=== PATIENT | male | born 1965 | race Caucasian/White ===

== ENCOUNTER 2017-10-07 21:36 | Emergency (ER) | payer MEDICAID, SELFPAY ==
--- NOTE | 2017-10-07 21:36 | DT_ITS ---
This patient was seen during an EMR downtime September 30, 2017 - October 07, 2017. This patient may have a combination of paper and electronic documentation or all paper documentation. All documentation is viewable within the e-chart portion of [employer] for each patient visit.
[2017-10-07 21:38] VITALS: BP 139/72; PULSE 118; RESP 34; TEMP 36; O2SAT 100; BMI 38.8
[2017-10-07 21:43] VITALS: O2SAT 100
--- NOTE | 2017-10-07 21:48 | EKG12_ITS ---
Test Reason : SEPSIS Blood Pressure : / mmHG Vent. Rate : 107 BPM Atrial Rate : 107 BPM P-R Int : 126 ms QRS Dur : 082 ms QT Int : 320 ms P-R-T Axes : 043 046 052 degrees QTc Int : 427 ms Sinus tachycardia Otherwise normal ECG Confirmed by MULUGETA PEDRO, ZURDO ([id number]), photograph editor PATRICIO CARRIZALES ([id number]) on 10/09/2017 5:16:41 PM Referred By: DR CONTRERAS Confirmed By:ZURDO DALAL MD
--- NOTE | 2017-10-07 21:50 | RAD_ITS ---
STUDY: X-RAY CHEST REASON FOR EXAM: Male, 52 years old. Hypoxia TECHNIQUE: Single AP portable view of the chest. COMPARISON: None. FINDINGS: The lungs are expanded. Left lower lung opacity. There is no demonstrated pleural abnormality. Normal size heart. Normal mediastinum and nayla. Normal visualized pulmonary arteries. Normal visualized aortic arch and descending thoracic aorta. Normal visualized thoracic spine. Normal visualized ribs, clavicles, and shoulders. There is no demonstrated abnormality of the visualized soft tissue structures of the upper abdomen. RAD/Chest 1 View (Portable) IMPRESSION: Left lower lung infiltrate. Electronically Signed: oCn Casas DO at 22:23 EDT , Service support ,
[2017-10-07 21:51] VITALS: PULSE 115; RESP 32; O2SAT 100
--- NOTE | 2017-10-07 21:51 | ED.RN ---
NO OLD EKG'S IN MUSE
[2017-10-07] MEDS: LORazepam 2 MG/ML Syringe 1 MG IV (21:57)
[2017-10-07] MEDS: 0.9% Normal Saline 1,000 ML 150 ML IV (22:00)
[2017-10-07] MEDS: Ondansetron 4 MG/2 ML Vial IV ×2 (22:00→23:53)
[2017-10-07] MEDS: Morphine 4 MG/ML Syringe IV (22:01)
[2017-10-07 22:08] VITALS: PULSE 114; RESP 20; TEMP 36.4; O2SAT 100
[2017-10-07 22:10] LABS: Base Excess -12 mmol/L (-2 to +2); Bicarbonate 14.9 mmol/L (22-26); Blood Gas Specimen Type ART; FI02 60; IPAP 9; PO2 20 mmHG (75-100); SITE R Brachial; SO2 25 % (95-99); Total Carbon Dioxide 16 mmol/L; pCO2 33.9 mmHg (35-45); pH 7.25 (7.35-7.45)
[2017-10-07 22:18] LABS: International Normalized Ratio 1.3; Prothrombin Time (Protime)PT. 16.6 SECONDS (11.7-14.9)
[2017-10-07 22:19] LABS: Partial Thromboplast Time 30.7 Seconds (24.1-36.2)
[2017-10-07 22:22] LABS: ALB/GLOB Ratio 0.7 RATIO (0.9-2.4); AST(SGOT) 9 U/L (15-37); Alanine Aminotransfer ALT/SGPT 17 U/L (16-61); Albumin, Serum 2.7 g/dL (3.2-5.0); Alkaline Phosphatase 49 U/L (45-117); Anion Gap 16 (5-15); BUN 33 mg/dL (7-18); BUN/Creat Ratio 12.8 RATIO (10-20); Calcium,Total 7.6 mg/dL (8.5-10.1); Chloride 111 mmol/L (98-107); Creatinine, Serum 2.57 mg/dL (0.70-1.30); EST Glomerular Filtration Rate 28 mL/min (>60); Est Glom Filt Rate - Afr Amer 34 mL/min (>60); Globulin 3.8 g/dL (2.2-4.2); Glucose 203 mg/dL (74-106); Lipase 100 U/L (73-393); Potassium 4.8 mmol/L (3.5-5.1); Protein, Total 6.5 g/dL (6.4-8.2); Sodium Level 144 mmol/L (136-145)
[2017-10-07 22:27] LABS: Absolute Lymphocyte Count 1.26 X10^3/ul (0.83-4.51); Absolute Neutrophil Count 2.5 X10^3/uL (2.0-7.7); Hematocrit 15.6 % (40-54); Lymphocyte # 1.26 X10^3/ul (4.0); Lymphocyte % 30.6 % (19-41); Mean Corp Hgb Conc 32.7 g/gl (32-36); Mean Corpuscular Hgb 36.7 pg (27.0-32.0); Mean Corpuscular Volume 112.2 fL (80-94); Mean Platelet Vol. 11.4 fl (6.2-12.0); Monocyte# 0.37 X10^3/uL; Neutrophil # 2.48 X10^3/uL (2.7-7.7); Neutrophil % 60.2 % (47-70); Platelet Count 100 K/mm3 (150-450); RBC Distribution Width CV 17.9 % (11.6-14.6); RBC Distribution Width SD 71.9 fl (35.1-43.9); Red Blood Count 1.39 M/mm3 (4.6-6.2); White Blood Count 4.1 K/mm3 (4.4-11.0)
[2017-10-07 22:28] LABS: Differential Indicated SCAN CRITERIA MET; Hemoglobin 5.1 g/dl (13.0-16.5); POSITIVE COUNT YES; POSITIVE DIFFERENTIAL NO; POSITIVE MORPHOLOGY YES
[2017-10-07 22:30] VITALS: BP 105/53; PULSE 110; RESP 24; O2SAT 100
--- NOTE | 2017-10-07 22:31 | US_ITS ---
STUDY: VENOUS DOPPLER ULTRASOUND - LEFT LOWER EXTREMITY REASON FOR EXAM: Male, 52 years old. Left leg swelling. Examination was limited secondary to multiple overlying lines. TECHNIQUE: Ultrasound evaluation of the deep vein system to include chapman-scale imaging and compression was performed. Chapman-scale imaging and Doppler sonographic evaluation, including duplex spectral analysis and qualitative color flow sonography, was performed. COMPARISON: None. FINDINGS: Common Femoral Vein: Normal compression, spontaneity and augmentation. Normal color Doppler. Common Femoral Vein/Greater Saphenous Junction: Normal compression. Femoral Proximal: Normal compression. Femoral Middle: Normal compression, spontaneity and augmentation. Normal color Doppler. Femoral Distal: Normal compression. Popliteal Vein: Normal compression, spontaneity and augmentation. Normal color Doppler. Posterior Tibial Vein: Normal compression. Within the popliteal fossa there is a 3.0 x 2.6 x 1.6 centimeter fluid collection. US/Venous Duplex Imag/Limited/Uni IMPRESSION: No DVT identified. Popliteal cyst. Electronically Signed: Rachel Fuller MD at 23:21 EDT Tel , Service support ,
[2017-10-07 22:32] LABS: Lactic Acid 8.4 mmol/L (0.4-2.0)
--- NOTE | 2017-10-07 22:38 | ED.RN ---
LAB CALLS WITH CRITICAL RESULT, LACTIC ACID 8.4, DR. CONTRERAS MADE AWARE.
--- NOTE | 2017-10-07 22:40 | RAD_ITS ---
STUDY: X-RAY - LEFT TIBIA AND FIBULA REASON FOR EXAM: Male, 52 years old. Leg ulcer, infection TECHNIQUE: 3 view(s) of the tibia and fibula were obtained. COMPARISON: None. FINDINGS: Normal visualized tibia. Normal visualized fibula. No fracture or cortical destruction. Posterior soft tissue changes consistent with large leg ulcer with subcutaneous emphysema. Vascular calcifications. RAD/Tibia & Fibula 2 Views IMPRESSION: No fracture. No radiographic evidence of osteomyelitis Large posterior lower leg ulcer. Electronically Signed: Con Casas DO at 23:06 EDT , Service support ,
[2017-10-07 22:49] LABS: Hemoglobin 4.9 g/dl (13.0-16.5)
[2017-10-07 22:50] LABS: Differential Comment SCANNED
--- NOTE | 2017-10-07 22:50 | ED.RN ---
LAB CALLS WITH CRITICAL RESULT, REPEAT HEMOGLOBIN 4.9, DR. CONTRERAS MADE AWARE.
[2017-10-07] MEDS: 0.9% Normal Saline 1,000 ML 999 ML IV (22:59)
[2017-10-07 23:01] VITALS: BP 95/53; PULSE 109; RESP 25; O2SAT 100
--- NOTE | 2017-10-07 23:09 | CT_ITS ---
STUDY: CT ABDOMEN AND PELVIS WITH CONTRAST REASON FOR EXAM: Male, 52 years old. Hypoxia. RADIATION DOSAGE (If Supplied By Facility): CTDIvol = ( 23.39 ) mGy, DLP = ( 1126.41 ) mGycm TECHNIQUE: Transaxial images were obtained from the dome of the diaphragm to the symphysis pubis without oral contrast. 100 ml of Isovue 300 contrast was administered. Sagittal and coronal images were reconstructed. Individualized dose optimization techniques were used for this CT. COMPARISON: Chest October 07, 2017. FINDINGS: The visualized lung bases are unremarkable. Small pericardial effusion. Normal liver. There are multiple small gallstones. Large heterogeneous mass left upper quadrant measuring 14.3 x 10.5 x 12.4 cm suggestive of a large splenic hematoma axial image 27 series 3 and coronal image 75. Normal pancreas. Normal bilateral adrenal glands. Bilateral renal simple cysts the largest inferior pole right kidney measuring 2.0 cm.. Moderate abdominal and pelvic ascites consisting of simple fluid. The stomach is displaced medially by the large splenic mass. Normal small intestine. Normal colon. The appendix is visualized and appears normal. Normal abdominal aorta. Normal inferior vena cava. Mildly enlarged retroperitoneal lymph nodes approximately the level of the superior mesenteric artery measuring from 1.3 to 1.9 cm coronal images 60 and 69. No intra-abdominal free air. Normal urinary bladder. Prostate gland not enlarged. Normal abdominal wall. No rib fracture. CT/Abdomen/Pelvis W IV Cont ONLY IMPRESSION: Splenic hematoma secondary to a ruptured spleen. No rib fracture identified. Moderate abdominal and pelvic ascites which may be secondary to chronic liver disease, although the liver appears normal, among other etiologies. No evidence of acute hemorrhage within the ascites. No extravasation of intravenous contrast. Mild retroperitoneal lymphadenopathy. Small pericardial effusion. Cholelithiasis. Bilateral simple renal cysts. Electronically Signed: Obi Goodrich MD at 2:15 EDT , Service support ,
--- NOTE | 2017-10-07 23:09 | CT_ITS ---
STUDY: CTA CHEST REASON FOR EXAM: Male, 52 years old. Hypoxia, abdominal pain. RADIATION DOSAGE (If Supplied By Facility): CTDIvol = ( 15.90 ) mGy, DLP = ( 754.75 ) mGycm TECHNIQUE: The examination was performed with the intravenous administration of 100 ml of Isovue 370 contrast material. Post-processing of the angiographic images was performed, with multiplanar reformation and 3D reconstruction. Individualized dose optimization techniques were used for this CT. COMPARISON: Chest x-ray October 07, 2017. FINDINGS: Normal enhancement of the main pulmonary artery and right and left pulmonary arteries. Normal enhancement of the bilateral peripheral pulmonary arteries. There is no demonstrated pulmonary embolism. Normal thoracic aorta and visualized great vessels. There is no demonstrated aortic dissection. The heart is not enlarged. Small pericardial effusion. Normal mediastinum. Normal hilar regions. Normal visualized trachea and bronchi. The lungs are well expanded. Normal pulmonary parenchyma. Normal pleura. Normal chest wall structures. Multilevel degenerative changes of the mid and lower thoracic spine with flowing anterior osteophytes. No rib fractures identified. Ruptured spleen described on report of the CT abdomen and pelvis from October 08, 2017. Stomach is displaced medially by the enlarged spleen. Ascites adjacent to the liver. CT/CTA Chest W/WO Contrast IMPRESSION: No acute findings in the chest. No pulmonary embolus or thoracic aortic dissection. Small pericardial effusion. Splenic hematoma secondary to a ruptured spleen. Upper abdominal ascites. Electronically Signed: Obi Goodrich MD at 2:45 EDT , Service support ,
--- NOTE | 2017-10-07 23:30 | ED.VISSUMM ---
- ER Visit Summary Date of Service: 10/07/17 Chief Complaint: Weakness and leg pain History of Present Illness: The patient is a 52 M who does not go to the doctor. Patient's states that he came home from work today earlier than expected complaining that his left leg was hurting him. He has had chronic wounds to the left leg since he had a varicose vein removed. She tells me that he has refused to see anybody for. No reported fevers. After arriving home he told his he had to have a bowel movement that he went to bed. He was feeling poorly in the bed got up to have another bowel movement but collapsed along the way. EMS notes hypoxia and hypotension he received almost a liter of fluids in route from the residence. Patient presents with tachypnea tachycardia hypotension abdominal pain and left leg pain. He takes no medications. Physical Examination: 139/72 heart rate of 118 respirations are 34 pulse ox is in the 80s on room air 100% on BiPAP temperature 96.8 orally Gen: Well-nourished well-developed Head: Normocephalic atraumatic Eyes: Perrl EOMI ENT: TMs clear no rhinorrhea moist mucous membranes Neck: Supple no lymphadenopathy no JVD nontender CVS: Regular tachycardic rate rhythm no murmurs normal S1-S2 Respiratory: Patient is tachypneic clear to auscultation bilaterally chest nontender Abdomen: Soft tender to palpation over the left side of his abdomen nondistended normal bowel sounds no masses Back: Nontender Extremity: There is chronic wounds to the left leg. The wound edges are white and yellow. The wounds are eroded down to what appears to be fascia. I do not see exposed bone. The left leg is swollen compared to the right. Skin: Patient has a dusky skin color. Neuro: alert orientated ?3 CN II-XII intact normal strength sensation Test Results: EKG shows a sinus tachycardia at 107. White count of 4.1 with a hemoglobin of 5.1. Platelets are 100. CO2 of 17 anion gap 16 BUN of 33 and a creatinine of 2.57. INR 1.3 with PTT of 30.7. Troponin 0 0.056. Lactic acid 8.4. Chest x-ray shows a possible infiltrate in the lower lung charles. Blood cultures were obtained. Duplex ultrasound of the left leg was negative for DVT. Emergency Department Course and Treatment: Patient received IV fluids and he was typed and crossed for 1 unit of blood. Only 1 unit was typed and crossed initially as it was unclear if he would be transferred her stay in what timeframe. Patient's blood pressure continued to run with a mean right around 65. His heart rate has come down and his breathing has improved with fluids and pain control. Given the profound anemia and hypotension and his pain in his abdomen and the reported hypoxemia I felt the effect of CT angiography and of the chest evaluation of the abdomen pelvis with contrast outweighed the risk. CTA of chest and CT abdomen pelvis with IV contrast was obtained. Impression: [] This note was generated with [email or web address] software. It may contain incorrect words, spelling, and punctuation that were not noted in review of the chart prior to signing <Cale Ontiveros - Last Filed: 10/08/17 01:33> - ER Visit Summary Date of Service: 10/08/17 Chief Complaint: Headedness, weakness not feeling well History of Present Illness: The patient is a 52 M who presents because of weakness. There is no history of trauma whatsoever per patient or . Physical Examination: Patient is hypotensive. He is pale appearing. His sensorium is slightly depressed. Test Results: Hemoglobin 5.1, anion gap acidosis with a lactate of 8.4. Coags normal. Elevated creatinine which is a new abnormality. Emergency Department Course and Treatment: I was notified by radiologist at 0210 that patient has ascites as well as a ruptured spleen. Second IV was established. Treatment Plan: Patient to receive 2 units of trauma blood. He has received 1 unit of typed blood. Patient and requested [facility] for transfer. Disposition: Transfer to [facility] send her for embolization versus splenectomy. Case was discussed with Dr. Hernandez who is the accepting physician at [facility]. Impression: 1. Hemorrhagic shock secondary to ruptured spleen 2. Anemia, hemoglobin 5.1 3. Lactic acidosis, 8.4 4. Acute renal failure, creatinine 2.57 5. Ascites suspect secondary to liver disease 6. Critical care time 31 minutes 7. Sinus tachycardia documented on monitor 8. Hypotension secondary to hemorrhagic shock This note was generated with [email or web address] software. It may contain incorrect words, spelling, and punctuation that were not noted in review of the chart prior to signing <Matthew Carson - Last Filed: 10/08/17 02:27> ED Disposition <Cale Ontiveros - Last Filed: 10/08/17 01:33> <Matthew Carson - Last Filed: 10/08/17 02:27> - Plan for ED Patient: Chief Complaint: Shortness of Breath Referrals: Care Physician,No Primary [Primary Care Provider] -
--- NOTE | 2017-10-07 23:34 | ED.DCSUM_ITS ---
- ER Visit Summary Date of Service: 10/07/17 Chief Complaint: Weakness and leg pain History of Present Illness: The patient is a 52 M who does not go to the doctor. Patient's states that he came home from work today earlier than expected complaining that his left leg was hurting him. He has had chronic wounds to the left leg since he had a varicose vein removed. She tells me that he has refused to see anybody for. No reported fevers. After arriving home he told his he had to have a bowel movement that he went to bed. He was feeling poorly in the bed got up to have another bowel movement but collapsed along the way. EMS notes hypoxia and hypotension he received almost a liter of fluids in route from the residence. Patient presents with tachypnea tachycardia hypotension abdominal pain and left leg pain. He takes no medications. Physical Examination: 139/72 heart rate of 118 respirations are 34 pulse ox is in the 80s on room air 100% on BiPAP temperature 96.8 orally Gen: Well-nourished well-developed Head: Normocephalic atraumatic Eyes: Perrl EOMI ENT: TMs clear no rhinorrhea moist mucous membranes Neck: Supple no lymphadenopathy no JVD nontender CVS: Regular tachycardic rate rhythm no murmurs normal S1-S2 Respiratory: Patient is tachypneic clear to auscultation bilaterally chest nontender Abdomen: Soft tender to palpation over the left side of his abdomen nondistended normal bowel sounds no masses Back: Nontender Extremity: There is chronic wounds to the left leg. The wound edges are white and yellow. The wounds are eroded down to what appears to be fascia. I do not see exposed bone. The left leg is swollen compared to the right. Skin: Patient has a dusky skin color. Neuro: alert orientated ?3 CN II-XII intact normal strength sensation Test Results: EKG shows a sinus tachycardia at 107. White count of 4.1 with a hemoglobin of 5.1. Platelets are 100. CO2 of 17 anion gap 16 BUN of 33 and a creatinine of 2.57. INR 1.3 with PTT of 30.7. Troponin 0 0.056. Lactic acid 8.4. Chest x-ray shows a possible infiltrate in the lower lung charles. Blood cultures were obtained. Duplex ultrasound of the left leg was negative for DVT. Emergency Department Course and Treatment: Patient received IV fluids and he was typed and crossed for 1 unit of blood. Only 1 unit was typed and crossed initially as it was unclear if he would be transferred her stay in what timeframe. Patient's blood pressure continued to run with a mean right around 65. His heart rate has come down and his breathing has improved with fluids and pain control. Given the profound anemia and hypotension and his pain in his abdomen and the reported hypoxemia I felt the effect of CT angiography and of the chest evaluation of the abdomen pelvis with contrast outweighed the risk. CTA of chest and CT abdomen pelvis with IV contrast was obtained. Impression: [] This note was generated with [email or web address] software. It may contain incorrect words, spelling, and punctuation that were not noted in review of the chart prior to signing <Cale Ontiveros - Last Filed: 10/08/17 01:33> - ER Visit Summary Date of Service: 10/08/17 Chief Complaint: Headedness, weakness not feeling well History of Present Illness: The patient is a 52 M who presents because of weakness. There is no history of trauma whatsoever per patient or . Physical Examination: Patient is hypotensive. He is pale appearing. His sensorium is slightly depressed. Test Results: Hemoglobin 5.1, anion gap acidosis with a lactate of 8.4. Coags normal. Elevated creatinine which is a new abnormality. Emergency Department Course and Treatment: I was notified by radiologist at 0210 that patient has ascites as well as a ruptured spleen. Second IV was established. Treatment Plan: Patient to receive 2 units of trauma blood. He has received 1 unit of typed blood. Patient and requested [facility] for transfer. Disposition: Transfer to [place] send her for embolization versus splenectomy. Case was discussed with Dr. Hernandez who is the accepting physician at [facility]. Impression: 1. Hemorrhagic shock secondary to ruptured spleen 2. Anemia, hemoglobin 5.1 3. Lactic acidosis, 8.4 4. Acute renal failure, creatinine 2.57 5. Ascites suspect secondary to liver disease 6. Critical care time 31 minutes 7. Sinus tachycardia documented on monitor 8. Hypotension secondary to hemorrhagic shock This note was generated with [email or web address] software. It may contain incorrect words, spelling, and punctuation that were not noted in review of the chart prior to signing <Matthew Carson - Last Filed: 10/08/17 02:27> ED Disposition <Cale Ontiveros - Last Filed: 10/08/17 01:33> <Matthew Carson - Last Filed: 10/08/17 02:27> - Plan for ED Patient: Chief Complaint: Shortness of Breath Referrals: Care Physician,No Primary [Primary Care Provider] -
[2017-10-08] VITALS (11 sets, daily range): BP systolic 80–118; BP diastolic 49–79; PULSE 87–111; RESP 15–24; TEMP 36.3–36.8; O2SAT 97–100
[2017-10-08] MEDS: 0.9% Normal Saline 1,000 ML 999 ML IV (00:04)
[2017-10-08 01:00] LABS: Bacteria 0 SEEN /hpf (None Seen); Mucous, Urine 0 SEEN /hpf (<or=2+)
[2017-10-08] MEDS: Ondansetron 4 MG/2 ML Vial IV (01:02)
[2017-10-08 01:04] LABS: Color, Urine Yellow (Yellow); Glucose, Dipstick Normal (Normal); Ketone-Dipstick Negative (Negative); Leukocyte Esterase-Dipstick 25 /ul (Negative); Nitrite-Dipstick Negative (Negative); Occult Blood-Urine 25 /ul (Negative); Protein-Dipstick 30 mg/dl (Negative); Urine Clarity Sl. Cloudy (Clear); Urine Urobilinogen Normal (Normal)
[2017-10-08 01:08] LABS: Urine Bilirubin Dipstick 1 mg/dL (Negative)
[2017-10-08 01:10] LABS: Red Blood Cells-Urine 0-5 SEEN /hpf (0-5); Squamous Epithelial Cells - UA 0-5 SEEN /hpf (0-5); White Blood Cells 0-5 SEEN /hpf (0-5)
[2017-10-08 01:52] LABS: Reflex Lactate? Y
[2017-10-08] MEDS: fentaNYL 100 MCG/2 ML Ampul 50 MCG IV (02:40)
[2017-10-08 02:41] LABS: Blood Gas Specimen Type VEN; O2 Delivery Device Nasal Can; SITE R Brachial; Time Given 230; VBG BASE EXCESS -8 mmol/L (-1.0-3.5); VBG Bicarbonate 19 mmol/L (22-26); VBG Oxygen Content 20 mmol/L (23-33); VBG PO2 21 mmHg (25-40); VBG SO2 27 % (50-70); VBG pCO2 41.9 mmHg (41-51); VBG pH 7.26 (7.32-7.42)
[2017-10-08 02:53] LABS: Lactic Acid 3.7 mmol/L (0.4-2.0)
--- NOTE | 2017-10-08 03:09 | ED.RN ---
2 UNITS OF TRAUMA BLOOD ADMINISTERED. [id number] GIVEN AT 0225, PT AND BLOOD VERIFIED WITH 2 RNS. 0250 WAS STOP TIME FOR [id number]. [id number] STARTED AT 2030, PT AND BLOOD VERIFIED WITH 2 RNS. PT LEFT WITH TRANSPORT WITH THIS UNIT HANGING.
--- NOTE | 2017-10-08 03:28 | ED.RN ---
THIS UNIT [id number] WILL BE CONTINUED UPON TRANSPORT.
[2017-10-09 11:38] LABS: Pathologist Review Reviewed
== END 2017-10-08 02:55 | disposition short-term general hospital (02) ==
LOC: ED 22:01
PROVIDERS: Emergency Provider Emergency Medicine
DX: T79.4XXA Traumatic shock, initial encounter (principal); S36.09XA Other injury of spleen, initial encounter; X58.XXXA Exposure to other specified factors, initial encounter; Y93.9 Activity, unspecified; Y92.89 Other specified places as the place of occurrence of the external cause; Y99.9 Unspecified external cause status; D64.9 Anemia, unspecified; E87.2 Acidosis; N17.9 Acute kidney failure, unspecified; R18.8 Other ascites; R00.0 Tachycardia, unspecified
CPT/HCPCS: 36430; 36600; 71045; 71275; 73590; 74177; 80053; 81001; 82803; 83605; 83690; 84484; 85014; 85018; 85025; 85610; 85730; 86850; 86900; 86920; 86922; 87040; 93005; 93971; 94660; 96361; 96374; 96375; 96376; 99285; J7030; J7040; P9016; P9612; Q9967; A4216; J2405

== ENCOUNTER 2017-11-21 09:07 | Outpatient (RCR) | payer MEDICAID, SELFPAY ==
[2017-11-21 09:45] VITALS: BP 133/71; PULSE 75; RESP 16; TEMP 36.6; BMI 31.6
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
[2017-11-21 14:07] LABS: Prealbumin 25.1 mg/dL (20.0-40.0)
== END 2017-11-26 23:59 ==
LOC: WC 09:07
PROVIDERS: PCP Family Medicine; Visit Provider Internal Medicine
DX: L97.822 Non-pressure chronic ulcer of other part of left lower leg with fat layer exposed (principal); C91.40 Hairy cell leukemia not having achieved remission; F17.200 Nicotine dependence, unspecified, uncomplicated
CPT/HCPCS: 11042; 11045; 84134; 87070; 87075; 87076; 87077; 87186; 87205; 99213; G0463

== ENCOUNTER 2017-12-26 08:30 | Outpatient (RCR) | payer MEDICAID, SELFPAY ==
[2017-11-27 01:33] VITALS: BP 133/71; PULSE 75; RESP 16; TEMP 36.6
[2017-11-28 08:22] VITALS: BP 124/79; PULSE 89; RESP 16; TEMP 36.9
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
[2017-12-05 08:55] VITALS: BP 133/76; PULSE 85; RESP 16; TEMP 36.3
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
[2017-12-12 08:57] VITALS: BP 124/74; PULSE 85; RESP 16; TEMP 36.6
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
[2017-12-19 09:04] VITALS: BP 137/83; PULSE 80; RESP 18; TEMP 36.1
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
[2017-12-26 08:41] VITALS: BP 133/79; PULSE 70; RESP 20; TEMP 36.4
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
== END 2017-12-27 23:59 ==
LOC: WC 08:30
PROVIDERS: PCP Family Medicine; Visit Provider Internal Medicine
DX: L97.822 Non-pressure chronic ulcer of other part of left lower leg with fat layer exposed (principal); C91.40 Hairy cell leukemia not having achieved remission; R60.0 Localized edema
CPT/HCPCS: 11042; 11045

== ENCOUNTER 2018-01-23 10:30 | Outpatient (RCR) | payer MEDICAID, SELFPAY ==
[2017-12-28 01:34] VITALS: BP 133/79; PULSE 70; RESP 20; TEMP 36.4
[2018-01-02 10:07] VITALS: BP 124/73; PULSE 86; RESP 18; TEMP 36.3
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
[2018-01-09 08:21] VITALS: BP 122/80; PULSE 84; RESP 16; TEMP 36.6
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
[2018-01-16 09:07] VITALS: BP 137/73; PULSE 73; RESP 18; TEMP 36.2
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
[2018-01-23 11:14] VITALS: BP 133/75; PULSE 78; RESP 18; TEMP 36.6
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
== END 2018-01-26 23:59 ==
LOC: WC 10:30
PROVIDERS: PCP Family Medicine; Visit Provider Internal Medicine
DX: L97.822 Non-pressure chronic ulcer of other part of left lower leg with fat layer exposed (principal); C91.40 Hairy cell leukemia not having achieved remission; L30.9 Dermatitis, unspecified
CPT/HCPCS: 11042; 11045

== ENCOUNTER 2018-02-20 08:00 | Outpatient (RCR) | payer MEDICAID, SELFPAY ==
[2018-01-27 01:11] VITALS: BP 133/75; PULSE 78; RESP 18; TEMP 36.6
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
[2018-02-03 13:17] VITALS: BP 148/71; PULSE 90; RESP 16; TEMP 36.9
[2018-02-06 08:45] VITALS: BP 130/78; PULSE 73; RESP 16; TEMP 36.4
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
[2018-02-12 11:06] VITALS: BP 124/80; PULSE 86; RESP 16; TEMP 36.7
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
[2018-02-20 08:13] VITALS: BP 129/81; PULSE 84; RESP 16; TEMP 37
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
== END 2018-02-26 23:59 ==
LOC: WC 08:00
PROVIDERS: PCP Family Medicine; Referring Provider Internal Medicine; Visit Provider Internal Medicine
DX: L97.822 Non-pressure chronic ulcer of other part of left lower leg with fat layer exposed (principal); C91.40 Hairy cell leukemia not having achieved remission; R60.0 Localized edema
CPT/HCPCS: 11042; 11045; 15271; 15273; 15274; 29581; 87070; 87075; 87077; 87186; 87205; 99211; Q4172; G0463

== ENCOUNTER 2018-08-21 08:30 | Outpatient (RCR) | payer MEDICAID, SELFPAY ==
[2018-07-31 17:37] VITALS: BMI 34.5
[2018-08-07 08:36] VITALS: BP 120/81; PULSE 81; RESP 20; TEMP 36.6; BMI 34.5
--- NOTE | 2018-08-07 16:21 | PCM.WC.HP ---
(1) Chronic ulcer of left lower extremity with fat layer exposed Status: Chronic Current Visit: Yes Code(s): L97.922 - Non-pressure chronic ulcer of unspecified part of left lower leg with fat layer exposed (2) Nonhealing ulcer of left lower leg with fat layer exposed Status: Chronic Current Visit: Yes Code(s): L97.922 - Non-pressure chronic ulcer of unspecified part of left lower leg with fat layer exposed History of Present Illness Chief Complaint: Chronic Non healing Left lower extremity ulcer. History of Wound: Mr. Condon is a 53yr well known to me. Last seen here in January 2018 at which time he has been managed for a chronic (15 years) nonhealing left lower extremity ulcer. He had achieved significant improvement over his couple of visits here however he started a new job, became more ambulatory and progressively started noting worsening prior to his last visit. He subsequently was lost to follow-up due to inability to take time off of his new job. Since his last visit here, he has noted worsening of previously healed ulcerations and lower extremity swelling and pain. He is also noted copious drainage from the ulcer. Pain is said to be severe enough to keep him up at night. He denies chills, fever or otherwise feeling of unwell. Past Medical History Past Medical History: Chronic Problems (Last Reviewed 07/31/18 @ 17:36 by Catia Mtz) Chronic ulcer of left lower extremity with fat layer exposed (Chronic) Nonhealing ulcer of left lower leg with fat layer exposed (Chronic) Hairy cell leukemia (Chronic) Ruptured spleen (Chronic) Allergies/Adverse Reactions: Allergies adhesive tape Adverse Reaction (Verified 07/31/18 17:34) Rash Home Medications: Ambulatory Orders Medication Instructions Recorded aspirin 81 mg tablet,delayed 81 mg PO QDAY 11/20/17 release acetaminophen 325 mg capsule 325 mg PO Q6H PRN 07/31/18 naproxen sodium 220 mg capsule 220 mg PO BID PRN 07/31/18 oxycodone-acetaminophen 7.5 mg-325 1 tab PO TID PRN #30 tab 07/31/18 mg tablet Smoking Status: Current every day smoker Review of Systems Constitutional: Denies: Anorexia, Chills, Fever Eyes: Denies: Blurred vision, Pain, Redness HEENT: Denies: Difficulty Hearing, Difficulty Swallowing Cardiovascular: Denies: Chest Pain, Chest Tightness Respiratory: Denies: Cough, Hemoptysis Gastrointestinal: Denies: Abdominal Pain, Hematemesis, Vomiting Genitourinary: Denies: Hematuria Skin: Denies: Jaundice - Physical Exam Vital Signs Temp Pulse Resp BP 97.8 F 81 20 H 120/81 H 08/07/18 08:36 08/07/18 08:36 08/07/18 08:36 08/07/18 08:36 General: Alert, Oriented x3, No apparent distress HEENT: Atraumatic, Normocephalic Oral: Moist Mucosa Neck: Supple, No JVD Lungs: Normal air movement Cardiovascular: Regular rate, Regular Rhythm Abdomen: Soft, Non Tender, Obese Extremities: No cyanosis, Edema Skin: Ulcer/ Wound Wound Measurements and Assessment WC - Nurse 1 - General Ulcer Measurement Start: 08/07/18 08:34 Freq: Status: Active Protocol: Activity Type Activity Date Activity User E-Sign Co-Sign Detail Recorded Client Recorded Date Recorded By Document 08/07/18 08:36 SD [id number] 08/07/18 08:47 SD 08/07/18 08:36 Wound Center Nurse 1 [Ulcer Assessment] #3 LLE Circumfrential -Current Size (cm) - Length 21 -Current Size (cm) - Width 30.8 -Current Size (cm) - Depth 0.8 -Total Square Cm 646.8 -Date of Last Picture (Recall this 08/07/18 field) -Photo Taken Yes -Tunneling No -Undermining/Tunneling No -Circular Undermining No -Exudate Amt Medium -Exudate Type Serosanguineous -Wound Margin Flat & Intact -Granulation Amt Medium (34-66%) -Granulation Quality Pale [place] -Necrosis Amt Medium (34-66%) -Necrotic Tissue Type Adherent Slough -Texture (Reba-wound Skin Appearance) Assessed -Moisture (Reba-wound Skin Appearance Assessed ) Maceration -Color (Reba-wound Skin Appearance) Assessed Erythema -Temperature (Reba-wound Skin No Abnormality Appearance) (Pt Warm) -Tenderness on Palpation (Reba-wound No Skin Appearance) -Ulcer Cleansing Wound Cleanser -Foul Odor after Cleansing No -Anesthetic Used 4% Lidocaine Solution 5% Lidocaine Gel [Edema Assessment] -Right Calf (cm) 44 -Right Ankle (cm) 24 -Left Calf (cm) 43 -Left Ankle (cm) 27.2 WC - Nurse 2 - General Ulcer CM Notes Start: 08/07/18 08:34 Freq: Status: Active Protocol: Activity Type Activity Date Activity User E-Sign Co-Sign Detail Recorded Client Recorded Date Recorded By Document 08/07/18 08:58 MW [id number] 08/07/18 09:22 MW 08/07/18 08:58 Wound Center Nurse 2 [Procedure/Treatment] #3 LLE Circumfrential -Time 08:59 -Correct Patient Yes -Correct Side, Site, Position Yes -Correct Procedure Yes -Procedure Performed Yes -Type of Procedure Debridement -Clinical Debridement Subcutaneous -Post Debridement Size (cm) - Length 22.0 -Post Debridement Size (cm) - Width 25.0 -Post Debridement Size (cm) - Depth 0.6 -Total Square Cm 550.00 -Wound/Ulcer Outcome Not Healed -Ulcer Cleansing Rinsed/ Irrigated with Saline -Foul Odor after Cleansing No -Bioengineered Tissue No -Bleeding Controlled with Pressure -Offloading No -Treatment Response Procedure Tolerated Well [See Physician Procedure note for Specifics] Pain Scale: 0-10 Numeric [Pain] -Is Patient Pain Free? No [Location] LLE ULCER -Description Sharp Throbbing -Intensity 5 Query Text:If >3, intervention needed -Duration (hours) Chronic -Pain Behavior Moaning Guarding Withdrawal from Touch -Pain Aggravating Factors Standing Debridement -Alleviating Factors/Interventions Medication -Effectiveness of Alleviating Factor/ Moderately Intervention effective Musculoskeletal: No Muscle Wasting Neurological: Cranial nerves II-XII grossly intact Psych/Mental Status: Normal Affect Debridement Note Post-Debridement Measurements/Treatment WC - Nurse 2 - General Ulcer CM Notes Start: 08/07/18 08:34 Freq: Status: Active Protocol: Activity Type Activity Date Activity User E-Sign Co-Sign Detail Recorded Client Recorded Date Recorded By Document 08/07/18 08:58 MW [id number] 08/07/18 09:22 MW 08/07/18 08:58 Wound Center Nurse 2 #3 LLE Circumfrential -Time 08:59 -Correct Patient Yes -Correct Side, Site, Position Yes -Correct Procedure Yes -Procedure Performed Yes -Type of Procedure Debridement -Clinical Debridement Subcutaneous -Post Debridement Size (cm) - Length 22.0 -Post Debridement Size (cm) - Width 25.0 -Post Debridement Size (cm) - Depth 0.6 -Total Square Cm 550.00 -Wound/Ulcer Outcome Not Healed -Ulcer Cleansing Rinsed/ Irrigated with Saline -Foul Odor after Cleansing No -Bioengineered Tissue No -Bleeding Controlled with Pressure -Offloading No -Treatment Response Procedure Tolerated Well Pain Scale: 0-10 Numeric Is Patient Pain Free? No LLE ULCER -Description Sharp Throbbing -Intensity 5 Query Text:If >3, intervention needed -Duration (hours) Chronic -Pain Behavior Moaning Guarding Withdrawal from Touch -Pain Aggravating Factors Standing Debridement -Alleviating Factors/Interventions Medication -Effectiveness of Alleviating Factor/ Moderately Intervention effective Wound debrided: Left lower extremity cluster Wound Grade/Stage: Stage III Type of Debridement: Excisional debridement Anesthesia Used: 4% Lidocaine Solution, 5% Lidocaine Gel Depth: Down to and including healthy tissue, in the subcutaneous layer Percentage of wound debrided: 100 Instrument Used: 7mm curette Tissue Removed: Slough and devitalized tissue Severity: Fat Layer Exposed Amount of bleeding with debridement: Mild Bleeding Controlled with: Pressure Patient tolerated procedure well Assessment/Plan Active Problems (Last Reviewed 07/31/18 @ 17:36 by Catia Mtz) Chronic ulcer of left lower extremity with fat layer exposed (Chronic) Nonhealing ulcer of left lower leg with fat layer exposed (Chronic) Assessment: Chronic non healing left lower extremity ulcer ( 15 years ) Plan: Now returns with significant worsening of his left lower extremity ulcer. Large slough burden. Debridement done as documented above. Procedure was well-tolerated. Required significant numbing and oral analgesics prior to coming in. Cultures taken. Fibracol with Adaptic over top. Change daily. Double layer Tubigrip and Hang wrap for edema management. As much as possible, he was advised to elevate his lower extremity. Avoid vital standing. Exercise and weight loss also recommended. Increased protein intake. All the questions were answered and they were advised to call with any further questions or concerns. Follow-up in 1 week. This note was generated with [employer] software. It may contain incorrect words, spelling, and punctuation that were not noted in checking the note before signing.
[2018-08-14 09:10] VITALS: BP 128/82; PULSE 78; RESP 18; TEMP 36.6; BMI 34.5
--- NOTE | 2018-08-14 10:59 | PCM.WC.PN ---
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 History of Wound: Mr. Condon is a 53yr well known to me. Last seen here in January 2018 at which time he has been managed for a chronic (15 years) nonhealing left lower extremity ulcer. He had achieved significant improvement over his couple of visits here however he started a new job, became more ambulatory and progressively started noting worsening prior to his last visit. He subsequently was lost to follow-up due to inability to take time off of his new job. Since his last visit here, he has noted worsening of previously healed ulcerations and lower extremity swelling and pain. He is also noted copious drainage from the ulcer. Pain is said to be severe enough to keep him up at night. He denies chills, fever or otherwise feeling of unwell. Progress of Wound: No new concerns at this time. - Physical Exam Vital Signs Temp Pulse Resp BP 97.8 F 78 18 128/82 H 08/14/18 09:10 08/14/18 09:10 08/14/18 09:10 08/14/18 09:10 General: Alert, Oriented x3, Cooperative, No apparent distress HEENT: Atraumatic, Normocephalic Oral: Moist Mucosa Neck: Supple Lungs: Normal air movement Extremities: No cyanosis, Edema Skin: Ulcer/ Wound Wound Measurements and Assessment WC - Nurse 1 - General Ulcer Measurement Start: 08/07/18 08:34 Freq: Status: Active Protocol: Activity Type Activity Date Activity User E-Sign Co-Sign Detail Recorded Client Recorded Date Recorded By Document 08/14/18 09:10 [facility] [id number] 08/14/18 09:21 [facility] 08/14/18 09:10 Wound Center Nurse 1 [Ulcer Assessment] #3 LLE Circumfrential -Combined with other wound No -Current Size (cm) - Length 22.5 -Current Size (cm) - Width 29 -Current Size (cm) - Depth 0.4 -Total Square Cm 652.5 -Photo Taken No -Epithelialization None Present -Tunneling No -Undermining/Tunneling No -Circular Undermining No -Classification - Thickness Full Thickness with Exposed Support Structure -Exudate Amt Medium -Exudate Type Serosanguineous -Wound Margin Thickened -Granulation Amt Small (1-33%) -Granulation Quality Pale Red -Slough/Fibrin Yes -Necrosis Amt Medium (34-66%) -Necrotic Tissue Type Adherent Slough -Texture (Reba-wound Skin Appearance) Assessed Scarring -Moisture (Reba-wound Skin Appearance Assessed ) Dry/Scaly -Color (Reba-wound Skin Appearance) Assessed -Temperature (Reba-wound Skin No Abnormality Appearance) (Pt Warm) -Tenderness on Palpation (Reba-wound Yes Skin Appearance) -Ulcer Cleansing Wound Cleanser -Foul Odor after Cleansing No -Anesthetic Used 4% Lidocaine Solution 5% Lidocaine Gel [Edema Assessment] -Lower Limb Edema Present Yes -Left Calf (cm) 44.4 -Left Ankle (cm) 29.4 WC - Nurse 2 - General Ulcer CM Notes Start: 08/07/18 08:34 Freq: Status: Active Protocol: Activity Type Activity Date Activity User E-Sign Co-Sign Detail Recorded Client Recorded Date Recorded By Document 08/14/18 10:05 MW [id number] 08/14/18 10:17 MW 08/14/18 10:05 Wound Center Nurse 2 [Procedure/Treatment] #3 LLE Circumfrential -Time 10:06 -Correct Patient Yes -Correct Side, Site, Position Yes -Correct Procedure Yes -Procedure Performed Yes -Type of Procedure Debridement -Clinical Debridement Subcutaneous -Post Debridement Size (cm) - Length 23.0 -Post Debridement Size (cm) - Width 26.0 -Post Debridement Size (cm) - Depth 0.5 -Total Square Cm 598.00 -Wound/Ulcer Outcome Not Healed -Ulcer Cleansing Rinsed/ Irrigated with Saline -Foul Odor after Cleansing No -Bioengineered Tissue No -Bleeding Controlled with Pressure -Offloading No -Treatment Response Procedure Tolerated Well [See Physician Procedure note for Specifics] Pain Scale: 0-10 Numeric [Pain] -Is Patient Pain Free? Yes Musculoskeletal: No Muscle Wasting Neurological: Cranial nerves II-XII grossly intact Psych/Mental Status: Normal Affect Debridement Note Post-Debridement Measurements/Treatment WC - Nurse 2 - General Ulcer CM Notes Start: 08/07/18 08:34 Freq: Status: Active Protocol: Activity Type Activity Date Activity User E-Sign Co-Sign Detail Recorded Client Recorded Date Recorded By Document 08/07/18 08:58 MW [id number] 08/07/18 09:22 MW Document 08/14/18 10:05 MW [id number] 08/14/18 10:17 MW 08/07/18 08/14/18 08:58 10:05 Wound Center Nurse 2 #3 LLE Circumfrential -Time 08:59 10:06 -Correct Patient Yes Yes -Correct Side, Site, Position Yes Yes -Correct Procedure Yes Yes -Procedure Performed Yes Yes -Type of Procedure Debridement Debridement -Clinical Debridement Subcutaneous Subcutaneous -Post Debridement Size (cm) - Length 22.0 23.0 -Post Debridement Size (cm) - Width 25.0 26.0 -Post Debridement Size (cm) - Depth 0.6 0.5 -Total Square Cm 550.00 598.00 -Wound/Ulcer Outcome Not Healed Not Healed -Ulcer Cleansing Rinsed/ Rinsed/ Irrigated with Irrigated with Saline Saline -Foul Odor after Cleansing No No -Bioengineered Tissue No No -Bleeding Controlled with Pressure Pressure -Offloading No No -Treatment Response Procedure Procedure Tolerated Well Tolerated Well Pain Scale: 0-10 Numeric Is Patient Pain Free? No Yes LLE ULCER -Description Sharp Throbbing -Intensity 5 -Duration (hours) Chronic -Pain Behavior Moaning Guarding Withdrawal from Touch -Pain Aggravating Factors Standing Debridement -Alleviating Factors/Interventions Medication -Effectiveness of Alleviating Factor/ Moderately Intervention effective Wound debrided: Left Lower Extremity Wound Grade/Stage: Stage III Type of Debridement: Excisional debridement Anesthesia Used: 4% Lidocaine Solution, 5% Lidocaine Gel Depth: Down to and including healthy tissue, in the subcutaneous layer Percentage of wound debrided: 100 Instrument Used: 5mm curette Tissue Removed: Slough and devitalized tissue Severity: Fat Layer Exposed Amount of bleeding with debridement: Mild Bleeding Controlled with: Pressure Patient tolerated procedure well Assessment/Plan Active Problems (Last Reviewed 07/31/18 @ 17:36 by Catia Mtz) Chronic ulcer of left lower extremity with fat layer exposed (Chronic) Nonhealing ulcer of left lower leg with fat layer exposed (Chronic) Assessment: Chronic non healing left lower extremity ulcer ( 15 years ) Plan: No new concerns at this time. Debridement done as documented above. Procedure was well-tolerated. Continue Fibracol with Adaptic over top. Change daily. Double layer Tubigrip and Hang wrap for edema management. As much as possible, he was advised to elevate his lower extremity. Avoid idle standing. Exercise and weight loss also recommended. Increased protein intake. Started on Levofloxacin and doxycycline per culture and sensitivity. All his questions were answered and he was advised to call with any further questions or concerns. Follow-up in 1 week. This note was generated with [employer] dictation software. It may contain incorrect words, spelling, and punctuation that were not noted in checking the note before signing.
--- NOTE | 2018-08-14 11:04 | PN.PCM_ITS ---
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 History of Wound: Mr. Condon is a 53yr well known to me. Last seen here in January 2018 at which time he has been managed for a chronic (15 years) nonhealing left lower extremity ulcer. He had achieved significant improvement over his couple of visits here however he started a new job, became more ambulatory and progressively started noting worsening prior to his last visit. He subsequently was lost to follow-up due to inability to take time off of his new job. Since his last visit here, he has noted worsening of previously healed ulcerations and lower extremity swelling and pain. He is also noted copious drainage from the ulcer. Pain is said to be severe enough to keep him up at night. He denies chills, fever or otherwise feeling of unwell. Progress of Wound: No new concerns at this time. - Physical Exam Vital Signs Temp Pulse Resp BP 97.8 F 78 18 128/82 H 08/14/18 09:10 08/14/18 09:10 08/14/18 09:10 08/14/18 09:10 General: Alert, Oriented x3, Cooperative, No apparent distress HEENT: Atraumatic, Normocephalic Oral: Moist Mucosa Neck: Supple Lungs: Normal air movement Extremities: No cyanosis, Edema Skin: Ulcer/ Wound Wound Measurements and Assessment WC - Nurse 1 - General Ulcer Measurement Start: 08/07/18 08:34 Freq: Status: Active Protocol: Activity Type Activity Date Activity User E-Sign Co-Sign Detail Recorded Client Recorded Date Recorded By Document 08/14/18 09:10 [facility] [id number] 08/14/18 09:21 [facility] 08/14/18 09:10 Wound Center Nurse 1 [Ulcer Assessment] #3 LLE Circumfrential -Combined with other wound No -Current Size (cm) - Length 22.5 -Current Size (cm) - Width 29 -Current Size (cm) - Depth 0.4 -Total Square Cm 652.5 -Photo Taken No -Epithelialization None Present -Tunneling No -Undermining/Tunneling No -Circular Undermining No -Classification - Thickness Full Thickness with Exposed Support Structure -Exudate Amt Medium -Exudate Type Serosanguineous -Wound Margin Thickened -Granulation Amt Small (1-33%) -Granulation Quality Pale Red -Slough/Fibrin Yes -Necrosis Amt Medium (34-66%) -Necrotic Tissue Type Adherent Slough -Texture (Reba-wound Skin Appearance) Assessed Scarring -Moisture (Reba-wound Skin Appearance Assessed ) Dry/Scaly -Color (Reba-wound Skin Appearance) Assessed -Temperature (Reba-wound Skin No Abnormality Appearance) (Pt Warm) -Tenderness on Palpation (Reba-wound Yes Skin Appearance) -Ulcer Cleansing Wound Cleanser -Foul Odor after Cleansing No -Anesthetic Used 4% Lidocaine Solution 5% Lidocaine Gel [Edema Assessment] -Lower Limb Edema Present Yes -Left Calf (cm) 44.4 -Left Ankle (cm) 29.4 WC - Nurse 2 - General Ulcer CM Notes Start: 08/07/18 08:34 Freq: Status: Active Protocol: Activity Type Activity Date Activity User E-Sign Co-Sign Detail Recorded Client Recorded Date Recorded By Document 08/14/18 10:05 MW [id number] 08/14/18 10:17 MW 08/14/18 10:05 Wound Center Nurse 2 [Procedure/Treatment] #3 LLE Circumfrential -Time 10:06 -Correct Patient Yes -Correct Side, Site, Position Yes -Correct Procedure Yes -Procedure Performed Yes -Type of Procedure Debridement -Clinical Debridement Subcutaneous -Post Debridement Size (cm) - Length 23.0 -Post Debridement Size (cm) - Width 26.0 -Post Debridement Size (cm) - Depth 0.5 -Total Square Cm 598.00 -Wound/Ulcer Outcome Not Healed -Ulcer Cleansing Rinsed/ Irrigated with Saline -Foul Odor after Cleansing No -Bioengineered Tissue No -Bleeding Controlled with Pressure -Offloading No -Treatment Response Procedure Tolerated Well [See Physician Procedure note for Specifics] Pain Scale: 0-10 Numeric [Pain] -Is Patient Pain Free? Yes Musculoskeletal: No Muscle Wasting Neurological: Cranial nerves II-XII grossly intact Psych/Mental Status: Normal Affect Debridement Note Post-Debridement Measurements/Treatment WC - Nurse 2 - General Ulcer CM Notes Start: 08/07/18 08:34 Freq: Status: Active Protocol: Activity Type Activity Date Activity User E-Sign Co-Sign Detail Recorded Client Recorded Date Recorded By Document 08/07/18 08:58 MW [id number] 08/07/18 09:22 MW Document 08/14/18 10:05 MW [id number] 08/14/18 10:17 MW 08/07/18 08/14/18 08:58 10:05 Wound Center Nurse 2 #3 LLE Circumfrential -Time 08:59 10:06 -Correct Patient Yes Yes -Correct Side, Site, Position Yes Yes -Correct Procedure Yes Yes -Procedure Performed Yes Yes -Type of Procedure Debridement Debridement -Clinical Debridement Subcutaneous Subcutaneous -Post Debridement Size (cm) - Length 22.0 23.0 -Post Debridement Size (cm) - Width 25.0 26.0 -Post Debridement Size (cm) - Depth 0.6 0.5 -Total Square Cm 550.00 598.00 -Wound/Ulcer Outcome Not Healed Not Healed -Ulcer Cleansing Rinsed/ Rinsed/ Irrigated with Irrigated with Saline Saline -Foul Odor after Cleansing No No -Bioengineered Tissue No No -Bleeding Controlled with Pressure Pressure -Offloading No No -Treatment Response Procedure Procedure Tolerated Well Tolerated Well Pain Scale: 0-10 Numeric Is Patient Pain Free? No Yes LLE ULCER -Description Sharp Throbbing -Intensity 5 -Duration (hours) Chronic -Pain Behavior Moaning Guarding Withdrawal from Touch -Pain Aggravating Factors Standing Debridement -Alleviating Factors/Interventions Medication -Effectiveness of Alleviating Factor/ Moderately Intervention effective Wound debrided: Left Lower Extremity Wound Grade/Stage: Stage III Type of Debridement: Excisional debridement Anesthesia Used: 4% Lidocaine Solution, 5% Lidocaine Gel Depth: Down to and including healthy tissue, in the subcutaneous layer Percentage of wound debrided: 100 Instrument Used: 5mm curette Tissue Removed: Slough and devitalized tissue Severity: Fat Layer Exposed Amount of bleeding with debridement: Mild Bleeding Controlled with: Pressure Patient tolerated procedure well Assessment/Plan Active Problems (Last Reviewed 07/31/18 @ 17:36 by Catia Mtz) Chronic ulcer of left lower extremity with fat layer exposed (Chronic) Nonhealing ulcer of left lower leg with fat layer exposed (Chronic) Assessment: Chronic non healing left lower extremity ulcer ( 15 years ) Plan: No new concerns at this time. Debridement done as documented above. Procedure was well-tolerated. Continue Fibracol with Adaptic over top. Change daily. Double layer Tubigrip and Hang wrap for edema management. As much as possible, he was advised to elevate his lower extremity. Avoid idle standing. Exercise and weight loss also recommended. Increased protein intake. Started on Levofloxacin and doxycycline per culture and sensitivity. All his questions were answered and he was advised to call with any further questions or concerns. Follow-up in 1 week. This note was generated with [employer] dictation software. It may contain incorrect words, spelling, and punctuation that were not noted in checking the note before signing.
[2018-08-21 08:50] VITALS: BP 135/81; PULSE 89; RESP 18; TEMP 36.6; BMI 34.5
--- NOTE | 2018-08-21 10:01 | PCM.WC.PN ---
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 History of Wound: Mr. Condon is a 53yr well known to me. Last seen here in January 2018 at which time he has been managed for a chronic (15 years) nonhealing left lower extremity ulcer. He had achieved significant improvement over his couple of visits here however he started a new job, became more ambulatory and progressively started noting worsening prior to his last visit. He subsequently was lost to follow-up due to inability to take time off of his new job. Since his last visit here, he has noted worsening of previously healed ulcerations and lower extremity swelling and pain. He is also noted copious drainage from the ulcer. Pain is said to be severe enough to keep him up at night. He denies chills, fever or otherwise feeling of unwell. Progress of Wound: No new concerns at this time. - Physical Exam Vital Signs Temp Pulse Resp BP 97.8 F 89 18 135/81 H 08/21/18 08:50 08/21/18 08:50 08/21/18 08:50 08/21/18 08:50 General: Alert, Oriented x3, Cooperative, No apparent distress HEENT: Atraumatic, Normocephalic Oral: Moist Mucosa Neck: Supple Lungs: Normal air movement Abdomen: Non Tender Extremities: No cyanosis, Edema Skin: Ulcer/ Wound Wound Measurements and Assessment WC - Nurse 1 - General Ulcer Measurement Start: 08/07/18 08:34 Freq: Status: Active Protocol: Activity Type Activity Date Activity User E-Sign Co-Sign Detail Recorded Client Recorded Date Recorded By Document 08/21/18 08:50 AN [id number] 08/21/18 09:06 AN 08/21/18 08:50 Wound Center Nurse 1 [Ulcer Assessment] #3 LLE Circumfrential -Current Size (cm) - Length 15.5 -Current Size (cm) - Width 28.0 -Current Size (cm) - Depth 0.5 -Total Square Cm 434.00 -Classification - Thickness Full Thickness without Exposed Support Structure -Exudate Type Serosanguineous -Wound Margin Thickened -Granulation Amt Medium (34-66%) -Granulation Quality Pale Red -Slough/Fibrin Yes -Necrosis Amt Medium (34-66%) -Necrotic Tissue Type Adherent Slough -Structure Exposed Fat Layer Exposed -Texture (Reba-wound Skin Appearance) Assessed Localized Edema Scarring -Moisture (Reba-wound Skin Appearance Assessed ) Maceration Weeping -Color (Reba-wound Skin Appearance) Assessed Erythema -Temperature (Reba-wound Skin No Abnormality Appearance) (Pt Warm) -Tenderness on Palpation (Reba-wound Yes Skin Appearance) -Ulcer Cleansing Rinsed/ Irrigated with Saline -Foul Odor after Cleansing No -Anesthetic Used 4% Lidocaine Solution 5% Lidocaine Gel [Edema Assessment] -Left Calf (cm) 44 -Left Ankle (cm) 28 WC - Nurse 2 - General Ulcer CM Notes Start: 08/07/18 08:34 Freq: Status: Active Protocol: Activity Type Activity Date Activity User E-Sign Co-Sign Detail Recorded Client Recorded Date Recorded By Document 08/21/18 09:25 MW [id number] 08/21/18 09:34 MW 08/21/18 09:25 Wound Center Nurse 2 [Procedure/Treatment] #3 LLE Circumfrential -Time 09:25 -Correct Patient Yes -Correct Side, Site, Position Yes -Correct Procedure Yes -Procedure Performed Yes -Type of Procedure Debridement -Clinical Debridement Subcutaneous -Post Debridement Size (cm) - Length 22.0 -Post Debridement Size (cm) - Width 25.0 -Post Debridement Size (cm) - Depth 0.5 -Total Square Cm 550.00 -Wound/Ulcer Outcome Not Healed -Ulcer Cleansing Rinsed/ Irrigated with Saline -Foul Odor after Cleansing No -Bioengineered Tissue No -Bleeding Controlled with Pressure -Offloading No -Treatment Response Procedure Tolerated Well [See Physician Procedure note for Specifics] Pain Scale: 0-10 Numeric [Pain] -Is Patient Pain Free? Yes Musculoskeletal: No Muscle Wasting Neurological: Cranial nerves II-XII grossly intact Psych/Mental Status: Normal Affect Debridement Note Post-Debridement Measurements/Treatment WC - Nurse 2 - General Ulcer CM Notes Start: 08/07/18 08:34 Freq: Status: Active Protocol: Activity Type Activity Date Activity User E-Sign Co-Sign Detail Recorded Client Recorded Date Recorded By Document 08/07/18 08:58 MW [id number] 08/07/18 09:22 MW Document 08/14/18 10:05 MW [id number] 08/14/18 10:17 MW Document 08/21/18 09:25 MW [id number] 08/21/18 09:34 MW 08/07/18 08/14/18 08/21/18 08:58 10:05 09:25 Wound Center Nurse 2 #3 LLE Circumfrential -Time 08:59 10:06 09:25 -Correct Patient Yes Yes Yes -Correct Side, Site, Position Yes Yes Yes -Correct Procedure Yes Yes Yes -Procedure Performed Yes Yes Yes -Type of Procedure Debridement Debridement Debridement -Clinical Debridement Subcutaneous Subcutaneous Subcutaneous -Post Debridement Size (cm) - Length 22.0 23.0 22.0 -Post Debridement Size (cm) - Width 25.0 26.0 25.0 -Post Debridement Size (cm) - Depth 0.6 0.5 0.5 -Total Square Cm 550.00 598.00 550.00 -Wound/Ulcer Outcome Not Healed Not Healed Not Healed -Ulcer Cleansing Rinsed/ Rinsed/ Rinsed/ Irrigated with Irrigated with Irrigated with Saline Saline Saline -Foul Odor after Cleansing No No No -Bioengineered Tissue No No No -Bleeding Controlled with Pressure Pressure Pressure -Offloading No No No -Treatment Response Procedure Procedure Procedure Tolerated Well Tolerated Well Tolerated Well Pain Scale: 0-10 Numeric Is Patient Pain Free? No Yes Yes LLE ULCER -Description Sharp Throbbing -Intensity 5 -Duration (hours) Chronic -Pain Behavior Moaning Guarding Withdrawal from Touch -Pain Aggravating Factors Standing Debridement -Alleviating Factors/Interventions Medication -Effectiveness of Alleviating Factor/ Moderately Intervention effective Wound debrided: Left lower extremity Wound Grade/Stage: Stage III Type of Debridement: Excisional debridement Anesthesia Used: 4% Lidocaine Solution Depth: Down to and including healthy tissue, in the subcutaneous layer Percentage of wound debrided: 100 Instrument Used: 5mm curette Tissue Removed: slough and devitalized tissue Severity: Fat Layer Exposed Amount of bleeding with debridement: Mild Bleeding Controlled with: Pressure Patient tolerated procedure well Assessment/Plan Active Problems (Last Reviewed 08/21/18 @ 10:26 by Velvet Zafar) Chronic ulcer of left lower extremity with fat layer exposed (Chronic) Nonhealing ulcer of left lower leg with fat layer exposed (Chronic) Assessment: Chronic non healing left lower extremity ulcer ( 15 years ) Plan: Stable. Still has significant lower extremity pain.Debridement done as documented above. Procedure was well-tolerated. Continue antibiotics for 1 more week. Continue Fibracol with Adaptic over top. Change daily. Double layer Tubigrip and Hang wrap for edema management. As much as possible, he was advised to elevate his lower extremity. Avoid idle standing. Exercise and weight loss also recommended. Increased protein intake. All his questions were answered and he was advised to call with any further questions or concerns. Follow-up in 1 week. This note was generated with [employer] dictation software. It may contain incorrect words, spelling, and punctuation that were not noted in checking the note before signing.
--- NOTE | 2018-08-21 10:04 | PN.PCM_ITS ---
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 History of Wound: Mr. Condon is a 53yr well known to me. Last seen here in January 2018 at which time he has been managed for a chronic (15 years) nonhealing left lower extremity ulcer. He had achieved significant improvement over his couple of visits here however he started a new job, became more ambulatory and progressively started noting worsening prior to his last visit. He subsequently was lost to follow-up due to inability to take time off of his new job. Since his last visit here, he has noted worsening of previously healed ulcerations and lower extremity swelling and pain. He is also noted copious drainage from the ulcer. Pain is said to be severe enough to keep him up at night. He denies chills, fever or otherwise feeling of unwell. Progress of Wound: No new concerns at this time. - Physical Exam Vital Signs Temp Pulse Resp BP 97.8 F 89 18 135/81 H 08/21/18 08:50 08/21/18 08:50 08/21/18 08:50 08/21/18 08:50 General: Alert, Oriented x3, Cooperative, No apparent distress HEENT: Atraumatic, Normocephalic Oral: Moist Mucosa Neck: Supple Lungs: Normal air movement Abdomen: Non Tender Extremities: No cyanosis, Edema Skin: Ulcer/ Wound Wound Measurements and Assessment WC - Nurse 1 - General Ulcer Measurement Start: 08/07/18 08:34 Freq: Status: Active Protocol: Activity Type Activity Date Activity User E-Sign Co-Sign Detail Recorded Client Recorded Date Recorded By Document 08/21/18 08:50 AN [id number] 08/21/18 09:06 AN 08/21/18 08:50 Wound Center Nurse 1 [Ulcer Assessment] #3 LLE Circumfrential -Current Size (cm) - Length 15.5 -Current Size (cm) - Width 28.0 -Current Size (cm) - Depth 0.5 -Total Square Cm 434.00 -Classification - Thickness Full Thickness without Exposed Support Structure -Exudate Type Serosanguineous -Wound Margin Thickened -Granulation Amt Medium (34-66%) -Granulation Quality Pale Red -Slough/Fibrin Yes -Necrosis Amt Medium (34-66%) -Necrotic Tissue Type Adherent Slough -Structure Exposed Fat Layer Exposed -Texture (Reba-wound Skin Appearance) Assessed Localized Edema Scarring -Moisture (Reba-wound Skin Appearance Assessed ) Maceration Weeping -Color (Reba-wound Skin Appearance) Assessed Erythema -Temperature (Reba-wound Skin No Abnormality Appearance) (Pt Warm) -Tenderness on Palpation (Reba-wound Yes Skin Appearance) -Ulcer Cleansing Rinsed/ Irrigated with Saline -Foul Odor after Cleansing No -Anesthetic Used 4% Lidocaine Solution 5% Lidocaine Gel [Edema Assessment] -Left Calf (cm) 44 -Left Ankle (cm) 28 WC - Nurse 2 - General Ulcer CM Notes Start: 08/07/18 08:34 Freq: Status: Active Protocol: Activity Type Activity Date Activity User E-Sign Co-Sign Detail Recorded Client Recorded Date Recorded By Document 08/21/18 09:25 MW [id number] 08/21/18 09:34 MW 08/21/18 09:25 Wound Center Nurse 2 [Procedure/Treatment] #3 LLE Circumfrential -Time 09:25 -Correct Patient Yes -Correct Side, Site, Position Yes -Correct Procedure Yes -Procedure Performed Yes -Type of Procedure Debridement -Clinical Debridement Subcutaneous -Post Debridement Size (cm) - Length 22.0 -Post Debridement Size (cm) - Width 25.0 -Post Debridement Size (cm) - Depth 0.5 -Total Square Cm 550.00 -Wound/Ulcer Outcome Not Healed -Ulcer Cleansing Rinsed/ Irrigated with Saline -Foul Odor after Cleansing No -Bioengineered Tissue No -Bleeding Controlled with Pressure -Offloading No -Treatment Response Procedure Tolerated Well [See Physician Procedure note for Specifics] Pain Scale: 0-10 Numeric [Pain] -Is Patient Pain Free? Yes Musculoskeletal: No Muscle Wasting Neurological: Cranial nerves II-XII grossly intact Psych/Mental Status: Normal Affect Debridement Note Post-Debridement Measurements/Treatment WC - Nurse 2 - General Ulcer CM Notes Start: 08/07/18 08:34 Freq: Status: Active Protocol: Activity Type Activity Date Activity User E-Sign Co-Sign Detail Recorded Client Recorded Date Recorded By Document 08/07/18 08:58 MW [id number] 08/07/18 09:22 MW Document 08/14/18 10:05 MW [id number] 08/14/18 10:17 MW Document 08/21/18 09:25 MW [id number] 08/21/18 09:34 MW 08/07/18 08/14/18 08/21/18 08:58 10:05 09:25 Wound Center Nurse 2 #3 LLE Circumfrential -Time 08:59 10:06 09:25 -Correct Patient Yes Yes Yes -Correct Side, Site, Position Yes Yes Yes -Correct Procedure Yes Yes Yes -Procedure Performed Yes Yes Yes -Type of Procedure Debridement Debridement Debridement -Clinical Debridement Subcutaneous Subcutaneous Subcutaneous -Post Debridement Size (cm) - Length 22.0 23.0 22.0 -Post Debridement Size (cm) - Width 25.0 26.0 25.0 -Post Debridement Size (cm) - Depth 0.6 0.5 0.5 -Total Square Cm 550.00 598.00 550.00 -Wound/Ulcer Outcome Not Healed Not Healed Not Healed -Ulcer Cleansing Rinsed/ Rinsed/ Rinsed/ Irrigated with Irrigated with Irrigated with Saline Saline Saline -Foul Odor after Cleansing No No No -Bioengineered Tissue No No No -Bleeding Controlled with Pressure Pressure Pressure -Offloading No No No -Treatment Response Procedure Procedure Procedure Tolerated Well Tolerated Well Tolerated Well Pain Scale: 0-10 Numeric Is Patient Pain Free? No Yes Yes LLE ULCER -Description Sharp Throbbing -Intensity 5 -Duration (hours) Chronic -Pain Behavior Moaning Guarding Withdrawal from Touch -Pain Aggravating Factors Standing Debridement -Alleviating Factors/Interventions Medication -Effectiveness of Alleviating Factor/ Moderately Intervention effective Wound debrided: Left lower extremity Wound Grade/Stage: Stage III Type of Debridement: Excisional debridement Anesthesia Used: 4% Lidocaine Solution Depth: Down to and including healthy tissue, in the subcutaneous layer Percentage of wound debrided: 100 Instrument Used: 5mm curette Tissue Removed: slough and devitalized tissue Severity: Fat Layer Exposed Amount of bleeding with debridement: Mild Bleeding Controlled with: Pressure Patient tolerated procedure well Assessment/Plan Active Problems (Last Reviewed 08/21/18 @ 10:26 by Velvet Zafar) Chronic ulcer of left lower extremity with fat layer exposed (Chronic) Nonhealing ulcer of left lower leg with fat layer exposed (Chronic) Assessment: Chronic non healing left lower extremity ulcer ( 15 years ) Plan: Stable. Still has significant lower extremity pain.Debridement done as documented above. Procedure was well-tolerated. Continue antibiotics for 1 more week. Continue Fibracol with Adaptic over top. Change daily. Double layer Tubigrip and Hang wrap for edema management. As much as possible, he was advised to elevate his lower extremity. Avoid idle standing. Exercise and weight loss also recommended. Increased protein intake. All his questions were answered and he was advised to call with any further questions or concerns. Follow-up in 1 week. This note was generated with [employer] dictation software. It may contain incorrect words, spelling, and punctuation that were not noted in checking the note before signing.
== END 2018-08-26 23:59 ==
LOC: WC 08:30
PROVIDERS: Family Provider Family Medicine; PCP Family Medicine; Visit Provider Internal Medicine
DX: L97.822 Non-pressure chronic ulcer of other part of left lower leg with fat layer exposed (principal); C91.40 Hairy cell leukemia not having achieved remission; Z79.82 Long term (current) use of aspirin; Z79.899 Other long term (current) drug therapy; F17.200 Nicotine dependence, unspecified, uncomplicated
CPT/HCPCS: 11042; 11045; 87070; 87075; 87077; 87186; 87205; 99213; G0463

== ENCOUNTER 2018-08-28 10:12 | Outpatient (RCR) | payer MEDICAID, SELFPAY ==
[2018-08-21 10:26] VITALS: BMI 34.5
[2018-08-27 01:45] VITALS: BP 135/81; PULSE 89; RESP 18; TEMP 36.6
[2018-08-28 10:16] VITALS: BP 144/86; PULSE 79; RESP 16; TEMP 36.4; BMI 34.5
--- NOTE | 2018-08-28 11:22 | PN.PCM_ITS ---
(1) Chronic ulcer of left lower extremity with fat layer exposed Status: Chronic Current Visit: No Code(s): L97.922 - Non-pressure chronic ulcer of unspecified part of left lower leg with fat layer exposed (2) Nonhealing ulcer of left lower leg with fat layer exposed Status: Chronic Current Visit: Yes Code(s): L97.922 - Non-pressure chronic ulcer of unspecified part of left lower leg with fat layer exposed (3) Tobacco abuse Status: Acute Current Visit: Yes Code(s): Z72.0 - Tobacco use Type of Wound Chief Complaint: Chronic Non healing Left lower extremity ulcer. History of Wound: Mr. Condon is a 53yr well known to me. Last seen here in January 2018 at which time he has been managed for a chronic (15 years) nonhealing left lower extremity ulcer. He had achieved significant improvement over his couple of visits here however he started a new job, became more ambulatory and progressively started noting worsening prior to his last visit. He subsequently was lost to follow-up due to inability to take time off of his new job. Since his last visit here, he has noted worsening of previously healed ulcerations and lower extremity swelling and pain. He is also noted copious drainage from the ulcer. Pain is said to be severe enough to keep him up at night. He denies chills, fever or otherwise feeling of unwell. Progress of Wound: No new concerns at this time. - Physical Exam Vital Signs Temp Pulse Resp BP 97.5 F L 79 16 144/86 H 08/28/18 10:16 08/28/18 10:16 08/28/18 10:16 08/28/18 10:16 General: Alert, Oriented x3, Cooperative, No apparent distress HEENT: Atraumatic, Normocephalic Oral: Moist Mucosa Neck: Supple Lungs: Normal air movement Abdomen: Non Tender Skin: Ulcer/ Wound Wound Measurements and Assessment WC - Nurse 1 - General Ulcer Measurement Start: 08/28/18 10:15 Freq: Status: Active Protocol: Activity Type Activity Date Activity User E-Sign Co-Sign Detail Recorded Client Recorded Date Recorded By Document 08/28/18 10:16 [facility] [id number] 08/28/18 10:28 [facility] 08/28/18 10:16 Wound Center Nurse 1 [Ulcer Assessment] #3 LLE Circumfrential -Combined with other wound No -Current Size (cm) - Length 21.6 -Current Size (cm) - Width 28 -Current Size (cm) - Depth 0.4 -Total Square Cm 604.8 -Photo Taken No -Epithelialization None Present -Tunneling No -Undermining/Tunneling No -Circular Undermining No -Exudate Amt Large -Exudate Type Serosanguineous -Wound Margin Distinct, Outline Attached -Granulation Amt Medium (34-66%) -Granulation Quality Pale [place] -Slough/Fibrin Yes -Necrosis Amt Large (67-100%) -Necrotic Tissue Type Adherent Slough -Texture (Reba-wound Skin Appearance) Assessed Scarring -Moisture (Reba-wound Skin Appearance Assessed ) Dry/Scaly -Color (Reba-wound Skin Appearance) Assessed Hemosiderin Staining -Temperature (Reba-wound Skin No Abnormality Appearance) (Pt Warm) -Tenderness on Palpation (Reba-wound Yes Skin Appearance) -Ulcer Cleansing Wound Cleanser -Foul Odor after Cleansing No -Anesthetic Used 4% Lidocaine Solution 5% Lidocaine Gel WC - Nurse 2 - General Ulcer CM Notes Start: 08/28/18 10:15 Freq: Status: Active Protocol: Activity Type Activity Date Activity User E-Sign Co-Sign Detail Recorded Client Recorded Date Recorded By Document 08/28/18 10:36 AN [id number] 08/28/18 10:58 AN 08/28/18 10:36 Wound Center Nurse 2 [Procedure/Treatment] -Time 10:48 -Correct Patient Yes -Correct Side, Site, Position Yes -Correct Procedure Yes -Procedure Performed Yes -Type of Procedure Debridement -Clinical Debridement Subcutaneous -Post Debridement Size (cm) - Length 22 -Post Debridement Size (cm) - Width 22 -Post Debridement Size (cm) - Depth 0.5 -Total Square Cm 484 -Wound/Ulcer Outcome Not Healed -Ulcer Cleansing Rinsed/ Irrigated with Saline -Foul Odor after Cleansing No -Bioengineered Tissue No -Bleeding Controlled with Pressure -Offloading No -Treatment Response Procedure Not Tolerated Well [See Physician Procedure note for Specifics] Pain Scale: 0-10 Numeric [Pain] -Is Patient Pain Free? No [Location] wound -Description Sharp Burning -Intensity 10 Query Text:If >3, intervention needed -Duration (hours) Chronic -Pain Behavior Moaning Crying Withdrawal from Touch Facial Grimacing Screaming -Pain Aggravating Factors ADL's -Alleviating Factors/Interventions Medication -Effectiveness of Alleviating Factor/ Minimally Intervention effective Musculoskeletal: No Muscle Wasting Neurological: Cranial nerves II-XII grossly intact Psych/Mental Status: Normal Affect Debridement Note Post-Debridement Measurements/Treatment WC - Nurse 2 - General Ulcer CM Notes Start: 08/28/18 10:15 Freq: Status: Active Protocol: Activity Type Activity Date Activity User E-Sign Co-Sign Detail Recorded Client Recorded Date Recorded By Document 08/28/18 10:36 AN [id number] 08/28/18 10:58 AN 08/28/18 10:36 Wound Center Nurse 2 #3 LLE Circumfrential -Time 10:48 -Correct Patient Yes -Correct Side, Site, Position Yes -Correct Procedure Yes -Procedure Performed Yes -Type of Procedure Debridement -Clinical Debridement Subcutaneous -Post Debridement Size (cm) - Length 22 -Post Debridement Size (cm) - Width 22 -Post Debridement Size (cm) - Depth 0.5 -Total Square Cm 484 -Wound/Ulcer Outcome Not Healed -Ulcer Cleansing Rinsed/ Irrigated with Saline -Foul Odor after Cleansing No -Bioengineered Tissue No -Bleeding Controlled with Pressure -Offloading No -Treatment Response Procedure Not Tolerated Well Pain Scale: 0-10 Numeric Is Patient Pain Free? No wound -Description Sharp Burning -Intensity 10 Query Text:If >3, intervention needed -Duration (hours) Chronic -Pain Behavior Moaning Crying Withdrawal from Touch Facial Grimacing Screaming -Pain Aggravating Factors ADL's -Alleviating Factors/Interventions Medication -Effectiveness of Alleviating Factor/ Minimally Intervention effective Wound debrided: Left lowwer extremity Wound Grade/Stage: Stage III Type of Debridement: Excisional debridement Anesthesia Used: 4% Lidocaine Solution, 5% Lidocaine Gel Depth: Down to and including healthy tissue, in the subcutaneous layer Percentage of wound debrided: 100 Instrument Used: 7mm curette Tissue Removed: Slough and devitalized tissue Severity: Fat Layer Exposed Amount of bleeding with debridement: Mild Bleeding Controlled with: Pressure Patient tolerated procedure well Assessment/Plan Active Problems (Last Reviewed 08/21/18 @ 10:26 by Pamella Zafar) Nonhealing ulcer of left lower leg with fat layer exposed (Chronic) Tobacco abuse (Acute) Assessment: Chronic non healing left lower extremity ulcer ( 15 years ) Plan: Better granulation tissue today. Debridement done as documented above. Procedure was well-tolerated. Continue antibiotics and fluconazole for 1 more week. Continue Fibracol with Adaptic over top. Change daily. Double layer Tubigrip and Hang wrap for edema management. As much as possible, he was advised to elevate his lower extremity. Avoid idle standing. Exercise and weight loss also recommended. Increased protein intake. All his questions were answered and he was advised to call with any further questions or concerns. Follow-up in 1 week. This note was generated with [employer] dictation software. It may contain incorrect words, spelling, and punctuation that were not noted in checking the note before signing.
== END 2018-09-26 23:59 ==
LOC: WC 10:12
PROVIDERS: Family Provider Family Medicine; PCP Family Medicine; Visit Provider Internal Medicine
DX: L97.822 Non-pressure chronic ulcer of other part of left lower leg with fat layer exposed (principal); Z72.0 Tobacco use
CPT/HCPCS: 11042; 11045

== ENCOUNTER 2021-05-19 14:02 | Emergency (ER) | payer SELFPAY ==
[2021-05-19] VITALS (7 sets, daily range): BP systolic 110–138; BP diastolic 62–72; PULSE 61–97; RESP 18–26; TEMP 36–36.8; O2SAT 98–100; BMI 29.5
--- NOTE | 2021-05-19 14:19 | EKG12_ITS ---
Test Reason : WOUND Blood Pressure : / mmHG Vent. Rate : 079 BPM Atrial Rate : 079 BPM P-R Int : 140 ms QRS Dur : 086 ms QT Int : 362 ms P-R-T Axes : 015 039 048 degrees QTc Int : 415 ms Normal sinus rhythm Normal ECG Confirmed by HEAVEN PEDRO, NEW ([id number]), food editor LUZ MARIA RENDON ([id number]) on 05/22/2021 10:42:45 A M Referred By: Confirmed By:SERENITY COLLADO MD
--- NOTE | 2021-05-19 14:21 | EX.ED.DYSGE1 ---
HPI History of Present Illness Chief Complaint: Wound Detail of Chief Complaint: Painful wound left leg with subjective fever, chills Informant: patient and spouse/S.O. 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 He was seen by Dr. Chavez at the wound center. Has not been seen for proxy 1 year. He presents because of concern for infection. He has greenish smelly discharge for the past 1 week. His constitutional symptoms started 3 to 4 days ago. He has not taken his temperature. He informed me that his wound will not heal because of the hairy cell loop Marlen. He states they attempted skin graft but led to complications. Prior similar symptoms: Yes Recent Illness/Hospitalization: No [facility] Medical History (Updated 05/19/21 @ 16:[address] Matthew Carson MD) Hairy cell leukemia Ruptured spleen Ulcer of left lower leg Home Medications aspirin 81 mg tablet,delayed release 81 mg PO QDAY 11/20/17 [History Last Taken Unknown] acetaminophen 325 mg capsule 325 mg PO Q6H PRN 07/31/18 [History Last Taken Unknown] naproxen sodium 220 mg capsule 220 mg PO BID PRN 07/31/18 [History Last Taken Unknown] cephalexin 500 mg PO Q6 #28 capsule 05/19/21 [Rx Last Taken Unknown] ciprofloxacin HCl 500 mg PO BID #14 tablet 05/19/21 [Rx Last Taken Unknown] sulfamethoxazole-trimethoprim 1 tab PO BID #14 tablet 05/19/21 [Rx Last Taken Unknown] Allergy/AdvReac Type Severity Reaction Status Date / Time adhesive tape AdvReac Rash Verified 05/19/21 14:06 Family History Father Diabetes Lung cancer Kidney disease Mother Breast cancer Asthma Anemia Grandfather Cancer Surgical History (Updated 05/19/21 @ 16:[address] Matthew Carson MD) History of splenectomy Social History (Updated 05/19/21 @ 15:[address] Matthew Carson MD) household members: spouse Smoking Status: Current every day smoker tobacco type: cigarettes alcohol intake: current alcohol intake frequency: holidays/special occasions only substance use type: does not use what type of physical activity do you participate in: none ROS ROS ED Constitutional Constitutional ED: Reports chills, fever(s), subjective and sweats; Denies weight loss Eyes Eyes: Denies blurry vision, change in vision or diplopia ENT ENT ED: Denies ear pain, rhinorrhea or sore throat Cardiovascular Cardiovascular: Denies chest pain or palpitations Respiratory/Chest Respiratory/Chest: Denies cough, dyspnea, dyspnea on exertion or sputum Gastrointestinal Gastrointestinal: Reports nausea; Denies abdominal pain, diarrhea or vomiting Genitourinary Genitourinary ED: Denies dysuria, hematuria or urinary frequency Musculoskeletal Musculoskeletal: Reports other Details: Left leg pain ; Denies arthralgias, back pain, myalgias or neck pain Integumentary Reports rash and other Details: Open wound that is essentially circumferential mid left leg with greenish discharge that has an odor. Neurologic Neurologic: Reports headache(s); Denies weakness Psychiatric Psychiatric: Reports depression Endocrine Endocrinology: Denies polydipsia, polyphagia or polyuria Hematologic/Lymphatic Hematologic/Lymphatic: Denies easy bleeding, easy bruising or lymphadenopathy EXAM Physical Exam Const Vital Signs: 05/19/21 14:03 05/19/21 14:53 05/19/21 15:13 Temperature 96.8 F L 98.1 F 97.9 F Temperature Source Temporal Temporal Oral Pulse Rate 97 77 71 Respiratory Rate 26 H 23 H 20 H Blood Pressure 138/72 H 116/72 122/71 H Blood Pressure Mean 94 86 88 Pulse Ox 100 98 98 Oxygen Delivery Method Room Air Room Air Room Air 05/19/21 15:53 Temperature Temperature Source Pulse Rate 69 Respiratory Rate 23 H Blood Pressure 110/62 Blood Pressure Mean 78 Pulse Ox 98 Oxygen Delivery Method Room Air Positive well nourished and well developed General Appearance ED: well developed; Negative for cyanotic, diaphoretic, NAD or pallor HEENT Reports TM's clear and moist mucous membranes Negative for trauma or tenderness Tympanic Membrane ED: Yes TM's clear Eyes PERRL and EOMs intact bilaterally General Eye ED: Negative for pale conjunctiva or scleral icterus Neck no lymphadenopathy, supple and no JVD Chest Wall inspection of chest normal Resp normal respiratory effort and clear to auscultation bilaterally Effort and Inspection: Negative for pain with movement Cardio regular rate, regular rhythm, S1 normal heart sound, S2 normal heart sound and no murmurs GI normal to inspection, nondistended, normoactive bowel sounds and non-tender Palpation: soft Extremity Negative for normal to inspection Extremity Narrative: Patient has a wound down to the fascia/muscle left leg. There is a green discharge noted that has an odor. There is also granulation tissue. There is slight discoloration of the margins. There is no lymphangitis. There is no popliteal or inguinal lymphadenopathy appreciated. He does have stigmata peripheral arterial disease. General Extremety ED: Yes edema; Negative for tenderness General Extremity: edema Neuro oriented x3, CN's II-XII intact bilaterally and No no sensory deficits noted Sensorium / Orientation: alert Motor Exam: strength 5/5 throughout Psych mental status grossly normal Skin No no rashes or lesions noted and No no wounds General Skin Exam: Negative for jaundice or pallor MDM MDM MDM Narrative Medical decision making narrative: Patient has an infected wound. He has been cared for by Dr. Silva at the wound center and Dr. Johnson has operated on him. He presents because of concern for infection and pain. Work-up was undertaken to determine if patient has sepsis etc. He was administered Zosyn and vancomycin. I had a lengthy discussion with the patient regarding admission versus outpatient treatment and outpatient treatment meaning leaving AGAINST MEDICAL ADVICE. Patient is agreeable to what has been done to this point. His #1 concern is finances. We will have case management speak with him. If he is willing to stay after case management speaks with him we will have the afternoon physician contact hospitalist for admission otherwise patient will be discharged AGAINST MEDICAL ADVICE with optimal outpatient care. In my professional medical opinion patient has a capacity to sign out AGAINST MEDICAL ADVICE. Even though patient has an infection his mental status is unaltered and he is able to make this decision. Patient was informed the risk benefits of admission versus risk benefits of outpatient treatment, meaning leaving AGAINST MEDICAL ADVICE. Patient had very good questions. Patient understands the risks involved. The risks involved and are not limited to the following: Inability to perform 1 or more activities of daily living, which was explained to the patient in layman's terms; worsening infection resulting in more aggressive means of treatment (life support, feeding tube and amputation); impact on physical, cognitive and mental ability and status. May result in patient being in a semivegetative vegetative state which may be permanent. This may result in . Patient understands by staying in the hospital he would have access to the specialist much more rapidly and if there is deterioration this could be acted on more quickly and may lessen the impact with regards to his quality of life and salvage of limb. Lab Data Attestation: I reviewed the patient's lab results. Lab results narrative: CBC and differential unremarkable. Lactate. There is no evidence of endorgan dysfunction. Patient does have 2 sirs criteria with a source. I was informed by nursing staff that he does not wish to be admitted. Will discuss his options and risk benefits of admission versus risk benefits of outpatient treatment with oral antibiotics. Labs: Laboratory Results - last 24 hr 05/19/21 05/19/21 05/19/21 14:33 14:33 14:33 WBC 7.5 RBC 3.22 L Hgb 11.3 L Hct 33.9 L MCV 105.3 H MCH 35.1 H MCHC 33.3 RDW Std Deviation 64.2 H RDW Coeff of Patricia 16.9 H Plt Count 409 MPV 11.9 Immature Gran % (Auto) 0.700 Neut % (Auto) 67.9 Lymph % (Auto) 25.5 Luce % (Auto) 4.7 Eos % (Auto) 1.1 Baso % (Auto) 0.1 Absolute Neuts (auto) 5.1 Absolute Lymphs (auto) 1.90 Nucleated RBC % 0.3 PT Cancelled INR Cancelled APTT Cancelled Sodium Cancelled Potassium Cancelled Chloride Cancelled Carbon Dioxide Cancelled Anion Gap Cancelled BUN Cancelled Creatinine Cancelled Estim Creat Clear Calc Cancelled Est GFR (MDRD) Af Amer Cancelled Est GFR (MDRD) Non-Af Cancelled BUN/Creatinine Ratio Cancelled Glucose Cancelled Lactic Acid Calcium Cancelled Total Bilirubin Cancelled AST Cancelled ALT Cancelled Alkaline Phosphatase Cancelled Total Protein Cancelled Albumin Cancelled Globulin Cancelled Albumin/Globulin Ratio Cancelled 05/19/21 05/19/21 05/19/21 14:33 15:00 15:00 WBC RBC Hgb Hct MCV MCH MCHC RDW Std Deviation RDW Coeff of Patricia Plt Count MPV Immature Gran % (Auto) Neut % (Auto) Lymph % (Auto) Luce % (Auto) Eos % (Auto) Baso % (Auto) Absolute Neuts (auto) Absolute Lymphs (auto) Nucleated RBC % PT 12.9 INR 1.0 APTT 26.0 Sodium 141 Potassium 4.2 Chloride 112 H Carbon Dioxide 23.0 Anion Gap 6 BUN 24 H Creatinine 1.12 Estim Creat Clear Calc 85.63 Est GFR (MDRD) Af Amer 87 Est GFR (MDRD) Non-Af 72 BUN/Creatinine Ratio 21.4 H Glucose 89 Lactic Acid 1.9 Calcium 8.9 Total Bilirubin 0.20 AST 10 L ALT 19 Alkaline Phosphatase 73 Total Protein 7.1 Albumin 2.9 L Globulin 4.2 Albumin/Globulin Ratio 0.7 L EKG Initial EKG: Attestation: I personally reviewed and interpreted this EKG as follows: Interpretation: Sinus Rhythm (Rate is 79. EKG is normal. WA interval is 140 ms. QRS duration 86 ms. QT duration 362 ms and axis is normal.) Discharge Plan Triage Chief Complaint: Wound ED Provider: Matthew Carson Dx/Rx/DC Orders Clinical Impression: Complicated wound infection, Hairy cell leukemia, Sepsis, Status post splenectomy Instructions: Wound Infection Tx Prescriptions: New ciprofloxacin HCl [ciprofloxacin HCl] 500 MG tablet 500 mg PO BID Qty: 14 RF: 0 sulfamethoxazole-trimethoprim [sulfamethoxazole-trimethoprim] 1 TABLET tablet 1 tab PO BID Qty: 14 RF: 0 cephalexin [cephalexin] 500 MG capsule 500 mg PO Q6 Qty: 28 RF: 0 No Action aspirin 81 mg tablet,delayed release (DR/EC) 81 mg PO QDAY RF: 0 naproxen sodium [Aleve] 220 mg capsule 220 mg PO BID PRN (Reason: Pain) RF: 0 acetaminophen [Tylenol] 325 mg capsule 325 mg PO Q6H PRN (Reason: Pain) RF: 0 Primary Care Provider: Dom Rueda Referrals: Dom Rueda, DO [Primary Care Provider] - Center,Wound [NON-STAFF] - As soon as possible Activity Restrictions/Additional Instructions: I have been informed that leaving AGAINST MEDICAL ADVICE may result in harm to me and that the risks involved are not limited to the following: Inability to perform 1 or more activities of daily living, which was explained to the patient in layman's terms; worsening infection resulting in more aggressive means of treatment (life support, feeding tube and amputation); impact on physical, cognitive and mental ability and status. May result in patient being in a semivegetative vegetative state which may be permanent. This may result in . Patient understands by staying in the hospital he would have access to the specialist much more rapidly and if there is deterioration this could be acted on more quickly and may lessen the impact with regards to his quality of life and salvage of limb. If you develop a temperature greater than 100, continue to have shaking chills and cold sweats return to the emergency department immediately and you require admission to the hospital. If you have any concerns do not hesitate to return. Contact wound center for emergency follow-up appointment. Disposition Disposition: Against Medical Advice
[2021-05-19] MEDS: 0.9% Normal Saline 1,000 ML 250 ML IV (14:41)
[2021-05-19] MEDS: HYDROmorphone 1 MG/ML Syringe IV (14:41)
[2021-05-19 14:43] LABS: Absolute Neutrophil Count 5.1 X10^3/uL (2.0-7.7); Basophil# 0.01 X10^3/uL; Basophil% 0.1 % (0-1); Eosinophil# 0.08 X10^3/uL; Eosinophils% 1.1 % (0-5); Hematocrit 33.9 % (40-54); Hemoglobin 11.3 g/dL (13.0-16.5); Lymphocyte % 25.5 % (19-41); Mean Corp Hgb Conc 33.3 g/dL (32-36); Mean Corpuscular Hgb 35.1 pg (27.0-32.0); Mean Corpuscular Volume 105.3 fL (80-94); Mean Platelet Vol. 11.9 fl (6.2-12.0); Monocyte# 0.35 X10^3/uL; Monocyte% 4.7 % (0-10); NRBC Flagged by Analyzer 0.3 % (0-5); Neutrophil # 5.07 X10^3/uL (2.7-7.7); Neutrophil % 67.9 % (47-70); Platelet Count 409 K/mm3 (150-450); RBC Distribution Width CV 16.9 % (11.6-14.6); RBC Distribution Width SD 64.2 fl (35.1-43.9); Red Blood Count 3.22 M/mm3 (4.6-6.2); White Blood Count 7.5 K/mm3 (4.4-11.0)
[2021-05-19] MEDS: Ondansetron 4 MG/2 ML Vial IV (14:47)
[2021-05-19 15:13] LABS: Lactic Acid 1.9 mmol/L (0.4-1.9)
[2021-05-19 15:24] LABS: Prothrombin Time (Protime)PT. 12.9 SECONDS (11.7-14.9)
[2021-05-19 15:33] LABS: ALB/GLOB Ratio 0.7 RATIO (0.9-2.4); AST(SGOT) 10 U/L (15-37); Alanine Aminotransfer ALT/SGPT 19 U/L (16-61); Albumin, Serum 2.9 g/dL (3.2-5.0); Alkaline Phosphatase 73 U/L (45-117); Anion Gap 6 (5-15); BUN 24 mg/dL (7-18); BUN/Creat Ratio 21.4 RATIO (10-20); Calcium,Total 8.9 mg/dL (8.5-10.1); Chloride 112 mmol/L (98-107); Creatinine, Serum 1.12 mg/dL (0.70-1.30); EST Glomerular Filtration Rate 72 mL/min (>60); Est Glom Filt Rate - Afr Amer 87 mL/min (>60); Estimated Creatinine Clearance 85.63 ml/min; Globulin 4.2 g/dL (2.2-4.2); Glucose 89 mg/dL (74-106); Potassium 4.2 mmol/L (3.5-5.1); Protein, Total 7.1 g/dL (6.4-8.2); Sodium Level 141 mmol/L (136-145)
--- NOTE | 2021-05-19 15:39 | ED.RN ---
Patient and patients expressed concern for admission to hospital. Patient states they do not have health insurance and cannot afford for patient to be admitted to hospital due to financial cost. Dr. Carson notified and service worker helper also notified for other financial resources.
--- NOTE | 2021-05-19 16:51 | CM.ED ---
Social Work Consult: Resources Per Dr. Carson, recommending admit to hospital, patient is declining due to not having insurance. Met with patient in room. Introduced self and social media coordinator role. Patient agreeable to speak with this social media coordinator. This social media coordinator broached topic of recommendation for patient to admit to hospital. Patient appears to understand reasoning as to why patient should be admitted to the hospital. This social media coordinator exploring why patient does not currently have insurance. Patient reports to have been on Medicaid in the past but to have allowed this to lapse. Patient is open to this social media coordinator providing patient with medicaid application to be completed and this social media coordinator to fax to [employer]. Patient is not willing to stay in hospital I don't need more bills. This social media coordinator explaining to patient that if patient qualifies for Medicaid that it will retro back to assist patient with medical bills, but to just let [employer] now this. Patient voices understanding. Patient currently choosing to discharge back to the community when finished with medical treatment in the ER. Active support and listening provided. Updated medical team on above. Arun SCHERER, TALIB
--- NOTE | 2021-05-19 20:16 | CM.ED ---
Social Work Nursing providing this social service technician with completed Medicaid application that patient gave to nursing prior to discharging to home. Medicaid application faxed to [employer], [facility]. Arun SCHERER, TALIB
== END 2021-05-19 18:36 | disposition left against medical advice (07) ==
PROVIDERS: Emergency Provider Emergency Medicine; PCP Family Medicine; Visit Provider Emergency Medicine
DX: S81.802A Unspecified open wound, left lower leg, initial encounter (principal); C91.40 Hairy cell leukemia not having achieved remission; A41.9 Sepsis, unspecified organism; F17.210 Nicotine dependence, cigarettes, uncomplicated; Z90.81 Acquired absence of spleen; X58.XXXA Exposure to other specified factors, initial encounter
CPT/HCPCS: 80053; 83605; 85025; 85610; 85730; 87040; 93005; 96365; 96366; 96367; 96375; 99285; J7030; J7040; A4216; J0295; J2405

== ENCOUNTER 2021-11-07 21:22 | Inpatient (IN) | payer SELFPAY ==
--- NOTE | 2021-11-07 22:30 | NURSING ---
Pt arrived to floor via W/C escorted by on 2L NC of portable O2. at side. Pt assisted to bed from W/C, clothes removed and hospital gown applied, telemetry applied as per ANGEL wilcox transferred to wall O2. Vitals obtained.
[2021-11-07 22:51] VITALS: PULSE 107; PULSE 86; RESP 18; TEMP 37.1; O2SAT 95; BMI 31.2
--- NOTE | 2021-11-07 22:55 | HP.PCM.HOS_ITS ---
HPI - General General Date of Admission: 11/07/21 Date of Service: 11/07/21 Chief Complaint: Cough, dyspnea, fever, chills, worsening LLE pain, increased LLE wound drainage. HPI Narrative The patient is a 56 y/o M w/ PMHx: Chronic anemia/macrocytic, Hx Hairy cell leukemia, Hx ruptured spleen s/p splectomy, Tobacco use (1 ppd), Hx Chronic LLE Non-healing ulcer, PAD who presented to [facility] ED with history of ongoing notable coughing, dyspnea, worse with exertion or coughing fits x 1 week, worse x 24 hours with subjective fevers and chills at home with pleuritic chest discomfort, worse with coughing fits and deep inspiratory efforts with recent ill contacts at work, noting several guys were recently sick with respiratory illness prompting ED evaluation initially for concern of COVID illness. Upon arrival at [facility] via family transport he was immediately met at the ED door and evaluated secondary to concerns about his status. The PCU staff was notifyed by the [facility] ED of report and upon report told the family decided to take him i ndependently despite risk. He arrived within moments of the report despite the distance of the drive. Upon [facility] triage evaluation patient was to be tachypneic, tachycardic and hypoxic as well as hypotensive. His heart rate was 110, respiratory rate seated 91% with increased respiratory rate and accessory muscle usage with initial blood pressure with systolic 81. He was immediately placed on 2 L nasal cannula and evaluated and transition to PCU for immediate initiation of care. He additionally reported recent 3 to 4-day history of significantly worsened left lower extremity pain, 10 out of 10, severe in nature with increased drainage from his left lower extremity chronic wounds which he states normally correlates with an infection. He did not allow the outside ED to evaluate the lower extremity or take down his dressing. In the triage he was very adamant that his dressing not be taken down and attempted several times to show recent photo however following lengthy discussions eventually the dressing was taken down and the wound evaluated. Work-up at the outside ED included VS: T 97.5, HR 99, RR 24, BP 98/56 with systolics stable constant in the 90s despite IVFs, 93% on RA, troponin initial 6.7 with repeat 6.6, lactate initial 2.2 with repeat 1.2, D-dimer 955, BNP 5000, CT abdomen and pelvis with no acute intra- abdominal or pelvic abnormality, CT chest with PE protocol with multiple areas of consolidation with cavitary changes and groundglass nodular opacities concerning for potential bacterial pneumonia, staphylococcal pneumonia, mycobacterial pneumonia, cryptogenic organizing pneumonia, pulmonary alveolar proteinosis, pneumocystis Jarecki pneumonia, pulmonary sarcoidosis, lymphocytic interstitial pneumonia, COVID-19 PCR negative, ABG with pH 7.45, PCO2 27, PO2 66, 94% oxygenation, chest x-ray with bilateral extensive multifocal infiltrates, influenza rapid a and b, CBC with WBC 3.1, hemoglobin 8.2, platelet 144 with left shift and lymphopenia with notable increased bands with MCV 111, CMP with sodium 135, potassium 3.6, chloride 100, CO2 22.4, glucose 116, BUN/creatinine 56/2.28, calcium 8.1, albumin 1.9, EKG with ST with rate 103 without acute evidence of ischemia. In the ED patient administered Rocephin and azthromycin IV as well as NS IVFs 30 cc/kg but from current weight obtained at transition he was only given 2L NS and would be appropriate for 3.3L given his weight. From discussion with family they do report that he had blood pressures ranging from 60-80s systolic at the outside facility however upon report that was given it was very specifically stated that he always had blood pressures with systolics in the 90s. COUNTS INCLUDE 234 BEDS AT THE [facility] Medical History (Updated 11/07/21 @ 22:[address] Annette Lindquist MD) Chronic anemia Hairy cell leukemia Ruptured spleen Tobacco abuse Ulcer of left lower leg Home Medications aspirin 81 mg tablet,delayed release 81 mg PO QDAY 11/20/17 [History Last Taken Unknown] acetaminophen 325 mg capsule (Tylenol) 325 mg PO Q6H PRN Pain 07/31/18 [History Last Taken Unknown] naproxen sodium 220 mg capsule (Aleve) 220 mg PO BID PRN Pain 07/31/18 [History Last Taken Unknown] cephalexin 500 mg capsule 500 mg PO Q6 #28 CAPSULES 05/19/21 [Rx Last Taken Unknown] ciprofloxacin HCl 500 mg tablet 500 mg PO BID #14 TABLETS 05/19/21 [Rx Last Taken Unknown] sulfamethoxazole 800 mg-trimethoprim 160 mg tablet 1 tab PO BID #14 TABLETS 05/19/21 [Rx Last Taken Unknown] Allergy/AdvReac Type Severity Reaction Status Date / Time adhesive tape AdvReac Rash Verified 05/19/21 14:06 Family History Father Diabetes Lung cancer Kidney disease Mother Breast cancer Asthma Anemia Grandfather Cancer Surgical History (Updated 11/07/21 @ 22:[address] Annette Lindquist MD) H/O lithotripsy History of arthroplasty of right knee History of splenectomy History of surgery on lower extremity Social History (Updated 11/07/21 @ 22:[address] Annette Lindquist MD) household members: spouse Smoking Status: Current every day smoker tobacco type: cigarettes Smoking packs per day: 1 Smoking cigarettes per day: 20.0 Years smoked: 40 Smoking pack-years: 40.00 alcohol intake: current alcohol intake frequency: holidays/special occasions only substance use type: does not use what type of physical activity do you participate in: none ROS ROS Narrative Admission Review of Systems: CONSTITUTIONAL: No weight loss, + fever, chills, weakness or fatigue. HEENT: Eyes: No visual loss, blurred vision, double vision or yellow sclerae. Ears, Nose, Throat: No hearing loss, sneezing, congestion, runny nose or sore throat. SKIN: + Chronic LLE wounds, notable drainage, increased pain above baseline. CARDIOVASCULAR: + Pleuritic chest pain, edema, No palpitations, orthopnea, syncopal events. RESPIRATORY: + Shortness of breath, cough without marked sputum, No wheezing, hemoptysis. GASTROINTESTINAL: + Anorexia, No nausea, vomiting or diarrhea, abdominal pain, melena, BRBPR. GENITOURINARY: No dysuria, frequency, urgency or retention. NEUROLOGICAL: No headache, dizziness, syncope, paralysis, ataxia, numbness or tingling in the extremities, focal weakness, change in bowel or bladder control, seizure. MUSCULOSKELETAL: + muscle, back pain, joint pain or stiffness. HEMATOLOGIC: + anemia, bleeding or bruising. LYMPHATICS: No enlarged nodes. No history of splenectomy. PSYCHIATRIC: No history of depression or anxiety. ENDOCRINOLOGIC: + reports of sweating, cold or heat intolerance. No polyuria or polydipsia. ALLERGIES: No history of asthma, hives, eczema or rhinitis. Vital Signs Vital Signs Vital Signs: Weight Weight: 243 lb 2.718 oz Body Mass Index (BMI) 31.2 Physical Exam Narrative Physical Examination: General: Awake, alert, oriented x 3 and cooperative, seated upright in PCU bed, transition from ED triage, fatigued and ill-appearing, evidence of respiratory distress. Skin: Normal color, normal turgor, no icterus, no cyanosis except significant left lower extremity chronic wound with slough, circumferential, nearly the entire distal to the knee and proximal to the ankle section, extremely painful, no significant periwound erythema, no markedly foul odor but significant drainage noted HEENT: AT/NC, EOMI, PERRLA, moderately dry MM, no carotid bruits or JVD noted. Lungs: Severely diminished, greater bases, increased respiratory rate, accessory muscle usage, evidence of mild to moderate distress rhonchorous, no rales or wheezing. Heart: Tachycardic with regular rhythm; no gallop, rub audible. Abdomen: Soft, obese, NTTP, ND, distant normal BS, no obvious HM, status post splenectomy status. Extremities: No cyanosis, no clubbing, see skin. Neurological: Patient awake, alert, oriented as noted, cognitive function intact; pupils equally reactive to light and accommodation, cranial nerves II- XII grossly normal, moving all 4 extremities although some limitation left lower extremity given severity of pain with chronic left lower extremity wound, no focal deficits, strength severely global decreased secondary to acute presentation. Psychiatric: Affect appears fatigued, ill-appearing, evidence of respiratory distress, no acute evidence of depressive or anxiety feelings. Assessment & Plan Assessment/Plan (1) Sepsis: (2) Acute respiratory failure with hypoxia: (3) Bilateral pneumonia: (4) Wound of lower extremity: PLAN: Plan The patient is a 56 y/o M w/ PMHx: Chronic anemia/macrocytic, Hx Hairy cell leukemia, Hx ruptured spleen s/p splectomy, Tobacco use (1 ppd), Hx Chronic LLE Non-healing ulcer, PAD who presented to [facility] ED with history of ongoing notable coughing, dyspnea, worse with exertion or coughing fits x 1 week, worse x 24 hours with subjective fevers as well as chills at home with pleuritic chest discomfort, worse with coughing fits and deep inspiratory efforts with recent ill contacts at work, noting several guys were recently sick with respiratory illness prompting ED evaluation initially for concern of COVID illness with concurrent history of worsening tentative 10 severe left lower extremity pain over the last 3 to 4 days #1. Acute Sepsis (awaiting repeat BP assessment following bolus, outside facility reported 30 cc/kg but reported only 2L administration, per weight he would be 3.3 L), Multifactorial, secondary to #1 Acute Hypoxic Respiratory Failure secondary to Complicated Cavitating Community Acquired Pneumonia complicated by s/p splenectomy status and #2: Patient upon ED triage with SBP 80 despite outside facility reported stable SBP 90s, family and patinet noting BP lower intermittent at OSH ED. Currently given patient status to initiate care will transition from triage to PCU, will administer additional 1L bolus and immediately start BSA therapies. If BP does not improve with IVFs discussed with patient and family that he may require transition to the ICU and pressor therapy usage. Will maintain on oxygen with wean as tolerated to room air, ATC duonebs, PRN albuterol, initiate IV Zosyn and Vancomycin w/ MRSA screen and de-escalate as able, consult Infectious disease given notable CT findings, HOB, IS parameters w/ pending sputum cultures, full respiratory viral panel and urine antigens. #2. Acutely Infected Chronic left lower extremity wound with questionable PVD/P AD: Following with wound care however he has not been evaluated in nearly 1 year and only managing it himself with most recent noted visits were in 2019, will consult wound RN, offload, dressing changes, obtain wound culture as well as MRSA wound given appearance and concern for acute infection. May need to consider BEVERLY/PVR; however, at this time patient very adamant about the extremity being touched secondary to severity of pain. Given hypotension currently will utilize fentanyl with initial dressing placement. #3. Acute on chronic anemia, macrocytic: Outside facility ED with CBC w/ Hgb 8. 2 with elevated MCV, most recent noted prior 04/2021 with Hgb 11.3 with elevated MCV, unclear etiology, does have prior CA history as noted although notable NICHOLE presentation concurrently, thus will plan to continue to trend with hydration in the interim, will obtain vitamin B12, folic acid, iron panel/ferritin, guiac. #4. Acute kidney injury: Secondary to suspected acute presentation, unclear if this has been slowly worsening as well on top of acute presentation #1 as noted as not labs in between 04/2021 and recent OSH ED evaluation. Admission BUN/Cr 56/2.28, prior baseline creatinine noted to be 04/2021. Will hydrate, already given 30 cc/kg bolus series at OSH ED, will hold nephrotoxic medications and repeat chemistry in AM, will obtain FeNa assessment, CT A/P with no acute findings. If not improving or worsens may consider nephrology involvement. #5. Hx Hairy cell leukemia: s/p splenic rupture with s/p splectomy status locates infectious presentation, will maintain on broad-spectrum antibiotic therapies as noted above with close ID involvement, given alteration of renal function and hemoglobin decent concern, had been considered in remission for nearly 4 years per discussion with patient and . #6. Tobacco Abuse: Encouraged cessation, inpatient consultation per RT, NR if desired. #7. DVT prophylaxis: SCDs, will cautiously utilize heparin and closely monitor hemoglobin. #8. CODE status: Patient does not have healthcare power of staff attorney nor living will in place discussed CODE status at length including difference between FULL code, DNR-CCA and DNR-CC status. Following discussions about the differences in these status, requested Full Code. Advanced Care Planning Face to Face Time: 16 minutes. Charges/Coding Visit Charges Inpatient E&M: 27782 Init Hosp L3 Procedures Hospitalists Procedures: 33574 Advncd Care Plan 30 Min
[2021-11-07] MEDS: 0.9% Normal Saline 1,000 ML 999 ML IV (23:00)
[2021-11-07] MEDS: guaiFENesin 10 ML UDC (200MG/10ML) 20 ML PO (23:34)
[2021-11-07] MEDS: fentaNYL 100 MCG/2 ML Ampul 50 MCG IV (23:34)
[2021-11-07] MEDS: Ondansetron 4 MG/2 ML Vial IV (23:36)
[2021-11-07] MEDS: Heparin Injection (Vial) 5,000 UNIT/ML VIAL 5000 UNIT SC (23:41)
[2021-11-07] MEDS: 0.9% Normal Saline 1,000 ML 125 ML IV (23:50)
--- NOTE | 2021-11-07 23:57 | NURSING ---
Pt medicated w/PRN 4mg Zofran and then 50mcg Fentanyl IV prior to obtaining wound cultures and then applying wound drsg as per order. , Tracee, at bedside and able to assist w/wound care to LLE. Pt elliott all well, developed some diaphoresis prior to procedure, asked for fan; fan provided after wound was covered. Pt stated appreciation and that he has never had anyone mess w/that leg and not cause me shooting pain. Thank you for being so gentle and describing what you were doing as you were doing it.
[2021-11-08] VITALS (22 sets, daily range): BP systolic 82–110; BP diastolic 49–69; PULSE 65–116; RESP 18–22; TEMP 36.4–37.8; O2SAT 93–97
[2021-11-08] MEDS: Ipratropium/Albuterol Sulfate 3 ML AMPUL.NEB INHALATION ×5 (00:06→18:39)
[2021-11-08 00:17] LABS: Vitamin B12 > 2000 pg/mL (211-911)
[2021-11-08 00:24] LABS: Ferritin 649 ng/mL (26-388); Iron 13 ug/dL (65-175); Iron Binding Capacity,Total 147 ug/dL (250-450); PERCENT IRON SATURATION 8.8 % (15.0-55.0)
[2021-11-08] MEDS: Acetaminophen 325 MG Tablet 650 MG PO ×3 (00:40→22:32)
[2021-11-08] MEDS: oxyCODONE 5 MG Tablet PO ×3 (00:40→12:03)
[2021-11-08] MEDS: MELATONIN 3 MG TABLET PO (00:40)
[2021-11-08] MEDS: 0.9% Saline Lock 10 ML Syringe IV ×3 (00:41→22:41)
[2021-11-08 01:33] LABS: M R Staph aureus DNA By PCR POSITIVE (Negative); Probe Check PASS; Staph aureus DNA By PCR POSITIVE (Negative)
[2021-11-08] MEDS: 0.9% Normal Saline 1,000 ML 125 ML IV ×2 (05:54→16:13)
[2021-11-08 05:55] LABS: Hematocrit 17.8 % (40-54); Hemoglobin 6.1 g/dL (13.0-16.5); Mean Corp Hgb Conc 34.3 g/dL (32-36); Mean Corpuscular Hgb 36.1 pg (27.0-32.0); Mean Corpuscular Volume 105.3 fL (80-94); POSITIVE COUNT YES; POSITIVE DIFFERENTIAL YES; POSITIVE MORPHOLOGY YES; Platelet Count 83 K/mm3 (150-450); RBC Distribution Width CV 17.2 % (11.6-14.6); RBC Distribution Width SD 66.6 fl (35.1-43.9); Red Blood Count 1.69 M/mm3 (4.6-6.2); White Blood Count 2.2 K/mm3 (4.4-11.0)
[2021-11-08 05:57] LABS: Differential Indicated MANUAL DIFF
[2021-11-08 06:13] LABS: Anisocytosis 1+; Macrocytosis 2+
[2021-11-08 06:14] LABS: Platelet Estimate MOD DEC (ADEQ)
[2021-11-08 06:17] LABS: ALB/GLOB Ratio 0.3 RATIO (0.9-2.4); AST(SGOT) 21 U/L (15-37); Alanine Aminotransfer ALT/SGPT 27 U/L (16-61); Albumin, Serum 1.3 g/dL (3.2-5.0); Alkaline Phosphatase 63 U/L (45-117); Anion Gap 6 (5-15); BUN 50 mg/dL (7-18); BUN/Creat Ratio 29.6 RATIO (10-20); Calcium,Total 7.1 mg/dL (8.5-10.1); Chloride 112 mmol/L (98-107); Creatinine, Serum 1.69 mg/dL (0.70-1.30); EST Glomerular Filtration Rate 45 mL/min (>60); Est Glom Filt Rate - Afr Amer 54 mL/min (>60); Estimated Creatinine Clearance 56.75 ml/min; Globulin 4.4 g/dL (2.2-4.2); Glucose 128 mg/dL (74-106); Potassium 3.9 mmol/L (3.5-5.1); Protein, Total 5.7 g/dL (6.4-8.2); Sodium Level 139 mmol/L (136-145)
[2021-11-08 06:18] LABS: Absolute Neutrophil Count 1.5 X10^3/uL (2.0-7.7)
[2021-11-08 06:19] LABS: Atypical Lymphocyte 1+ %; Lymphocyte 27 % (19-41); Metamyelocyte 2 % (0-1); Monocyte 1 % (0-10); Myelocyte 4 % (0-0); Neutrophil-Band 18 % (0-5); Neutrophil-Segmented 48 % (47-70); Nucleated Red Bld Cells,Manual 3 % (0-5); Total Cells Counted 103 (MANUAL DIFF)
--- NOTE | 2021-11-08 06:23 | PCM.RX.CS ---
Consult Pharmacy has been consulted to manage selected antiobiotic: Vancomycin Type of Consult: New start Suspected Infection: Sepsis Prior Doses of Antibiotics Received/Current Regimen: Medications Vancomycin HCl 1,500 mg/ (Sodium Chloride) 530 mls @ 250 mls/hr IV Q12H NELLY Discontinued Medications Vancomycin HCl 2,000 mg/ (Sodium Chloride) 540 mls @ 250 mls/hr IV X1 ONE Stop: 11/08/21 01:09 Last Admin: 11/08/21 03:01 Dose: Infused Labs: Sodium 139 mmol/L (136-145) 11/08/21 05:30 Potassium 3.9 mmol/L (3.5-5.1) 11/08/21 05:30 Chloride 112 mmol/L (98-107) H 11/08/21 05:30 Carbon Dioxide 21.0 mmol/L (21.0-32.0) 11/08/21 05:30 Anion Gap 6 (5-15) 11/08/21 05:30 BUN 50 mg/dL (7-18) H 11/08/21 05:30 Creatinine 1.69 mg/dL (0.70-1.30) H 11/08/21 05:30 Est GFR (MDRD) Af Amer 54 mL/min (>60) L 11/08/21 05:30 Est GFR (MDRD) Non-Af 45 mL/min (>60) L 11/08/21 05:30 BUN/Creatinine Ratio 29.6 RATIO (10-20) H 11/08/21 05:30 Glucose 128 mg/dL (74-106) H 11/08/21 05:30 Microbiology: Microbiology 11/08/21 00:13 Mucosa - Nose Respiratory Panel (PCR) - Final Weight used for dosin.3 kg Estimated Creatinine Clearance: 64.4 Goal Trough: 15-20 mcg/mL Pharmacy Plan for Drug Dosing: Pharmacy Service will continue to monitor and adjust dosing as required. Follow-Up Labs: Trough Vancomycin Labs to be done on [date and time ordered]: 11/09/21 @1200
--- NOTE | 2021-11-08 06:59 | EX.PCM.CONCC ---
Assessment & Plan Assessment/Plan (1) Sepsis: PLAN: Plan RECOMMENDATIONS: 1. Fluid resuscitation per protocol. 2. The patient remains hypotensive status post fluid resuscitation, initiate vasopressor support. 3. Recheck lactate. 4. Transfuse 2 units packed red blood cells. Check H&H posttransfusion. 5. Start PPI therapy twice daily. Check stool for occult blood. 6. Continue broad-spectrum antimicrobials. 7. Obtain wound care and infectious diseases consultations. IMPRESSIONS: 1. Sepsis The patient presented with sepsis due to pneumonia and a lower extremity wound with possible hematogenous spread, with acute sepsis related organ dysfunction as evidenced by lactic acidemia and acute kidney injury. The patient is currently receiving IV fluid resuscitation. Plan to recheck lactate level. If the patient remains hypotensive, despite fluid resuscitation, will initiate vasopressor support and transferred to the ICU. In the interim, plan to continue empiric broad-spectrum antimicrobials, while awaiting further infectious work-up. 2. Shortness of breath and associated hypoxia Related to underlying bilateral multifocal pneumonia. Plan to continue supportive measures as noted above including antimicrobials and supplemental oxygen to maintain saturations at or above 90%. It is reasonable to continue as needed bronchodilator therapy, in light of the patient's tobacco abuse history. 3. Acute kidney injury Likely prerenal in etiology in the setting of #1. Creatinine is improving with volume expansion. Continue to monitor urine output. No current indication for renal replacement therapy. 4. Pancytopenia The patient has chronic pancytopenia with an acute drop in his hemoglobin and platelet count. His thrombocytopenia is likely consumptive in nature and related to his presenting sepsis. The exact etiology for his drop in hemoglobin is not clear. Plan to transfuse 2 units of packed red blood cells. Check H&H posttransfusion. Send stool for occult blood. In addition, the patient will be started on twice daily PPI therapy. 5. History of periods of leukemia status post splenectomy/chronic tobacco dependency Complicates care, management, recovery and prognosis. Continue home medications as indicated. I personally spent 3 minutes discussing the deleterious effects of continued tobacco use with the patient, including modalities which could be utilized to achieve a smoke-free lifestyle. This note was generated with [employer] software. It may contain incorrect words, spelling, and punctuation that were not noted in checking the note before signing. HPI Consult Data Date of Consult: 11/08/21 HPI Narrative Reason for Consultation: Sepsis HPI Narrative: The patient is a 56-year-old male, with a history as outlined below, who presented to the hospital as an outside transfer with fevers, pleuritic chest pain shortness of breath, lower extremity pain and cough. The patient has a chronic nonhealing left lower extremity ulcer. He was previously active with wound care. He does have a smoking history of 1.5 packs of cigarettes per day. He does not utilize supplemental oxygen at his baseline. He has never previously been diagnosed with COPD. 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 He denies any history of illicit drug use. On arrival to the progressive care unit, the patient was noted to be afebrile with tenuous hemodynamics. He was maintaining appropriate oxygen saturations on 2 L/min. Laboratory evaluation revealed evidence of pancytopenia with a hemoglobin of 6.1 g/dL. Platelet count was noted to be 83,000. 18% bands were noted on differential. Chemistry profile was notable for a creatinine of 1.69. Procalcitonin was elevated at 5.7. MRSA screen was positive. The patient has received supplemental IV fluids along with broad-spectrum antimicrobials. In light of his anemia, a type and screen has been sent, with tentative plans to transfuse packed red blood cells. Outside hospital medical records ([place]): CT chest with contrast was suboptimal for the evaluation of pulmonary embolism. Reactive hilar adenopathy and multifocal cavitary consolidations are noted within the right lower lobe, left upper lobe and left lower lobe. BNP was elevated at 5000. Rapid influenza screen was negative. Rapid COVID testing was negative. Creatinine was elevated at 2.28. Troponin was normal. Lactate was elevated at 2.2. [facility] Medical History (Updated 11/08/21 @ 08:[address] Rito Rueda, DO) Chronic anemia DVT (deep venous thrombosis) Hairy cell leukemia Ruptured spleen Tobacco abuse Ulcer of left lower leg Home Medications acetaminophen 325 mg capsule (Tylenol) 325 mg PO Q6H PRN Pain 07/31/18 [History Last Taken 11/06/21] naproxen sodium 220 mg capsule (Aleve) 220 mg PO BID PRN Pain 07/31/18 [History Last Taken 11/03/21] Allergy/AdvReac Type Severity Reaction Status Date / Time adhesive tape AdvReac Rash Verified 05/19/21 14:06 Family History Father Diabetes Lung cancer Kidney disease Mother Breast cancer Asthma Anemia Grandfather Cancer Surgical History H/O lithotripsy History of arthroplasty of right knee History of splenectomy History of surgery on lower extremity Social History (Updated 11/07/21 @ 22:[address] Annette Lindquist MD) household members: spouse Smoking Status: Current every day smoker tobacco type: cigarettes Smoking packs per day: 1 Smoking cigarettes per day: 20.0 Years smoked: 40 Smoking pack-years: 40.00 alcohol intake: current alcohol intake frequency: holidays/special occasions only substance use type: does not use what type of physical activity do you participate in: none ROS Constitutional Constitutional: Reports chills, fatigue, fever(s) and malaise Eyes Eyes: Denies blurry vision or change in vision ENT HEENT: Denies dizziness, dysphagia, nasal discharge or sore throat Cardiovascular Cardiovascular: Reports dyspnea; Denies chest pain or dizziness Respiratory/Chest Respiratory/Chest: Reports cough and dyspnea Gastrointestinal Gastrointestinal: Denies abdominal pain, nausea or vomiting Genitourinary Genitourinary: Denies difficulty urinating Musculoskeletal Musculoskeletal: Denies arthralgias or back pain Integumentary Integumentary: Reports wounds Neurologic Neurologic: Denies abnormal gait or abnormal speech Psychiatric Psychiatric: Denies anxiety or depression Endocrine Endocrinology: Reports fatigue Hematologic/Lymphatic Hematologic/Lymphatic: Denies easy bleeding or easy bruising Physical Exam Const alert and no apparent distress General Appearance: cooperative and ill appearing Nutritional Appearance: obese HEENT normocephalic and head/scalp atraumatic Eyes PERRL, EOMs intact bilaterally and conjunctivae normal Neck supple General: trachea midline Chest inspection of chest normal Resp normal respiratory effort Auscultation: rales; Negative for rhonchi or wheezes Cardio regular rate and regular rhythm GI normal to inspection, nondistended, normoactive bowel sounds Extremity no clubbing, cyanosis or edema Skin Wound Narrative: Lower extremity wound, present on admission, currently wrapped. Neuro oriented x3, CN's II-XII intact bilaterally and no focal motor deficits Psych cooperative and affect normal Lab / Micro Data Result Diagrams: 11/08/21 05:30 11/08/21 05:30 Labs: Laboratory Results - last 24 hr 11/07/21 23:25: Vitamin B12 > 2000 H 11/07/21 23:25: Iron 13 L, TIBC 147 L, Iron Saturation 8.8 L, Ferritin 649 H, Folate 3.30 11/07/21 23:25: Procalcitonin 5.70 H 11/07/21 23:50: S.aureus Protein A PCR POSITIVE H, MRSA (PCR) POSITIVE H 11/07/21 23:50: MRSA (PCR) POSITIVE H 11/08/21 05:30: WBC 2.2 L, RBC 1.69 L, Hgb 6.1 L, Hct 17.8 L, MCV 105.3 H, MCH 36.1 H, MCHC 34.3, RDW Std Deviation 66.6 H, RDW Coeff of Patricia 17.2 H, Plt Count 83 L, MPV 12.0, Neut % (Auto) Not Reportable, Absolute Neuts (auto) 1.5 L, Absolute Lymphs (auto) 0.60 L, Total Counted 103, Neutrophils % (Manual) 48, Band Neutrophils % 18 H, Lymphocytes % (Manual) 27, Monocytes % (Manual) 1, Metamyelocytes % 2 H, Myelocytes % 4 H, Nucleated RBCs/100 WBC 3, Diff Path Review May foll, Atypical Lymphocytes 1+, Platelet Estimate MOD DEC, Anisocytosis 1+, Macrocytosis 2+ 11/08/21 05:30: Sodium 139, Potassium 3.9, Chloride 112 H, Carbon Dioxide 21.0, Anion Gap 6, BUN 50 H, Creatinine 1.69 H, Estim Creat Clear Calc 56.75, Est GFR (MDRD) Af Amer 54 L, Est GFR (MDRD) Non-Af 45 L, BUN/Creatinine Ratio 29.6 H, Glucose 128 H, Calcium 7.1 L, Total Bilirubin 0.40, AST 21, ALT 27, Alkaline Phosphatase 63, Total Protein 5.7 L, Albumin 1.3 L, Globulin 4.4 H, Albumin/Globulin Ratio 0.3 L Micro: Microbiology 11/08/21 00:13 Mucosa - Nose Respiratory Panel (PCR) - Final Charges/Coding Visit Charges Inpatient E&M: 76352 Init Hosp L3 Behavior Interventions Behavior Intervention: 42955 Smoking Cessation 3-10 min
[2021-11-08 07:04] LABS: Urine Sodium < 5 mmol/L (Not Establ.)
[2021-11-08 07:42] LABS: Lactic Acid 1.7 mmol/L (0.4-1.9)
[2021-11-08] MEDS: Aspirin 81 MG TAB.CHEW PO (09:18)
[2021-11-08] MEDS: fentaNYL 100 MCG/2 ML Ampul 50 MCG IV ×2 (09:45→22:32)
--- NOTE | 2021-11-08 10:50 | CASEMGMT ---
RN CM Face to Face with patient for initial transition planning/care coordination assessment. RN CM introduced self and role at [facility]. Patient lying in bed, alert and oriented. Patient willing to participate in assessment and is able to answer all questions appropriately. Care providers, pharmacy, and demographics verified. Patient wishes to discharge home, denies need for home health at this time. Patient states he has no further needs or concerns at this time. CM to follow for discharge planning needs that may arise. PCP: Tony Rueda Specialists: none Preferred Pharmacy: [facility] retail at discharge. Insurance: none Prescription Benefit: none Living Will/HPOA: none LNOK: Living Arrangements: Patient lives with in a single story home with 2 steps and railing to enter the home. Patient states he is independent at home. Transportation: self, DME/HHC: Patient states he has cane, grab bars, and pulse ox. Patient is currently on oxygen, no home oxygen previously. CM to monitor and assist for home oxygen needs. No previous HHC Disposition Plan: Patient to discharge home with family support and follow-up plans in place. Vaishali BAILEY, RN, CM
[2021-11-08] MEDS: Heparin Injection (Vial) 5,000 UNIT/ML VIAL 5000 UNIT SC (11:11)
--- NOTE | 2021-11-08 11:23 | WOUNDNOTE ---
wound photo: left lower leg(lateral view)
--- NOTE | 2021-11-08 11:24 | WOUNDNOTE ---
wound photo: left lower leg(medial view)
--- NOTE | 2021-11-08 11:25 | WOUNDNOTE ---
wound photo: left lower leg(anterior view)
[2021-11-08 12:43] LABS: Pathologist Review Reviewed
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
--- NOTE | 2021-11-08 14:06 | PCM.CONS.GEN ---
Assessment & Plan Assessment/Plan (1) Sepsis: PLAN: Covid neg here and at [place]. Sputum cx pending, gram stain with heavy staph-like bacteria seen. Wound cx pcr with MRSA. Cont vanc/zosyn. ANC is 1500. Will follow, thank you (2) Bilateral pneumonia: (3) Chronic ulcer of left lower extremity with fat layer exposed: HPI Consult Data Date of Consult: 11/08/21 HPI Narrative Reason for Consultation: pneumonia HPI Narrative: TRINITY NICE, is a 56 M with h/o hairy cell leukemia, splenectomy, PAD with LLE lower leg ulcer for past 15 years. Presented to [place] ED yesterday with 7-10 days of dry cough, dyspnea, chest pain, fever, n/v/d, some muscle aches, some headache, some change in taste. No sick contacts, no recent travel, lives with who is feeling fine. He is unvaccinated for covid. Over past week, LLE also with worsening pain, redness, drainage. No inciting events, no animal contact, no hot tubs/lakes/oceans. Came to ED, given azithro/ceftriaxone, transferred to [facility], on vanc/zosyn here. Full ROS performed and neg except as noted above. [facility] Medical History Chronic anemia DVT (deep venous thrombosis) Hairy cell leukemia Ruptured spleen Tobacco abuse Ulcer of left lower leg Home Medications acetaminophen 325 mg capsule (Tylenol) 325 mg PO Q6H PRN Pain 07/31/18 [History Last Taken 11/06/21] naproxen sodium 220 mg capsule (Aleve) 220 mg PO BID PRN Pain 07/31/18 [History Last Taken 11/03/21] Allergy/AdvReac Type Severity Reaction Status Date / Time adhesive tape AdvReac Rash Verified 05/19/21 14:06 Family History Father Diabetes Lung cancer Kidney disease Mother Breast cancer Asthma Anemia Grandfather Cancer Surgical History H/O lithotripsy History of arthroplasty of right knee History of splenectomy History of surgery on lower extremity Social History (Updated 07/12/22 @ 22:[address] Annette Lindquist MD) household members: spouse Smoking Status: Current every day smoker tobacco type: cigarettes Smoking packs per day: 1 Smoking cigarettes per day: 20.0 Years smoked: 40 Smoking pack-years: 40.00 alcohol intake: current alcohol intake frequency: holidays/special occasions only substance use type: does not use what type of physical activity do you participate in: none Physical Exam Const alert, oriented x3 and no apparent distress HEENT normocephalic and head/scalp atraumatic Eyes PERRL and EOMs intact bilaterally Neck supple and No nodes Resp Auscultation: wheezes and diminished lung sounds Cardio regular rate and regular rhythm GI soft to palpation, non-tender and non-distended Extremity General Extremity: Negative for edema Skin Skin Narrative: reviewed LLE photos Neuro CN's II-XII intact bilaterally Lab / Micro Data Attestation: I reviewed the patient's lab results. Result Diagrams: 11/08/21 05:30 11/08/21 05:30 Labs: Laboratory Results - last 24 hr 11/07/21 23:25: Vitamin B12 > 2000 H 11/07/21 23:25: Iron 13 L, TIBC 147 L, Iron Saturation 8.8 L, Ferritin 649 H, Folate 3.30 11/07/21 23:25: Procalcitonin 5.70 H 11/07/21 23:50: S.aureus Protein A PCR POSITIVE H, MRSA (PCR) POSITIVE H 11/07/21 23:50: MRSA (PCR) POSITIVE H 11/08/21 01:16: Urine Creatinine 93.50 11/08/21 01:16: Ur Random Sodium < 5 11/08/21 05:30: WBC 2.2 L, RBC 1.69 L, Hgb 6.1 L, Hct 17.8 L, MCV 105.3 H, MCH 36.1 H, MCHC 34.3, RDW Std Deviation 66.6 H, RDW Coeff of Patricia 17.2 H, Plt Count 83 L, MPV 12.0, Neut % (Auto) Not Reportable, Absolute Neuts (auto) 1.5 L, Absolute Lymphs (auto) 0.60 L, Total Counted 103, Neutrophils % (Manual) 48, Band Neutrophils % 18 H, Lymphocytes % (Manual) 27, Monocytes % (Manual) 1, Metamyelocytes % 2 H, Myelocytes % 4 H, Nucleated RBCs/100 WBC 3, Diff Path Review Reviewed, Atypical Lymphocytes 1+, Platelet Estimate MOD DEC, Anisocytosis 1+, Macrocytosis 2+ 11/08/21 05:30: Sodium 139, Potassium 3.9, Chloride 112 H, Carbon Dioxide 21.0, Anion Gap 6, BUN 50 H, Creatinine 1.69 H, Estim Creat Clear Calc 56.75, Est GFR (MDRD) Af Amer 54 L, Est GFR (MDRD) Non-Af 45 L, BUN/Creatinine Ratio 29.6 H, Glucose 128 H, Calcium 7.1 L, Total Bilirubin 0.40, AST 21, ALT 27, Alkaline Phosphatase 63, Total Protein 5.7 L, Albumin 1.3 L, Globulin 4.4 H, Albumin/Globulin Ratio 0.3 L 11/08/21 07:10: Lactic Acid 1.7 11/08/21 07:49: Blood Type B POSITIVE, Antibody Screen NEGATIVE, Crossmatch See Detail Micro: Microbiology 11/07/21 23:50 Sputum, Expectorated/Coughed Gram Stain - Final 11/07/21 23:50 Wound - Leg, Left Gram Stain - Final 11/08/21 01:16 Urine, Random Streptococcus pneumoniae Antigen (M - Final 11/07/21 01:16 Urine, Clean Catch Legionella Antigen - Final 11/08/21 00:13 Mucosa - Nose Respiratory Panel (PCR) - Final
[2021-11-08] MEDS: Gabapentin 300 MG Capsule PO (16:13)
[2021-11-08 20:39] LABS: Hemoglobin 8.9 g/dL (13.0-16.5)
[2021-11-09] VITALS (14 sets, daily range): BP systolic 96–128; BP diastolic 57–73; PULSE 67–110; RESP 18–26; TEMP 36.7–38.3; O2SAT 88–97
[2021-11-09] MEDS: 0.9% Normal Saline 1,000 ML 125 ML IV ×2 (00:15→10:03)
[2021-11-09] MEDS: guaiFENesin 10 ML UDC (200MG/10ML) 20 ML PO ×2 (05:34→11:47)
[2021-11-09 06:01] LABS: Absolute Lymphocyte Count 0.92 X10^3/uL (0.83-4.51); Basophil# 0.01 X10^3/uL; Basophil% 0.3 % (0-1); Eosinophil# 0.06 X10^3/uL; Eosinophils% 1.9 % (0-5); Hematocrit 21.7 % (40-54); Hemoglobin 7.7 g/dL (13.0-16.5); Lymphocyte # 0.92 X10^3/ul (0.83-4.51); Lymphocyte % 28.9 % (19-41); Mean Corp Hgb Conc 35.5 g/dL (32-36); Mean Corpuscular Volume 98.6 fL (80-94); Mean Platelet Vol. 11.7 fl (6.2-12.0); Monocyte% 3.1 % (0-10); NRBC Flagged by Analyzer 3.5 % (0-5); Neutrophil # 2.01 X10^3/uL (2.7-7.7); Neutrophil % 63.3 % (47-70); POSITIVE COUNT YES; POSITIVE MORPHOLOGY YES; Platelet Count 76 K/mm3 (150-450); RBC Distribution Width CV 19.1 % (11.6-14.6); RBC Distribution Width SD 68.1 fl (35.1-43.9); White Blood Count 3.2 K/mm3 (4.4-11.0)
[2021-11-09 06:08] LABS: Differential Indicated SCAN CRITERIA MET
[2021-11-09 06:36] LABS: Macrocytosis 1+
[2021-11-09 06:37] LABS: Anisocytosis 2+; Platelet Estimate MOD DEC (ADEQ)
[2021-11-09 06:38] LABS: Burr Cells 1+
[2021-11-09 06:39] LABS: ALB/GLOB Ratio 0.3 RATIO (0.9-2.4); AST(SGOT) 17 U/L (15-37); Alanine Aminotransfer ALT/SGPT 23 U/L (16-61); Albumin, Serum 1.2 g/dL (3.2-5.0); Alkaline Phosphatase 65 U/L (45-117); Anion Gap 6 (5-15); BUN 46 mg/dL (7-18); BUN/Creat Ratio 30.1 RATIO (10-20); Chloride 114 mmol/L (98-107); Creatinine, Serum 1.53 mg/dL (0.70-1.30); EST Glomerular Filtration Rate 50 mL/min (>60); Est Glom Filt Rate - Afr Amer 61 mL/min (>60); Estimated Creatinine Clearance 62.68 ml/min; Globulin 4.4 g/dL (2.2-4.2); Glucose 129 mg/dL (74-106); Potassium 3.4 mmol/L (3.5-5.1); Protein, Total 5.6 g/dL (6.4-8.2); Sodium Level 140 mmol/L (136-145)
[2021-11-09] MEDS: Ipratropium/Albuterol Sulfate 3 ML AMPUL.NEB INHALATION ×4 (07:37→20:00)
[2021-11-09] MEDS: fentaNYL 100 MCG/2 ML Ampul 50 MCG IV ×2 (07:57→11:00)
[2021-11-09] MEDS: 0.9% Saline Lock 10 ML Syringe IV (07:58)
[2021-11-09] MEDS: Gabapentin 300 MG Capsule PO ×3 (08:03→16:43)
[2021-11-09] MEDS: Potassium Chloride Oral Tablet 20 MEQ 40 MEQ PO (08:04)
--- NOTE | 2021-11-09 08:44 | PN.CC_ITS ---
Assessment & Plan Assessment/Plan (1) Sepsis: PLAN: Plan RECOMMENDATIONS: 1. Continue antimicrobials per ID recommendations. 2. GI consultation. 3. Continue to monitor blood counts and transfuse if hemoglobin is less than 7 g/dL. 4. Continue PPI therapy. 5. Pain control per hospitalist. 6. Encourage incentive spirometer use and mobilize patient as tolerated. IMPRESSIONS: 1. Sepsis The patient presented with sepsis due to pneumonia and a lower extremity wound with possible hematogenous spread, with acute sepsis related organ dysfunction as evidenced by lactic acidemia and acute kidney injury. Plan to continue current supportive measures including antimicrobials per ID recommendations. Acute kidney injury is improving. 2. Shortness of breath and associated hypoxia Related to underlying bilateral multifocal pneumonia. Plan to continue supportive measures as noted above including antimicrobials and supplemental oxygen to maintain saturations at or above 90%, if needed. It is reasonable to continue as needed bronchodilator therapy, in light of the patient's tobacco abuse history. 3. Acute kidney injury Improving. Likely prerenal in etiology in the setting of #1. Creatinine is improving with volume expansion. Continue to monitor urine output. No current indication for renal replacement therapy. 4. Pancytopenia The patient has chronic pancytopenia with an acute drop in his hemoglobin and platelet count. His thrombocytopenia is likely consumptive in nature and related to his presenting sepsis. The exact etiology for his drop in hemoglobin is not clear. The patient has been transfused blood products with gastro enterology consultation pending. Stool for occult blood was positive. Plan to continue PPI therapy as ordered. 5. History of periods of leukemia status post splenectomy/chronic tobacco dependency Complicates care, management, recovery and prognosis. Continue home medications as indicated. Tobacco cessation counseling was provided. This note was generated with [employer]ostream dictation software. It may contain incorrect words, spelling, and punctuation that were not noted in checking the note before signing. Subjective Subjective The patient was seen and examined at the bedside this morning. Events from the last 24 hours have been reviewed. The patient is currently afebrile, hemodynamically stable and maintaining appropriate oxygen saturations on room air. He is currently documented to be overall net +3.7 L for the hospitalization. The patient was transfused 2 units packed red blood cells yesterday. Hemoglobin this morning was noted to be 7.7 g/dL. Platelet count remains low at 76,000. Potassium is low at 3.4 with a creatinine of 1.5. The patient continues to report ongoing lower extremity pain. Objective Data Objective Data The patient's most recent lab work, culture data and imaging studies have all been personally reviewed. Stool for occult blood was positive. Blood cultures are pending. Respiratory viral panel was negative. Strep and urine Legionella antigens were negative. Sputum and wound cultures are pending. Vital Signs: Vital Signs Temp Pulse Resp BP Pulse Ox O2 Del Method O2 Flow Rate 98.0 F 69 18 103/59 L 92 Room Air 1 11/09/21 05:42 11/09/21 07:37 11/09/21 07:37 11/09/21 05:42 11/09/21 07:37 11/09/21 07:37 11/08/21 11:01 Oxygen Flow Rate (L/min) 1 Oxygen Delivery Method Room Air Weight: 258 lb 9.636 oz Body Mass Index (BMI) 31.2 Intake & Output: Intake and Output for Last 24 Hours 11/07/21 11/08/21 11/09/21 23:59 23:59 23:59 Intake Total 899.1 / 899.1 4058.33 / 4058.33 1582.08 / 1582.08 Output Total 2475 / 2475 350 / 350 Balance 899.1 / 899.1 1583.33 / 1583.33 1232.08 / 1232.08 Lab / Micro Data Attestation: I reviewed the patient's lab results. Result Diagrams: 11/09/21 05:20 11/09/21 05:20 Labs: Laboratory Results - last 24 hr 11/08/21 05:30: Diff Path Review Reviewed 11/08/21 07:49: Blood Type B POSITIVE, Antibody Screen NEGATIVE, Crossmatch See Detail 11/08/21 20:30: Hgb 8.9 L 11/09/21 05:20: WBC 3.2 L, RBC 2.20 L, Hgb 7.7 L, Hct 21.7 L, MCV 98.6 H D, MCH 35.0 H, MCHC 35.5, RDW Std Deviation 68.1 H, RDW Coeff of Patricia 19.1 H, Plt Count 76 L, MPV 11.7, Immature Gran % (Auto) 2.500 H, Neut % (Auto) 63.3, Lymph % (Auto) 28.9, Miner % (Auto) 3.1, Eos % (Auto) 1.9, Baso % (Auto) 0.3, Absolute Neuts (auto) 2.0, Absolute Lymphs (auto) 0.92, Nucleated RBC % 3.5, Platelet Estimate MOD DEC, Anisocytosis 2+, Macrocytosis 1+, Solitario Cells 1+ 11/09/21 05:20: Sodium 140, Potassium 3.4 L, Chloride 114 H, Carbon Dioxide 20.0 L, Anion Gap 6, BUN 46 H, Creatinine 1.53 H, Estim Creat Clear Calc 62.68, Est GFR (MDRD) Af Amer 61, Est GFR (MDRD) Non-Af 50 L, BUN/Creatinine Ratio 30.1 H, Glucose 129 H, Calcium 7.0 L, Total Bilirubin 0.50, AST 17, ALT 23, Alkaline Phosphatase 65, Total Protein 5.6 L, Albumin 1.2 L, Globulin 4.4 H, Albumin/Globulin Ratio 0.3 L Micro: Microbiology 11/08/21 20:17 Stool Stool Occult Blood ([facility]) - Final Occult Blood Positive 11/07/21 23:50 Sputum, Expectorated/Coughed Gram Stain - Final 11/07/21 23:50 Wound - Leg, Left Gram Stain - Final 11/08/21 01:16 Urine, Random Streptococcus pneumoniae Antigen (M - Final 11/07/21 01:16 Urine, Clean Catch Legionella Antigen - Final 11/08/21 00:13 Mucosa - Nose Respiratory Panel (PCR) - Final Physical Exam Const alert and no apparent distress General Appearance: cooperative and ill appearing Nutritional Appearance: obese HEENT normocephalic and head/scalp atraumatic Eyes PERRL, EOMs intact bilaterally and conjunctivae normal Neck supple General: trachea midline Chest inspection of chest normal Resp normal respiratory effort Auscultation: rales; Negative for rhonchi or wheezes Cardio regular rate and regular rhythm GI normal to inspection, nondistended, normoactive bowel sounds Extremity no clubbing, cyanosis or edema Skin Wound Narrative: Lower extremity wound, present on admission, currently wrapped. Neuro oriented x3, CN's II-XII intact bilaterally and no focal motor deficits Psych cooperative and affect normal Charges/Coding Visit Charges Inpatient E&M: 30770 Subs Hosp L2
--- NOTE | 2021-11-09 10:22 | PN.ID_ITS ---
Physical Exam Narrative Feeling about the same, no dyspnea, no fever, some cough, diarrhea better Const alert and no apparent distress Resp Auscultation: wheezes Cardio regular rate and regular rhythm GI soft to palpation, non-tender and non-distended Skin no rashes or lesions noted ID ID: Route of nutrition/ use of supplements: [] Nutritional Intake: [] IV Site: [] Patel Catheter: [] Assessment & Plan Assessment/Plan (1) Sepsis: PLAN: Covid neg here and at [place]. Sputum cx pending, gram stain with heavy staph-like bacteria seen. Bcx neg so far. Wound cx pcr with MRSA. Cont vanc/zosyn. Wbc and ANC much better this AM. Will request OSH updated micro results. Will follow (2) Bilateral pneumonia: (3) Chronic ulcer of left lower extremity with fat layer exposed:
--- NOTE | 2021-11-09 10:59 | NURSING ---
This RN spoke with Americo in the [facility] ED. He reported that initial blood cultures are negative. If the culture and sensitivity show anything when they result tomorrow he will fax us the results. Fax number provided to him.
[2021-11-09] MEDS: oxyCODONE 5 MG Tablet PO ×3 (11:56→22:01)
--- NOTE | 2021-11-09 12:28 | PN.HOSP_ITS ---
Subjective Subjective Patient states he is feeling a bit better with decreased leg pain however he still in considerable amount of pain. Has been weaned to room air but still coughing. Guaiac was positive and I did discuss with him the need for GI consultation. Patient indicates he is not sure if he has ever seen dermatology for his chronic lower extremity wound. I discussed with him that I would strongly encourage outpatient follow-up after discharge to have this biopsies as I suspect something else besides just chronic wound is occurring. Objective Data Objective Data Vital Signs: Vital Signs Temp Pulse Resp BP Pulse Ox O2 Del Method O2 Flow Rate 98.1 F 94 20 H 112/73 97 Room Air 1 11/09/21 11:45 11/09/21 11:45 11/09/21 11:45 11/09/21 11:45 11/09/21 11:45 11/09/21 11:45 11/08/21 11:01 Oxygen Flow Rate (L/min) 1 Oxygen Delivery Method Room Air Weight: 117.3 kg Body Mass Index (BMI) 31.2 Intake & Output: Intake and Output for Last 24 Hours 11/07/21 11/08/21 11/09/21 23:59 23:59 23:59 Intake Total 899.1 / 899.1 4058.33 / 4058.33 2710.83 / 2710.83 Output Total 2475 / 2475 350 / 350 Balance 899.1 / 899.1 1583.33 / 1583.33 2360.83 / 2360.83 Lab / Micro Data Result Diagrams: 11/09/21 05:20 11/09/21 05:20 Labs: Laboratory Results - last 24 hr 11/08/21 05:30: Diff Path Review Reviewed 11/08/21 07:49: Blood Type B POSITIVE, Antibody Screen NEGATIVE, Crossmatch See Detail 11/08/21 20:30: Hgb 8.9 L 11/09/21 05:20: WBC 3.2 L, RBC 2.20 L, Hgb 7.7 L, Hct 21.7 L, MCV 98.6 H D, MCH 35.0 H, MCHC 35.5, RDW Std Deviation 68.1 H, RDW Coeff of Patricia 19.1 H, Plt Count 76 L, MPV 11.7, Immature Gran % (Auto) 2.500 H, Neut % (Auto) 63.3, Lymph % (Auto) 28.9, [place] % (Auto) 3.1, Eos % (Auto) 1.9, Baso % (Auto) 0.3, Absolute Neuts (auto) 2.0, Absolute Lymphs (auto) 0.92, Nucleated RBC % 3.5, Platelet Estimate MOD DEC, Anisocytosis 2+, Macrocytosis 1+, [place] Cells 1+ 11/09/21 05:20: Sodium 140, Potassium 3.4 L, Chloride 114 H, Carbon Dioxide 20.0 L, Anion Gap 6, BUN 46 H, Creatinine 1.53 H, Estim Creat Clear Calc 62.68, Est GFR (MDRD) Af Amer 61, Est GFR (MDRD) Non-Af 50 L, BUN/Creatinine Ratio 30.1 H, Glucose 129 H, Calcium 7.0 L, Total Bilirubin 0.50, AST 17, ALT 23, Alkaline Phosphatase 65, Total Protein 5.6 L, Albumin 1.2 L, Globulin 4.4 H, Albumin/ Globulin Ratio 0.3 L Micro: Microbiology 11/07/21 23:50 Sputum, Expectorated/Coughed Gram Stain - Final 11/07/21 23:50 Sputum, Expectorated/Coughed Respiratory Culture - Preliminary Staphylococcus aureus 11/07/21 23:50 Wound - Leg, Left Gram Stain - Final 11/07/21 23:50 Wound - Leg, Left Wound Culture - Preliminary Staphylococcus aureus 11/08/21 20:17 Stool Stool Occult Blood ([facility]) - Final Occult Blood Positive 11/08/21 01:16 Urine, Random Streptococcus pneumoniae Antigen (M - Final 11/07/21 01:16 Urine, Clean Catch Legionella Antigen - Final 11/08/21 00:13 Mucosa - Nose Respiratory Panel (PCR) - Final Physical Exam Const alert, oriented x3 and well nourished Constitutional Narrative: Obese, upper middle-aged white male, lying in bed in right side-lying, appears uncomfortable and tired and but nontoxic, appropriately interactive and mentating well HEENT head/scalp atraumatic and moist oral mucous membranes HEENT Narrative: Mallampati 3, no thrush, dentition is fair for age Resp normal respiratory effort, no retractions and no use of accessory muscles Resp Narrative: Diffusely diminished, scattered rhonchi and rales most notably in the right upper lung field Auscultation: rales and rhonchi; Negative for wheezes Cardio regular rate, regular rhythm, S1 normal heart sound, S2 normal heart sound, no murmurs, no rub, no gallops, no clicks and no JVD GI normal to inspection, nondistended, normoactive bowel sounds, soft to palpation, non-tender and non-distended Extremity Extremity Narrative: No clubbing or cyanosis, chronic lower extremity edema on the left side with no edema on the right side Neuro oriented x3, CN's II-XII intact bilaterally, moves all extremities, no focal motor deficits and no sensory deficits noted Speech: speech normal Motor Exam: strength 5/5 throughout Psych affect normal Assessment & Plan Assessment/Plan (1) Sepsis: (2) Chronic ulcer of left lower extremity with fat layer exposed: (3) Bilateral pneumonia: (4) Acute on chronic anemia: (5) Lactic acidosis: (6) Leukopenia: (7) Thrombocytopenia: (8) NICHOLE (acute kidney injury): (9) GI bleed: (10) Hypokalemia: PLAN: Plan Sepsis secondary to staph aureus bilateral pneumonia/left lower extremity wound -Patient with hypotension, NICHOLE, elevated lactate, thrombocytopenia, and hypoxia based on labs at outpatient hospital -Staff aureus is currently growing in his wound culture and his sputum culture -Cultures remain pending -Strep pneumo and Legionella antigens negative -Viral respiratory panel negative -COVID-19 negative outside hospital -Continue broad-spectrum antibiotics with vancomycin and Zosyn -Blood pressure is stabilized with fluid resuscitation -Markedly abnormal CAT scan at outside side facility with commenting of right upper lobe cavitary lesion -Pulmonary and ID following-appreciate input Shortness of breath with hypoxia -Shortness of breath has resolved and patient is no longer hypoxic and has been weaned to room air Acute kidney injury -Suspect related to sepsis -Slowly trending down -Continue to follow -We will decrease IV fluids from 125 cc/h to 70 cc/h and consider disco ntinuation tomorrow -Avoid nephrotoxins GI bleed -Patient stool was guaiac positive -Hemoglobin went from 6.1-8.9 after 2 units of packed red blood cells and has trickled down to 7.7 this morning -We will obtain every 8-hour hemoglobin -Continue IV Protonix 40 mg IV twice daily -Heparin and aspirin discontinued -GI consulted-discussed with Dr. Friend Hypokalemia -40 mill equivalents p.o. potassium given this morning -Repeat lab in a.m. Pancytopenia with acute anemia -Patient with history of hairy cell leukemia -May be related to sepsis however drop in hemoglobin is not clear -Transfused 2 units of packed red blood cells on 11/08/2021 -Guaiac stool positive see above Lactic acidosis -Resolved -Likely related to sepsis Chronic ulcer of left lower extremity -Status post trauma -Wound care following -Cultures positive for MRSA -MRSA positive -May need to consider outpatient biopsy--> pyoderma would be in differential however patient does not report continuous pain and states that it is only when he has infections -Will recommend outpatient follow-up with dermatology after discharge -Continue pain medication as ordered History of hairy cell leukemia -Status post splenectomy -No current issues -Monitor as an outpatient Tobacco abuse -Recommend cessation -Nicotine replacement ordered as needed DVT prophylaxis -Subcu heparin on hold secondary to GI bleed CODE STATUS -full code is verified on admission Charges/Coding Visit Charges Inpatient E&M: 50139 Subs Hosp L2
[2021-11-09 12:47] LABS: Vancomycin, Trough Level 18.6 ug/mL (5.0-15.0)
--- NOTE | 2021-11-09 13:16 | PCM.RX.CS ---
Consult Pharmacy has been consulted to manage selected antiobiotic: Vancomycin Type of Consult: Follow-up Suspected Infection: Sepsis Prior Doses of Antibiotics Received/Current Regimen: Vancomycin 2000 mg IV x1 11/08/21 at 0026, Vancomycin 1500 mg 11/08/21 at 1301 and 11/09/21 at 0010 Labs: Sodium 140 mmol/L (136-145) 11/09/21 05:20 Potassium 3.4 mmol/L (3.5-5.1) L 11/09/21 05:20 Chloride 114 mmol/L (98-107) H 11/09/21 05:20 Carbon Dioxide 20.0 mmol/L (21.0-32.0) L 11/09/21 05:20 Anion Gap 6 (5-15) 11/09/21 05:20 BUN 46 mg/dL (7-18) H 11/09/21 05:20 Creatinine 1.53 mg/dL (0.70-1.30) H 11/09/21 05:20 Est GFR (MDRD) Af Amer 61 mL/min (>60) 11/09/21 05:20 Est GFR (MDRD) Non-Af 50 mL/min (>60) L 11/09/21 05:20 BUN/Creatinine Ratio 30.1 RATIO (10-20) H 11/09/21 05:20 Glucose 129 mg/dL (74-106) H 11/09/21 05:20 Vancomycin Trough 18.6 ug/mL (5.0-15.0) H 11/09/21 12:00 Microbiology: Microbiology 11/07/21 23:50 Sputum, Expectorated/Coughed Gram Stain - Final 11/07/21 23:50 Sputum, Expectorated/Coughed Respiratory Culture - Preliminary Staphylococcus aureus 11/07/21 23:50 Wound - Leg, Left Gram Stain - Final 11/07/21 23:50 Wound - Leg, Left Wound Culture - Preliminary Staphylococcus aureus 11/08/21 20:17 Stool Stool Occult Blood ([facility]) - Final Occult Blood Positive 11/08/21 01:16 Urine, Random Streptococcus pneumoniae Antigen (M - Final 11/07/21 01:16 Urine, Clean Catch Legionella Antigen - Final 11/08/21 00:13 Mucosa - Nose Respiratory Panel (PCR) - Final Goal Trough: 15-20 mcg/mL Pharmacy Plan for Drug Dosing: Continue Vancomycin 1500 mg q12H; Target trough 15-20. Estimated Crcl 73.4 ml/min with srCr 1.53. Pharmacy Service will continue to monitor and adjust vancomycin dosing as required. Follow-Up Labs: Trough Vancomycin - 11/11/21 at 1200
--- NOTE | 2021-11-09 14:22 | CASEMGMT ---
DIMAS met with patient and his . Introduced self and role at [facility]. Patient and his applied for Medicaid back in May and were denied. They have not been going to the doctor or taking medications because they cannot afford it. DIMAS provided them with information on prescription assistance programs, Caryl Dyer, [facility] program, and another Medicaid application. Both were grateful for the information. Kristin Alexander [employer] WORK[employer] CLERK JOSE ELIAS
--- NOTE | 2021-11-09 16:33 | CON.PCM_ITS ---
Assessment & Plan Assessment/Plan (1) GI bleed: PLAN: Anemia possibly secondary to GI bleed. Would also concerned that he has ascites around his liver and in his abdomen that was seen on the CT scan pelvis. I am concerned that he may have portal gastropathy, arteriovenous malformations, telangiectasias associated with possible liver disease and/or hairy cell leukemia. He should undergo EGD and colonoscopy to evaluate his upper lower GI tract. 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 Initially was concern about a COPD exacerbation versus a acute COVID infection so he was placed on isolation. His initial evaluation did show tachycardia with mild hypoxia requiring the use of supplemental oxygen. Acute COVID infection was negative via COVID-19 PCR. His ABG had shown hypoxia without hypercarbia. He does not take action for COPD on a daily basis. Of note in the ED he was discovered to be pancytopenic with a hemoglobin of 6 platelet count of 71 and white blood cell count 2.2 with an increased MCV of 102. He has no pre-existing history of thyroid disease, HIV, B12, folate deficiency or been on any med ications that may have caused a macrocytosis. He has a history of also of hairy cell leukemia with history of splenic rupture s/p splenectomy. Over the past year he has been dealing with her chronic left lower extremity nonhealing ulcer and possible peripheral artery disease. I was consulted to see him due to him being Hemoccult positive and having anemia. He has never had a colonoscopic evaluation or evaluation of the stomach or small bowel for GI blood loss. [facility] Medical History Chronic anemia DVT (deep venous thrombosis) Hairy cell leukemia Ruptured spleen Tobacco abuse Ulcer of left lower leg Home Medications acetaminophen 325 mg capsule (Tylenol) 325 mg PO Q6H PRN Pain 07/31/18 [History Last Taken 11/06/21] naproxen sodium 220 mg capsule (Aleve) 220 mg PO BID PRN Pain 07/31/18 [History Last Taken 11/03/21] Allergy/AdvReac Type Severity Reaction Status Date / Time adhesive tape AdvReac Rash Verified 05/19/21 14:06 Family History Father Diabetes Lung cancer Kidney disease Mother Breast cancer Asthma Anemia Grandfather Cancer Surgical History H/O lithotripsy History of arthroplasty of right knee History of splenectomy History of surgery on lower extremity Social History (Updated 11/07/21 @ 22:[address] Annette Lindquist MD) household members: spouse Smoking Status: Current every day smoker tobacco type: cigarettes Smoking packs per day: 1 Smoking cigarettes per day: 20.0 Years smoked: 40 Smoking pack-years: 40.00 alcohol intake: current alcohol intake frequency: holidays/special occasions only substance use type: does not use what type of physical activity do you participate in: none ROS Constitutional Constitutional: Reports chills, fatigue, fever(s) and malaise Eyes Eyes: Denies blurry vision or change in vision ENT HEENT: Denies dizziness, dysphagia, nasal discharge or sore throat Cardiovascular Cardiovascular: Reports dyspnea; Denies chest pain or dizziness Respiratory/Chest Respiratory/Chest: Reports cough and dyspnea Gastrointestinal Gastrointestinal: Denies abdominal pain, nausea or vomiting Genitourinary Genitourinary: Denies difficulty urinating Musculoskeletal Musculoskeletal: Denies arthralgias or back pain Integumentary Integumentary: Reports wounds Neurologic Neurologic: Denies abnormal gait or abnormal speech Psychiatric Psychiatric: Denies anxiety or depression Endocrine Endocrinology: Reports fatigue Hematologic/Lymphatic Hematologic/Lymphatic: Denies easy bleeding or easy bruising Physical Exam Const alert, oriented x3 and well nourished Constitutional Narrative: Obese, upper middle-aged white male, lying in bed in right side-lying, appears uncomfortable and tired and but nontoxic, appropriately interactive and mentating well HEENT head/scalp atraumatic and moist oral mucous membranes HEENT Narrative: Mallampati 3, no thrush, dentition is fair for age Resp normal respiratory effort, no retractions and no use of accessory muscles Resp Narrative: Diffusely diminished, scattered rhonchi and rales most notably in the right upper lung field Auscultation: rales and rhonchi; Negative for wheezes Cardio regular rate, regular rhythm, S1 normal heart sound, S2 normal heart sound, no murmurs, no rub, no gallops, no clicks and no JVD GI normal to inspection, nondistended, normoactive bowel sounds, soft to palpation, non-tender and non-distended Extremity Extremity Narrative: No clubbing or cyanosis, chronic lower extremity edema on the left side with no edema on the right side Neuro oriented x3, CN's II-XII intact bilaterally, moves all extremities, no focal motor deficits and no sensory deficits noted Speech: speech normal Motor Exam: strength 5/5 throughout Psych affect normal Lab / Micro Data Result Diagrams: 11/09/21 12:00 11/09/21 05:20 Labs: Laboratory Results - last 24 hr 11/08/21 07:49: Crossmatch See Detail 11/08/21 20:30: Hgb 8.9 L 11/09/21 05:20: WBC 3.2 L, RBC 2.20 L, Hgb 7.7 L, Hct 21.7 L, MCV 98.6 H D, MCH 35.0 H, MCHC 35.5, RDW Std Deviation 68.1 H, RDW Coeff of Patricia 19.1 H, Plt Count 76 L, MPV 11.7, Immature Gran % (Auto) 2.500 H, Neut % (Auto) 63.3, Lymph % (Auto) 28.9, [place] % (Auto) 3.1, Eos % (Auto) 1.9, Baso % (Auto) 0.3, Absolute Neuts (auto) 2.0, Absolute Lymphs (auto) 0.92, Nucleated RBC % 3.5, Platelet Estimate MOD DEC, Anisocytosis 2+, Macrocytosis 1+, [place] Cells 1+ 11/09/21 05:20: Sodium 140, Potassium 3.4 L, Chloride 114 H, Carbon Dioxide 20.0 L, Anion Gap 6, BUN 46 H, Creatinine 1.53 H, Estim Creat Clear Calc 62.68, Est GFR (MDRD) Af Amer 61, Est GFR (MDRD) Non-Af 50 L, BUN/Creatinine Ratio 30.1 H, Glucose 129 H, Calcium 7.0 L, Total Bilirubin 0.50, AST 17, ALT 23, Alkaline Phosphatase 65, Total Protein 5.6 L, Albumin 1.2 L, Globulin 4.4 H, Albumin/Globulin Ratio 0.3 L 11/09/21 12:00: Vancomycin Trough 18.6 H 11/09/21 12:00: Hgb 9.0 L Micro: Microbiology 11/07/21 23:50 Sputum, Expectorated/Coughed Gram Stain - Final 11/07/21 23:50 Sputum, Expectorated/Coughed Respiratory Culture - Preliminary Staphylococcus aureus 11/07/21 23:50 Wound - Leg, Left Gram Stain - Final 11/07/21 23:50 Wound - Leg, Left Wound Culture - Preliminary Staphylococcus aureus 11/08/21 20:17 Stool Stool Occult Blood ([facility]) - Final Occult Blood Positive
[2021-11-09] MEDS: Benzonatate 100 MG Capsule PO (17:06)
[2021-11-09] MEDS: Electrolyte Solution/Peg's 4000 ML PO (18:50)
[2021-11-09] MEDS: Acetaminophen 325 MG Tablet 650 MG PO (18:54)
--- NOTE | 2021-11-09 20:00 | CPS ---
placed pt on O2 at 2 lpm NC
[2021-11-09 20:47] LABS: Hemoglobin 8.2 g/dL (13.0-16.5)
[2021-11-09] MEDS: 0.9% Normal Saline 1,000 ML 70 ML IV (22:16)
[2021-11-10] VITALS (25 sets, daily range): BP systolic 101–156; BP diastolic 53–72; PULSE 76–106; RESP 16–30; TEMP 36.6–37.5; O2SAT 84–98; BMI 33.2
[2021-11-10] MEDS: Ipratropium/Albuterol Sulfate 3 ML AMPUL.NEB INHALATION ×4 (00:50→23:51)
[2021-11-10] MEDS: fentaNYL 100 MCG/2 ML Ampul 50 MCG IV ×2 (04:30→14:06)
[2021-11-10] MEDS: 0.9% Saline Lock 10 ML Syringe IV ×2 (04:32→20:34)
[2021-11-10 04:39] LABS: Absolute Neutrophil Count 1.9 X10^3/uL (2.0-7.7); Basophil# 0.01 X10^3/uL; Basophil% 0.3 % (0-1); Eosinophil# 0.04 X10^3/uL; Eosinophils% 1.3 % (0-5); Hematocrit 21.5 % (40-54); Hemoglobin 7.4 g/dL (13.0-16.5); Lymphocyte % 33.2 % (19-41); Mean Corp Hgb Conc 34.4 g/dL (32-36); Mean Corpuscular Hgb 33.6 pg (27.0-32.0); Mean Corpuscular Volume 97.7 fL (80-94); Mean Platelet Vol. 12.2 fl (6.2-12.0); Monocyte# 0.08 X10^3/uL; Monocyte% 2.7 % (0-10); NRBC Flagged by Analyzer 3.3 % (0-5); Neutrophil # 1.86 X10^3/uL (2.7-7.7); Neutrophil % 61.8 % (47-70); POSITIVE COUNT YES; POSITIVE MORPHOLOGY YES; Platelet Count 92 K/mm3 (150-450); RBC Distribution Width CV 18.9 % (11.6-14.6); RBC Distribution Width SD 66.1 fl (35.1-43.9)
[2021-11-10 04:44] LABS: Differential Indicated SCAN CRITERIA MET
[2021-11-10 04:49] LABS: International Normalized Ratio 1.3; Prothrombin Time (Protime)PT. 15.7 SECONDS (11.7-14.9)
[2021-11-10 04:57] LABS: Anion Gap 8 (5-15); BUN 28 mg/dL (7-18); BUN/Creat Ratio 23.5 RATIO (10-20); Calcium,Total 7.1 mg/dL (8.5-10.1); Chloride 113 mmol/L (98-107); Creatinine, Serum 1.19 mg/dL (0.70-1.30); EST Glomerular Filtration Rate 67 mL/min (>60); Est Glom Filt Rate - Afr Amer 81 mL/min (>60); Estimated Creatinine Clearance 80.59 ml/min; Glucose 131 mg/dL (74-106); Potassium 3.1 mmol/L (3.5-5.1); Sodium Level 141 mmol/L (136-145)
[2021-11-10 05:08] LABS: Differential Comment SCANNED; Reactive Lymphocyte 1+
[2021-11-10 05:10] LABS: Anisocytosis 2+; Macrocytosis 1+; Microcytosis 1+
--- NOTE | 2021-11-10 05:55 | EKG12_ITS ---
Test Reason : AM EKG Blood Pressure : / mmHG Vent. Rate : 078 BPM Atrial Rate : 078 BPM P-R Int : 140 ms QRS Dur : 094 ms QT Int : 380 ms P-R-T Axes : 031 045 047 degrees QTc Int : 433 ms Normal sinus rhythm Normal ECG Confirmed by ZURDO DALAL MD ([id number]), map editor JAY VAN ([id number]) on 11/13/2021 11:41:59 AM Referred By: Ameena Confirmed By:ZURDO DALAL MD
[2021-11-10] MEDS: Albuterol 2.5 MG/3 ML VIAL.NEB. INHALATION (06:46)
--- NOTE | 2021-11-10 07:14 | ECHOCS_ITS ---
Reason For Study: MRSA Bacteremia Procedure This was a 2D Doppler, Color Flow transthoracic echocardiogram. Exam performed portable in patient room. Left Ventricle Normal LV size. Left ventricular systolic function is normal. The estimated ejection fraction is 60 %. Normal diastology for age. No regional wall motion abnormalities noted. Right Ventricle Normal RV size. Normal systolic function. Atria The left atrium is moderately enlarged. Normal right atrium. Mitral Valve Normal mitral valve. Tricuspid Valve Normal tricuspid valve. Mild (1+) tricuspid valve insufficiency. Pulmonary artery systolic pressure is 37 mmHg. Aortic Valve Normal aortic valve. Pulmonic Valve Normal pulmonic valve. Great Vessels Normal aortic root. The pulmonary artery is normal size. Normal inferior vena cava. Pericardium/Pleural No pericardial effusion. Medication Diluted definity 3ml given slow IV push to enhance endocardial definition. MMode/2D Measurements & Calculations LVIDd: 4.9 cm IVSd: 0.93 cm Ao root diam: 2.9 cm LVIDs: 3.4 cm LVPWd: 0.84 cm RVDd: 4.0 cm FS: 30.6 % LAV(MOD-bp): 94.5 ml LVAd ap4: 32.6 cm2 SV(MOD-sp4): 60.3 ml LAV(MOD-bp) Indexed: 39.1 ml/m2 LVLd ap4: 8.1 cm LAV(MOD-sp2): 81.1 ml EDV(MOD-sp4): 107.3 ml LAV(MOD-sp4): 98.5 ml EDV(sp4-el): 111.6 ml LVAs ap4: 18.9 cm2 LVLs ap4: 6.4 cm ESV(MOD-sp4): 47.0 ml ESV(sp4-el): 47.4 ml EF(MOD-sp4): 56.2 % EF(sp4-el): 57.5 % SV(sp4-el): 64.1 ml LA A4 area: 26.7 cm2 LA dimension(2D): 3.6 cm RA A4 area: 14.8 cm2 Doppler Measurements & Calculations MV E max dillon: 115.1 cm/sec Lat Peak E' Dillon: 14.3 cm/sec Med Peak E' Dillon: 9.0 cm/sec MV A max dillon: 82.4 cm/sec E/E' lat: 8.1 E/E' med: 12.8 MV E/A: 1.4 Ao V2 max: 184.0 cm/sec LV V1 max: 139.5 cm/sec PA V2 max: 121.2 cm/sec Ao max P.5 mmHg LV V1 max P.8 mmHg Ao V2 mean: 120.6 cm/sec Ao mean P.5 mmHg Ao V2 VTI: 31.8 cm TR max dillon: 291.8 cm/sec TR max P.1 mmHg ECHO/Echo Complete W/ Contrast Interpretation Summary Normal LV size. Left ventricular systolic function is normal. The estimated ejection fraction is 60 %. The left atrium is moderately enlarged. Normal diastology for age. Contrast injection was performed. There is no evidence of a mass or vegetation. This does not rule out endocarditis. Ordering Physician: Mariela Hull Referring Physician: Dom Rueda Performed By: Emilee Neil, CÉSAR, RVT
--- NOTE | 2021-11-10 07:48 | CPS ---
placed pt on 2L NC. pt had a sat of 84% and could not get the sat up
--- NOTE | 2021-11-10 08:18 | PN.CC_ITS ---
Assessment & Plan Assessment/Plan (1) Sepsis: PLAN: Plan RECOMMENDATIONS: 1. Continue antimicrobials per ID recommendations. 2. Continue to monitor blood counts and transfuse if hemoglobin is less than 7 g/dL. 3. Continue PPI therapy. 4. Pain control per hospitalist. 5. Endoscopic evaluation per gastroenterology. 6. Obtain echocardiogram given MRSA bacteremia. 7. Encourage incentive spirometer use and mobilize patient as tolerated. IMPRESSIONS: 1. Sepsis The patient presented with sepsis due to pneumonia and a lower extremity wound with possible hematogenous spread, with acute sepsis related organ dysfunction as evidenced by lactic acidemia and acute kidney injury. Plan to continue current supportive measures including antimicrobials per ID recommendations. Given MRSA isolated from blood cultures, obtain echocardiogram. 2. Shortness of breath and associated hypoxia Related to underlying bilateral multifocal pneumonia. Plan to continue supportive measures as noted above including antimicrobials and supplemental oxygen to maintain saturations at or above 90%, if needed. It is reasonable to continue as needed bronchodilator therapy, in light of the patient's tobacco abuse history. 3. Acute kidney injury Improved. Likely prerenal in etiology in the setting of #1. Creatinine is improving with volume expansion. Continue to monitor urine output. No current indication for renal replacement therapy. 4. Pancytopenia The patient has chronic pancytopenia with an acute drop in his hemoglobin and platelet count. His thrombocytopenia is likely consumptive in nature and related to his presenting sepsis. The exact etiology for his drop in hemoglobin is not clear. The patient has been transfused blood products with g astroenterology planning for endoscopic evaluation. Plan to continue PPI therapy as ordered. 5. History of periods of leukemia status post splenectomy/chronic tobacco dependency Complicates care, management, recovery and prognosis. Continue home medications as indicated. Tobacco cessation counseling was provided. This note was generated with [employer] dictation software. It may contain incorrect words, spelling, and punctuation that were not noted in checking the note before signing. Subjective Subjective The patient was seen and examined at the bedside this morning. Events from the last 24 hours have been reviewed. The patient is currently afebrile, hemodynamically stable and maintaining appropriate oxygen saturations on 2 L/min via nasal cannula. The patient is documented to be overall net +6.5 L for the hospitalization. Hemoglobin is down to 7.4 g/dL this morning. Platelet count has improved to 92,000. Potassium is again low at 3.1. Creatinine has normalized. The patient continues to report ongoing lower extremity pain. Objective Data Objective Data The patient's most recent lab work, culture data and imaging studies have all been personally reviewed. Stool for occult blood was positive. Blood cultures are pending. Respiratory viral panel was negative. Strep and urine Legionella antigens were negative. Blood culture dated November 08 was positive for MRSA. Wound and sputum cultures were also positive for staph aureus. Vital Signs: Vital Signs Temp Pulse Resp BP Pulse Ox O2 Del Method O2 Flow Rate 98.7 F 84 20 H 112/62 94 Nasal Cannula 2 11/10/21 07:02 11/10/21 07:02 11/10/21 07:02 11/10/21 07:02 11/10/21 07:02 11/10/21 07:02 11/10/21 07:02 Oxygen Flow Rate (L/min) 2 Oxygen Delivery Method Nasal Cannula Weight: 256 lb 13.416 oz Body Mass Index (BMI) 33.2 Intake & Output: Intake and Output for Last 24 Hours 11/08/21 11/09/21 11/10/21 23:59 23:59 23:59 Intake Total 4058.33 / 4058.33 4918.66 / 4918.66 716.5 / 716.5 Output Total 2475 / 2475 1275 / 1275 300 / 300 Balance 1583.33 / 1583.33 3643.66 / 3643.66 416.5 / 416.5 Lab / Micro Data Attestation: I reviewed the patient's lab results. Result Diagrams: 11/10/21 04:23 11/10/21 04:23 Labs: Laboratory Results - last 24 hr 11/09/21 12:00: Vancomycin Trough 18.6 H 11/09/21 12:00: Hgb 9.0 L 11/09/21 20:35: Hgb 8.2 L 11/10/21 04:23: WBC 3.0 L, RBC 2.20 L, Hgb 7.4 L, Hct 21.5 L, MCV 97.7 H, MCH 33.6 H, MCHC 34.4, RDW Std Deviation 66.1 H, RDW Coeff of Patricia 18.9 H, Plt Count 92 L, MPV 12.2 H, Immature Gran % (Auto) 0.700, Neut % (Auto) 61.8, Lymph % (Auto) 33.2, [place] % (Auto) 2.7, Eos % (Auto) 1.3, Baso % (Auto) 0.3, Absolute Neuts (auto) 1.9 L, Absolute Lymphs (auto) 1.00, Nucleated RBC % 3.3, Differential Comment SCANNED, Reactive Lymphocytes 1+, Anisocytosis 2+, Microcytosis 1+, Macrocytosis 1+ 11/10/21 04:23: Sodium 141, Potassium 3.1 L, Chloride 113 H, Carbon Dioxide 20.0 L, Anion Gap 8, BUN 28 H, Creatinine 1.19, Estim Creat Clear Calc 80.59, Est GFR (MDRD) Af Amer 81, Est GFR (MDRD) Non-Af 67, BUN/Creatinine Ratio 23.5 H, Glucose 131 H, Calcium 7.1 L 11/10/21 04:23: PT 15.7 H, INR 1.3 Micro: Microbiology 11/08/21 07:52 Blood Culture (Wb) - Anticubital Right Blood Culture - Preliminary Staphylococcus aureus 11/08/21 10:27 Blood Culture (Wb) - Left Hand Bacteria Detection (PCR) - Final Staphylococcus aureus mecA Resistance Marker 11/08/21 10:27 Blood Culture (Wb) - Left Hand Blood Culture - Preliminary Staphylococcus aureus 11/07/21 23:50 Sputum, Expectorated/Coughed Gram Stain - Final 11/07/21 23:50 Sputum, Expectorated/Coughed Respiratory Culture - Preliminary Staphylococcus aureus 11/07/21 23:50 Wound - Leg, Left Gram Stain - Final 11/07/21 23:50 Wound - Leg, Left Wound Culture - Preliminary Staphylococcus aureus 11/08/21 20:17 Stool Stool Occult Blood (CLARKE) - Final Occult Blood Positive 11/08/21 01:16 Urine, Random Streptococcus pneumoniae Antigen (M - Final 11/07/21 01:16 Urine, Clean Catch Legionella Antigen - Final 11/08/21 00:13 Mucosa - Nose Respiratory Panel (PCR) - Final Physical Exam Const alert, oriented x3 and no apparent distress General Appearance: cooperative Nutritional Appearance: obese HEENT normocephalic and head/scalp atraumatic Eyes PERRL, EOMs intact bilaterally and conjunctivae normal Neck supple General: trachea midline Chest inspection of chest normal Resp normal respiratory effort Auscultation: Negative for rales, rhonchi or wheezes Cardio regular rate and regular rhythm GI normal to inspection, nondistended, normoactive bowel sounds Extremity no clubbing, cyanosis or edema Skin Wound Narrative: Lower extremity wound, present on admission, currently wrapped. Neuro oriented x3, CN's II-XII intact bilaterally and no focal motor deficits Psych cooperative and affect normal Charges/Coding Visit Charges Inpatient E&M: 08285 Subs Hosp L2
--- NOTE | 2021-11-10 10:04 | PN.HOSP_ITS ---
Subjective Subjective Patient states his pain is a little worse today but he has not been able to have pain medication by mouth as he is going for his EGD and colonoscopy later today. His is at the bedside we discussed his anemia as well as his infection with positive cultures in the wound, sputum, and now blood. No specific comp laints by the patient other than his leg pain. We also discussed the need to follow-up with dermatology and I recommended to do so at a tertiary center such as [facility] or [facility]. Both patient and voiced understanding. Objective Data Objective Data Vital Signs: Vital Signs Temp Pulse Resp BP Pulse Ox O2 Del Method O2 Flow Rate 98.7 F 84 20 H 112/62 94 Nasal Cannula 2 11/10/21 07:02 11/10/21 07:02 11/10/21 07:02 11/10/21 07:02 11/10/21 07:02 11/10/21 08:51 11/10/21 08:51 Oxygen Flow Rate (L/min) 2 Oxygen Delivery Method Nasal Cannula Weight: 116.5 kg Body Mass Index (BMI) 33.2 Intake & Output: Intake and Output for Last 24 Hours 11/08/21 11/09/21 11/10/21 23:59 23:59 23:59 Intake Total 4058.33 / 4058.33 4918.66 / 4918.66 716.5 / 716.5 Output Total 2475 / 2475 1275 / 1275 300 / 300 Balance 1583.33 / 1583.33 3643.66 / 3643.66 416.5 / 416.5 Lab / Micro Data Result Diagrams: 11/10/21 04:23 11/10/21 04:23 Labs: Laboratory Results - last 24 hr 11/09/21 12:00: Vancomycin Trough 18.6 H 11/09/21 12:00: Hgb 9.0 L 11/09/21 20:35: Hgb 8.2 L 11/10/21 04:23: WBC 3.0 L, RBC 2.20 L, Hgb 7.4 L, Hct 21.5 L, MCV 97.7 H, MCH 33.6 H, MCHC 34.4, RDW Std Deviation 66.1 H, RDW Coeff of Patricia 18.9 H, Plt Count 92 L, MPV 12.2 H, Immature Gran % (Auto) 0.700, Neut % (Auto) 61.8, Lymph % (Auto) 33.2, [place] % (Auto) 2.7, Eos % (Auto) 1.3, Baso % (Auto) 0.3, Absolute Neuts (auto) 1.9 L, Absolute Lymphs (auto) 1.00, Nucleated RBC % 3.3, Differential Comment SCANNED, Reactive Lymphocytes 1+, Anisocytosis 2+, Microcytosis 1+, Macrocytosis 1+ 11/10/21 04:23: Sodium 141, Potassium 3.1 L, Chloride 113 H, Carbon Dioxide 20.0 L, Anion Gap 8, BUN 28 H, Creatinine 1.19, Estim Creat Clear Calc 80.59, Est GFR (MDRD) Af Amer 81, Est GFR (MDRD) Non-Af 67, BUN/Creatinine Ratio 23.5 H, Glucose 131 H, Calcium 7.1 L 11/10/21 04:23: PT 15.7 H, INR 1.3 Micro: Microbiology 11/07/21 23:50 Sputum, Expectorated/Coughed Gram Stain - Final 11/07/21 23:50 Sputum, Expectorated/Coughed Respiratory Culture - Final Meth. resistant Staph. aureus 11/07/21 23:50 Wound - Leg, Left Gram Stain - Final 11/07/21 23:50 Wound - Leg, Left Wound Culture - Final Meth. resistant Staph. aureus 11/08/21 07:52 Blood Culture (Wb) - Anticubital Right Blood Culture - Preliminary Staphylococcus aureus 11/08/21 10:27 Blood Culture (Wb) - Left Hand Bacteria Detection (PCR) - Final Staphylococcus aureus mecA Resistance Marker 11/08/21 10:27 Blood Culture (Wb) - Left Hand Blood Culture - Preliminary Staphylococcus aureus 11/08/21 20:17 Stool Stool Occult Blood ([facility]ARKE) - Final Occult Blood Positive 11/08/21 01:16 Urine, Random Streptococcus pneumoniae Antigen (M - Final 11/07/21 01:16 Urine, Clean Catch Legionella Antigen - Final 11/08/21 00:13 Mucosa - Nose Respiratory Panel (PCR) - Final Physical Exam Const alert, oriented x3 and well nourished Constitutional Narrative: Obese, upper middle-aged white male, sitting up in bed in right side-lying, appears uncomfortable and tired and but nontoxic, appropriately interactive and mentating well, at bedside HEENT head/scalp atraumatic and moist oral mucous membranes HEENT Narrative: Mallampati 3, dentition is fair, no thrush Eyes PERRL and EOMs intact bilaterally Eyes Narrative: Pale conjunctiva bilaterally, no scleral icterus Neck no lymphadenopathy, supple and no JVD Neck Narrative: Trachea midline, no thyroid enlargement Resp normal respiratory effort, no retractions and no use of accessory muscles Resp Narrative: Diffusely diminished, no significant adventitious sounds noted today Auscultation: Negative for rales, rhonchi or wheezes Cardio regular rate, regular rhythm, S1 normal heart sound, S2 normal heart sound, no murmurs, no rub, no gallops, no clicks and no JVD GI normal to inspection, nondistended, normoactive bowel sounds, soft to palpation, non-tender and non-distended Extremity Extremity Narrative: No clubbing or cyanosis, chronic lower extremity edema on the left side with no edema on the right side Skin Skin Narrative: Right lower extremity with dressing in place, cap refill is good, remains tender but seems to be slowly improving Neuro oriented x3, CN's II-XII intact bilaterally, moves all extremities, no focal motor deficits and no sensory deficits noted Sensorium / Orientation: awake, alert, oriented to person, oriented to place and oriented to time Speech: speech normal Psych Psych Narrative: Patient seems tired and affect is a bit flat today however he is appropriately interactive Assessment & Plan Assessment/Plan (1) Sepsis: (2) Chronic ulcer of left lower extremity with fat layer exposed: (3) Bilateral pneumonia: (4) Acute on chronic anemia: (5) Lactic acidosis: (6) Leukopenia: (7) Thrombocytopenia: (8) NICHOLE (acute kidney injury): (9) GI bleed: (10) Hypokalemia: (11) MRSA bacteremia: (12) MRSA pneumonia: PLAN: Plan Sepsis secondary to MRSA bacteremia/pneumonia/left lower extremity wound -Patient with hypotension, NICHOLE, elevated lactate, thrombocytopenia, and hypoxia based on labs at outpatient hospital -Blood, sputum, and wound cultures are all positive for staph aureus-MRSA -Repeat blood cultures ordered this morning and pending for clearance -Will repeat again if these are positive -Check echocardiogram -Strep pneumo and Legionella antigens negative -Viral respiratory panel negative -COVID-19 negative outside hospital -Continue broad-spectrum antibiotics with vancomycin and Zosyn -Anticipate that we will be able to get rid of Zosyn however will leave to infectious disease -Check a.m. chest x-ray -Patient did desaturate to 84% on room air and is now on 2 L nasal cannula with oxygen saturations at 94% -Blood pressure is stabilized with fluid resuscitation -Markedly abnormal CAT scan at outside side facility with commenting of right upper lobe cavitary lesion -Pulmonary and ID following-appreciate input Shortness of breath with hypoxia -Patient back on 2 L nasal cannula secondary to desaturations 84% on room air -Wean as able Acute kidney injury -Suspect related to sepsis -Resolved -Continue to follow -Discontinue IV fluids -Avoid nephrotoxins GI bleed -Patient stool was guaiac positive -Hemoglobin went from 6.1-8.9 after 2 units of packed red blood cells and has trickled down to 7.4 this morning -Continue IV Protonix 40 mg IV twice daily -Heparin and aspirin discontinued -GI consulted and plan is for EGD and colonoscopy today Hypokalemia -40 mill equivalents p.o. potassium given this morning -Repeat lab in a.m. -We will also obtain magnesium level Pancytopenia with acute anemia -Patient with history of hairy cell leukemia -Leukopenia and thrombocytopenia relatively stable however anemia has slightly worsened -Scopes today -May be related to sepsis however drop in hemoglobin is not clear -Transfused 2 units of packed red blood cells on 11/08/2021 -Guaiac stool positive see above Lactic acidosis -Resolved -Related to sepsis Chronic ulcer of left lower extremity -Status post trauma -Wound care following -Cultures positive for MRSA -MRSA positive -May need to consider outpatient biopsy--> pyoderma would be in differential however patient does not report continuous pain and states that it is only when he has infections -Extensive discussion today with the patient and his about follow-up at a tertiary center that has dermatology services to obtain an opinion and probable biopsy as I do not feel the patient has had adequate or extensive enough work-up for this ongoing wound -Continue pain medication as ordered History of hairy cell leukemia -Status post splenectomy -No current issues -Monitor as an outpatient Tobacco abuse -Recommend cessation -Nicotine replacement ordered as needed DVT prophylaxis -Subcu heparin on hold secondary to GI bleed CODE STATUS -full code is verified on admission Charges/Coding Visit Charges Inpatient E&M: 69351 Subs Hosp L3
--- NOTE | 2021-11-10 12:35 | OP.EGD_ITS ---
Patient Name: Ganga Condon Procedure Date: 11/10/2021 11:56 AM Date of : 1965 Age: 56 Procedure: Upper GI endoscopy Indications: Iron deficiency anemia Providers: Francisco Kay DO Medicines: Monitored Anesthesia Care Patient Profile: This is a 56 year old male. Refer to note in patient chart for documentation of history and physical. Patient has symptoms. Complications: No immediate complications. Procedure: Pre-Anesthesia Assessment: - Prior to the procedure, a History and Physical was performed, and patient medications and allergies were reviewed. The patient is competent. The risks and benefits of the procedure and the sedation options and risks were discussed with the patient. All questions were answered and informed consent was obtained. Patient identification and proposed procedure were verified by the physician in the pre-procedure area. Mental Status Examination: alert and oriented. Airway Examination: normal oropharyngeal airway and neck mobility. Respiratory Examination: clear to auscultation. CV Examination: normal. Prophylactic Antibiotics: The patient does not require prophylactic antibiotics. Prior Anticoagulants: The patient has taken no previous anticoagulant or antiplatelet agents. After reviewing the risks and benefits, the patient was deemed in satisfactory condition to undergo the procedure. The anesthesia plan was to use monitored anesthesia care (MAC). Immediately prior to administration of medications, the patient was re-assessed for adequacy to receive sedatives. The heart rate, respiratory rate, oxygen saturations, blood pressure, adequacy of pulmonary ventilation, and response to care were monitored throughout the procedure. The physical status of the patient was re-assessed after the procedure. After obtaining informed consent, the endoscope was passed under direct vision. Throughout the procedure, the patient's blood pressure, pulse, and oxygen saturations were monitored continuously. The colonoscope was introduced through the mouth, and advanced to the second part of duodenum. The upper GI endoscopy was accomplished without difficulty. The patient tolerated the procedure well. Moderate Sedation: Moderate (conscious) sedation was personally administered by an anesthesia professional. The following parameters were monitored: oxygen saturation, heart rate, blood pressure, and response to care. Total physician intraservice time was 15 minutes. Scope In: 12:10:48 PM Scope Out: 12:13:19 PM Total Procedure Duration Time 0 hours 2 minutes 31 seconds Findings: The examined esophagus was normal. A small hiatal hernia was present. The cardia and gastric fundus were normal on retroflexion. The second portion of the duodenum was normal. Impression: - Normal esophagus. - Small hiatal hernia. - Normal second portion of the duodenum. - No specimens collected. Recommendation: - Discharge patient to home. - Resume previous diet. - Continue present medications. Procedure Code(s): --- Professional --- 24537, Esophagogastroduodenoscopy, flexible, transoral; diagnostic, including collection of specimen(s) by brushing or washing, when performed (separate procedure) CPT copyright 2017 [employer]. All rights reserved. The codes documented in this report are preliminary and upon rag sorter and cutter review may be revised to meet current compliance requirements. Francisco Kay DO 11/10/2021 12:34:56 PM This report has been signed electronically. Number of Addenda: 1 Note Initiated On: 11/10/2021 11:56 AM Addendum Number: 1 Addendum Date: 01/31/2022 6:18:44 AM MAC was used as sedation for this procedure. Francisco Kay DO 01/31/2022 6:18:48 AM This report has been signed electronically.
--- NOTE | 2021-11-10 12:36 | OP.CCLET_ITS ---
01/31/2022 Dom Rueda Re : Upper GI endoscopy procedure for Ganga Condon Dear Dr. Rueda This procedure was performed on Wednesday, November 10, 2021. My impressions and recommendations are as follows: Impressions : - Normal esophagus. - Small hiatal hernia. - Normal second portion of the duodenum. - No specimens collected. Recommendations : - Discharge patient to home. - Resume previous diet. - Continue present medications. My findings are described in the full procedure note, which is enclosed. If I can be of further assistance, please feel free to contact me at . Sincerely, Francisco Kay, 11/10/2021 12:34:56 PM This report has been signed electronically.
--- NOTE | 2021-11-10 12:41 | OP.CCLET_ITS ---
01/31/2022 Dom Rueda Re : Colonoscopy procedure for Ganga Condon Dear Dr. Rueda This procedure was performed on Wednesday, November 10, 2021. My impressions and recommendations are as follows: Impressions : - Preparation of the colon was fair. - Diverticulosis in the recto-sigmoid colon and in the sigmoid colon. - No specimens collected. Recommendations : - Return patient to [facility] for ongoing care. - Resume previous diet. - Repeat colonoscopy in 5 years for screening purposes. - Continue present medications. My findings are described in the full procedure note, which is enclosed. If I can be of further assistance, please feel free to contact me at . Sincerely, Francisco Kay, 11/10/2021 12:40:31 PM This report has been signed electronically.
--- NOTE | 2021-11-10 12:41 | OP.COLON_ITS ---
Patient Name: Ganga Condon Procedure Date: 11/10/2021 12:13 PM Date of : 1965 Age: 56 Procedure: Colonoscopy Indications: This is the patient's first colonoscopy, Iron deficiency anemia Providers: Francisco Kay DO Medicines: Monitored Anesthesia Care Patient Profile: This is a 56 year old male. Refer to note in patient chart for documentation of history and physical. Patient has symptoms. Last Colonoscopy: none. The patient's first colonoscopy is today. Complications: No immediate complications. Procedure: Pre-Anesthesia Assessment: - Prior to the procedure, a History and Physical was performed, and patient medications and allergies were reviewed. The patient is competent. The risks and benefits of the procedure and the sedation options and risks were discussed with the patient. All questions were answered and informed consent was obtained. Patient identification and proposed procedure were verified by the physician in the pre-procedure area. Mental Status Examination: alert and oriented. Airway Examination: normal oropharyngeal airway and neck mobility. Respiratory Examination: clear to auscultation. CV Examination: normal. Prophylactic Antibiotics: The patient does not require prophylactic antibiotics. Prior Anticoagulants: The patient has taken no previous anticoagulant or antiplatelet agents. After reviewing the risks and benefits, the patient was deemed in satisfactory condition to undergo the procedure. The anesthesia plan was to use monitored anesthesia care (MAC). Immediately prior to administration of medications, the patient was re-assessed for adequacy to receive sedatives. The heart rate, respiratory rate, oxygen saturations, blood pressure, adequacy of pulmonary ventilation, and response to care were monitored throughout the procedure. The physical status of the patient was re-assessed after the procedure. After I obtained informed consent, the scope was passed under direct vision. Throughout the procedure, the patient's blood pressure, pulse, and oxygen saturations were monitored continuously. The colonoscope was introduced through the anus and advanced to the terminal ileum. The colonoscopy was performed without difficulty. The patient tolerated the procedure well. The quality of the bowel preparation was fair. Moderate Sedation: Moderate (conscious) sedation was personally administered by an anesthesia professional. The following parameters were monitored: oxygen saturation, heart rate, blood pressure, and response to care. Total physician intraservice time was 15 minutes. Scope In: 12:18:02 PM Scope Withdrawal Time 0 hours 6 minutes 40 seconds Scope Out: 12:27:36 PM Total Procedure Duration Time 0 hours 9 minutes 34 seconds Findings: The perianal and digital rectal examinations were normal. A few small-mouthed diverticula were found in the recto-sigmoid colon and sigmoid colon. Impression: - Preparation of the colon was fair. - Diverticulosis in the recto-sigmoid colon and in the sigmoid colon. - No specimens collected. Recommendation: - Return patient to [facility] for ongoing care. - Resume previous diet. - Repeat colonoscopy in 5 years for screening purposes. - Continue present medications. Procedure Code(s): --- Professional --- 72632, Colonoscopy, flexible; diagnostic, including collection of specimen(s) by brushing or washing, when performed (separate procedure) CPT copyright 2017 [employer]. All rights reserved. The codes documented in this report are preliminary and upon co founder and chairman review may be revised to meet current compliance requirements. Francisco Kay DO 11/10/2021 12:40:31 PM This report has been signed electronically. Number of Addenda: 1 Note Initiated On: 11/10/2021 12:13 PM Addendum Number: 1 Addendum Date: 01/31/2022 6:18:56 AM MAC was used as sedation for this procedure. Francisco Kay DO 01/31/2022 6:19:02 AM This report has been signed electronically.
--- NOTE | 2021-11-10 13:12 | PCM.PN.ID ---
Physical Exam Narrative Feeling better, cough and dyspnea improved, no fever, scopes this AM Const alert and no apparent distress Resp Auscultation: wheezes Cardio regular rate and regular rhythm GI soft to palpation, non-tender and non-distended Skin Skin Narrative: RLE wrapped, no new rash ID ID: Route of nutrition/ use of supplements: [] Nutritional Intake: [] IV Site: [] Patel Catheter: [] Assessment & Plan Assessment/Plan (1) Sepsis: PLAN: Covid neg here and at [facility]. Sputum cx with MRSA. Bcx now with MRSA. Wound cx pcr with MRSA. Cont vanc, stop zosyn. TTE pending. Does have splinter hemorrhage on R 4th fingernail. Repeat bcx today and tomorrow. Will follow, d/w Dr. Hull (2) Bilateral pneumonia: (3) Chronic ulcer of left lower extremity with fat layer exposed:
[2021-11-10] MEDS: Gabapentin 300 MG Capsule PO ×2 (14:06→18:44)
[2021-11-10] MEDS: Potassium Chloride Oral Tablet 20 MEQ 60 MEQ PO (14:43)
[2021-11-10 14:53] LABS: Hemoglobin 7.4 g/dL (13.0-16.5)
[2021-11-10] MEDS: Acetaminophen 325 MG Tablet 650 MG PO ×2 (15:27→20:32)
[2021-11-10] MEDS: oxyCODONE 5 MG Tablet PO (15:28)
[2021-11-10] MEDS: guaiFENesin 10 ML UDC (200MG/10ML) 20 ML PO (20:32)
[2021-11-11] VITALS (17 sets, daily range): BP systolic 107–128; BP diastolic 49–66; PULSE 77–115; RESP 18–22; TEMP 36.8–38.3; O2SAT 93–97
[2021-11-11] MEDS: Benzonatate 100 MG Capsule PO ×2 (00:29→16:01)
[2021-11-11] MEDS: Albuterol 2.5 MG/3 ML VIAL.NEB. INHALATION (04:48)
[2021-11-11] MEDS: guaiFENesin 10 ML UDC (200MG/10ML) 20 ML PO (05:07)
--- NOTE | 2021-11-11 06:00 | RAD_ITS ---
EXAM: XR CHEST, 1 VIEW CLINICAL INDICATION: Pneumonia. TECHNIQUE: Frontal view of the chest. This report was created using [employer] report generation technology. COMPARISON: 11/07/2021. FINDINGS: LUNGS AND PLEURAL SPACES: Worsening of multifocal infiltrates in both lungs. They are more patchy and have increased in size. No pneumothorax. No effusion. HEART: Unremarkable. Cardiac silhouette not enlarged. MEDIASTINUM: Central airways and mediastinal contour are unremarkable. BONES/JOINTS: Unremarkable. SOFT TISSUES: Unremarkable. RAD/Chest 1 View (Portable) IMPRESSION: Worsening of Covid 19 pneumonia when compared to 11/07/2021.. Electronically Signed: Tylor Bustillo MD at 11:06 EDT ,
[2021-11-11] MEDS: oxyCODONE 5 MG Tablet PO (06:09)
[2021-11-11 07:20] LABS: Absolute Lymphocyte Count 0.77 X10^3/uL (0.83-4.51); Absolute Neutrophil Count 1.2 X10^3/uL (2.0-7.7); Basophil# 0.01 X10^3/uL; Basophil% 0.4 % (0-1); Eosinophil# 0.07 X10^3/uL; Eosinophils% 3.1 % (0-5); Hematocrit 21.8 % (40-54); Hemoglobin 7.5 g/dL (13.0-16.5); Lymphocyte # 0.77 X10^3/ul (0.83-4.51); Lymphocyte % 34.5 % (19-41); Mean Corp Hgb Conc 34.4 g/dL (32-36); Mean Corpuscular Hgb 35.4 pg (27.0-32.0); Mean Platelet Vol. 12.4 fl (6.2-12.0); Monocyte# 0.11 X10^3/uL; Monocyte% 4.9 % (0-10); NRBC Flagged by Analyzer 3.1 % (0-5); Neutrophil # 1.22 X10^3/uL (2.7-7.7); Neutrophil % 54.9 % (47-70); POSITIVE COUNT YES; POSITIVE MORPHOLOGY YES; Platelet Count 85 K/mm3 (150-450); RBC Distribution Width CV 19.3 % (11.6-14.6); RBC Distribution Width SD 71.6 fl (35.1-43.9); Red Blood Count 2.12 M/mm3 (4.6-6.2); White Blood Count 2.2 K/mm3 (4.4-11.0)
[2021-11-11] MEDS: Ipratropium/Albuterol Sulfate 3 ML AMPUL.NEB INHALATION ×5 (07:27→23:42)
[2021-11-11 07:50] LABS: Mean Corpuscular Volume 102.8 fL (80-94)
[2021-11-11 07:51] LABS: Anisocytosis 2+; Differential Indicated SCAN CRITERIA MET; Platelet Estimate MOD DEC (ADEQ)
[2021-11-11] MEDS: Gabapentin 300 MG Capsule PO ×3 (08:07→17:02)
[2021-11-11 09:01] LABS: Hemoglobin A1c 5.2 % (3.8-5.6)
[2021-11-11 09:20] LABS: Phosphorus 2.4 mg/dL (2.5-4.9)
[2021-11-11 09:21] LABS: Anion Gap 6 (5-15); BUN 18 mg/dL (7-18); BUN/Creat Ratio 16.5 RATIO (10-20); Calcium,Total 7.4 mg/dL (8.5-10.1); Chloride 113 mmol/L (98-107); Creatinine, Serum 1.09 mg/dL (0.70-1.30); EST Glomerular Filtration Rate 74 mL/min (>60); Est Glom Filt Rate - Afr Amer 90 mL/min (>60); Estimated Creatinine Clearance 87.98 ml/min; Glucose 125 mg/dL (74-106); Magnesium 2.4 mg/dL (1.6-2.6); Potassium 2.9 mmol/L (3.5-5.1); Sodium Level 142 mmol/L (136-145)
[2021-11-11] MEDS: 0.9% Saline Lock 10 ML Syringe IV ×3 (09:40→14:03)
[2021-11-11] MEDS: fentaNYL 100 MCG/2 ML Ampul 50 MCG IV (12:00)
--- NOTE | 2021-11-11 12:29 | PN.HOSP_ITS ---
Subjective Subjective No significant issues overnight. Patient remains on supplemental oxygen. States his pain is improving and he looks like he feels more comfortable today. We discussed the results of the scopes and echo being negative. Awaiting repeat blood culture results. Objective Data Objective Data Vital Signs: Vital Signs Temp Pulse Resp BP Pulse Ox O2 Del Method O2 Flow Rate 98.2 F 80 20 H 128/63 H 97 Nasal Cannula 3 11/11/21 11:42 11/11/21 12:03 11/11/21 12:03 11/11/21 11:42 11/11/21 11:42 11/11/21 11:42 11/11/21 11:42 Oxygen Flow Rate (L/min) 3 Oxygen Delivery Method Nasal Cannula Weight: 116.5 kg Body Mass Index (BMI) 33.2 Intake & Output: Intake and Output for Last 24 Hours 11/09/21 11/10/21 11/11/21 23:59 23:59 23:59 Intake Total 4918.66 / 4918.66 3840.0 / 3840.0 1300 / 1300 Output Total 1275 / 1275 2450 / 2450 1200 / 1200 Balance 3643.66 / 3643.66 1390.0 / 1390.0 100 / 100 Lab / Micro Data Result Diagrams: 11/11/21 06:45 11/11/21 06:45 Labs: Laboratory Results - last 24 hr 11/10/21 14:40: Hgb 7.4 L 11/11/21 06:45: WBC 2.2 L, RBC 2.12 L, Hgb 7.5 L, Hct 21.8 L, MCV 102.8 H D, MCH 35.4 H, MCHC 34.4, RDW Std Deviation 71.6 H, RDW Coeff of Patricia 19.3 H, Plt Count 85 L, MPV 12.4 H, Immature Gran % (Auto) 2.200 H, Neut % (Auto) 54.9, Lymph % (Auto) 34.5, [place] % (Auto) 4.9, Eos % (Auto) 3.1, Baso % (Auto) 0.4, Absolute Neuts (auto) 1.2 L, Absolute Lymphs (auto) 0.77 L, Nucleated RBC % 3.1, Differential Comment , Diff Path Review May foll, Platelet Estimate MOD DEC, Anisocytosis 2+ 11/11/21 06:45: Sodium 142, Potassium 2.9 L, Chloride 113 H, Carbon Dioxide 23.0, Anion Gap 6, BUN 18, Creatinine 1.09, Estim Creat Clear Calc 87.98, Est GFR (MDRD) Af Amer 90, Est GFR (MDRD) Non-Af 74, BUN/Creatinine Ratio 16.5, Glucose 125 H, Calcium 7.4 L, Magnesium 2.4 11/11/21 06:45: Hemoglobin A1c 5.2 11/11/21 06:45: Phosphorus 2.4 L Micro: Microbiology 11/08/21 10:27 Blood Culture (Wb) - Left Hand Bacteria Detection (PCR) - Final Staphylococcus aureus mecA Resistance Marker 11/08/21 10:27 Blood Culture (Wb) - Left Hand Blood Culture - Preliminary Meth. resistant Staph. aureus 11/10/21 11:30 Nasal Secretion SARS-CoV-2 Antigen (Rapid) - Final 11/07/21 23:50 Sputum, Expectorated/Coughed Gram Stain - Final 11/07/21 23:50 Sputum, Expectorated/Coughed Respiratory Culture - Final Meth. resistant Staph. aureus 11/07/21 23:50 Wound - Leg, Left Gram Stain - Final 11/07/21 23:50 Wound - Leg, Left Wound Culture - Final Meth. resistant Staph. aureus 11/08/21 07:52 Blood Culture (Wb) - Anticubital Right Blood Culture - Preliminary Staphylococcus aureus 11/08/21 20:17 Stool Stool Occult Blood (CLARKE) - Final Occult Blood Positive 11/08/21 01:16 Urine, Random Streptococcus pneumoniae Antigen (M - Final 11/07/21 01:16 Urine, Clean Catch Legionella Antigen - Final 11/08/21 00:13 Mucosa - Nose Respiratory Panel (PCR) - Final Radiography Diagnostic Testing: Radiology Impression Echocardiogram 11/10/21 07:14 Interpretation Summary Normal LV size. Left ventricular systolic function is normal. The estimated ejection fraction is 60 %. The left atrium is moderately enlarged. Normal diastology for age. Contrast injection was performed. There is no evidence of a mass or vegetation. This does not rule out endocarditis. Ordering Physician: Mariela Hull Referring Physician: Dom Rueda Performed By: Emilee Neil, CÉSAR, RVT Chest X-Ray 11/11/21 06:00 IMPRESSION: Worsening of Covid 19 pneumonia when compared to 11/07/2021.. Electronically Signed: Tylor Bustillo MD at 11:06 EDT , Physical Exam Const alert, oriented x3 and well nourished Constitutional Narrative: Obese, upper middle-aged white male, sitting up in bed watching television, appears much more comfortable and now nontoxic, patient looks like he feels as good as he has since he arrived HEENT head/scalp atraumatic and moist oral mucous membranes HEENT Narrative: Mallampati 3-4, no thrush, dentition is fair Resp normal respiratory effort, no retractions and no use of accessory muscles Resp Narrative: No signs of respiratory distress or extremis Auscultation: crackles and rhonchi; Negative for wheezes Cardio regular rate, regular rhythm, S1 normal heart sound, S2 normal heart sound, no murmurs, no rub, no gallops, no clicks and no JVD GI normal to inspection, nondistended, normoactive bowel sounds, soft to palpation, non-tender and non-distended Extremity Extremity Narrative: No clubbing or cyanosis, chronic lower extremity edema on the left side with no edema on the right side Neuro oriented x3, moves all extremities and no focal motor deficits Sensorium / Orientation: awake, alert, oriented to person, oriented to place and oriented to time Speech: speech normal Assessment & Plan Assessment/Plan (1) Sepsis: (2) Chronic ulcer of left lower extremity with fat layer exposed: (3) Bilateral pneumonia: (4) Acute on chronic anemia: (5) Lactic acidosis: (6) Leukopenia: (7) Thrombocytopenia: (8) NICHOLE (acute kidney injury): (9) GI bleed: (10) Hypokalemia: (11) MRSA bacteremia: (12) MRSA pneumonia: (13) Hypophosphatemia: PLAN: Plan Sepsis secondary to MRSA bacteremia/pneumonia/left lower extremity wound -Patient with hypotension, NICHOLE, elevated lactate, thrombocytopenia, and hypoxia based on labs at outpatient hospital -Blood, sputum, and wound cultures are all positive for staph aureus-MRSA -Clearance cultures pending from 11/10/2021 and 11/11/2021 -Echocardiogram showed EF of 60%, moderate left atrial enlargement with no valvular abnormalities -Vancomycin per ID -Blood pressure is stabilized with fluid resuscitation -Markedly abnormal CAT scan at outside side facility with commenting of right upper lobe cavitary lesion -Pulmonary and ID following-appreciate input Acute hypoxic respiratory failure secondary to MRSA pneumonia -Chest x-ray with diffuse bilateral patchy infiltrates -COVID x2 negative -Sputum positive for MRSA -Continue I-S -Add Acapella -Continue Mucinex -Consider chest vest -Currently requiring 3 L nasal cannula with oxygen saturations at 97% -Wean oxygen as able -Patient remains intermittently tachypneic with respiratory rates in the 20s -Viral respiratory panel negative -Strep pneumo and Legionella antigens negative Acute kidney injury -Resolved GI bleed -Patient stool was guaiac positive -Hemoglobin went from 6.1-8.9 after 2 units of packed red blood cells -Globin is now stable -Discontinue IV Protonix 40 mg IV twice daily -Heparin and aspirin discontinued -EGD and colonoscopy negative for any acute blood loss findings--> unclear why guaiac was positive--? Hemorrhoidal bleeding Hypokalemia - 2.9 this morning -K-Phos bolus and oral potassium replacement given -Repeat K level in a.m. Hypophosphatemia -K-Phos bolus ordered -Repeat lab in a.m. Pancytopenia with acute anemia -Patient with history of hairy cell leukemia -Leukopenia and thrombocytopenia relatively stable however anemia has slightly worsened -Scopes today -May be related to sepsis however drop in hemoglobin is not clear -Transfused 2 units of packed red blood cells on 11/08/2021 -Guaiac stool positive see above Chronic ulcer of left lower extremity -Status post trauma -Wound care following -Cultures positive for MRSA -MRSA positive -May need to consider outpatient biopsy--> pyoderma would be in differential however patient does not report continuous pain and states that it is only when he has infections -Extensive discussion today with the patient and his about follow-up at a tertiary center that has dermatology services to obtain an opinion and probable biopsy as I do not feel the patient has had adequate or extensive enough work-up for this ongoing wound -Continue pain medication as ordered History of hairy cell leukemia -Status post splenectomy -No current issues -Monitor as an outpatient Tobacco abuse -Recommend cessation -Nicotine replacement ordered as needed DVT prophylaxis -Subcu heparin on hold secondary to GI bleed CODE STATUS -full code is verified on admission Charges/Coding Visit Charges Inpatient E&M: 41625 Subs Hosp L2
[2021-11-11 12:59] LABS: Vancomycin, Trough Level 21.8 ug/mL (5.0-15.0)
--- NOTE | 2021-11-11 13:32 | PCM.RX.CS ---
Consult Pharmacy has been consulted to manage selected antiobiotic: Vancomycin Type of Consult: Follow-up Suspected Infection: Sepsis Prior Doses of Antibiotics Received/Current Regimen: 1500mg iv q12h. Labs: Sodium 142 mmol/L (136-145) 11/11/21 06:45 Potassium 2.9 mmol/L (3.5-5.1) L 11/11/21 06:45 Chloride 113 mmol/L (98-107) H 11/11/21 06:45 Carbon Dioxide 23.0 mmol/L (21.0-32.0) 11/11/21 06:45 Anion Gap 6 (5-15) 11/11/21 06:45 BUN 18 mg/dL (7-18) 11/11/21 06:45 Creatinine 1.09 mg/dL (0.70-1.30) 11/11/21 06:45 Est GFR (MDRD) Af Amer 90 mL/min (>60) 11/11/21 06:45 Est GFR (MDRD) Non-Af 74 mL/min (>60) 11/11/21 06:45 BUN/Creatinine Ratio 16.5 RATIO (10-20) 11/11/21 06:45 Glucose 125 mg/dL (74-106) H 11/11/21 06:45 Vancomycin Trough 21.8 ug/mL (5.0-15.0) H 11/11/21 12:05 Microbiology: Microbiology 11/08/21 10:27 Blood Culture (Wb) - Left Hand Bacteria Detection (PCR) - Final Staphylococcus aureus mecA Resistance Marker 11/08/21 10:27 Blood Culture (Wb) - Left Hand Blood Culture - Preliminary Meth. resistant Staph. aureus 11/10/21 11:30 Nasal Secretion SARS-CoV-2 Antigen (Rapid) - Final 11/07/21 23:50 Sputum, Expectorated/Coughed Gram Stain - Final 11/07/21 23:50 Sputum, Expectorated/Coughed Respiratory Culture - Final Meth. resistant Staph. aureus 11/07/21 23:50 Wound - Leg, Left Gram Stain - Final 11/07/21 23:50 Wound - Leg, Left Wound Culture - Final Meth. resistant Staph. aureus 11/08/21 07:52 Blood Culture (Wb) - Anticubital Right Blood Culture - Preliminary Staphylococcus aureus 11/08/21 20:17 Stool Stool Occult Blood (CLARKE) - Final Occult Blood Positive 11/08/21 01:16 Urine, Random Streptococcus pneumoniae Antigen (M - Final 11/07/21 01:16 Urine, Clean Catch Legionella Antigen - Final 11/08/21 00:13 Mucosa - Nose Respiratory Panel (PCR) - Final Weight used for dosin kg Estimated Creatinine Clearance: 100ml/min Pharmacy Plan for Drug Dosing: Trough level today was 21.8 and slightly above desired level of 15-20mcg/ml. Renal function slightly improved. CrCl ~100ml/min for adjusted body weight of 93.3kg. Will hold further dosing. Random level ordered for tonight 12hrs after today's trough level. Will resume and determine dosing when level <20. Pharmacy Service will continue to monitor and adjust dosing as required. Follow-Up Labs: Trough Vancomycin - random level 7.17.22 @0000
[2021-11-11] MEDS: Furosemide 40 MG/4 ML Vial IV (14:02)
[2021-11-11] MEDS: Potassium Chloride Oral Tablet 20 MEQ 60 MEQ PO (14:02)
[2021-11-11] MEDS: Acetaminophen 325 MG Tablet 650 MG PO (16:18)
[2021-11-11] MEDS: Budesonide Respules 0.5 MG/2 ML AMPUL.NEB. INHALATION (19:25)
--- NOTE | 2021-11-11 19:51 | PN_ITS ---
Subjective Subjective Patient underwent an upper and lower endoscopy yesterday. He has not had any signs of bleeding today. He is tolerating a diet. He said that his cough is a little better. His pain is at a 6 out of 10 where it was at a 10 out of 10. He gets most pain from coughing and his lower extremity ulcer. Objective Data Objective Data Vital Signs: Vital Signs Temp Pulse Resp BP Pulse Ox O2 Del Method O2 Flow Rate 101.0 F H 99 20 H 116/61 94 Nasal Cannula 3 11/11/21 18:18 11/11/21 19:29 11/11/21 19:29 11/11/21 18:18 11/11/21 18:18 11/11/21 18:18 11/11/21 18:18 Oxygen Flow Rate (L/min) 3 Oxygen Delivery Method Nasal Cannula Weight: 256 lb 13.416 oz Body Mass Index (BMI) 33.2 Intake & Output: Intake and Output for Last 24 Hours 11/09/21 11/10/21 11/11/21 23:59 23:59 23:59 Intake Total 4918.66 / 4918.66 3840.0 / 3840.0 2055.25 / 2055.25 Output Total 1275 / 1275 2450 / 2450 2100 / 2100 Balance 3643.66 / 3643.66 1390.0 / 1390.0 -44.75 / -44.75 Lab / Micro Data Result Diagrams: 11/11/21 06:45 11/11/21 06:45 Labs: Laboratory Results - last 24 hr 11/11/21 06:45: WBC 2.2 L, RBC 2.12 L, Hgb 7.5 L, Hct 21.8 L, MCV 102.8 H D, MCH 35.4 H, MCHC 34.4, RDW Std Deviation 71.6 H, RDW Coeff of Patricia 19.3 H, Plt Count 85 L, MPV 12.4 H, Immature Gran % (Auto) 2.200 H, Neut % (Auto) 54.9, Lymph % (Auto) 34.5, [place] % (Auto) 4.9, Eos % (Auto) 3.1, Baso % (Auto) 0.4, Absolute Neuts (auto) 1.2 L, Absolute Lymphs (auto) 0.77 L, Nucleated RBC % 3.1, Differential Comment , Diff Path Review May foll, Platelet Estimate MOD DEC, Anisocytosis 2+ 11/11/21 06:45: Sodium 142, Potassium 2.9 L, Chloride 113 H, Carbon Dioxide 23.0, Anion Gap 6, BUN 18, Creatinine 1.09, Estim Creat Clear Calc 87.98, Est GFR (MDRD) Af Amer 90, Est GFR (MDRD) Non-Af 74, BUN/Creatinine Ratio 16.5, Glucose 125 H, Calcium 7.4 L, Magnesium 2.4 11/11/21 06:45: Hemoglobin A1c 5.2 11/11/21 06:45: Phosphorus 2.4 L 11/11/21 12:05: Vancomycin Trough 21.8 H Micro: Microbiology 11/08/21 10:27 Blood Culture (Wb) - Left Hand Bacteria Detection (PCR) - Final Staphylococcus aureus mecA Resistance Marker 11/08/21 10:27 Blood Culture (Wb) - Left Hand Blood Culture - Preliminary Meth. resistant Staph. aureus 11/10/21 11:30 Nasal Secretion SARS-CoV-2 Antigen (Rapid) - Final 11/07/21 23:50 Sputum, Expectorated/Coughed Gram Stain - Final 11/07/21 23:50 Sputum, Expectorated/Coughed Respiratory Culture - Final Meth. resistant Staph. aureus 11/07/21 23:50 Wound - Leg, Left Gram Stain - Final 11/07/21 23:50 Wound - Leg, Left Wound Culture - Final Meth. resistant Staph. aureus 11/08/21 07:52 Blood Culture (Wb) - Anticubital Right Blood Culture - Preliminary Staphylococcus aureus 11/08/21 20:17 Stool Stool Occult Blood (CLARKE) - Final Occult Blood Positive 11/08/21 01:16 Urine, Random Streptococcus pneumoniae Antigen (M - Final 11/07/21 01:16 Urine, Clean Catch Legionella Antigen - Final 11/08/21 00:13 Mucosa - Nose Respiratory Panel (PCR) - Final Radiography Diagnostic Testing: Radiology Impression Chest X-Ray 11/11/21 06:00 IMPRESSION: Worsening of Covid 19 pneumonia when compared to 11/07/2021.. Electronically Signed: Tylor Bustillo MD at 11:06 EDT Reading Location ID and State: [facility] / [place] , Service support , Physical Exam Const alert, oriented x3 and well nourished Constitutional Narrative: Obese, upper middle-aged white male, sitting up in bed watching television, appears much more comfortable and now nontoxic, patient looks like he feels as good as he has since he arrived HEENT head/scalp atraumatic and moist oral mucous membranes HEENT Narrative: Mallampati 3-4, no thrush, dentition is fair Resp normal respiratory effort, no retractions and no use of accessory muscles Resp Narrative: No signs of respiratory distress or extremis Auscultation: crackles and rhonchi; Negative for wheezes Cardio regular rate, regular rhythm, S1 normal heart sound, S2 normal heart sound, no murmurs, no rub, no gallops, no clicks and no JVD GI normal to inspection, nondistended, normoactive bowel sounds, soft to palpation, non-tender and non-distended Extremity Extremity Narrative: No clubbing or cyanosis, chronic lower extremity edema on the left side with no edema on the right side Neuro oriented x3, moves all extremities and no focal motor deficits Sensorium / Orientation: awake, alert, oriented to person, oriented to place and oriented to time Speech: speech normal Assessment & Plan Assessment/Plan (1) Acute anemia: PLAN: I did not see any signs of acute or chronic GI blood loss in his esophagus stomach or proximal small bowel. There was also no signs of bleeding in his terminal ileum or his colon. There is a possibility that he could have had some GI blood loss from his mid and distal small bowel. 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 He can have a capsule as an outpatient so we can see his entire GI tract. Charges/Coding Visit Charges Inpatient E&M: 94768 Subs Hosp L2
[2021-11-12] VITALS (23 sets, daily range): BP systolic 104–135; BP diastolic 54–83; PULSE 68–111; RESP 16–20; TEMP 36.8–39; O2SAT 92–100
[2021-11-12 00:58] LABS: Vancomycin, Random Level 14.5 ug/mL (0.0-15.0)
--- NOTE | 2021-11-12 01:36 | PCM.RX.CS ---
Consult Pharmacy has been consulted to manage selected antiobiotic: Vancomycin Type of Consult: Follow-up Labs: Sodium 142 mmol/L (136-145) 11/11/21 06:45 Potassium 2.9 mmol/L (3.5-5.1) L 11/11/21 06:45 Chloride 113 mmol/L (98-107) H 11/11/21 06:45 Carbon Dioxide 23.0 mmol/L (21.0-32.0) 11/11/21 06:45 Anion Gap 6 (5-15) 11/11/21 06:45 BUN 18 mg/dL (7-18) 11/11/21 06:45 Creatinine 1.09 mg/dL (0.70-1.30) 11/11/21 06:45 Est GFR (MDRD) Af Amer 90 mL/min (>60) 11/11/21 06:45 Est GFR (MDRD) Non-Af 74 mL/min (>60) 11/11/21 06:45 BUN/Creatinine Ratio 16.5 RATIO (10-20) 11/11/21 06:45 Glucose 125 mg/dL (74-106) H 11/11/21 06:45 Vancomycin Trough 21.8 ug/mL (5.0-15.0) H 11/11/21 12:05 Random Vancomycin 14.5 ug/mL (0.0-15.0) 11/11/21 23:55 Microbiology: Microbiology 11/08/21 10:27 Blood Culture (Wb) - Left Hand Bacteria Detection (PCR) - Final Staphylococcus aureus mecA Resistance Marker 11/08/21 10:27 Blood Culture (Wb) - Left Hand Blood Culture - Preliminary Meth. resistant Staph. aureus 11/10/21 11:30 Nasal Secretion SARS-CoV-2 Antigen (Rapid) - Final 11/07/21 23:50 Sputum, Expectorated/Coughed Gram Stain - Final 11/07/21 23:50 Sputum, Expectorated/Coughed Respiratory Culture - Final Meth. resistant Staph. aureus 11/07/21 23:50 Wound - Leg, Left Gram Stain - Final 11/07/21 23:50 Wound - Leg, Left Wound Culture - Final Meth. resistant Staph. aureus 11/08/21 07:52 Blood Culture (Wb) - Anticubital Right Blood Culture - Preliminary Staphylococcus aureus 11/08/21 20:17 Stool Stool Occult Blood (CLARKE) - Final Occult Blood Positive 11/08/21 01:16 Urine, Random Streptococcus pneumoniae Antigen (M - Final 11/07/21 01:16 Urine, Clean Catch Legionella Antigen - Final 11/08/21 00:13 Mucosa - Nose Respiratory Panel (PCR) - Final Goal Trough: 15-20 mcg/mL Pharmacy Plan for Drug Dosing: Pharmacy Service will continue to monitor and adjust dosing as required. RANDOM TROUGH 14.5. RESTART AT 1250 Q12H AND FOLLOW UP TROUGH PRIOR TO 4TH DOSE Follow-Up Labs: Trough Vancomycin Labs to be done on [date and time ordered]: 11/13 @ 1547
[2021-11-12] MEDS: Furosemide 40 MG/4 ML Vial IV (05:33)
[2021-11-12] MEDS: Enoxaparin 40 MG/0.4 ML Syringe SC (05:34)
[2021-11-12] MEDS: 0.9% Saline Lock 10 ML Syringe IV ×2 (05:41→11:57)
[2021-11-12 06:28] LABS: Absolute Lymphocyte Count 0.97 X10^3/uL (0.83-4.51); Absolute Neutrophil Count 1.2 X10^3/uL (2.0-7.7); Eosinophil# 0.06 X10^3/uL; Eosinophils% 2.6 % (0-5); Hematocrit 19.4 % (40-54); Hemoglobin 6.8 g/dL (13.0-16.5); Lymphocyte # 0.97 X10^3/ul (0.83-4.51); Mean Corp Hgb Conc 35.1 g/dL (32-36); Mean Corpuscular Hgb 35.1 pg (27.0-32.0); Mean Platelet Vol. 12.2 fl (6.2-12.0); Monocyte# 0.11 X10^3/uL; Monocyte% 4.8 % (0-10); NRBC Flagged by Analyzer 3.5 % (0-5); Neutrophil # 1.15 X10^3/uL (2.7-7.7); Neutrophil % 49.7 % (47-70); POSITIVE COUNT YES; POSITIVE MORPHOLOGY YES; Platelet Count 77 K/mm3 (150-450); RBC Distribution Width CV 18.4 % (11.6-14.6); RBC Distribution Width SD 66.8 fl (35.1-43.9); Red Blood Count 1.94 M/mm3 (4.6-6.2); White Blood Count 2.3 K/mm3 (4.4-11.0)
[2021-11-12 06:44] LABS: Differential Indicated SCAN CRITERIA MET
[2021-11-12 06:55] LABS: Anion Gap 5 (5-15); BUN 21 mg/dL (7-18); BUN/Creat Ratio 18.3 RATIO (10-20); Calcium,Total 7.5 mg/dL (8.5-10.1); Chloride 110 mmol/L (98-107); Creatinine, Serum 1.15 mg/dL (0.70-1.30); EST Glomerular Filtration Rate 70 mL/min (>60); Est Glom Filt Rate - Afr Amer 84 mL/min (>60); Estimated Creatinine Clearance 83.39 ml/min; Glucose 125 mg/dL (74-106); Sodium Level 141 mmol/L (136-145)
[2021-11-12 07:12] LABS: Phosphorus 2.9 mg/dL (2.5-4.9)
--- NOTE | 2021-11-12 07:17 | PCM.PN.INT ---
Assessment & Plan Assessment/Plan (1) Sepsis: PLAN: Plan RECOMMENDATIONS: 1. Continue antimicrobials per ID recommendations. 2. Continue to monitor blood counts and transfuse if hemoglobin is less than 7 g/dL. 3. Continue PPI therapy. 4. Pain control per hospitalist. 5. Gentle diuresis as tolerated by hemodynamics and renal function. 6. Encourage incentive spirometer use and mobilize patient as tolerated. IMPRESSIONS: 1. Sepsis The patient presented with sepsis due to pneumonia and a lower extremity wound with possible hematogenous spread, with acute sepsis related organ dysfunction as evidenced by lactic acidemia and acute kidney injury. Plan to continue current supportive measures including antimicrobials per ID recommendations. 2. Shortness of breath and associated hypoxia Related to underlying bilateral multifocal pneumonia. Plan to continue supportive measures as noted above including antimicrobials and supplemental oxygen to maintain saturations at or above 90%, if needed. It is reasonable to continue as needed bronchodilator therapy, in light of the patient's tobacco abuse history. 3. Acute kidney injury Improved. Likely prerenal in etiology in the setting of #1. Creatinine is improving with volume expansion. Continue to monitor urine output. No current indication for renal replacement therapy. 4. Pancytopenia The patient has chronic pancytopenia with an acute drop in his hemoglobin and platelet count. His thrombocytopenia is likely consumptive in nature and related to his presenting sepsis. The exact etiology for his drop in hemoglobin is not clear. The patient has been transfused blood products with gastroenterology following. Endoscopic work-up has been unrevealing. Plan to continue PPI therapy as ordered. 5. History of periods of leukemia status post splenectomy/chronic tobacco dependency Complicates care, management, recovery and prognosis. Continue home medications as indicated. Tobacco cessation counseling was provided. This note was generated with [employer] dictation software. It may contain incorrect words, spelling, and punctuation that were not noted in checking the note before signing. Subjective Subjective The patient was seen and examined at the bedside this morning. Events from the last 24 hours have been reviewed. The patient is currently afebrile, hemodynamically stable and maintaining appropriate oxygen saturations on 3 L/min via nasal cannula. The patient is documented to be overall net +6.8 L for the hospitalization. The patient remains pancytopenic with a hemoglobin this morning of 6.8 g/dL. The patient did receive a one-time dose of Lasix this morning. Objective Data Objective Data The patient's most recent lab work, culture data and imaging studies have all been personally reviewed. Stool for occult blood was positive. Blood cultures are pending. Respiratory viral panel was negative. Strep and urine Legionella antigens were negative. Blood culture dated November 08 was positive for MRSA. Wound and sputum cultures were also positive for staph aureus. Vital Signs: Vital Signs Temp Pulse Resp BP Pulse Ox O2 Del Method O2 Flow Rate 98.3 F 68 20 H 104/56 L 100 Nasal Cannula 3 11/12/21 04:18 11/12/21 04:18 11/12/21 04:18 11/12/21 04:18 11/12/21 04:18 11/12/21 04:18 11/12/21 04:18 Oxygen Flow Rate (L/min) 3 Oxygen Delivery Method Nasal Cannula Weight: 256 lb 2.834 oz Body Mass Index (BMI) 33.2 Intake & Output: Intake and Output for Last 24 Hours 11/10/21 11/11/21 11/12/21 23:59 23:59 23:59 Intake Total 3840.0 / 3840.0 2055.25 / 2175.25 515 / 515 Output Total 2450 / 2450 2100 / 2825 1125 / 1125 Balance 1390.0 / 1390.0 -44.75 / -649.75 -610 / -610 Lab / Micro Data Attestation: I reviewed the patient's lab results. Result Diagrams: 11/12/21 05:22 11/12/21 05:22 Labs: Laboratory Results - last 24 hr 11/11/21 06:45: WBC 2.2 L, RBC 2.12 L, Hgb 7.5 L, Hct 21.8 L, MCV 102.8 H D, MCH 35.4 H, MCHC 34.4, RDW Std Deviation 71.6 H, RDW Coeff of Patricia 19.3 H, Plt Count 85 L, MPV 12.4 H, Immature Gran % (Auto) 2.200 H, Neut % (Auto) 54.9, Lymph % (Auto) 34.5, [place] % (Auto) 4.9, Eos % (Auto) 3.1, Baso % (Auto) 0.4, Absolute Neuts (auto) 1.2 L, Absolute Lymphs (auto) 0.77 L, Nucleated RBC % 3.1, Differential Comment , Diff Path Review May foll, Platelet Estimate MOD DEC, Anisocytosis 2+ 11/11/21 06:45: Sodium 142, Potassium 2.9 L, Chloride 113 H, Carbon Dioxide 23.0, Anion Gap 6, BUN 18, Creatinine 1.09, Estim Creat Clear Calc 87.98, Est GFR (MDRD) Af Amer 90, Est GFR (MDRD) Non-Af 74, BUN/Creatinine Ratio 16.5, Glucose 125 H, Calcium 7.4 L, Magnesium 2.4 11/11/21 06:45: Hemoglobin A1c 5.2 11/11/21 06:45: Phosphorus 2.4 L 11/11/21 12:05: Vancomycin Trough 21.8 H 11/11/21 23:55: Random Vancomycin 14.5 11/12/21 05:22: WBC 2.3 L, RBC 1.94 L, Hgb 6.8 L, Hct 19.4 L, MCV 100.0 H, MCH 35.1 H, MCHC 35.1, RDW Std Deviation 66.8 H, RDW Coeff of Patricia 18.4 H, Plt Count 77 L, MPV 12.2 H, Immature Gran % (Auto) 0.900, Neut % (Auto) 49.7, Lymph % (Auto) 42.0 H, [place] % (Auto) 4.8, Eos % (Auto) 2.6, Baso % (Auto) 0.0, Absolute Neuts (auto) 1.2 L, Absolute Lymphs (auto) 0.97, Nucleated RBC % 3.5 11/12/21 05:22: Sodium 141, Potassium 3.0 L, Chloride 110 H, Carbon Dioxide 26.0, Anion Gap 5, BUN 21 H, Creatinine 1.15, Estim Creat Clear Calc 83.39, Est GFR (MDRD) Af Amer 84, Est GFR (MDRD) Non-Af 70, BUN/Creatinine Ratio 18.3, Glucose 125 H, Calcium 7.5 L 11/12/21 05:22: Phosphorus 2.9 Micro: Microbiology 11/10/21 14:40 Blood Culture (Wb) - Anticubital Right Blood Culture - Preliminary No growth in 48 hours. 11/10/21 10:24 Blood Culture (Wb) - Anticubital Right Blood Culture - Preliminary No growth in 48 hours. 11/08/21 10:27 Blood Culture (Wb) - Left Hand Bacteria Detection (PCR) - Final Staphylococcus aureus mecA Resistance Marker 11/08/21 10:27 Blood Culture (Wb) - Left Hand Blood Culture - Preliminary Meth. resistant Staph. aureus 11/10/21 11:30 Nasal Secretion SARS-CoV-2 Antigen (Rapid) - Final 11/07/21 23:50 Sputum, Expectorated/Coughed Gram Stain - Final 11/07/21 23:50 Sputum, Expectorated/Coughed Respiratory Culture - Final Meth. resistant Staph. aureus 11/07/21 23:50 Wound - Leg, Left Gram Stain - Final 11/07/21 23:50 Wound - Leg, Left Wound Culture - Final Meth. resistant Staph. aureus 11/08/21 07:52 Blood Culture (Wb) - Anticubital Right Blood Culture - Preliminary Staphylococcus aureus 11/08/21 20:17 Stool Stool Occult Blood ([facility]) - Final Occult Blood Positive 11/08/21 01:16 Urine, Random Streptococcus pneumoniae Antigen (M - Final 11/07/21 01:16 Urine, Clean Catch Legionella Antigen - Final 11/08/21 00:13 Mucosa - Nose Respiratory Panel (PCR) - Final Radiography Diagnostic Testing: Radiology Impression Chest X-Ray 11/11/21 06:00 IMPRESSION: Worsening of Covid 19 pneumonia when compared to 11/07/2021.. Electronically Signed: Tylor Bustillo MD at 11:06 EDT Reading Location ID and State: [address] [place] [address] , Service support , Physical Exam Const alert, oriented x3 and no apparent distress General Appearance: cooperative Nutritional Appearance: obese HEENT normocephalic and head/scalp atraumatic Eyes PERRL, EOMs intact bilaterally and conjunctivae normal Neck supple General: trachea midline Chest inspection of chest normal Resp normal respiratory effort Auscultation: Negative for rales, rhonchi or wheezes Cardio regular rate and regular rhythm GI normal to inspection, nondistended, normoactive bowel sounds Extremity no clubbing, cyanosis or edema Skin Wound Narrative: Lower extremity wound, present on admission, currently wrapped. Neuro oriented x3, CN's II-XII intact bilaterally and no focal motor deficits Psych cooperative and affect normal Charges/Coding Visit Charges Inpatient E&M: 27028 Subs Hosp L2
[2021-11-12] MEDS: Budesonide Respules 0.5 MG/2 ML AMPUL.NEB. INHALATION ×2 (07:24→19:00)
[2021-11-12] MEDS: Ipratropium/Albuterol Sulfate 3 ML AMPUL.NEB INHALATION ×3 (07:24→19:00)
[2021-11-12 07:51] LABS: LDH 239 U/L (87-241)
[2021-11-12] MEDS: Gabapentin 300 MG Capsule PO ×3 (09:10→17:13)
[2021-11-12] MEDS: Potassium Chloride Oral Tablet 20 MEQ 60 MEQ PO (09:10)
[2021-11-12] MEDS: Benzonatate 100 MG Capsule PO ×2 (10:39→17:13)
[2021-11-12] MEDS: fentaNYL 100 MCG/2 ML Ampul 50 MCG IV (11:56)
--- NOTE | 2021-11-12 13:26 | PN.HOSP_ITS ---
Subjective Subjective Patient reports he really is feeling a lot better. Still having lower extremity pain and sharp stabbing pain intermittently. Has coughed up a lot of sputum and feels that his lungs are clear. No further chest pain with cough. Objective Data Objective Data Vital Signs: Vital Signs Temp Pulse Resp BP Pulse Ox O2 Del Method O2 Flow Rate 99.7 F H 88 18 135/69 H 98 Nasal Cannula 3 11/12/21 13:23 11/12/21 13:23 11/12/21 13:23 11/12/21 13:23 11/12/21 13:23 11/12/21 13:23 11/12/21 13:23 Oxygen Flow Rate (L/min) 3 Oxygen Delivery Method Nasal Cannula Weight: 116.2 kg Body Mass Index (BMI) 33.2 Intake & Output: Intake and Output for Last 24 Hours 11/10/21 11/11/21 11/12/21 23:59 23:59 23:59 Intake Total 3840.0 / 3840.0 2055.25 / 2175.25 1535 / 1535 Output Total 2450 / 2450 2100 / 2825 2365 / 2365 Balance 1390.0 / 1390.0 -44.75 / -649.75 -830 / -830 Lab / Micro Data Result Diagrams: 11/12/21 05:22 11/12/21 05:22 Labs: Laboratory Results - last 24 hr 11/08/21 07:49: Crossmatch See Detail 11/11/21 23:55: Random Vancomycin 14.5 11/12/21 05:22: WBC 2.3 L, RBC 1.94 L, Hgb 6.8 L, Hct 19.4 L, MCV 100.0 H, MCH 35.1 H, MCHC 35.1, RDW Std Deviation 66.8 H, RDW Coeff of Patricia 18.4 H, Plt Count 77 L, MPV 12.2 H, Immature Gran % (Auto) 0.900, Neut % (Auto) 49.7, Lymph % (Auto) 42.0 H, [place] % (Auto) 4.8, Eos % (Auto) 2.6, Baso % (Auto) 0.0, Absolute Neuts (auto) 1.2 L, Absolute Lymphs (auto) 0.97, Nucleated RBC % 3.5, Differential Comment , Diff Path Review May foll 11/12/21 05:22: Sodium 141, Potassium 3.0 L, Chloride 110 H, Carbon Dioxide 26.0, Anion Gap 5, BUN 21 H, Creatinine 1.15, Estim Creat Clear Calc 83.39, Est GFR (MDRD) Af Amer 84, Est GFR (MDRD) Non-Af 70, BUN/Creatinine Ratio 18.3, Glucose 125 H, Calcium 7.5 L 11/12/21 05:22: Phosphorus 2.9 11/12/21 05:22: Lactate Dehydrogenase 239 11/12/21 08:03: Blood Type B POSITIVE, Antibody Screen NEGATIVE, Crossmatch See Detail Micro: Microbiology 11/10/21 14:40 Blood Culture (Wb) - Anticubital Right Blood Culture - Preliminary No growth in 48 hours. 11/10/21 10:24 Blood Culture (Wb) - Anticubital Right Blood Culture - Preliminary No growth in 48 hours. 11/08/21 10:27 Blood Culture (Wb) - Left Hand Bacteria Detection (PCR) - Final Staphylococcus aureus mecA Resistance Marker 11/08/21 10:27 Blood Culture (Wb) - Left Hand Blood Culture - Preliminary Meth. resistant Staph. aureus 11/10/21 11:30 Nasal Secretion SARS-CoV-2 Antigen (Rapid) - Final 11/07/21 23:50 Sputum, Expectorated/Coughed Gram Stain - Final 11/07/21 23:50 Sputum, Expectorated/Coughed Respiratory Culture - Final Meth. resistant Staph. aureus 11/07/21 23:50 Wound - Leg, Left Gram Stain - Final 11/07/21 23:50 Wound - Leg, Left Wound Culture - Final Meth. resistant Staph. aureus 11/08/21 07:52 Blood Culture (Wb) - Anticubital Right Blood Culture - Preliminary Staphylococcus aureus 11/08/21 20:17 Stool Stool Occult Blood ([facility]) - Final Occult Blood Positive 11/08/21 01:16 Urine, Random Streptococcus pneumoniae Antigen (M - Final 11/07/21 01:16 Urine, Clean Catch Legionella Antigen - Final 11/08/21 00:13 Mucosa - Nose Respiratory Panel (PCR) - Final Physical Exam Const alert, oriented x3 and well nourished Constitutional Narrative: Obese, upper middle-aged white male, sitting up in bed watching television, appears much more comfortable and remains nontoxic, patient looks like he feels as good as he has since he arrived HEENT head/scalp atraumatic and moist oral mucous membranes HEENT Narrative: Mallampati 2, no thrush Resp normal respiratory effort, no retractions and no use of accessory muscles Resp Narrative: No signs of respiratory distress or extremis, adventitious breath sounds are scattered but more severe in the upper lobes bilaterally Auscultation: crackles and rhonchi; Negative for rales or wheezes Cardio regular rate, regular rhythm, S1 normal heart sound, S2 normal heart sound, no murmurs, no rub, no gallops, no clicks and no JVD GI normal to inspection, nondistended, normoactive bowel sounds, soft to palpation, non-tender and non-distended Extremity Extremity Narrative: No clubbing or cyanosis, chronic lower extremity edema on the left side with no edema on the right side Neuro oriented x3, moves all extremities, no focal motor deficits and no sensory deficits noted Sensorium / Orientation: awake, alert, oriented to person, oriented to place and oriented to time Speech: speech normal Psych affect normal Psych Narrative: Normal interactive and appropriate Assessment & Plan Assessment/Plan (1) Sepsis: (2) Chronic ulcer of left lower extremity with fat layer exposed: (3) Bilateral pneumonia: (4) Acute on chronic anemia: (5) Lactic acidosis: (6) Leukopenia: (7) Thrombocytopenia: (8) NICHOLE (acute kidney injury): (9) GI bleed: (10) Hypokalemia: (11) MRSA bacteremia: (12) MRSA pneumonia: (13) Hypophosphatemia: PLAN: Plan Sepsis secondary to MRSA bacteremia/pneumonia/left lower extremity wound -Patient with hypotension, NICHOLE, elevated lactate, thrombocytopenia, and hypoxia based on labs at outpatient hospital -Blood, sputum, and wound cultures are all positive for staph aureus-MRSA -Clearance cultures pending from 11/10/2021 and 11/11/2021 -Echocardiogram showed EF of 60%, moderate left atrial enlargement with no landry vular abnormalities -Vancomycin per ID -Blood pressure is stabilized with fluid resuscitation -Markedly abnormal CAT scan at outside side facility with commenting of right upper lobe cavitary lesion -Pulmonary and ID following-appreciate input Acute hypoxic respiratory failure secondary to MRSA pneumonia -Chest x-ray with diffuse bilateral patchy infiltrates -COVID x2 negative -Sputum positive for MRSA -Continue I-S -Continue Acapella -Continue Mucinex -Consider chest vest -Remains on 3 L nasal cannula with oxygen saturations at 98% -Wean oxygen as able -Viral respiratory panel negative -Strep pneumo and Legionella antigens negative Acute kidney injury -Resolved GI bleed -Patient stool was guaiac positive -Hemoglobin went from 6.1-8.9 after 2 units of packed red blood cells -Has now trended back down to 6.7.--> 1 unit packed red blood cells given today -Discontinue IV Protonix 40 mg IV twice daily -Heparin and aspirin discontinued -EGD and colonoscopy negative for any acute blood loss findings--> may need outpatient capsule endoscopy given negative EGD and colonoscopy and ongoing blood loss Hypokalemia -3.0 this morning-> 60 mill equivalents p.o. given again today -K-Phos bolus and oral potassium replacement given -Repeat K level in a.m. Hypophosphatemia -Resolved Pancytopenia with acute anemia -Patient with history of hairy cell leukemia -Leukopenia and thrombocytopenia relatively stable however anemia has slightly worsened -Scopes done and negative for bleeding--> will likely need outpatient capsule endoscopy -May be related to sepsis however drop in hemoglobin is not clear -Transfused 2 units of packed red blood cells on 11/08/2021 -Transfuse 1 unit packed red blood cells on 11/12/2021 -Guaiac stool positive see above Chronic ulcer of left lower extremity -Status post trauma -Wound care following -Cultures positive for MRSA -MRSA positive -May need to consider outpatient biopsy--> pyoderma would be in differential however patient does not report continuous pain and states that it is only when he has infections -Extensive discussion today with the patient and his about follow-up at a tertiary center that has dermatology services to obtain an opinion and probable biopsy as I do not feel the patient has had adequate or extensive enough work-up for this ongoing wound -Continue pain medication as ordered History of hairy cell leukemia -Status post splenectomy -No current issues -Monitor as an outpatient Tobacco abuse -Recommend cessation -Nicotine replacement ordered as needed DVT prophylaxis -Subcu heparin on hold secondary to GI bleed CODE STATUS -full code is verified on admission Charges/Coding Visit Charges Inpatient E&M: 43973 Subs Hosp L2
[2021-11-12 15:19] LABS: Hemoglobin 8.9 g/dL (13.0-16.5)
[2021-11-12] MEDS: oxyCODONE 5 MG Tablet PO (17:22)
[2021-11-12] MEDS: Acetaminophen 325 MG Tablet 650 MG PO (17:22)
[2021-11-13] VITALS (15 sets, daily range): BP systolic 105–127; BP diastolic 51–66; PULSE 66–106; RESP 16–24; TEMP 36.6–39.3; O2SAT 9–97
[2021-11-13 05:09] LABS: Absolute Lymphocyte Count 0.94 X10^3/uL (0.83-4.51); Absolute Neutrophil Count 1.1 X10^3/uL (2.0-7.7); Basophil# 0.01 X10^3/uL; Basophil% 0.5 % (0-1); Eosinophil# 0.11 X10^3/uL; Hematocrit 21.9 % (40-54); Hemoglobin 7.4 g/dL (13.0-16.5); Lymphocyte # 0.94 X10^3/ul (0.83-4.51); Lymphocyte % 42.9 % (19-41); Mean Corp Hgb Conc 33.8 g/dL (32-36); Mean Corpuscular Hgb 33.8 pg (27.0-32.0); Mean Platelet Vol. 12.6 fl (6.2-12.0); Monocyte# 0.06 X10^3/uL; Monocyte% 2.7 % (0-10); NRBC Flagged by Analyzer 3.7 % (0-5); Neutrophil # 1.06 X10^3/uL (2.7-7.7); Neutrophil % 48.4 % (47-70); POSITIVE COUNT YES; POSITIVE MORPHOLOGY YES; Platelet Count 70 K/mm3 (150-450); RBC Distribution Width CV 19.3 % (11.6-14.6); RBC Distribution Width SD 70.4 fl (35.1-43.9); Red Blood Count 2.19 M/mm3 (4.6-6.2); White Blood Count 2.2 K/mm3 (4.4-11.0)
[2021-11-13 05:22] LABS: Differential Indicated SCAN CRITERIA MET
[2021-11-13 05:33] LABS: Anion Gap 6 (5-15); BUN 27 mg/dL (7-18); BUN/Creat Ratio 23.7 RATIO (10-20); Calcium,Total 7.6 mg/dL (8.5-10.1); Chloride 106 mmol/L (98-107); Creatinine, Serum 1.14 mg/dL (0.70-1.30); EST Glomerular Filtration Rate 71 mL/min (>60); Est Glom Filt Rate - Afr Amer 85 mL/min (>60); Estimated Creatinine Clearance 84.12 ml/min; Glucose 127 mg/dL (74-106); Potassium 3.1 mmol/L (3.5-5.1); Sodium Level 141 mmol/L (136-145)
--- NOTE | 2021-11-13 06:12 | PCM.HOSP.N ---
Hospitalist Note Hgb decreased to 7.4 this AM. Received PRBC day prior following Hgb < 6. Unclear source but had been suspected GI. Noted potential need outpatient capsule. Will repeat Hgb check to assure reduction. Will add back protonix, had been on IV PPI the day prior. Will hold lovenox chemoprophylaxis pending repeat level trending.
[2021-11-13 06:43] LABS: Anisocytosis 2+; Macrocytosis 2+
[2021-11-13 06:44] LABS: Atypical Lymphocyte 1+ %
--- NOTE | 2021-11-13 08:16 | PCM.PN.INT ---
Assessment & Plan Assessment/Plan (1) Sepsis: PLAN: Plan RECOMMENDATIONS: 1. Continue antimicrobials per ID recommendations. 2. Continue to monitor blood counts and transfuse if hemoglobin is less than 7 g/dL. 3. Continue PPI therapy. 4. Pain control per hospitalist. 5. Gentle diuresis as tolerated by hemodynamics and renal function. 6. Encourage incentive spirometer use and mobilize patient as tolerated. 7. Likely okay to discharge from a pulmonary perspective with weaning of oxygen as tolerated and outpatient follow-up IMPRESSIONS: 1. Sepsis The patient presented with sepsis due to pneumonia and a lower extremity wound with possible hematogenous spread, with acute sepsis related organ dysfunction as evidenced by lactic acidemia and acute kidney injury. Plan to continue current supportive measures including antimicrobials per ID recommendations. 2. Shortness of breath and associated hypoxia secondary to embolic MRSA pneumonia Related to underlying bilateral multifocal pneumonia. Plan to continue supportive measures as noted above including antimicrobials and supplemental oxygen to maintain saturations at or above 90%, if needed. It is reasonable to continue as needed bronchodilator therapy, in light of the patient's tobacco abuse history. Patient is reporting subjective improvement. Patient will need to follow-up as an outpatient for quantification clarification of lung function once acute status has resolved. 3. Acute kidney injury Resolved. Likely prerenal in etiology in the setting of #1. Creatinine is improving with volume expansion. Continue to monitor urine output. No current indication for renal replacement therapy. 4. Pancytopenia The patient has chronic pancytopenia with an acute drop in his hemoglobin and platelet count. His thrombocytopenia is likely consumptive in nature and related to his presenting sepsis. The exact etiology for his drop in hemoglobin is not clear. The patient has been transfused blood products with gastroenterology following. Endoscopic work-up has been unrevealing. Plan to continue PPI therapy as ordered. 5. History of periods of leukemia status post splenectomy/chronic tobacco dependency Complicates care, management, recovery and prognosis. Continue home medications as indicated. Tobacco cessation counseling was provided. This note was generated with [employer] dictation software. It may contain incorrect words, spelling, and punctuation that were not noted in checking the note before signing. Subjective Subjective Patient did well overnight. No acute issues were reported. Patient feels subjectively improved compared to yesterday. Patient continues to report a productive cough, but states that the color is lightening up. Patient is not reporting any hemoptysis. Patient does get short of breath with exertion, but has been tolerating nasal cannula throughout the weekend. Objective Data Objective Data Vital Signs: Vital Signs Temp Pulse Resp BP Pulse Ox O2 Del Method O2 Flow Rate 36.6 C 72 16 105/60 97 Nasal Cannula 3 11/13/21 02:31 11/13/21 07:27 11/13/21 02:31 11/13/21 02:31 11/13/21 02:31 11/13/21 02:11/13/21 02:31 Oxygen Flow Rate (L/min) 3 Oxygen Delivery Method Nasal Cannula Weight: 117 kg Body Mass Index (BMI) 33.2 Intake & Output: Intake and Output for Last 24 Hours 11/11/21 11/12/21 11/13/21 23:59 23:59 23:59 Intake Total 2055.25 / 2175.25 2330 / 3030 975 / 975 Output Total 2100 / 2825 3040 / 3540 900 / 900 Balance -44.75 / -649.75 -710 / -510 75 / 75 Lab / Micro Data Attestation: I reviewed the patient's lab results. Result Diagrams: 11/13/21 03:51 11/13/21 03:51 Labs: Laboratory Results - last 24 hr 11/08/21 07:49: Crossmatch See Detail 11/12/21 08:03: Blood Type B POSITIVE, Antibody Screen NEGATIVE, Crossmatch See Detail 11/12/21 14:50: Hgb 8.9 L 11/13/21 03:51: WBC 2.2 L, RBC 2.19 L, Hgb 7.4 L, Hct 21.9 L, MCV 100.0 H, MCH 33.8 H, MCHC 33.8, RDW Std Deviation 70.4 H, RDW Coeff of Patricia 19.3 H, Plt Count 70 L, MPV 12.6 H, Immature Gran % (Auto) 0.500, Neut % (Auto) 48.4, Lymph % (Auto) 42.9 H, [place] % (Auto) 2.7, Eos % (Auto) 5.0, Baso % (Auto) 0.5, Absolute Neuts (auto) 1.1 L, Absolute Lymphs (auto) 0.94, Nucleated RBC % 3.7, Atypical Lymphocytes 1+, Anisocytosis 2+, Macrocytosis 2+ 11/13/21 03:51: Sodium 141, Potassium 3.1 L, Chloride 106, Carbon Dioxide 29.0, Anion Gap 6, BUN 27 H, Creatinine 1.14, Estim Creat Clear Calc 84.12, Est GFR (MDRD) Af Amer 85, Est GFR (MDRD) Non-Af 71, BUN/Creatinine Ratio 23.7 H, Glucose 127 H, Calcium 7.6 L Micro: Microbiology 11/11/21 07:24 Blood Culture (Wb) - Anticubital Right Blood Culture - Preliminary No growth in 48 hours. 11/10/21 14:40 Blood Culture (Wb) - Anticubital Right Blood Culture - Preliminary No growth in 48 hours. 11/10/21 10:24 Blood Culture (Wb) - Anticubital Right Blood Culture - Preliminary No growth in 48 hours. 11/08/21 10:27 Blood Culture (Wb) - Left Hand Bacteria Detection (PCR) - Final Staphylococcus aureus mecA Resistance Marker 11/08/21 10:27 Blood Culture (Wb) - Left Hand Blood Culture - Preliminary Meth. resistant Staph. aureus 11/10/21 11:30 Nasal Secretion SARS-CoV-2 Antigen (Rapid) - Final 11/07/21 23:50 Sputum, Expectorated/Coughed Gram Stain - Final 11/07/21 23:50 Sputum, Expectorated/Coughed Respiratory Culture - Final Meth. resistant Staph. aureus 11/07/21 23:50 Wound - Leg, Left Gram Stain - Final 11/07/21 23:50 Wound - Leg, Left Wound Culture - Final Meth. resistant Staph. aureus 11/08/21 07:52 Blood Culture (Wb) - Anticubital Right Blood Culture - Preliminary Staphylococcus aureus 11/08/21 20:17 Stool Stool Occult Blood ([facility]) - Final Occult Blood Positive 11/08/21 01:16 Urine, Random Streptococcus pneumoniae Antigen (M - Final 11/07/21 01:16 Urine, Clean Catch Legionella Antigen - Final 11/08/21 00:13 Mucosa - Nose Respiratory Panel (PCR) - Final Physical Exam Const alert, oriented x3 and no apparent distress General Appearance: cooperative Nutritional Appearance: obese HEENT normocephalic and head/scalp atraumatic Eyes PERRL, EOMs intact bilaterally and conjunctivae normal Neck supple General: trachea midline Chest inspection of chest normal Resp normal respiratory effort Auscultation: Negative for rales, rhonchi or wheezes Cardio regular rate, regular rhythm, S1 normal heart sound, S2 normal heart sound, no murmurs, no rub and no gallops GI normal to inspection, nondistended, normoactive bowel sounds Extremity no clubbing, cyanosis or edema Extremity Narrative: No splinter hemorrhages appreciated Skin Wound Narrative: Lower extremity wound, present on admission, currently wrapped. Neuro oriented x3, CN's II-XII intact bilaterally and no focal motor deficits Psych cooperative and affect normal Charges/Coding Visit Charges Inpatient E&M: 89043 Subs Hosp L2
[2021-11-13] MEDS: oxyCODONE 5 MG Tablet PO ×2 (08:37→12:51)
[2021-11-13] MEDS: Potassium Chloride Oral Tablet 20 MEQ 40 MEQ PO (08:37)
[2021-11-13] MEDS: Pantoprazole Sodium 40 MG Tablet PO ×2 (08:37→20:22)
[2021-11-13] MEDS: Gabapentin 300 MG Capsule PO ×3 (08:37→16:48)
[2021-11-13] MEDS: fentaNYL 100 MCG/2 ML Ampul 50 MCG IV (10:11)
[2021-11-13] MEDS: Ipratropium/Albuterol Sulfate 3 ML AMPUL.NEB INHALATION ×2 (11:18→19:45)
--- NOTE | 2021-11-13 11:19 | WOUNDNOTE ---
wound photo: left lower leg (anterior view)
--- NOTE | 2021-11-13 11:19 | WOUNDNOTE ---
wound photo: left lower leg(lateral view)
--- NOTE | 2021-11-13 11:20 | WOUNDNOTE ---
wound photo: left lower leg(medial view)
[2021-11-13 12:00] LABS: Pathologist Review Reviewed
[2021-11-13 12:07] LABS: Pathologist Review Reviewed
[2021-11-13 12:23] LABS: Hematocrit 24.1 % (40-54); Hemoglobin 8.7 g/dL (13.0-16.5)
[2021-11-13] MEDS: Benzonatate 100 MG Capsule PO ×2 (12:51→21:11)
--- NOTE | 2021-11-13 14:02 | PCM.PN.HOSP ---
Subjective Subjective Follow-up on sepsis secondary to MRSA bacteremia/pneumonia/left lower extremity wound: Patient was seen and examined. He denied any new complaint. He has been coughing up more whitish-brown frothy sputum. Denies any fever or chills Objective Data Objective Data Vital Signs: Vital Signs Temp Pulse Resp BP Pulse Ox O2 Del Method O2 Flow Rate 98.2 F 99 22 H 119/65 96 Room Air 3 11/13/21 08:28 11/13/21 12:08 11/13/21 11:22 11/13/21 08:28 11/13/21 08:28 11/13/21 08:43 11/13/21 08:27 Oxygen Flow Rate (L/min) 3 Oxygen Delivery Method Room Air Weight: 117 kg Body Mass Index (BMI) 33.2 Intake & Output: Intake and Output for Last 24 Hours 11/11/21 11/12/21 11/13/21 23:59 23:59 23:59 Intake Total 2055.25 / 2175.25 2330 / 3030 975 / 975 Output Total 2100 / 2825 3040 / 3540 1750 / 1750 Balance -44.75 / -649.75 -710 / -510 -775 / -775 Lab / Micro Data Result Diagrams: 11/13/21 12:10 11/13/21 03:51 Labs: Laboratory Results - last 24 hr 11/11/21 06:45: Diff Path Review Reviewed 11/12/21 05:22: Diff Path Review Reviewed 11/12/21 14:50: Hgb 8.9 L 11/13/21 03:51: WBC 2.2 L, RBC 2.19 L, Hgb 7.4 L, Hct 21.9 L, MCV 100.0 H, MCH 33.8 H, MCHC 33.8, RDW Std Deviation 70.4 H, RDW Coeff of Patricia 19.3 H, Plt Count 70 L, MPV 12.6 H, Immature Gran % (Auto) 0.500, Neut % (Auto) 48.4, Lymph % (Auto) 42.9 H, [place] % (Auto) 2.7, Eos % (Auto) 5.0, Baso % (Auto) 0.5, Absolute Neuts (auto) 1.1 L, Absolute Lymphs (auto) 0.94, Nucleated RBC % 3.7, Atypical Lymphocytes 1+, Anisocytosis 2+, Macrocytosis 2+ 11/13/21 03:51: Sodium 141, Potassium 3.1 L, Chloride 106, Carbon Dioxide 29.0, Anion Gap 6, BUN 27 H, Creatinine 1.14, Estim Creat Clear Calc 84.12, Est GFR (MDRD) Af Amer 85, Est GFR (MDRD) Non-Af 71, BUN/Creatinine Ratio 23.7 H, Glucose 127 H, Calcium 7.6 L 11/13/21 12:10: Hgb 8.7 L, Hct 24.1 L Micro: Microbiology 11/08/21 07:52 Blood Culture (Wb) - Anticubital Right Blood Culture - Final Staphylococcus aureus 11/08/21 10:27 Blood Culture (Wb) - Left Hand Bacteria Detection (PCR) - Final Staphylococcus aureus mecA Resistance Marker 11/08/21 10:27 Blood Culture (Wb) - Left Hand Blood Culture - Final Meth. resistant Staph. aureus 11/11/21 07:24 Blood Culture (Wb) - Anticubital Right Blood Culture - Preliminary No growth in 48 hours. 11/10/21 14:40 Blood Culture (Wb) - Anticubital Right Blood Culture - Preliminary No growth in 48 hours. 11/10/21 10:24 Blood Culture (Wb) - Anticubital Right Blood Culture - Preliminary No growth in 48 hours. 11/10/21 11:30 Nasal Secretion SARS-CoV-2 Antigen (Rapid) - Final 11/07/21 23:50 Sputum, Expectorated/Coughed Gram Stain - Final 11/07/21 23:50 Sputum, Expectorated/Coughed Respiratory Culture - Final Meth. resistant Staph. aureus 11/07/21 23:50 Wound - Leg, Left Gram Stain - Final 11/07/21 23:50 Wound - Leg, Left Wound Culture - Final Meth. resistant Staph. aureus 11/08/21 20:17 Stool Stool Occult Blood (CLARKE) - Final Occult Blood Positive 11/08/21 01:16 Urine, Random Streptococcus pneumoniae Antigen (M - Final 11/07/21 01:16 Urine, Clean Catch Legionella Antigen - Final 11/08/21 00:13 Mucosa - Nose Respiratory Panel (PCR) - Final Physical Exam Narrative Physical exam: General: Alert, Oriented x3, Cooperative, on 3 L of oxygen HEENT: Atraumatic Oral: Moist Mucosa Neck: Supple Lungs: Diminished to auscultation Cardiovascular: HS I+II, regular, no murmurs Abdomen: Bowel Sounds Present, Soft, Non Tender Extremities: No edema Skin: No rashes, No breakdown Neurological: Grossly intact Psych/Mental Status: Appropriate Assessment & Plan Assessment/Plan (1) MRSA pneumonia: (2) MRSA bacteremia: PLAN: Plan 1. Acute hypoxic respiratory failure secondary to MRSA pneumonia Patient remains on 3 L of oxygen, continue breathing treatments as needed 2. Sepsis secondary to MRSA bacteremia/pneumonia to the left lower extremity wound Blood, wound, sputum cultures growing MRSA Repeat blood cultures on 11/11/21 showed no growth Continue on IV vancomycin, ID following 3. Anemia, severe, acute blood loss secondary to acute GI bleed EGD and colonoscopy are negative; capsule endoscopy planned for outpatient Hemoglobin 7.4, repeat Hb 8.7, will transfuse for hemoglobin less than 7 4. Acute kidney injury, resolved 5. Hypokalemia/hypophosphatemia, replaced, recheck in am 6. Nicotine abuse, smoking cessation recommended 7. 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 DVT PPx- SCDs on account of GI bleed. Charges/Coding Visit Charges Inpatient E&M: 39988 Subs Hosp L2
--- NOTE | 2021-11-13 14:28 | PN.ID_ITS ---
Physical Exam Narrative Feeling better, no fever, bringing up a lot of sputum Const alert and no apparent distress General Appearance: cooperative Resp Auscultation: rhonchi Cardio regular rate and regular rhythm GI soft to palpation, non-tender and non-distended Skin no rashes or lesions noted ID ID: Route of nutrition/ use of supplements: [] Nutritional Intake: [] IV Site: [] Patel Catheter: [] Assessment & Plan Assessment/Plan (1) Sepsis: PLAN: Covid neg here and at [place]. Sputum cx with MRSA. Bcx now with MRSA. Wound cx pcr with MRSA. Cont vanc. TTE showed no veg. Does have splinter hemorrhage on R 4th fingernail. Repeat bcx neg since 11/10. Plan will be for picc and 6 weeks iv vanc. Will follow (2) Bilateral pneumonia: (3) Chronic ulcer of left lower extremity with fat layer exposed: (4) MRSA bacteremia: (5) MRSA pneumonia:
--- NOTE | 2021-11-13 15:09 | CASEMGMT ---
DIMAS noted patient will be on IV antibiotics at discharge. Patient does not have insurance. DIMAS met with patient and his . re-introduced self and role at [facility]. DIMAS explained that patient will have to go home on IV antibiotics which can be very expensive. DIMAS explained that patient would likely qualify for [facility]. DIMAS explained he could go to a [facility] short term and get the IV antibiotics and wound care which would be covered under Medicaid as long as he qualifies for Medicaid. Patient asked if he could do a payment plan for the IV medication if he went home. SW told him possibly, however CM would have to make the referral to the infusion company and they would then discuss payment options. Patient's said they would discuss the options. DIMAS provided patient and his with a list of SNF providers including quality and resource use data and consistent with the patient?s preferred geographic region, medical needs, and insurance network. DIMAS gave them lists for [facility]. SW also let them know SW does sit up on the [facility] so if they have questions they can ask for DIMAS. They thanked DIMAS for the information. Kristin Alexander SENIOR RESEARCH ASSOCIATE JOSE ELIAS
[2021-11-13] MEDS: Albuterol 2.5 MG/3 ML VIAL.NEB. INHALATION (15:34)
--- NOTE | 2021-11-13 15:40 | CASEMGMT ---
RN CM in to discuss discharge planning with patient. Per ID, patient will need 6 weeks of IV Vanco at discharge. Patient voices concerns for selfpay and cost. Patient gave permission to send referral to [facility] after discussing list of infusion companies. LAYNE HERBERT sent referral to [facility] to inquire about cost of ATB. CM will continue to follow this patient and plan for a safe discharge.
--- NOTE | 2021-11-13 15:54 | PCM.RX.CS ---
Consult Type of Consult: Follow-up Suspected Infection: Other Labs: Sodium 141 mmol/L (136-145) 11/13/21 03:51 Potassium 3.1 mmol/L (3.5-5.1) L 11/13/21 03:51 Chloride 106 mmol/L (98-107) 11/13/21 03:51 Carbon Dioxide 29.0 mmol/L (21.0-32.0) 11/13/21 03:51 Anion Gap 6 (5-15) 11/13/21 03:51 BUN 27 mg/dL (7-18) H 11/13/21 03:51 Creatinine 1.14 mg/dL (0.70-1.30) 11/13/21 03:51 Est GFR (MDRD) Af Amer 85 mL/min (>60) 11/13/21 03:51 Est GFR (MDRD) Non-Af 71 mL/min (>60) 11/13/21 03:51 BUN/Creatinine Ratio 23.7 RATIO (10-20) H 11/13/21 03:51 Glucose 127 mg/dL (74-106) H 11/13/21 03:51 Vancomycin Trough 19.0 ug/mL (5.0-15.0) H 11/13/21 13:35 Random Vancomycin 14.5 ug/mL (0.0-15.0) 11/11/21 23:55 Microbiology: Microbiology 11/13/21 10:15 Sputum, Expectorated/Coughed Gram Stain - Final 11/08/21 07:52 Blood Culture (Wb) - Anticubital Right Blood Culture - Final Staphylococcus aureus 11/08/21 10:27 Blood Culture (Wb) - Left Hand Bacteria Detection (PCR) - Final Staphylococcus aureus mecA Resistance Marker 11/08/21 10:27 Blood Culture (Wb) - Left Hand Blood Culture - Final Meth. resistant Staph. aureus 11/11/21 07:24 Blood Culture (Wb) - Anticubital Right Blood Culture - Preliminary No growth in 48 hours. 11/10/21 14:40 Blood Culture (Wb) - Anticubital Right Blood Culture - Preliminary No growth in 48 hours. 11/10/21 10:24 Blood Culture (Wb) - Anticubital Right Blood Culture - Preliminary No growth in 48 hours. 11/10/21 11:30 Nasal Secretion SARS-CoV-2 Antigen (Rapid) - Final 11/07/21 23:50 Sputum, Expectorated/Coughed Gram Stain - Final 11/07/21 23:50 Sputum, Expectorated/Coughed Respiratory Culture - Final Meth. resistant Staph. aureus 11/07/21 23:50 Wound - Leg, Left Gram Stain - Final 11/07/21 23:50 Wound - Leg, Left Wound Culture - Final Meth. resistant Staph. aureus 11/08/21 20:17 Stool Stool Occult Blood (CLARKE) - Final Occult Blood Positive 11/08/21 01:16 Urine, Random Streptococcus pneumoniae Antigen (M - Final 11/07/21 01:16 Urine, Clean Catch Legionella Antigen - Final 11/08/21 00:13 Mucosa - Nose Respiratory Panel (PCR) - Final Estimated Creatinine Clearance: 98.3 Goal Trough: 15-20 mcg/mL Pharmacy Plan for Drug Dosing: Adjusted weight was used for estimated crcl calculation per policy. Vancomycin trough level of 19 on 11/13/21 at 13:35. The last dose was given at 0229 on 11/13/21. The goal trough range is 15-20. Continue vancomycin 1250 mg q 12H. Pharmacy Service will continue to monitor and adjust dosing as required. Follow-Up Labs: Trough Vancomycin Labs to be done on [date and time ordered]: Vancomycin Trough ordered for 11/15/21 at 1330
[2021-11-13] MEDS: Acetaminophen 325 MG Tablet 650 MG PO ×2 (16:48→21:11)
[2021-11-13] MEDS: Budesonide Respules 0.5 MG/2 ML AMPUL.NEB. INHALATION (19:45)
[2021-11-13] MEDS: guaiFENesin 1,200 MG Tablet 1200 MG PO (21:38)
[2021-11-14] VITALS (16 sets, daily range): BP systolic 111–136; BP diastolic 49–67; PULSE 82–104; RESP 16–26; TEMP 37.2–38.6; O2SAT 93–95
[2021-11-14] MEDS: 0.9% Saline Lock 10 ML Syringe IV ×2 (01:50→10:55)
[2021-11-14] MEDS: Acetaminophen 325 MG Tablet 650 MG PO ×4 (01:59→21:36)
[2021-11-14] MEDS: Ipratropium/Albuterol Sulfate 3 ML AMPUL.NEB INHALATION ×5 (02:05→19:24)
[2021-11-14 05:19] LABS: Absolute Lymphocyte Count 0.96 X10^3/uL (0.83-4.51); Absolute Neutrophil Count 1.1 X10^3/uL (2.0-7.7); Basophil# 0.01 X10^3/uL; Basophil% 0.4 % (0-1); Eosinophil# 0.08 X10^3/uL; Eosinophils% 3.5 % (0-5); Hemoglobin 7.4 g/dL (13.0-16.5); Lymphocyte # 0.96 X10^3/ul (0.83-4.51); Lymphocyte % 42.5 % (19-41); Mean Corp Hgb Conc 35.2 g/dL (32-36); Mean Corpuscular Hgb 33.8 pg (27.0-32.0); Mean Corpuscular Volume 95.9 fL (80-94); Mean Platelet Vol. 12.5 fl (6.2-12.0); Monocyte# 0.11 X10^3/uL; Monocyte% 4.9 % (0-10); NRBC Flagged by Analyzer 2.7 % (0-5); Neutrophil # 1.09 X10^3/uL (2.7-7.7); Neutrophil % 48.3 % (47-70); POSITIVE COUNT YES; POSITIVE MORPHOLOGY YES; Platelet Count 74 K/mm3 (150-450); RBC Distribution Width SD 63.2 fl (35.1-43.9); Red Blood Count 2.19 M/mm3 (4.6-6.2); White Blood Count 2.3 K/mm3 (4.4-11.0)
[2021-11-14 05:21] LABS: Differential Indicated SCAN CRITERIA MET
[2021-11-14] MEDS: Benzonatate 100 MG Capsule PO ×2 (05:40→15:13)
[2021-11-14 05:41] LABS: Anion Gap 7 (5-15); BUN 20 mg/dL (7-18); Calcium,Total 7.6 mg/dL (8.5-10.1); Chloride 103 mmol/L (98-107); Creatinine, Serum 1.05 mg/dL (0.70-1.30); Differential Comment SCANNED; EST Glomerular Filtration Rate 78 mL/min (>60); Est Glom Filt Rate - Afr Amer 94 mL/min (>60); Estimated Creatinine Clearance 91.33 ml/min; Glucose 136 mg/dL (74-106); Platelet Estimate MOD DEC (ADEQ); Potassium 2.8 mmol/L (3.5-5.1); Sodium Level 139 mmol/L (136-145)
[2021-11-14 05:42] LABS: Anisocytosis 1+; Atypical Lymphocyte RARE %; Hypochromasia 1+
[2021-11-14] MEDS: Budesonide Respules 0.5 MG/2 ML AMPUL.NEB. INHALATION ×2 (07:22→19:24)
[2021-11-14 07:58] LABS: Magnesium 1.8 mg/dL (1.6-2.6)
--- NOTE | 2021-11-14 08:36 | PN.CC_ITS ---
Assessment & Plan Assessment/Plan (1) Sepsis: PLAN: Plan RECOMMENDATIONS: 1. Continue antimicrobials per ID recommendations. 2. Continue to monitor blood counts and transfuse if hemoglobin is less than 7 g/dL. 3. Continue PPI therapy. 4. Pain control per hospitalist. 5. Gentle diuresis as tolerated by hemodynamics and renal function. 6. Encourage incentive spirometer use and mobilize patient as tolerated. 7. Will sign off. Likely okay to discharge from a pulmonary perspective with weaning of oxygen as tolerated and outpatient follow-up IMPRESSIONS: 1. Sepsis secondary to MRSA The patient presented with sepsis due to pneumonia and a lower extremity wound with possible hematogenous spread, with acute sepsis related organ dysfunction as evidenced by lactic acidemia and acute kidney injury. Plan to continue current supportive measures including antimicrobials per ID recommendations. Patient is yet to clear bacterial cultures. 2. Shortness of breath and associated hypoxia secondary to embolic MRSA pneumonia Related to underlying bilateral multifocal pneumonia. Plan to continue supportive measures as noted above including antimicrobials and supplemental oxygen to maintain saturations at or above 90%, if needed. It is reasonable to continue as needed bronchodilator therapy, in light of the patient's tobacco abuse history. Patient is reporting subjective improvement. Patient will need to follow-up as an outpatient for quantification clarification of lung function once acute status has resolved. Anticipate follow-up 4 to 6 weeks after discharge with nurse practitioner. Patient will need an ambulatory pulse ox prior to discharge 3. Acute kidney injury Resolved. Likely prerenal in etiology in the setting of #1. Creatinine is improving with volume expansion. Continue to monitor urine output. No current indication for renal replacement therapy. 4. Pancytopenia The patient has chronic pancytopenia with an acute drop in his hemoglobin and platelet count. His thrombocytopenia is likely consumptive in nature and related to his presenting sepsis. The exact etiology for his drop in hemoglobin is not clear. The patient has been transfused blood products with gastroenterology following. Endoscopic work-up has been unrevealing. Plan to continue PPI therapy as ordered. 5. History of periods of leukemia status post splenectomy/chronic tobacco dependency Complicates care, management, recovery and prognosis. Continue home medications as indicated. Tobacco cessation counseling was provided. This note was generated with [employer] software. It may contain incorrect words, spelling, and punctuation that were not noted in checking the note before signing. Subjective Subjective ,Patient did well overnight. Patient continues to have a productive cough but does not report any change in color, consistency or frequency. Patient is not reporting any significant change in other symptomatology. Did speak with hospitalist today and she feels confident that she can manage from here. Objective Data Objective Data Vital Signs: Vital Signs Temp Pulse Resp BP Pulse Ox O2 Del Method O2 Flow Rate 37.3 C 88 18 133/64 H 93 Nasal Cannula 2 11/14/21 05:46 11/14/21 07:22 11/14/21 07:22 11/14/21 05:46 11/14/21 07:22 11/14/21 07:22 11/14/21 07:22 Oxygen Flow Rate (L/min) 2 Oxygen Delivery Method Nasal Cannula Weight: 116.346 kg Body Mass Index (BMI) 33.2 Intake & Output: Intake and Output for Last 24 Hours 11/12/21 11/13/21 11/14/21 23:59 23:59 23:59 Intake Total 2330 / 3030 1250 / 1250 1075 / 1075 Output Total 3040 / 3540 2150 / 3175 2024 / 2024 Balance -710 / -510 -900 / -1925 -950 / -950 Lab / Micro Data Attestation: I reviewed the patient's lab results. Result Diagrams: 11/14/21 04:24 11/14/21 04:24 Labs: Laboratory Results - last 24 hr 11/11/21 06:45: Diff Path Review Reviewed 11/12/21 05:22: Diff Path Review Reviewed 11/13/21 12:10: Hgb 8.7 L, Hct 24.1 L 11/13/21 13:35: Vancomycin Trough 19.0 H 11/14/21 04:24: WBC 2.3 L, RBC 2.19 L, Hgb 7.4 L, Hct 21.0 L, MCV 95.9 H, MCH 33.8 H, MCHC 35.2, RDW Std Deviation 63.2 H, RDW Coeff of Patricia 18.0 H, Plt Count 74 L, MPV 12.5 H, Immature Gran % (Auto) 0.400, Neut % (Auto) 48.3, Lymph % (Auto) 42.5 H, [place] % (Auto) 4.9, Eos % (Auto) 3.5, Baso % (Auto) 0.4, Absolute Neuts (auto) 1.1 L, Absolute Lymphs (auto) 0.96, Nucleated RBC % 2.7, Differential Comment SCANNED, Atypical Lymphocytes RARE, Platelet Estimate MOD DEC, Hypochromasia 1+, Anisocytosis 1+ 11/14/21 04:24: Sodium 139, Potassium 2.8 L, Chloride 103, Carbon Dioxide 29.0, Anion Gap 7, BUN 20 H, Creatinine 1.05, Estim Creat Clear Calc 91.33, Est GFR (MDRD) Af Amer 94, Est GFR (MDRD) Non-Af 78, BUN/Creatinine Ratio 19.0, Glucose 136 H, Calcium 7.6 L 11/14/21 04:24: Magnesium 1.8 Micro: Microbiology 11/13/21 10:15 Sputum, Expectorated/Coughed Gram Stain - Final 11/08/21 07:52 Blood Culture (Wb) - Anticubital Right Blood Culture - Final Staphylococcus aureus 11/08/21 10:27 Blood Culture (Wb) - Left Hand Bacteria Detection (PCR) - Final Staphylococcus aureus mecA Resistance Marker 11/08/21 10:27 Blood Culture (Wb) - Left Hand Blood Culture - Final Meth. resistant Staph. aureus 11/11/21 07:24 Blood Culture (Wb) - Anticubital Right Blood Culture - Preliminary No growth in 48 hours. 11/10/21 14:40 Blood Culture (Wb) - Anticubital Right Blood Culture - Preliminary No growth in 48 hours. 11/10/21 10:24 Blood Culture (Wb) - Anticubital Right Blood Culture - Preliminary No growth in 48 hours. 11/10/21 11:30 Nasal Secretion SARS-CoV-2 Antigen (Rapid) - Final 11/07/21 23:50 Sputum, Expectorated/Coughed Gram Stain - Final 11/07/21 23:50 Sputum, Expectorated/Coughed Respiratory Culture - Final Meth. resistant Staph. aureus 11/07/21 23:50 Wound - Leg, Left Gram Stain - Final 11/07/21 23:50 Wound - Leg, Left Wound Culture - Final Meth. resistant Staph. aureus 11/08/21 20:17 Stool Stool Occult Blood (CLARKE) - Final Occult Blood Positive 11/08/21 01:16 Urine, Random Streptococcus pneumoniae Antigen (M - Final 11/07/21 01:16 Urine, Clean Catch Legionella Antigen - Final 11/08/21 00:13 Mucosa - Nose Respiratory Panel (PCR) - Final Physical Exam Const alert, oriented x3 and no apparent distress General Appearance: cooperative and ill appearing Nutritional Appearance: obese HEENT normocephalic and head/scalp atraumatic Eyes PERRL, EOMs intact bilaterally and conjunctivae normal Neck supple General: trachea midline Chest inspection of chest normal Resp normal respiratory effort Auscultation: Negative for rales, rhonchi or wheezes Cardio regular rate, regular rhythm, S1 normal heart sound, S2 normal heart sound, no murmurs, no rub and no gallops GI normal to inspection, nondistended, normoactive bowel sounds Extremity no clubbing, cyanosis or edema Extremity Narrative: No splinter hemorrhages appreciated Skin Wound Narrative: Lower extremity wound, present on admission, currently wrapped. Neuro oriented x3, CN's II-XII intact bilaterally and no focal motor deficits Psych cooperative and affect normal Charges/Coding Visit Charges Inpatient E&M: 58011 Subs Hosp L2
[2021-11-14] MEDS: Gabapentin 300 MG Capsule PO ×3 (09:09→16:31)
[2021-11-14] MEDS: guaiFENesin 1,200 MG Tablet 1200 MG PO ×2 (09:09→21:37)
[2021-11-14] MEDS: Pantoprazole Sodium 40 MG Tablet PO ×2 (09:09→21:37)
[2021-11-14] MEDS: oxyCODONE 5 MG Tablet PO ×2 (09:09→21:36)
[2021-11-14] MEDS: Potassium Chloride Oral Tablet 20 MEQ 40 MEQ PO ×2 (09:09→16:30)
--- NOTE | 2021-11-14 10:12 | PN.ID_ITS ---
Physical Exam Narrative Feeling ok, no fever, still some sputum Const alert and no apparent distress Resp Auscultation: rhonchi Cardio regular rate and regular rhythm GI soft to palpation, non-tender and non-distended Skin Skin Narrative: no new rash ID ID: Route of nutrition/ use of supplements: [] Nutritional Intake: [] IV Site: [] Patel Catheter: [] Assessment & Plan Assessment/Plan (1) Sepsis: PLAN: Covid neg here and at [place]. Sputum cx with MRSA. Bcx now with MRSA. Wound cx pcr with MRSA. Cont vanc. TTE showed no veg. Does have splinter hemorrhage on R 4th fingernail. Repeat bcx neg since 11/10. Plan will be for picc and 6 weeks iv vanc, stop date 12/22/21 with weekly labs. ID followup in 2 weeks. Will follow, d/w tax accounting manager (2) Bilateral pneumonia: (3) Chronic ulcer of left lower extremity with fat layer exposed: (4) MRSA bacteremia: (5) MRSA pneumonia:
[2021-11-14] MEDS: fentaNYL 100 MCG/2 ML Ampul 50 MCG IV (10:54)
[2021-11-14] MEDS: Potassium Chloride 10mEq/100mL 10 MEQ/100 ML IV.SOLN. 100 MEQ IV BOLUS ×4 (13:29→17:36)
--- NOTE | 2021-11-14 13:37 | PN.HOSP_ITS ---
Subjective Subjective Follow-up on sepsis secondary to MRSA bacteremia/pneumonia/left lower extremity wound: Patient was seen and examined.? He has still been coughing up a lot of sputum. Denies any fever or chills. Case management working on IV antibiotics with home health. Objective Data Objective Data Vital Signs: Vital Signs Temp Pulse Resp BP Pulse Ox O2 Del Method O2 Flow Rate 99.6 F H 95 26 H 132/64 H 94 Nasal Cannula 2 11/14/21 08:58 11/14/21 12:04 11/14/21 11:26 11/14/21 08:58 11/14/21 08:58 11/14/21 09:24 11/14/21 09:24 Oxygen Flow Rate (L/min) 2 Oxygen Delivery Method Nasal Cannula Weight: 116.346 kg Body Mass Index (BMI) 33.2 Intake & Output: Intake and Output for Last 24 Hours 11/12/21 11/13/21 11/14/21 23:59 23:59 23:59 Intake Total 2330 / 3030 1250 / 1250 1075 / 1075 Output Total 3040 / 3540 2150 / 3175 2875 / 2875 Balance -710 / -510 -900 / -1925 -1800 / -1800 Lab / Micro Data Result Diagrams: 11/14/21 04:24 11/14/21 04:24 Labs: Laboratory Results - last 24 hr 11/13/21 13:35: Vancomycin Trough 19.0 H 11/14/21 04:24: WBC 2.3 L, RBC 2.19 L, Hgb 7.4 L, Hct 21.0 L, MCV 95.9 H, MCH 33.8 H, MCHC 35.2, RDW Std Deviation 63.2 H, RDW Coeff of Patricia 18.0 H, Plt Count 74 L, MPV 12.5 H, Immature Gran % (Auto) 0.400, Neut % (Auto) 48.3, Lymph % (Auto) 42.5 H, [place] % (Auto) 4.9, Eos % (Auto) 3.5, Baso % (Auto) 0.4, Absolute Neuts (auto) 1.1 L, Absolute Lymphs (auto) 0.96, Nucleated RBC % 2.7, Differential Comment SCANNED, Atypical Lymphocytes RARE, Platelet Estimate MOD DEC, Hypochromasia 1+, Anisocytosis 1+ 11/14/21 04:24: Sodium 139, Potassium 2.8 L, Chloride 103, Carbon Dioxide 29.0, Anion Gap 7, BUN 20 H, Creatinine 1.05, Estim Creat Clear Calc 91.33, Est GFR (MDRD) Af Amer 94, Est GFR (MDRD) Non-Af 78, BUN/Creatinine Ratio 19.0, Glucose 136 H, Calcium 7.6 L 11/14/21 04:24: Magnesium 1.8 Micro: Microbiology 11/13/21 10:15 Sputum, Expectorated/Coughed Gram Stain - Final 11/13/21 10:15 Sputum, Expectorated/Coughed Respiratory Culture - Preliminary Staphylococcus aureus 11/08/21 07:52 Blood Culture (Wb) - Anticubital Right Blood Culture - Final Staphylococcus aureus 11/08/21 10:27 Blood Culture (Wb) - Left Hand Bacteria Detection (PCR) - Final Staphylococcus aureus mecA Resistance Marker 11/08/21 10:27 Blood Culture (Wb) - Left Hand Blood Culture - Final Meth. resistant Staph. aureus 11/11/21 07:24 Blood Culture (Wb) - Anticubital Right Blood Culture - Preliminary No growth in 48 hours. 11/10/21 14:40 Blood Culture (Wb) - Anticubital Right Blood Culture - Preliminary No growth in 48 hours. 11/10/21 10:24 Blood Culture (Wb) - Anticubital Right Blood Culture - Preliminary No growth in 48 hours. 11/10/21 11:30 Nasal Secretion SARS-CoV-2 Antigen (Rapid) - Final 11/07/21 23:50 Sputum, Expectorated/Coughed Gram Stain - Final 11/07/21 23:50 Sputum, Expectorated/Coughed Respiratory Culture - Final Meth. resistant Staph. aureus 11/07/21 23:50 Wound - Leg, Left Gram Stain - Final 11/07/21 23:50 Wound - Leg, Left Wound Culture - Final Meth. resistant Staph. aureus 11/08/21 20:17 Stool Stool Occult Blood (CLARKE) - Final Occult Blood Positive 11/08/21 01:16 Urine, Random Streptococcus pneumoniae Antigen (M - Final 11/07/21 01:16 Urine, Clean Catch Legionella Antigen - Final 11/08/21 00:13 Mucosa - Nose Respiratory Panel (PCR) - Final Physical Exam Narrative Physical exam: General: Alert, Oriented x3, Cooperative, on 2L of oxygen HEENT: Atraumatic Oral: Moist Mucosa Neck: Supple Lungs: Diminished to auscultation, bilateral crackles Cardiovascular: HS I+II, regular, no murmurs Abdomen: Bowel Sounds Present, Soft, Non Tender Extremities: No edema Skin: No rashes, No breakdown Neurological: Grossly intact Psych/Mental Status: Appropriate Assessment & Plan Assessment/Plan (1) MRSA pneumonia: (2) MRSA bacteremia: PLAN: Plan 1. Acute hypoxic respiratory failure secondary to MRSA pneumonia Patient is on 2L of oxygen, continue breathing treatments as needed 2. Sepsis secondary to MRSA bacteremia/pneumonia to the left lower extremity wound Blood, wound, sputum cultures growing MRSA Repeat blood cultures on 11/11/21 showed no growth Continue on IV vancomycin, ID following PICC line today; 8 weeks IV antibiotics planned 3. Anemia, severe, acute blood loss secondary to acute GI bleed EGD and colonoscopy are negative; capsule endoscopy planned for outpatient Hemoglobin today is 7.4, will transfuse for hemoglobin less than 7 4. Acute kidney injury, resolved 5. Hypokalemia/hypophosphatemia, replaced, recheck in am 6. Nicotine abuse, smoking cessation recommended 7. 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 DVT PPx- SCDs on account of GI bleed. Charges/Coding Visit Charges Inpatient E&M: 02564 Subs Hosp L2
[2021-11-14 13:59] LABS: Haptoglobin 600 mg/dL (29-370)
--- NOTE | 2021-11-14 15:07 | CASEMGMT ---
Addendum entered by Ortega Damon 11/14/21 16:43: LAYNE HERBERT received VM from Maira @ [facility]. She states, if they are able to accept pt, the 1st available opening for SOC would be . Awaiting review of referral and response re: acceptance. Pt and made aware. PICC insertion documentation and script for Vanco have been faxed to [facility]. Original Note: LAYNE HERBERT NOTE: LAYNE HERBERT informed this morning that pt will be getting a PICC line and can discharge when HHC can be set up for IV atb infusion. Spoke w/ABDIRIZAKI. Cost of IV Vanco and supplies will be $262.80/week, so total of approx $1,576.80 (for 6 wks). They require 1st week paid up-front and then they can set up a payment plan for pt to pay remainder. It will just need to be paid within a year. Pt made aware of this. He states this is affordable. [facility] made aware and will contact pt to set up payment plan. Spoke w/Tylor @ [facility] this morning re: referral for HHC: SN for IV atb and inquired if they do self-pay. She confirmed they do take self-pay pt's and they do cover pt's area ([place]). She states cost for SN visit is $160 per visit. Pt made aware of this and informed it would be a nurse visit at least once a week at a minimum for PICC dsg changes and lab draws. He was also made aware going to OP infusion center @ [facility] is another option for the weekly labs/dsg changes. He states the $160/per nurse visit is affordable and prefers do have [facility] do the weekly labs and PICC dsg changes rather than go to OP infusion center for this. LAYNE HERBERT did bring up option of SNF as an option. Pt states he does not want to go to a SNF, he still prefers Home w/C, if this can be arranged. Referral packet faxed to N earlier today. Attempted x 3 during the day to reach Tylor again to inquire if referral packet was received and if they are able to accept. No answer and VM was left earlier as well. Attempted again @ 1450 and was able to reach Tylor. She states the referral back was received, they have reviewed it, and they are not able to accept pt d/t not having staff in the area. Call to [facility], corporate office. They do take pt's that are self-pay but she is not sure if they have the staffing to cover pt's area. Cost per visit is $49/hr w/a minimum of 2 hrs. Referral faxed to [facility] at this time. Maira @ [facility]. VM left. Awaiting call back. Calls also placed to [facility], [facility], [facility], [facility], [facility], and [facility]. They either do not do self-pay, do not cover pt's area, or do not have the staffing. Pt and made aware of all of the above. Debra PIERCEN RN CM
[2021-11-15] VITALS (14 sets, daily range): BP systolic 108–139; BP diastolic 53–87; PULSE 82–118; RESP 17–22; TEMP 36.4–37.7; O2SAT 89–96
[2021-11-15 05:47] LABS: Basophil# 0.01 X10^3/uL; Basophil% 0.5 % (0-1); Eosinophil# 0.05 X10^3/uL; Eosinophils% 2.6 % (0-5); Hematocrit 22.7 % (40-54); Hemoglobin 7.8 g/dL (13.0-16.5); Lymphocyte % 41.2 % (19-41); Mean Corp Hgb Conc 34.4 g/dL (32-36); Mean Corpuscular Hgb 33.5 pg (27.0-32.0); Mean Corpuscular Volume 97.4 fL (80-94); Monocyte# 0.12 X10^3/uL; Monocyte% 6.2 % (0-10); NRBC Flagged by Analyzer 3.1 % (0-5); Neutrophil # 0.96 X10^3/uL (2.7-7.7); Neutrophil % 49.5 % (47-70); POSITIVE COUNT YES; POSITIVE DIFFERENTIAL YES; POSITIVE MORPHOLOGY YES; Platelet Count 76 K/mm3 (150-450); RBC Distribution Width CV 17.7 % (11.6-14.6); Red Blood Count 2.33 M/mm3 (4.6-6.2); White Blood Count 1.9 K/mm3 (4.4-11.0)
[2021-11-15] MEDS: Acetaminophen 325 MG Tablet 650 MG PO ×4 (05:47→22:53)
[2021-11-15] MEDS: 0.9% Saline Lock 10 ML Syringe IV (05:47)
[2021-11-15 05:59] LABS: Differential Indicated SCAN CRITERIA MET
[2021-11-15 06:10] LABS: ALB/GLOB Ratio 0.2 RATIO (0.9-2.4); AST(SGOT) 25 U/L (15-37); Alanine Aminotransfer ALT/SGPT 41 U/L (16-61); Albumin, Serum 1.2 g/dL (3.2-5.0); Alkaline Phosphatase 91 U/L (45-117); Anion Gap 7 (5-15); BUN 19 mg/dL (7-18); BUN/Creat Ratio 17.4 RATIO (10-20); Calcium,Total 7.7 mg/dL (8.5-10.1); Chloride 101 mmol/L (98-107); Creatinine, Serum 1.09 mg/dL (0.70-1.30); EST Glomerular Filtration Rate 74 mL/min (>60); Est Glom Filt Rate - Afr Amer 90 mL/min (>60); Estimated Creatinine Clearance 87.98 ml/min; Globulin 5.3 g/dL (2.2-4.2); Glucose 118 mg/dL (74-106); Potassium 3.2 mmol/L (3.5-5.1); Protein, Total 6.5 g/dL (6.4-8.2); Sodium Level 139 mmol/L (136-145)
[2021-11-15 06:35] LABS: Differential Comment SCANNED
[2021-11-15 06:36] LABS: Platelet Estimate MOD DEC (ADEQ)
[2021-11-15 06:37] LABS: Hypochromasia 1+
[2021-11-15] MEDS: Budesonide Respules 0.5 MG/2 ML AMPUL.NEB. INHALATION ×2 (07:23→19:10)
[2021-11-15] MEDS: Ipratropium/Albuterol Sulfate 3 ML AMPUL.NEB INHALATION ×4 (07:23→19:10)
[2021-11-15] MEDS: Potassium Chloride Oral Tablet 20 MEQ 60 MEQ PO (09:26)
[2021-11-15] MEDS: Pantoprazole Sodium 40 MG Tablet PO ×2 (09:27→22:53)
[2021-11-15] MEDS: oxyCODONE 5 MG Tablet PO ×2 (09:27→13:52)
[2021-11-15] MEDS: Benzonatate 100 MG Capsule PO ×2 (09:27→13:12)
[2021-11-15] MEDS: Gabapentin 300 MG Capsule PO ×3 (09:27→17:24)
[2021-11-15] MEDS: guaiFENesin 1,200 MG Tablet 1200 MG PO ×2 (09:28→22:53)
--- NOTE | 2021-11-15 09:43 | CASEMGMT ---
Addendum entered by Ortega Damon 11/15/21 16:54: Pt and state they received notification from his workplace that he qualifies for short-term disability and has paperwork that needs to be completed by a physician. LAYNE HERBERT instructed them to f/u with either PCP or Dr Ramesh to have this completed. They voice understanding. Addendum entered by Ortega Damon 11/15/21 14:10: Received call from Maira @ [facility]. She did receive the referral packet and they are able to accept pt w/SOC tomorrow @ 11 AM. They will call pt or to discuss payment for [facility] services. Call placed to Barbara @ [facility]. She was made aware pt will be discharging home tomorrow AM w/[facility] SOC @ 11 AM. She states someone will contact pt today to discuss payment plan. Delivery of IV atb's and supplies to be delivered today. LAYNE HERBERT to room. Pt and , who is in room visiting, made aware of all of the above. states the IV atb's and supplies have already been delivered to their home. Questions answered. and pt have contact info for both [facility] and [facility]. asks if rx's can be sent to [facility] this PM so she can pick them up tonight, instead of having to get them in the morning to help prevent them getting home late for HHC SOC. Dr Winter made aware of request. Dr Winter made aware HHC SOC is tomorrow @ 11 AM and will attempt to have pt discharged by 10 AM, as he has approx [address]. Addendum entered by Ortega Damon 11/15/21 13:45: Call to [facility] to inquire if referral was received. No answer. VM left. Awaiting return call. Addendum entered by Ortega Damon 11/15/21 12:41: Maira also was made aware pt does his own dressing changes. Addendum entered by Ortega Damon 11/15/21 12:40: Call to [facility]. VM left w/Maira to inquire if referral packet was received. Awaiting call back. Original Note: LAYNE HERBERT NOTE: Call to Maira @ [facility] in [place]. She states they did not receive the referral. Re-faxed at this time. Debra BAILEY RN, CM
--- NOTE | 2021-11-15 13:02 | PCM.PN.HOSP ---
Subjective Subjective Follow-up on sepsis secondary to MRSA bacteremia/pneumonia/left lower extremity wound: Patient was seen and examined.? No events overnight. Still producing lots of sputum. Probably home with home health and antibiotics tomorrow. Objective Data Objective Data Vital Signs: Vital Signs Temp Pulse Resp BP Pulse Ox O2 Del Method O2 Flow Rate 99.7 F H 82 17 110/87 H 94 Nasal Cannula 2 11/15/21 09:22 11/15/21 11:53 11/15/21 11:53 11/15/21 09:22 11/15/21 09:22 11/15/21 09:22 11/15/21 09:22 Oxygen Flow Rate (L/min) 2 Oxygen Delivery Method Nasal Cannula Weight: 116.5 kg Body Mass Index (BMI) 33.2 Intake & Output: Intake and Output for Last 24 Hours 11/13/21 11/14/21 11/15/21 23:59 23:59 23:59 Intake Total 1250 / 1250 1854 / 2054 828.5 / 828.5 Output Total 2150 / 3175 2875 / 4375 2800 / 2800 Balance -900 / -1925 -1021 / -2321 -1971.5 / -1971.5 Lab / Micro Data Result Diagrams: 11/15/21 03:59 11/15/21 03:59 Labs: Laboratory Results - last 24 hr 11/12/21 07:37: Haptoglobin 600 H 11/15/21 03:59: WBC 1.9 L, RBC 2.33 L, Hgb 7.8 L, Hct 22.7 L, MCV 97.4 H, MCH 33.5 H, MCHC 34.4, RDW Std Deviation 63.0 H, RDW Coeff of Patricia 17.7 H, Plt Count 76 L, MPV 12.0, Immature Gran % (Auto) 0.000, Neut % (Auto) 49.5, Lymph % (Auto) 41.2 H, [place] % (Auto) 6.2, Eos % (Auto) 2.6, Baso % (Auto) 0.5, Absolute Neuts (auto) 1.0 L, Absolute Lymphs (auto) 0.80 L, Nucleated RBC % 3.1, Differential Comment SCANNED, Platelet Estimate MOD DEC, Hypochromasia 1+ 11/15/21 03:59: Sodium 139, Potassium 3.2 L, Chloride 101, Carbon Dioxide 31.0, Anion Gap 7, BUN 19 H, Creatinine 1.09, Estim Creat Clear Calc 87.98, Est GFR (MDRD) Af Amer 90, Est GFR (MDRD) Non-Af 74, BUN/Creatinine Ratio 17.4, Glucose 118 H, Calcium 7.7 L, Total Bilirubin 0.60, AST 25, ALT 41, Alkaline Phosphatase 91, Total Protein 6.5, Albumin 1.2 L, Globulin 5.3 H, Albumin/Globulin Ratio 0.2 L Micro: Microbiology 11/10/21 10:24 Blood Culture (Wb) - Anticubital Right Blood Culture - Final No growth in 5 days. 11/13/21 10:15 Sputum, Expectorated/Coughed Gram Stain - Final 11/13/21 10:15 Sputum, Expectorated/Coughed Respiratory Culture - Final Meth. resistant Staph. aureus 11/08/21 07:52 Blood Culture (Wb) - Anticubital Right Blood Culture - Final Staphylococcus aureus 11/08/21 10:27 Blood Culture (Wb) - Left Hand Bacteria Detection (PCR) - Final Staphylococcus aureus mecA Resistance Marker 11/08/21 10:27 Blood Culture (Wb) - Left Hand Blood Culture - Final Meth. resistant Staph. aureus 11/11/21 07:24 Blood Culture (Wb) - Anticubital Right Blood Culture - Preliminary No growth in 48 hours. 11/10/21 14:40 Blood Culture (Wb) - Anticubital Right Blood Culture - Preliminary No growth in 48 hours. 11/10/21 11:30 Nasal Secretion SARS-CoV-2 Antigen (Rapid) - Final 11/07/21 23:50 Sputum, Expectorated/Coughed Gram Stain - Final 11/07/21 23:50 Sputum, Expectorated/Coughed Respiratory Culture - Final Meth. resistant Staph. aureus 11/07/21 23:50 Wound - Leg, Left Gram Stain - Final 11/07/21 23:50 Wound - Leg, Left Wound Culture - Final Meth. resistant Staph. aureus 11/08/21 20:17 Stool Stool Occult Blood (CLARKE) - Final Occult Blood Positive 11/08/21 01:16 Urine, Random Streptococcus pneumoniae Antigen (M - Final 11/07/21 01:16 Urine, Clean Catch Legionella Antigen - Final 11/08/21 00:13 Mucosa - Nose Respiratory Panel (PCR) - Final Physical Exam Narrative Physical exam: General: Alert, Oriented x3, Cooperative, on 2L of oxygen HEENT: Atraumatic Oral: Moist Mucosa Neck: Supple Lungs: Diminished to auscultation, bilateral crackles Cardiovascular: HS I+II, regular, no murmurs Abdomen: Bowel Sounds Present, Soft, Non Tender Extremities: No edema, dressing over the left lower leg Skin: No rashes, No breakdown Neurological: Grossly intact Psych/Mental Status: Appropriate Assessment & Plan Assessment/Plan (1) MRSA pneumonia: (2) MRSA bacteremia: PLAN: Plan 1. Acute hypoxic respiratory failure secondary to MRSA pneumonia Patient remains on 2L of oxygen, continue breathing treatments as needed 2. Sepsis secondary to MRSA bacteremia/MRSA pneumonia/MRSA left lower extremity wound Blood, wound, sputum cultures growing MRSA Repeat blood cultures on 11/11/21 showed no growth Continue on IV vancomycin, ID following PICC line inserted; 8 weeks IV antibiotics planned 3. Anemia, severe, acute blood loss secondary to acute GI bleed/iron deficiency anemia EGD and colonoscopy are negative; capsule endoscopy planned for outpatient Hemoglobin today is 7.8, will transfuse for hemoglobin less than 7 We will start patient on oral iron, continue stool softeners 4. Acute kidney injury, resolved 5. Hypokalemia/hypophosphatemia, replaced, recheck in am 6. Nicotine abuse, smoking cessation recommended 7. 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 DVT PPx- SCDs on account of GI bleed. Charges/Coding Visit Charges Inpatient E&M: 68605 Subs Hosp L2
--- NOTE | 2021-11-15 14:45 | PHA.PHARE_ITS ---
Consult Pharmacy has been consulted to manage selected antiobiotic: Vancomycin Type of Consult: Follow-up Prior Doses of Antibiotics Received/Current Regimen: current dose is 1250mg IV q12h Labs: Sodium 139 mmol/L (136-145) 11/15/21 03:59 Potassium 3.2 mmol/L (3.5-5.1) L 11/15/21 03:59 Chloride 101 mmol/L (98-107) 11/15/21 03:59 Carbon Dioxide 31.0 mmol/L (21.0-32.0) 11/15/21 03:59 Anion Gap 7 (5-15) 11/15/21 03:59 BUN 19 mg/dL (7-18) H 11/15/21 03:59 Creatinine 1.09 mg/dL (0.70-1.30) 11/15/21 03:59 Est GFR (MDRD) Af Amer 90 mL/min (>60) 11/15/21 03:59 Est GFR (MDRD) Non-Af 74 mL/min (>60) 11/15/21 03:59 BUN/Creatinine Ratio 17.4 RATIO (10-20) 11/15/21 03:59 Glucose 118 mg/dL (74-106) H 11/15/21 03:59 Vancomycin Trough 23.0 ug/mL (5.0-15.0) H 11/15/21 13:30 Random Vancomycin 14.5 ug/mL (0.0-15.0) 11/11/21 23:55 Microbiology: Microbiology 11/10/21 10:24 Blood Culture (Wb) - Anticubital Right Blood Culture - Final No growth in 5 days. 11/13/21 10:15 Sputum, Expectorated/Coughed Gram Stain - Final 11/13/21 10:15 Sputum, Expectorated/Coughed Respiratory Culture - Final Meth. resistant Staph. aureus 11/08/21 07:52 Blood Culture (Wb) - Anticubital Right Blood Culture - Final Staphylococcus aureus 11/08/21 10:27 Blood Culture (Wb) - Left Hand Bacteria Detection (PCR) - Final Staphylococcus aureus mecA Resistance Marker 11/08/21 10:27 Blood Culture (Wb) - Left Hand Blood Culture - Final Meth. resistant Staph. aureus 11/11/21 07:24 Blood Culture (Wb) - Anticubital Right Blood Culture - Prelim inary No growth in 48 hours. 11/10/21 14:40 Blood Culture (Wb) - Anticubital Right Blood Culture - Preliminary No growth in 48 hours. 11/10/21 11:30 Nasal Secretion SARS-CoV-2 Antigen (Rapid) - Final 11/07/21 23:50 Sputum, Expectorated/Coughed Gram Stain - Final 11/07/21 23:50 Sputum, Expectorated/Coughed Respiratory Culture - Final Meth. resistant Staph. aureus 11/07/21 23:50 Wound - Leg, Left Gram Stain - Final 11/07/21 23:50 Wound - Leg, Left Wound Culture - Final Meth. resistant Staph. aureus 11/08/21 20:17 Stool Stool Occult Blood (CLARKE) - Final Occult Blood Positive 11/08/21 01:16 Urine, Random Streptococcus pneumoniae Antigen (M - Final 11/07/21 01:16 Urine, Clean Catch Legionella Antigen - Final 11/08/21 00:13 Mucosa - Nose Respiratory Panel (PCR) - Final Weight used for dosin.5 kg Estimated Creatinine Clearance: 102 ml/min Goal Trough: 15-20 mcg/mL Pharmacy Plan for Drug Dosing: This afternoon's dose was hung early and 20 minutes before the scheduled trough was drawn (level = 23.0) so it is not an accurate trough. Will, therefore, reschedule a trough level to be drawn before tonight's dose. The patient's CrCl of 102 ml/min was calculated using an adjusted body weight of 95.9kg. Pharmacy Service will continue to monitor and adjust dosing as required. Follow-Up Labs: Trough Vancomycin Labs to be done on [date and time ordered]: 11/16/21 00:30
[2021-11-15] MEDS: Ferrous Sulfate 325 MG Tablet PO (17:24)
[2021-11-15] MEDS: traMADol 50 MG Tablet PO ×2 (17:59→22:52)
[2021-11-16 01:48] LABS: Vancomycin, Trough Level 16.9 ug/mL (5.0-15.0)
[2021-11-16] MEDS: 0.9% Saline Lock 10 ML Syringe IV ×2 (02:02→05:34)
--- NOTE | 2021-11-16 02:32 | PCM.RX.CS ---
Consult Pharmacy has been consulted to manage selected antiobiotic: Vancomycin Type of Consult: Follow-up Suspected Infection: Sepsis Prior Doses of Antibiotics Received/Current Regimen: Medications Vancomycin HCl 1,250 mg/ (Sodium Chloride) 275 mls @ 167 mls/hr IV Q12H NELLY Last Admin: 11/16/21 02:01 Dose: 167 mls/hr Labs: Sodium 139 mmol/L (136-145) 11/15/21 03:59 Potassium 3.2 mmol/L (3.5-5.1) L 11/15/21 03:59 Chloride 101 mmol/L (98-107) 11/15/21 03:59 Carbon Dioxide 31.0 mmol/L (21.0-32.0) 11/15/21 03:59 Anion Gap 7 (5-15) 11/15/21 03:59 BUN 19 mg/dL (7-18) H 11/15/21 03:59 Creatinine 1.09 mg/dL (0.70-1.30) 11/15/21 03:59 Est GFR (MDRD) Af Amer 90 mL/min (>60) 11/15/21 03:59 Est GFR (MDRD) Non-Af 74 mL/min (>60) 11/15/21 03:59 BUN/Creatinine Ratio 17.4 RATIO (10-20) 11/15/21 03:59 Glucose 118 mg/dL (74-106) H 11/15/21 03:59 Vancomycin Trough 16.9 ug/mL (5.0-15.0) H 11/16/21 00:35 Random Vancomycin 14.5 ug/mL (0.0-15.0) 11/11/21 23:55 Microbiology: Microbiology 11/10/21 14:40 Blood Culture (Wb) - Anticubital Right Blood Culture - Final No growth in 5 days. 11/10/21 10:24 Blood Culture (Wb) - Anticubital Right Blood Culture - Final No growth in 5 days. 11/13/21 10:15 Sputum, Expectorated/Coughed Gram Stain - Final 11/13/21 10:15 Sputum, Expectorated/Coughed Respiratory Culture - Final Meth. resistant Staph. aureus 11/08/21 07:52 Blood Culture (Wb) - Anticubital Right Blood Culture - Final Staphylococcus aureus 11/08/21 10:27 Blood Culture (Wb) - Left Hand Bacteria Detection (PCR) - Final Staphylococcus aureus mecA Resistance Marker 11/08/21 10:27 Blood Culture (Wb) - Left Hand Blood Culture - Final Meth. resistant Staph. aureus 11/11/21 07:24 Blood Culture (Wb) - Anticubital Right Blood Culture - Preliminary No growth in 48 hours. 11/10/21 11:30 Nasal Secretion SARS-CoV-2 Antigen (Rapid) - Final 11/07/21 23:50 Sputum, Expectorated/Coughed Gram Stain - Final 11/07/21 23:50 Sputum, Expectorated/Coughed Respiratory Culture - Final Meth. resistant Staph. aureus 11/07/21 23:50 Wound - Leg, Left Gram Stain - Final 11/07/21 23:50 Wound - Leg, Left Wound Culture - Final Meth. resistant Staph. aureus 11/08/21 20:17 Stool Stool Occult Blood (CLARKE) - Final Occult Blood Positive 11/08/21 01:16 Urine, Random Streptococcus pneumoniae Antigen (M - Final 11/07/21 01:16 Urine, Clean Catch Legionella Antigen - Final 11/08/21 00:13 Mucosa - Nose Respiratory Panel (PCR) - Final Weight used for dosin.5 kg Estimated Creatinine Clearance: 102.6 Goal Trough: 15-20 mcg/mL Pharmacy Plan for Drug Dosing: Vancomycin trough level, drawn appropriately, was 16.9. This was within the target range of 15-20. Will continue current dosing of 1250mg q12h, and re-draw a trough in 2 days. Pharmacy Service will continue to monitor and adjust dosing as required. Follow-Up Labs: Trough Vancomycin Labs to be done on [date and time ordered]: 11/18/21 @2466
[2021-11-16 03:41] VITALS: PULSE 73
[2021-11-16 04:12] VITALS: BP 103/56; PULSE 88; RESP 18; TEMP 37.3; O2SAT 96
[2021-11-16 04:56] LABS: Absolute Lymphocyte Count 0.75 X10^3/uL (0.83-4.51); Absolute Neutrophil Count 0.9 X10^3/uL (2.0-7.7); Basophil# 0.01 X10^3/uL; Basophil% 0.6 % (0-1); Eosinophil# 0.04 X10^3/uL; Eosinophils% 2.2 % (0-5); Hematocrit 21.4 % (40-54); Hemoglobin 7.3 g/dL (13.0-16.5); Lymphocyte # 0.75 X10^3/ul (0.83-4.51); Lymphocyte % 41.4 % (19-41); Mean Corp Hgb Conc 34.1 g/dL (32-36); Mean Corpuscular Hgb 33.8 pg (27.0-32.0); Mean Corpuscular Volume 99.1 fL (80-94); Mean Platelet Vol. 12.3 fl (6.2-12.0); Monocyte# 0.11 X10^3/uL; Monocyte% 6.1 % (0-10); NRBC Flagged by Analyzer 1.7 % (0-5); Neutrophil % 49.7 % (47-70); POSITIVE COUNT YES; POSITIVE DIFFERENTIAL YES; POSITIVE MORPHOLOGY YES; Platelet Count 65 K/mm3 (150-450); RBC Distribution Width CV 17.7 % (11.6-14.6); RBC Distribution Width SD 64.3 fl (35.1-43.9); Red Blood Count 2.16 M/mm3 (4.6-6.2); White Blood Count 1.8 K/mm3 (4.4-11.0)
[2021-11-16 05:16] LABS: Differential Indicated SCAN CRITERIA MET
[2021-11-16 05:24] LABS: ALB/GLOB Ratio 0.2 RATIO (0.9-2.4); AST(SGOT) 22 U/L (15-37); Alanine Aminotransfer ALT/SGPT 32 U/L (16-61); Albumin, Serum 1.1 g/dL (3.2-5.0); Alkaline Phosphatase 79 U/L (45-117); Anion Gap 6 (5-15); BUN 22 mg/dL (7-18); BUN/Creat Ratio 19.6 RATIO (10-20); Calcium,Total 7.6 mg/dL (8.5-10.1); Chloride 100 mmol/L (98-107); Creatinine, Serum 1.12 mg/dL (0.70-1.30); EST Glomerular Filtration Rate 72 mL/min (>60); Est Glom Filt Rate - Afr Amer 87 mL/min (>60); Estimated Creatinine Clearance 85.63 ml/min; Globulin 5.1 g/dL (2.2-4.2); Glucose 112 mg/dL (74-106); Potassium 3.1 mmol/L (3.5-5.1); Protein, Total 6.2 g/dL (6.4-8.2); Sodium Level 136 mmol/L (136-145)
[2021-11-16] MEDS: traMADol 50 MG Tablet PO (05:32)
[2021-11-16] MEDS: Acetaminophen 325 MG Tablet 650 MG PO (05:33)
[2021-11-16 05:41] LABS: Anisocytosis 1+; Differential Comment SCANNED; Hypochromasia 1+; Macrocytosis 1+; Platelet Estimate MOD DEC (ADEQ)
[2021-11-16] MEDS: Ipratropium/Albuterol Sulfate 3 ML AMPUL.NEB INHALATION (06:58)
[2021-11-16] MEDS: Budesonide Respules 0.5 MG/2 ML AMPUL.NEB. INHALATION (06:58)
[2021-11-16 06:59] VITALS: PULSE 85; RESP 20; O2SAT 92
[2021-11-16 07:00] VITALS: PULSE 89
--- NOTE | 2021-11-16 07:22 | DCINST_ITS ---
Discharge Instructions Diet Discharge Diet: 2000 mg Sodium Diet Activity Discharge Activity: Return to Normal Activity Follow Up Care Test Results: Test results from this visit will be discussed in further detail at your follow- up appointment, if applicable. Discharge Plan Admission Admit Date/Time: 11/07/21 21:22 Primary Reason for Your Visit: NICHOLE/MRSA pneumonia/bacteremia/infected leg ulcers Attending Provider: Amber Winter Primary Care Provider: Dom Rueda Consulting Providers: Annette Lindquist ; Rito Rueda ; Sukhjinder Rodriguez ; Mariela Hull Discharge Orders/Prescriptions Prescriptions: New vancomycin 1.25 gram recon soln 1.25 g IV Q12H Qty: 76 0RF Rx Instructions: dx: MRSA bacteremia stop date 12/22/21 weekly bmp, cbc, and vanc trough. Fax to [phone] routine picc care with heparin/saline flush per protocol sennosides-docusate sodium [Stool Softener-Stimulant Laxat] 8.6-50 mg Tablet 2 tab PO BID PRN PRN (Reason: Constipation) 30 Days Qty: 60 0RF tramadol 50 mg Tablet 50 mg PO TID PRN PRN (Reason: Pain Score 6-10) 3 Days Qty: 6 0RF potassium chloride [Klor-Con M20] 20 mEq Tablet,Er Particles/Crystals 40 meq PO DAILYCM 5 Days Qty: 10 0RF pantoprazole 40 mg Tablet,Delayed Release (Dr/Ec) 40 mg PO BID 30 Days Qty: 60 0RF ferrous sulfate [FeroSul] 325 mg (65 mg iron) Tablet 325 mg PO 1200,1700 30 Days Qty: 60 0RF gabapentin 300 mg Capsule 300 mg PO TIDCM 30 Days Qty: 90 0RF Mucus Relief ER 1,200 mg Tablet Extended Release 12hr 1,200 mg PO BID 14 Days Qty: 28 0RF Continued acetaminophen [Tylenol] 325 mg capsule 325 mg PO Q6H PRN (Reason: Pain) Discontinued naproxen sodium [Aleve] 220 mg capsule 220 mg PO BID PRN (Reason: Pain) Referrals / Follow Up: Dom Rueda DO [Primary Care Provider] - In 1 Week Disposition Disposition (needs filled in before D/C Order can be placed): Home, Self Care
--- NOTE | 2021-11-16 07:23 | PCM.DC.SUM ---
Providers Date of Admission: 11/07/21 Date of Discharge: 11/16/21 Primary Care Physician: Dr. Dom Rueda, Consultations 11/07/21 21:18 Consult: Infectious Disease Routine Consulting Provider: Sukhjinder Rodriguez Reason for Consult: BL PNA, cavitating EMERGENT Consult: No Notified: Yes Date Notified: 11/07/21 Time Notified: 21:19 Method of Notification: Text Consult: Onc/Wound/consulting senior practice director Routine Comment: Reason for Consult:: LLE wound 11/08/21 06:47 Consult: Court Administrator / Pulmonary Medicine Routine Consulting Provider: Rito Rueda Reason for Consult: BL PNA, cavitating, hypoxia, sepsis EMERGENT Consult: No MD Notified: Yes Date Notified: 11/08/21 Time Notified: 06:49 Method of Notification: Text 11/09/21 07:20 Consult: Gastroenterology Routine Consulting Provider: [facility] Reason for Consult: GI bleed EMERGENT Consult: No MD Notified: Yes Date Notified: 11/09/21 Time Notified: 07:20 Method of Notification: Text Reason For Visit: BL PNA, NICHOLE, ACUTE ON CHRONIC ANEMIA Diagnosis Discharge Diagnosis (1) MRSA pneumonia: Status: Acute Code(s): J15.212 - Pneumonia due to Methicillin resistant Staphylococcus aureus (2) MRSA bacteremia: Status: Acute Code(s): R78.81 - Bacteremia; B95.62 - Methicillin resistant Staphylococcus aureus infection as the cause of diseases classified elsewhere Medications at Discharge Home Medications acetaminophen 325 mg capsule (Tylenol) 325 mg PO Q6H PRN Pain 07/31/18 vancomycin 1.25 gram intravenous solution 1.25 g IV Q12H #76 ea 11/14/21 ferrous sulfate 325 mg (65 mg iron) tablet (FeroSul) 325 mg PO 1200,1700 30 days #60 tabs 11/15/21 gabapentin 300 mg capsule 300 mg PO TIDCM 30 days #90 caps 11/15/21 guaifenesin 1,200 mg tablet, extended release 12 hr (Mucus Relief ER) 1,200 mg PO BID 14 days #28 tabs 11/15/21 pantoprazole 40 mg tablet,delayed release 40 mg PO BID 30 days #60 tabs 11/15/21 potassium chloride 20 mEq tablet,extended release(part/cryst) (Klor-Con M) 40 meq PO DAILYCM 5 days #10 tabs 11/15/21 sennosides 8.6 mg-docusate sodium 50 mg tablet (Stool Softener-Stimulant Laxative) 2 tab PO BID PRN PRN Constipation 30 days #60 tabs 11/15/21 tramadol 50 mg tablet 50 mg PO TID PRN PRN Pain Score 6-10 3 days #9 tabs 11/16/21 Hospital Course Operations None Procedures 2-D Echocardiogram Summary of Care Provided Minutes Spent on Discharge: 35 Hospital Course: 56-year-old male with past medical history of chronic lower leg wound, history of hairy cell leukemia, history of ruptured spleen status postsplenectomy, nicotine dependent who comes in with cough, dyspnea, fever and chills and worsening left lower extremity wound drainage and pain. Patient was found to have pneumonia. Blood cultures, sputum cultures, wound cultures grew MRSA. 2D echo shows no valvular lesions. ID and pulmonology were consulted. Patient was managed on IV vancomycin. He received PICC line and was discharged on 8 weeks of IV antibiotics with home health. During this hospital stay, patient had severe anemia, stool for occult blood were positive. GI was consulted. Patient underwent EGD and colonoscopy that were unremarkable. Capsule endoscopy was planned for outpatient. Patient discharge hemoglobin was 7.8, he was discharged on oral iron, PPI, stool softeners. He had evidence of acute kidney injury that resolved during his hospital stay. He also had electrolyte imbalances that were replaced. He was discharged on oral potassium. He knows to repeat blood work in the outpatient and follow-up with ID, GI and primary care doctor within a week. She was discharged with [facility] and IV vancomycin. Physical Exam Narrative Physical exam: General: Alert, Oriented x3, Cooperative, on 3L of oxygen HEENT: Atraumatic Oral: Moist Mucosa Neck: Supple Lungs: Diminished to auscultation, bilateral crackles Cardiovascular: HS I+II, regular, no murmurs Abdomen: Bowel Sounds Present, Soft, Non Tender Extremities: No edema, dressing over the left lower leg Skin: No rashes, No breakdown Neurological: Grossly intact Psych/Mental Status: Appropriate Weight / BMI Weight Weight: 116.3 kg Body Mass Index (BMI) 33.2 ABG / Lab / Microbiology Data Result Diagrams: 11/16/21 04:20 11/16/21 04:20 Laboratory: Laboratory Results - last 24 hr 11/15/21 13:30: Vancomycin Trough 23.0 H 11/16/21 00:35: Vancomycin Trough 16.9 H 11/16/21 04:20: WBC 1.8 L, RBC 2.16 L, Hgb 7.3 L, Hct 21.4 L, MCV 99.1 H, MCH 33.8 H, MCHC 34.1, RDW Std Deviation 64.3 H, RDW Coeff of Patricia 17.7 H, Plt Count 65 L, MPV 12.3 H, Immature Gran % (Auto) 0.000, Neut % (Auto) 49.7, Lymph % (Auto) 41.4 H, [place] % (Auto) 6.1, Eos % (Auto) 2.2, Baso % (Auto) 0.6, Absolute Neuts (auto) 0.9 L, Absolute Lymphs (auto) 0.75 L, Nucleated RBC % 1.7, Differential Comment SCANNED, Platelet Estimate MOD DEC, Hypochromasia 1+, Anisocytosis 1+, Macrocytosis 1+ 11/16/21 04:20: Sodium 136, Potassium 3.1 L, Chloride 100, Carbon Dioxide 30.0, Anion Gap 6, BUN 22 H, Creatinine 1.12, Estim Creat Clear Calc 85.63, Est GFR (MDRD) Af Amer 87, Est GFR (MDRD) Non-Af 72, BUN/Creatinine Ratio 19.6, Glucose 112 H, Calcium 7.6 L, Total Bilirubin 0.60, AST 22, ALT 32, Alkaline Phosphatase 79, Total Protein 6.2 L, Albumin 1.1 L, Globulin 5.1 H, Albumin/Globulin Ratio 0.2 L Microbiology: Microbiology 11/10/21 14:40 Blood Culture (Wb) - Anticubital Right Blood Culture - Final No growth in 5 days. 11/10/21 10:24 Blood Culture (Wb) - Anticubital Right Blood Culture - Final No growth in 5 days. 11/13/21 10:15 Sputum, Expectorated/Coughed Gram Stain - Final 11/13/21 10:15 Sputum, Expectorated/Coughed Respiratory Culture - Final Meth. resistant Staph. aureus 11/08/21 07:52 Blood Culture (Wb) - Anticubital Right Blood Culture - Final Staphylococcus aureus 11/08/21 10:27 Blood Culture (Wb) - Left Hand Bacteria Detection (PCR) - Final Staphylococcus aureus mecA Resistance Marker 11/08/21 10:27 Blood Culture (Wb) - Left Hand Blood Culture - Final Meth. resistant Staph. aureus 11/11/21 07:24 Blood Culture (Wb) - Anticubital Right Blood Culture - Preliminary No growth in 48 hours. 11/10/21 11:30 Nasal Secretion SARS-CoV-2 Antigen (Rapid) - Final 11/07/21 23:50 Sputum, Expectorated/Coughed Gram Stain - Final 11/07/21 23:50 Sputum, Expectorated/Coughed Respiratory Culture - Final Meth. resistant Staph. aureus 11/07/21 23:50 Wound - Leg, Left Gram Stain - Final 11/07/21 23:50 Wound - Leg, Left Wound Culture - Final Meth. resistant Staph. aureus 11/08/21 20:17 Stool Stool Occult Blood ([facility]) - Final Occult Blood Positive 11/08/21 01:16 Urine, Random Streptococcus pneumoniae Antigen (M - Final 11/07/21 01:16 Urine, Clean Catch Legionella Antigen - Final 11/08/21 00:13 Mucosa - Nose Respiratory Panel (PCR) - Final D/C Instructions Discharge Diet: 2000 mg Sodium Diet Meaningful Use Info Meaningful Use Diagnoses (Choose all that apply): None applicable Discharge Plan Admission Admit Date/Time: 11/07/21 21:22 Primary Reason for Your Visit: NICHOLE/MRSA pneumonia/bacteremia/infected leg ulcers Attending Provider: Amber Winter Primary Care Provider: Dom Rueda Consulting Providers: Annette Lindquist ; Rito Rueda ; Sukhjinder Rodriguez ; Mariela Hull Discharge Orders/Prescriptions Prescriptions: New vancomycin 1.25 gram recon soln 1.25 g IV Q12H Qty: 76 0RF Rx Instructions: dx: MRSA bacteremia stop date 12/22/21 weekly bmp, cbc, and vanc trough. Fax to [phone] routine picc care with heparin/saline flush per protocol sennosides-docusate sodium [Stool Softener-Stimulant Laxat] 8.6-50 mg Tablet 2 tab PO BID PRN PRN (Reason: Constipation) 30 Days Qty: 60 0RF potassium chloride [Klor-Con M20] 20 mEq Tablet,Er Particles/Crystals 40 meq PO DAILYCM 5 Days Qty: 10 0RF pantoprazole 40 mg Tablet,Delayed Release (Dr/Ec) 40 mg PO BID 30 Days Qty: 60 0RF ferrous sulfate [FeroSul] 325 mg (65 mg iron) Tablet 325 mg PO 1200,1700 30 Days Qty: 60 0RF gabapentin 300 mg Capsule 300 mg PO TIDCM 30 Days Qty: 90 0RF Mucus Relief ER 1,200 mg Tablet Extended Release 12hr 1,200 mg PO BID 14 Days Qty: 28 0RF tramadol 50 mg Tablet 50 mg PO TID PRN PRN (Reason: Pain Score 6-10) 3 Days Qty: 9 0RF Continued acetaminophen [Tylenol] 325 mg capsule 325 mg PO Q6H PRN (Reason: Pain) Discontinued naproxen sodium [Aleve] 220 mg capsule 220 mg PO BID PRN (Reason: Pain) Referrals / Follow Up: Dom Rueda DO [Primary Care Provider] - In 1 Week Francisco Kay DO [STAFF PHYSICIAN] - Within 2 Weeks Sukhjinder Rodriguez MD [STAFF PHYSICIAN] - Within 2 Weeks Disposition Disposition (needs filled in before D/C Order can be placed): Home, Self Care Charges/Coding Visit Charges Inpatient E&M: 72289 Disch Hosp
[2021-11-16 07:45] VITALS: BP 105/57; PULSE 81; RESP 18; TEMP 36.9; O2SAT 96
[2021-11-16] MEDS: Potassium Chloride Oral Tablet 20 MEQ 60 MEQ PO (07:47)
[2021-11-16] MEDS: Gabapentin 300 MG Capsule PO (07:51)
--- NOTE | 2021-11-16 09:05 | WOUNDNOTE ---
Pt is being discharged home today. states he plans to change the dressing to the LLE at home. pt has been changing his own dressing for approx 15 yrs.
[2021-11-16] MEDS: guaiFENesin 1,200 MG Tablet 1200 MG PO (09:06)
[2021-11-16] MEDS: Pantoprazole Sodium 40 MG Tablet PO (09:06)
--- NOTE | 2021-11-16 09:54 | CASEMGMT ---
LAYNE HERBERT NOTE: Pt discharged. Discharge instructions and summary faxed to [facility] and [facility]. Call placed to [facility] and spoke w/Maira. She was notified pt is discharged. Maira also made aware last dose of Vanco hung @ 0200. She states she will notify the intake nurse. Debra BAILEY RN CM
== END 2021-11-16 09:50 | disposition home health service (06) | DRG 871 ==
PROVIDERS: Internal Medicine; Internal Medicine Critical Care Medicine; Internal Medicine Gastroenterology; Internal Medicine Infectious Disease; Admitting Provider Family Medicine; PCP Family Medicine; Visit Provider Internal Medicine
PROC: 0DJD8ZZ Inspection of Lower Intestinal Tract, Via Natural or Artificial Opening Endoscopic (ICD-10-PCS; CPT 45378; principal; 2021-11-10 10:55)
DX: A41.02 Sepsis due to Methicillin resistant Staphylococcus aureus (principal); J15.212 Pneumonia due to Methicillin resistant Staphylococcus aureus; J96.01 Acute respiratory failure with hypoxia; J15.20 Pneumonia due to staphylococcus, unspecified; L97.922 Non-pressure chronic ulcer of unspecified part of left lower leg with fat layer exposed; D62 Acute posthemorrhagic anemia; N17.9 Acute kidney failure, unspecified; D69.6 Thrombocytopenia, unspecified; E83.39 Other disorders of phosphorus metabolism; D53.9 Nutritional anemia, unspecified; F17.210 Nicotine dependence, cigarettes, uncomplicated; E87.6 Hypokalemia; K57.30 Diverticulosis of large intestine without perforation or abscess without bleeding; K44.9 Diaphragmatic hernia without obstruction or gangrene; S60.454A Superficial foreign body of right ring finger, initial encounter; D50.9 Iron deficiency anemia, unspecified; Z90.81 Acquired absence of spleen; Z79.82 Long term (current) use of aspirin; Z80.3 Family history of malignant neoplasm of breast; Z80.1 Family history of malignant neoplasm of trachea, bronchus and lung; Z71.6 Tobacco abuse counseling; Z20.822 Contact with and (suspected) exposure to COVID-19; B95.62 Methicillin resistant Staphylococcus aureus infection as the cause of diseases classified elsewhere; Z85.6 Personal history of leukemia
CPT/HCPCS: 36415; 36569; 71045; 80048; 80053; 80202; 82274; 82570; 82607; 82728; 82746; 83010; 83036; 83540; 83550; 83605; 83615; 83735; 84100; 84145; 84300; 85014; 85018; 85025; 85610; 86850; 86900; 86901; 86920; 86922; 87040; 87070; 87077; 87149; 87186; 87205; 87426; 87449; 87633; 87640; 87641; 93005; 93306; 94640; 94668; 94762; 97802; J7030; J7040; J7050; P9016; Q9957; A4216; C8929; J1940; J2405

== ENCOUNTER 2021-11-20 09:33 | Emergency (ER) | payer SELFPAY ==
[2021-11-20 09:34] VITALS: BP 113/61; PULSE 91; RESP 18; TEMP 36.3; O2SAT 92; BMI 32.1
--- NOTE | 2021-11-20 09:47 | EX.ED.DYSGE1 ---
HPI History of Present Illness Chief Complaint: General Illness Informant: patient and spouse/S.O. Narrative Narrative: Presenting with PICC line issues this morning. Discharged 4 days ago MRSA bacteremia 8-week course of plan IV vancomycin. Secondary to cellulitis with findings of lung cavitation. Patient been given himself medicaitons since discharge home nurse came this morning was able to flush however unable to draw back. Reported he has no fevers. Vancomycin by him but nurse told him the line is pus and not placed correctly. Prior similar symptoms: No PFSH PFSH Medical History Chronic anemia DVT (deep venous thrombosis) Hairy cell leukemia Ruptured spleen Tobacco abuse Ulcer of left lower leg Home Medications acetaminophen 325 mg capsule (Tylenol) 325 mg PO Q6H PRN Pain 07/31/18 [History Last Taken 11/06/21] vancomycin 1.25 gram intravenous solution 1.25 g IV Q12H #76 ea 11/14/21 [Rx Last Taken Unknown] ferrous sulfate 325 mg (65 mg iron) tablet (FeroSul) 325 mg PO 1200,1700 30 days #60 tabs 11/15/21 [Rx Last Taken Unknown] gabapentin 300 mg capsule 300 mg PO TIDCM 30 days #90 caps 11/15/21 [Rx Last Taken Unknown] guaifenesin 1,200 mg tablet, extended release 12 hr (Mucus Relief ER) 1,200 mg PO BID 14 days #28 tabs 11/15/21 [Rx Last Taken Unknown] pantoprazole 40 mg tablet,delayed release 40 mg PO BID 30 days #60 tabs 11/15/21 [Rx Last Taken Unknown] potassium chloride 20 mEq tablet,extended release(part/cryst) (Klor-Con M) 40 meq PO DAILYCM 5 days #10 tabs 11/15/21 [Rx Last Taken Unknown] sennosides 8.6 mg-docusate sodium 50 mg tablet (Stool Softener-Stimulant Laxative) 2 tab PO BID PRN PRN Constipation 30 days #60 tabs 11/15/21 [Rx Last Taken Unknown] tramadol 50 mg tablet 50 mg PO TID PRN PRN Pain Score 6-10 3 days #9 tabs 11/16/21 [Rx Last Taken Unknown] Allergy/AdvReac Type Severity Reaction Status Date / Time adhesive tape AdvReac Rash Verified 11/20/21 09:37 Family History Father Diabetes Lung cancer Kidney disease Mother Breast cancer Asthma Anemia Grandfather Cancer Surgical History H/O lithotripsy History of arthroplasty of right knee History of splenectomy History of surgery on lower extremity Social History household members: spouse Smoking Status: Current every day smoker tobacco type: cigarettes alcohol intake: current alcohol intake frequency: holidays/special occasions only substance use type: does not use what type of physical activity do you participate in: none ROS ROS ED Constitutional Constitutional ED: Denies chills, fever(s) or sweats Eyes Eyes: Denies change in vision ENT ENT ED: Denies dysphagia or sore throat Cardiovascular Cardiovascular: Denies chest pain, leg edema, palpitations or racing heartbeat Respiratory/Chest Respiratory/Chest: Denies cough, dyspnea or dyspnea on exertion Gastrointestinal Gastrointestinal: Denies abdominal pain, diarrhea, nausea or vomiting Genitourinary Genitourinary ED: Denies dysuria, hematuria or urinary frequency Musculoskeletal Musculoskeletal: Denies back pain, extremity pain or neck pain Integumentary Denies rash or wounds Neurologic Neurologic: Denies headache(s), paresthesias or weakness EXAM Physical Exam Const Vital Signs: 11/20/21 09:34 11/20/21 12:35 Temperature 97.4 F L Temperature Source Temporal Pulse Rate 91 88 Respiratory Rate 18 16 Blood Pressure 113/61 138/74 H Blood Pressure Mean 78 Pulse Ox 92 97 Oxygen Delivery Method Room Air Positive well nourished and well developed General Appearance ED: well developed and NAD HEENT Reports moist mucous membranes normocephalic and atraumatic Eyes PERRL, EOMs intact bilaterally and conjunctivae normal General Eye ED: Yes normal appearance of both eyes Neck no lymphadenopathy and supple General: Negative for tenderness Chest Wall Chest: Negative for tenderness Resp normal respiratory effort and normal air movement Effort and Inspection: symmetric chest movement; Negative for respiratory distress Cardio regular rate, regular rhythm and no murmurs Peripheral Pulses: pulses 2+ throughout GI normal to inspection, nondistended, normoactive bowel sounds and non-tender Palpation: Negative for guarding or rebound tenderness present Back/Spine no CVA tenderness and no thoracic nor lumbar tenderness Extremity Extremity Narrative: Left lower leg dressing clean, dry, intact. General Extremety ED: Negative for edema or tenderness General Extremity: Negative for edema Neuro oriented x3 and no sensory deficits noted Sensorium / Orientation: awake and alert Skin Skin Narrative: PICC line right upper arm with Tegaderm. This does not hubbed, this was clean, dry, intact. MDM MDM MDM Narrative Medical decision making narrative: PICC line clean, dry, intact. Patiented concern of it not being hubbed, I discussed PICC line is placed more distal to the peripheral and the line is trimmed possibly needed to pull back during recheck. We will have nursing flush the line with medication to help open the line. PICC line flushed with tPA by nursing. It is not working. He is discharged with outpatient continued care. Discharge Plan Triage Chief Complaint: General Illness ED Provider: Silvio Nelson Dx/Rx/DC Orders Clinical Impression: Occluded PICC line, MRSA bacteremia, MRSA pneumonia Instructions: Caring for Your PICC Dc Prescriptions: No Action acetaminophen [Tylenol] 325 mg capsule 325 mg PO Q6H PRN (Reason: Pain) vancomycin 1.25 gram recon soln 1.25 g IV Q12H Qty: 76 0RF Rx Instructions: dx: MRSA bacteremia stop date 12/22/21 weekly bmp, cbc, and vanc trough. Fax to [phone] routine picc care with heparin/saline flush per protocol sennosides-docusate sodium [Stool Softener-Stimulant Laxat] 8.6-50 mg Tablet 2 tab PO BID PRN PRN (Reason: Constipation) 30 Days Qty: 60 0RF potassium chloride [Klor-Con M20] 20 mEq Tablet,Er Particles/Crystals 40 meq PO DAILYCM 5 Days Qty: 10 0RF pantoprazole 40 mg Tablet,Delayed Release (Dr/Ec) 40 mg PO BID 30 Days Qty: 60 0RF ferrous sulfate [FeroSul] 325 mg (65 mg iron) Tablet 325 mg PO 1200,1700 30 Days Qty: 60 0RF gabapentin 300 mg Capsule 300 mg PO TIDCM 30 Days Qty: 90 0RF Mucus Relief ER 1,200 mg Tablet Extended Release 12hr 1,200 mg PO BID 14 Days Qty: 28 0RF tramadol 50 mg Tablet 50 mg PO TID PRN PRN (Reason: Pain Score 6-10) 3 Days Qty: 9 0RF Primary Care Provider: Dom Rueda Referrals: Dom Rueda, [Primary Care Provider] - 1 Week Activity Restrictions/Additional Instructions: Your PICC line has been flushed with tPA and not working. Continue your antibiotic regimen at home. Disposition Disposition: Home, Self Care Discharge Date/Time: 11/20/21 12:36
[2021-11-20] MEDS: Alteplase 2 MG/2 ML Vial IV (11:22)
[2021-11-20 12:35] VITALS: BP 138/74; PULSE 88; RESP 16; O2SAT 97
== END 2021-11-20 12:36 | disposition home or self-care (01) ==
PROVIDERS: Emergency Provider Emergency Medicine; PCP Family Medicine; Visit Provider Emergency Medicine
DX: Z45.2 Encounter for adjustment and management of vascular access device (principal); J15.212 Pneumonia due to Methicillin resistant Staphylococcus aureus; B95.62 Methicillin resistant Staphylococcus aureus infection as the cause of diseases classified elsewhere; F17.210 Nicotine dependence, cigarettes, uncomplicated
CPT/HCPCS: 99282; J2997; A4216

== ENCOUNTER 2021-11-29 14:25 | Inpatient (IN) | payer SELFPAY ==
[2021-11-29] VITALS (13 sets, daily range): BP systolic 103–127; BP diastolic 48–62; PULSE 84–130; RESP 18–30; TEMP 36.4–38.2; O2SAT 90–99; BMI 32.1; BMI 30.5
--- NOTE | 2021-11-29 14:40 | EKG12_ITS ---
Test Reason : Blood Pressure : / mmHG Vent. Rate : 109 BPM Atrial Rate : 109 BPM P-R Int : 156 ms QRS Dur : 084 ms QT Int : 318 ms P-R-T Axes : 035 043 052 degrees QTc Int : 428 ms Sinus tachycardia Otherwise normal ECG Confirmed by ALEX PEDRO, RG ([id number]), department editor LUZ MARIA RENDON ([id number]) on 11/30/2021 1:24:23 PM Referred By: Confirmed By:RG JOHNSON MD
--- NOTE | 2021-11-29 14:42 | EDS_ITS ---
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 Sent in today by the infectious disease doctor who saw him in the wound care center due to shortness of breath. Patient was admitted to the hospital for around 10 days 1 to 2 weeks ago. Prior similar symptoms: No Recent Illness/Hospitalization: Yes PFSH [facility] Medical History Chronic anemia DVT (deep venous thrombosis) Hairy cell leukemia Ruptured spleen Tobacco abuse Ulcer of left lower leg Home Medications vancomycin 1.25 gram intravenous solution 1.25 g IV Q12H #76 ea 11/14/21 [Rx Last Taken 11/28/21 09:00] ferrous sulfate 325 mg (65 mg iron) tablet (FeroSul) 325 mg PO 1200,1700 30 days #60 tabs 11/15/21 [Rx Last Taken 11/29/21] guaifenesin 1,200 mg tablet, extended release 12 hr (Mucus Relief ER) 1,200 mg PO BID 14 days #28 tabs 11/15/21 [Rx Last Taken 11/29/21] pantoprazole 40 mg tablet,delayed release 40 mg PO BID 30 days #60 tabs 11/15/21 [Rx Last Taken 11/29/21] sennosides 8.6 mg-docusate sodium 50 mg tablet (Stool Softener-Stimulant Laxative) 2 tab PO BID PRN PRN Constipation 30 days #60 tabs 11/15/21 [Rx Last Taken Unknown] tramadol 50 mg tablet 50 mg PO TID PRN PRN Pain Score 6-10 3 days #9 tabs 11/16/21 [Rx Last Taken 11/29/21 07:30] acetaminophen 500 mg tablet 1,000 mg PO DAILY PRN Pain 11/29/21 [History Last Taken 11/29/21 07:30] Allergy/AdvReac Type Severity Reaction Status Date / Time adhesive tape AdvReac Rash Verified 11/29/21 14:28 Family History Father Diabetes Lung cancer Kidney disease Mother Breast cancer Asthma Anemia Grandfather Cancer Surgical History H/O lithotripsy History of arthroplasty of right knee History of splenectomy History of surgery on lower extremity Social History household members: spouse Smoking Status: Current every day smoker tobacco type: cigarettes alcohol intake: current alcohol intake frequency: holidays/special occasions only substance use type: does not use what type of physical activity do you participate in: none ROS ROS ED ROS Narrative Shortness of breath, fever, chills. Review of Systems ROS Unobtainable: Denies due to encephalopathy Constitutional Constitutional ED: Reports chills and fever(s) Eyes Eyes: Denies blurry vision ENT ENT ED: Denies ear pain Cardiovascular Cardiovascular: Denies chest pain Respiratory/Chest Respiratory/Chest: Reports cough and dyspnea Gastrointestinal Gastrointestinal: Denies abdominal pain Genitourinary Genitourinary ED: Denies dysuria or hematuria Musculoskeletal Musculoskeletal: Denies arthralgias Integumentary Denies abscess Neurologic Neurologic: Denies headache(s) Psychiatric Psychiatric: Denies anxiety Endocrine Endocrinology: Denies cold intolerance Hematologic/Lymphatic Hematologic/Lymphatic: Reports anemia Allergic/Immunologic Allergic/Immunologic ED: Denies mouth swelling or tongue swelling EXAM Physical Exam Narrative Exam Narrative: 36-year-old male has pulse ox 99% on room air. HEENT exam thrush. Moist mucous membranes. Neck nontender no JVD. No lymphadenopathy. Lungs coarse breath sounds with rhonchi. No rales or wheezing. Heart tachycardic rate of 105 no appreciable murmur. Abdomen soft nontender normal bowel sounds no peritoneal signs. Moving all 4 extremities. 2-3+ pitting edema both lower extremities which is chronic. He has an Hang wrap on his left lower extremity. Neurologically is awake and alert. Answering questions and following commands. Const Vital Signs: 11/29/21 14:26 11/29/21 14:43 11/29/21 16:01 Temperature 99.1 F 100.7 F H Temperature Source Temporal Oral Pulse Rate 105 H 130 H Respiratory Rate 18 20 H Respiratory Effort Short of Breath Respiratory Pattern Tachypnea Blood Pressure 110/53 L 120/54 L Blood Pressure Mean 72 76 Pulse Ox 99 95 Oxygen Delivery Method Room Air Room Air 11/29/21 15:34 11/29/21 15:34 11/29/21 17:01 Temperature 100.7 F H 100.0 F H Temperature Source Oral Axillary Pulse Rate 97 107 H Respiratory Rate 30 H 25 H Respiratory Effort Respiratory Pattern Blood Pressure 127/58 H 109/49 L Blood Pressure Mean 81 69 Pulse Ox 92 92 96 Oxygen Delivery Method Room Air Room Air Room Air 11/29/21 18:20 11/29/21 18:20 Temperature 99.1 F 99.1 F Temperature Source Oral Oral Pulse Rate 99 99 Respiratory Rate 21 H 21 H Respiratory Effort Respiratory Pattern Blood Pressure 109/49 L 109/49 L Blood Pressure Mean 69 69 Pulse Ox 97 97 Oxygen Delivery Method Room Air Room Air Positive well nourished and well developed; Negative for obese, cachectic, contractures or unkempt General Appearance ED: well developed; Negative for unkempt, cachectic, contractures, cyanotic or diaphoretic Nutritional Appearance: Negative for cachectic or obese HEENT Reports moist mucous membranes Negative for trauma Eyes PERRL and EOMs intact bilaterally General Eye ED: Negative for pale conjunctiva or scleral icterus Neck no lymphadenopathy, supple and no JVD General: Negative for tenderness or other Chest Wall inspection of chest normal and palpation of chest normal Resp No normal respiratory effort and No clear to auscultation bilaterally Effort and Inspection: Negative for retractions or pain with movement Auscultation: rhonchi; Negative for rales, wheezes or diminished lung sounds Cardio regular rhythm, S1 normal heart sound, S2 normal heart sound and no murmurs; Negative for regular rate Palpation: Negative for palpable S3 Rate: tachycardic; Negative for bradycardia GI normal to inspection, nondistended, normoactive bowel sounds, non-tender, non- distended and no masses Inspection: Negative for abdominal distention Auscultation: normoactive bowel sounds Palpation: Negative for soft or tender Back/Spine no CVA tenderness General Back: Negative for CVA tenderness Cervical Spine: Negative for cervical spine tenderness Thoracic Spine / Upper Back: Negative for thoracic spinal tenderness Lumbar Spine / Lower Back: Negative for lumbar spinal tenderness Extremity Negative for normal to inspection Extremity Narrative: Bilateral lower extremity significant peripheral edema 2-3+. Chronic. General Extremety ED: Yes edema General Extremity: edema Neuro oriented x3 Sensorium / Orientation: alert Motor Exam: strength 5/5 throughout Psych mental status grossly normal Appearance: Negative for unkempt Attitude: No agitated Mood & Affect: Negative for depressed, anxious or tearful Skin no rashes or lesions noted and No no wounds Wounds: wounds noted MDM MDM MDM Narrative Medical decision making narrative: 56-year-old male with coarse respirations. Currently undergoing treatment for MRSA endocarditis on IV vancomycin. Prior history of DVT. Recent prolonged hospitalization. I spoke with our hospitalist and log processor operator and they are concerned the patient potentially could be acute Hairy cell leukemia recurrence. They wanted me to attempt to transfer the patient. I spoke with them 5 or 6 different hospitals and all do not have any beds available from [place] to [place]. Hospitalist will admit the patient here until transfer can be arranged. Lab Data Attestation: I reviewed the patient's lab results. Lab results narrative: CBC has a pancytopenia with a white count of 0.8 hemoglobin of 5.5 previously was around 7-1/2 and hematocrit of 16.3 with a platelet count of 17. BNP 176. Electrolytes show potassium of 3.4. Gap of 9 BUN 31 creatinine 1.73. Glucose 116. Troponins elevated to 242. Lactic acid is 1.7. Second troponin to 35. Labs: Laboratory Results - last 24 hr 11/29/21 11/29/21 11/29/21 15:00 15:00 15:00 WBC 0.8 L* RBC 1.66 L Hgb 5.5 L* Hct 16.3 L MCV 98.2 H MCH 33.1 H MCHC 33.7 RDW Std Deviation 61.3 H RDW Coeff of Patricia 17.3 H Plt Count 17 L* MPV 10.4 Immature Gran % (Auto) 1.300 H Neut % (Auto) 26.7 L Lymph % (Auto) 62.7 H [place] % (Auto) 5.3 Eos % (Auto) 4.0 Baso % (Auto) 0.0 Absolute Neuts (auto) 0.2 L Absolute Lymphs (auto) 0.47 L Nucleated RBC % 0 Differential Comment Diff Path Review May foll PT 16.7 H INR 1.4 D-Dimer Quant (PE/DVT) 3.10 H* Sodium 138 Potassium 3.4 L Chloride 107 Carbon Dioxide 22.0 Anion Gap 9 BUN 31 H Creatinine 1.73 H Estim Creat Clear Calc 55.43 Est GFR (MDRD) Af Amer 53 L Est GFR (MDRD) Non-Af 44 L BUN/Creatinine Ratio 17.9 Glucose 116 H Lactic Acid Calcium 7.9 L Troponin I High Sens 242 H* B-Natriuretic Peptide 11/29/21 11/29/21 11/29/21 15:00 16:38 17:24 WBC RBC Hgb Hct MCV MCH MCHC RDW Std Deviation RDW Coeff of Patricia Plt Count MPV Immature Gran % (Auto) Neut % (Auto) Lymph % (Auto) [place] % (Auto) Eos % (Auto) Baso % (Auto) Absolute Neuts (auto) Absolute Lymphs (auto) Nucleated RBC % Differential Comment Diff Path Review PT INR D-Dimer Quant (PE/DVT) Sodium Potassium Chloride Carbon Dioxide Anion Gap BUN Creatinine Estim Creat Clear Calc Est GFR (MDRD) Af Amer Est GFR (MDRD) Non-Af BUN/Creatinine Ratio Glucose Lactic Acid 1.7 Calcium Troponin I High Sens 235 H* B-Natriuretic Peptide 176.8 H Radiography Chest X-Ray - ED: 1 View, Read by ED Physician, Heart, Mediastinum, Bony Structures and Chronic Changes Diagnostic Testing: Clinical Impression(s) from Imaging Studies Chest X-Ray 11/29/21 15:07 IMPRESSION: Slightly improved aeration is seen in comparison to the prior study. Electronically Signed: Umang Lott MD at 15:29 EDT Reading Location ID and State: [facility] Tel , Service support , Chest x-ray, portable, single view severe densities in the entire right upper lobe and left lower lobe. Consistent with a chest x-ray a week ago without significant changes. Normal cardiac silhouette. Rhythm Strip Rhythm Strip: Sinus Tach Rate: 109 Ectopy: None EKG Initial EKG: Attestation: I personally reviewed and interpreted this EKG as follows: Interpretation: No Acute Injury Pattern and Sinus Tachycardia Comments: Sinus tachycardia rate of 109 no acute signs of NV or ischemia. Critical Care Time Critical Care Time: Yes Critical care time (excluding procedures): 30-74 minutes, Including time spent:, Discussing w/Patient &/or Family/Dyehouse Worker, Discussing w/Consultants, Arranging Admission or Transfer, Performing Direct Patient Care at Bedside and - (31) Discharge Plan Triage Chief Complaint: General Illness ED Provider: Joseph Case Dx/Rx/DC Orders Clinical Impression: Pancytopenia, Hairy cell leukemia, History of endocarditis, Elevated troponin Prescriptions: No Action vancomycin 1.25 gram recon soln 1.25 g IV Q12H Qty: 76 0RF Rx Instructions: dx: MRSA bacteremia stop date 12/22/21 weekly bmp, cbc, and vanc trough. Fax to [phone] routine picc care with heparin/saline flush per protocol sennosides-docusate sodium [Stool Softener-Stimulant Laxat] 8.6-50 mg Tablet 2 tab PO BID PRN PRN (Reason: Constipation) 30 Days Qty: 60 0RF pantoprazole 40 mg Tablet,Delayed Release (Dr/Ec) 40 mg PO BID 30 Days Qty: 60 0RF ferrous sulfate [FeroSul] 325 mg (65 mg iron) Tablet 325 mg PO 1200,1700 30 Days Qty: 60 0RF Mucus Relief ER 1,200 mg Tablet Extended Release 12hr 1,200 mg PO BID 14 Days Qty: 28 0RF tramadol 50 mg Tablet 50 mg PO TID PRN PRN (Reason: Pain Score 6-10) 3 Days Qty: 9 0RF acetaminophen 500 mg Tablet 1,000 mg PO DAILY PRN (Reason: Pain) Primary Care Provider: Dom Rueda Referrals: Dom Rueda, [Primary Care Provider] - Disposition Disposition: Acute Care [facility]
--- NOTE | 2021-11-29 15:07 | RAD_ITS ---
INDICATION: chest pain EXAMINATION/TECHNIQUE: X-RAY - XR Chest 1 View COMPARISON: 11/11/2021. FINDINGS: LINES/DEVICES: None. LUNGS: Prominence of the bronchovascular interstitial lung markings is visualized bilaterally with patchy airspace opacification visualized in bilateral lung charles and subtle scattered lucencies suggestive of emphysematous changes. Slightly improved aeration is seen in comparison to the prior study. No evidence of fluid levels overlying the costophrenic angles, no evidence of pneumothorax is visualized. MEDIASTINUM AND CARDIOVASCULAR STRUCTURES: Cardiac silhouette is not enlarged. BONES AND SOFT TISSUES: Mild degenerative bone changes are seen. Mild dextroscoliosis of the thoracolumbar spine is seen. RAD/Chest 1 View (Portable) IMPRESSION: Slightly improved aeration is seen in comparison to the prior study. Electronically Signed: Umang Lott MD at 15:29 EDT ,
[2021-11-29 15:10] LABS: Absolute Lymphocyte Count 0.47 X10^3/uL (0.83-4.51); Absolute Neutrophil Count 0.2 X10^3/uL (2.0-7.7); Eosinophil# 0.03 X10^3/uL; Hematocrit 16.3 % (40-54); Hemoglobin 5.5 g/dL (13.0-16.5); Lymphocyte # 0.47 X10^3/ul (0.83-4.51); Lymphocyte % 62.7 % (19-41); Mean Corp Hgb Conc 33.7 g/dL (32-36); Mean Corpuscular Hgb 33.1 pg (27.0-32.0); Mean Corpuscular Volume 98.2 fL (80-94); Mean Platelet Vol. 10.4 fl (6.2-12.0); Monocyte# 0.04 X10^3/uL; Monocyte% 5.3 % (0-10); NRBC Flagged by Analyzer 0 % (0-5); Neutrophil % 26.7 % (47-70); POSITIVE COUNT YES; POSITIVE DIFFERENTIAL YES; POSITIVE MORPHOLOGY YES; Platelet Count 17 K/mm3 (150-450); RBC Distribution Width CV 17.3 % (11.6-14.6); RBC Distribution Width SD 61.3 fl (35.1-43.9); Red Blood Count 1.66 M/mm3 (4.6-6.2); White Blood Count 0.8 K/mm3 (4.4-11.0)
[2021-11-29 15:14] LABS: Differential Indicated SCAN CRITERIA MET
[2021-11-29 15:23] LABS: International Normalized Ratio 1.4; Prothrombin Time (Protime)PT. 16.7 SECONDS (11.7-14.9)
[2021-11-29 15:41] LABS: BNP,B-Type NATRIURETIC PEPTIDE 176.8 pg/mL (0-100)
[2021-11-29 15:48] LABS: Anion Gap 9 (5-15); BUN 31 mg/dL (7-18); BUN/Creat Ratio 17.9 RATIO (10-20); Calcium,Total 7.9 mg/dL (8.5-10.1); Chloride 107 mmol/L (98-107); Creatinine, Serum 1.73 mg/dL (0.70-1.30); EST Glomerular Filtration Rate 44 mL/min (>60); Est Glom Filt Rate - Afr Amer 53 mL/min (>60); Estimated Creatinine Clearance 55.43 ml/min; Glucose 116 mg/dL (74-106); Potassium 3.4 mmol/L (3.5-5.1); Sodium Level 138 mmol/L (136-145); Troponin-I HS (w/2H Reflex) 242 pg/mL (3.0-78.0)
[2021-11-29] MEDS: Acetaminophen 500 MG Tablet 1000 MG PO (16:11)
[2021-11-29 17:05] LABS: Reflex Troponin-HS? (from REC) Y
[2021-11-29 17:15] LABS: Lactic Acid 1.7 mmol/L (0.4-1.9)
[2021-11-29 17:57] LABS: Troponin-I HS 235 pg/mL (3.0-78.0)
--- NOTE | 2021-11-29 18:08 | ED.RN ---
CHRISTOPHE REQUESTED COVID AND FACE SHEET. FAXED TO FACILITY
--- NOTE | 2021-11-29 18:16 | ED.RN ---
FAXED FACE SHEET AND COVID RESULTS TO [facility]
--- NOTE | 2021-11-29 18:27 | ED.RN ---
PT ROLLED TO RIGHT SIDE, PILLOW PLACED UNDERNEATH LEFT BUTTOCK FOR COMFORT. PT FAMILY REPORTS OPEN REDDENED COCCYX WOUND TO AREA FOR AWHILE.
--- NOTE | 2021-11-29 19:56 | VDLE_ITS ---
Reason For Study: Elevated D-dimer RIGHT LEFT GSV is normal. GSV is normal. CFV is compressible, spontaneous, phasic, CFV is compressible, spontaneous, phasic, competent and demonstrates normal competent, and demonstrates normal augmentation. augmentation. FV is compressible, spontaneous, phasic, FV is compressible, spontaneous, phasic, competent and demonstrates normal competent and demonstrates normal augmentation. augmentation. POP V is compressible, spontaneous, phasic, POP V is compressible, spontaneous, phasic, competent and demonstrates normal competent and demonstrates normal augmentation. augmentation. T/P Trunk is compressible. T/P Trunk is compressible. PTV is compressible. PTV is compressible. RT PerV is compressible. LT PerV is compressible. Procedure This is a venous duplex using B-mode, color flow and spectral Doppler. Exam performed portable in patient room. A preliminary report was called and/or faxed to [facility]. VL/Venous Duplex US - Larry Extrem Interpretation Summary Deep veins of the bilateral lower extremity are patent and compressible segment ally. There is no evidence of bilateral lower extremity deep vein thrombosis. The bilateral great saphenous veins appear patent and compressible segmentally. . Ordering Physician: Jonnie Alejandro Referring Physician: Guilherme Rueda M.D. Performed By: Vaishali Sal RVT
--- NOTE | 2021-11-29 20:50 | PCM.HP.STD ---
HPI - General General Date of Admission: 11/29/21 Date of Service: 11/29/21 Chief Complaint: Shortness of breath HPI Isma NICE, is a 56 M who presents to the emergency room at [facility] after being sent there by his infectious disease physician with complaints of shortness of breath and wheezing. Patient had been in the hospital in October 2021 here and was treated for MRSA endocarditis, he is receiving IV vancomycin as an outpatient. Patient has been short of breath for several days. He denies any fevers or chills. Work-up in the emergency room included labs which were markedly abnormal, patient was pancytopenic, patient's D-dimer was elevated at 3.1, patient's creatinine was elevated at 1.73, his troponin was elevated at 242, and his beta natruretic peptide was 176. Potassium was 3.4. Patient's chest x-ray showed bronchial vesicular interstitial lung markings which appeared improved over a previous study on 11/11/2021. I initially requested the emergency room physician try to have the patient transferred to a tertiary facility due to my concerns of acute leukemia in this patient, patient has had a past history of hairy cell leukemia but the last time it was treated was approximately 4 years ago according to the patient. We were unable to obtain a bed for the patient in a tertiary facility and the patient had to be admitted here. I talked with oncology about the patient's care as well as infectious diseases. They will be seeing the patient while he is hospitalized here, patient is on a waiting list at [facility] and [facility], he will most likely need a bone marrow performed and he will need to see oncology at a tertiary facility. It is also possible the patient has myelodysplastic syndrome. Patient will be admitted to PCU, he will be transfused 3 units of packed red blood cells, patient is wheezing at the time of my examination-it is impossible to tell whether the patient could have undiagnosed COPD with exacerbation or he may have mild congestive heart failure, I placed him on aerosol treatments, IV corticosteroids, and I placed him on IV Lasix. Infectious diseases has requested that the patient undergo an echocardiogram and be placed on Diflucan and Zosyn in addition to his home vancomycin. Overall prognosis for this patient is poor at this time due to the possibility of myelodysplastic syndrome. Patient wants to be a full code-I discussed this with him at the bedside [facility] Medical History Chronic anemia DVT (deep venous thrombosis) Hairy cell leukemia Ruptured spleen Tobacco abuse Ulcer of left lower leg Home Medications vancomycin 1.25 gram intravenous solution 1.25 g IV Q12H #76 ea 11/14/21 [Rx Last Taken 11/28/21 09:00] ferrous sulfate 325 mg (65 mg iron) tablet (FeroSul) 325 mg PO 1200,1700 30 days #60 tabs 11/15/21 [Rx Last Taken 11/29/21] guaifenesin 1,200 mg tablet, extended release 12 hr (Mucus Relief ER) 1,200 mg PO BID 14 days #28 tabs 11/15/21 [Rx Last Taken 11/29/21] pantoprazole 40 mg tablet,delayed release 40 mg PO BID 30 days #60 tabs 11/15/21 [Rx Last Taken 11/29/21] sennosides 8.6 mg-docusate sodium 50 mg tablet (Stool Softener-Stimulant Laxative) 2 tab PO BID PRN PRN Constipation 30 days #60 tabs 11/15/21 [Rx Last Taken Unknown] tramadol 50 mg tablet 50 mg PO TID PRN PRN Pain Score 6-10 3 days #9 tabs 11/16/21 [Rx Last Taken 11/29/21 07:30] acetaminophen 500 mg tablet 1,000 mg PO DAILY PRN Pain 11/29/21 [History Last Taken 11/29/21 07:30] Allergy/AdvReac Type Severity Reaction Status Date / Time adhesive tape AdvReac Rash Verified 11/29/21 14:28 Family History Father Diabetes Lung cancer Kidney disease Mother Breast cancer Asthma Anemia Grandfather Cancer Surgical History H/O lithotripsy History of arthroplasty of right knee History of splenectomy History of surgery on lower extremity Social History household members: spouse Smoking Status: Former smoker alcohol intake: current alcohol intake frequency: holidays/special occasions only substance use type: does not use what type of physical activity do you participate in: none ROS Constitutional Constitutional: Reports fatigue and weakness; Denies anorexia, change in weight, chills, fever(s) or night sweats Eyes Eyes: Denies blurry vision, change in eye color, change in vision, discharge from eye(s), double vision or eye pain Cardiovascular Cardiovascular: Reports dyspnea on exertion and edema; Denies chest pain, claudication, lightheadedness, orthopnea or palpitations Respiratory/Chest Respiratory/Chest: Reports dyspnea, shortness of breath at rest, shortness of breath with exertion and wheezing; Denies cough, hemoptysis or productive cough Gastrointestinal Gastrointestinal: Denies abdominal pain, constipation, diarrhea, dyspepsia, hematemesis, hematochezia, melena, nausea or vomiting Genitourinary Genitourinary: Denies dysuria, hematuria, urinary frequency, urinary hesitancy, urinary incontinence or urinary urgency Musculoskeletal Musculoskeletal: Reports other Details: Chronic left lower leg wound ; Denies back pain, joint pain, joint stiffness, joint swelling, myalgias or neck pain Neurologic Neurologic: Denies abnormal gait, abnormal speech, confusion, disequilibrium, dizziness, focal weakness, headache(s), loss of vision, numbness, other visual disturbances, paresthesias, syncope or tingling Psychiatric Psychiatric: Denies anxiety, cognitive impairment, depression, irritability, mood swings or suicidal ideation Endocrine Endocrinology: Denies change in body appearance, cold intolerance, excessive sweating, heat intolerance, polydipsia or polyuria Hematologic/Lymphatic Hematologic/Lymphatic: Denies none, anemia, easy bleeding, easy bruising or lymphadenopathy Allergic/Immunologic Allergic/Immunologic: Denies rhinitis, urticaria, eczemia or asthma Vital Signs Vital Signs Vital Signs: 11/29/21 14:26 11/29/21 14:43 11/29/21 16:01 Temperature 99.1 F 100.7 F H Temperature Source Temporal Oral Pulse Rate 105 H 130 H Respiratory Rate 18 20 H Respiratory Effort Short of Breath Respiratory Pattern Tachypnea Blood Pressure 110/53 L 120/54 L Blood Pressure Mean 72 76 Blood Pressure Source Blood Pressure Position Blood Pressure Location Pulse Ox 99 95 Oxygen Delivery Method Room Air Room Air Oxygen Flow Rate (L/min) 11/29/21 15:34 11/29/21 15:34 11/29/21 17:01 Temperature 100.7 F H 100.0 F H Temperature Source Oral Axillary Pulse Rate 97 107 H Respiratory Rate 30 H 25 H Respiratory Effort Respiratory Pattern Blood Pressure 127/58 H 109/49 L Blood Pressure Mean 81 69 Blood Pressure Source Blood Pressure Position Blood Pressure Location Pulse Ox 92 92 96 Oxygen Delivery Method Room Air Room Air Room Air Oxygen Flow Rate (L/min) 11/29/21 18:20 11/29/21 18:20 11/29/21 19:25 Temperature 99.1 F 99.1 F 99.1 F Temperature Source Oral Oral Oral Pulse Rate 99 99 84 Respiratory Rate 21 H 21 H 25 H Respiratory Effort Respiratory Pattern Blood Pressure 109/49 L 109/49 L 111/48 L Blood Pressure Mean 69 69 69 Blood Pressure Source Blood Pressure Position Blood Pressure Location Pulse Ox 97 97 94 Oxygen Delivery Method Room Air Room Air Nasal Cannula Oxygen Flow Rate (L/min) 1 11/29/21 19:30 Temperature 98.8 F Temperature Source Temporal Pulse Rate 93 Respiratory Rate 22 H Respiratory Effort Respiratory Pattern Blood Pressure 111/62 Blood Pressure Mean 78 Blood Pressure Source Monitor Blood Pressure Position Semi-Fowlers Blood Pressure Location Right Arm Pulse Ox 99 Oxygen Delivery Method Nasal Cannula Oxygen Flow Rate (L/min) 2 Weight Weight: 108 kg Body Mass Index (BMI) 30.5 Physical Exam Const alert, oriented x3 and no apparent distress Constitutional Narrative: Patient appears older than stated age, he appears unwell General Appearance: cooperative, well kempt and well developed Orientation / Consciousness: awake, oriented to person, oriented to place and oriented to time HEENT normocephalic, head/scalp atraumatic and hearing grossly normal bilaterally Eyes PERRL, EOMs intact bilaterally and conjunctivae normal Neck supple, no JVD, thyroid normal and no carotid bruits General: trachea midline Resp normal respiratory effort Auscultation: wheezes expiratory wheezes and throughout; Negative for rales or rhonchi Cardio regular rate, regular rhythm, S1 normal heart sound, S2 normal heart sound, no murmurs, no rub and no gallops GI normal to inspection, nondistended, normoactive bowel sounds, soft to palpation, non-tender and non-distended Neuro oriented x3, CN's II-XII intact bilaterally, moves all extremities, no focal motor deficits and no sensory deficits noted Sensorium / Orientation: awake, alert, oriented to person, oriented to place and oriented to time Speech: speech normal Psych affect normal Results Lab / Micro Data Result Diagrams: 11/29/21 15:00 11/29/21 15:00 Labs: Laboratory Results - last 24 hr 11/29/21 15:00: WBC 0.8 L*, RBC 1.66 L, Hgb 5.5 L*, Hct 16.3 L, MCV 98.2 H, MCH 33.1 H, MCHC 33.7, RDW Std Deviation 61.3 H, RDW Coeff of Patricia 17.3 H, Plt Count 17 L*, MPV 10.4, Immature Gran % (Auto) 1.300 H, Neut % (Auto) 26.7 L, Lymph % (Auto) 62.7 H, [place] % (Auto) 5.3, Eos % (Auto) 4.0, Baso % (Auto) 0.0, Absolute Neuts (auto) 0.2 L, Absolute Lymphs (auto) 0.47 L, Nucleated RBC % 0, Differential Comment , Diff Path Review August foll 11/29/21 15:00: PT 16.7 H, INR 1.4, D-Dimer Quant (PE/DVT) 3.10 H* 11/29/21 15:00: Sodium 138, Potassium 3.4 L, Chloride 107, Carbon Dioxide 22.0, Anion Gap 9, BUN 31 H, Creatinine 1.73 H, Estim Creat Clear Calc 55.43, Est GFR (MDRD) Af Amer 53 L, Est GFR (MDRD) Non-Af 44 L, BUN/Creatinine Ratio 17.9, Glucose 116 H, Calcium 7.9 L, Troponin I High Sens 242 H* 11/29/21 15:00: B-Natriuretic Peptide 176.8 H 11/29/21 16:20: Blood Type B POSITIVE, Antibody Screen NEGATIVE, Crossmatch See Detail 11/29/21 16:20: Crossmatch See Detail 11/29/21 16:38: Lactic Acid 1.7 11/29/21 17:24: Troponin I High Sens 235 H* Micro: Microbiology 11/29/21 14:50 Nasal Secretion SARS-CoV-2 Antigen (Rapid) - Final Rhythm Strip Rhythm Strip: Sinus Tach Rate: 109 Ectopy: None Radiology Impression Chest X-Ray 11/29/21 15:07 IMPRESSION: Slightly improved aeration is seen in comparison to the prior study. Electronically Signed: Umang Lott MD at 15:29 EDT , Assessment & Plan Assessment/Plan (1) Pancytopenia: PLAN: Plan 1. Pancytopenia-etiology unclear at this point, patient has had a past history of hairy cell leukemia, he has been in remission for many years, I talked with oncology today by phone, they think that the patient may have recurrent hairy cell leukemia or have myelodysplastic syndrome. Patient will be given 3 units of packed red blood cells, there is no evidence of bleeding at this time and oncology did not recommend giving the patient platelets at this time. Oncology will see the patient tomorrow in consultation. He will need transfer to tertiary facility as soon as a bed is available for further work-up. Patient will be placed on additional antibiotic coverage-Zosyn and Diflucan. #2 dyspnea-possibly secondary to exacerbation of COPD (new diagnosis) versus viral illness, patient's COVID test was negative, I have ordered a respiratory panel on the patient, he has an extensive smoking history-patient states he quit smoking approximately 2 weeks ago, I placed the patient on albuterol aerosols as needed, DuoNeb aerosols every 6 hours, and IV Solu-Medrol. #3 MRSA endocarditis-patient is currently receiving IV vancomycin, this will be continued, infectious diseases will see the patient, infectious diseases requested a repeat echocardiogram which will be done tomorrow. #4 chronic left leg wound-patient will be seen by wound care #5 thrush-according to infectious diseases, patient has thrush, I placed him on Diflucan #6 elevated [id number] unclear at this point, venous duplex of his legs will be obtained, due to the patient's low platelet count and anemia, I have decided not to place him on anticoagulation at this time. Charges/Coding Visit Charges Inpatient E&M: 78268 Init Hosp L3
[2021-11-29] MEDS: guaiFENesin 1,200 MG Tablet 1200 MG PO (21:00)
[2021-11-29] MEDS: Furosemide 20 MG/2 ML VIAL IV ×2 (21:00→22:42)
[2021-11-29] MEDS: Pantoprazole Sodium 40 MG Tablet PO (21:02)
[2021-11-29] MEDS: Potassium Chloride Oral Tablet 20 MEQ 40 MEQ PO (21:04)
[2021-11-29 21:47] LABS: Troponin-I HS 210 pg/mL (3.0-78.0)
[2021-11-29 22:01] LABS: Vancomycin, Random Level 17.6 ug/mL (0.0-15.0)
[2021-11-29] MEDS: 0.9% Saline Lock 10 ML Syringe IV (22:46)
--- NOTE | 2021-11-29 23:35 | PCM.RX.CS ---
Consult Pharmacy has been consulted to manage selected antiobiotic: Vancomycin Type of Consult: New start Prior Doses of Antibiotics Received/Current Regimen: Medications Vancomycin HCl 1,250 mg/ (Sodium Chloride) 275 mls @ 167 mls/hr IV Q24H NELLY Labs: Sodium 138 mmol/L (136-145) 11/29/21 15:00 Potassium 3.4 mmol/L (3.5-5.1) L 11/29/21 15:00 Chloride 107 mmol/L (98-107) 11/29/21 15:00 Carbon Dioxide 22.0 mmol/L (21.0-32.0) 11/29/21 15:00 Anion Gap 9 (5-15) 11/29/21 15:00 BUN 31 mg/dL (7-18) H 11/29/21 15:00 Creatinine 1.73 mg/dL (0.70-1.30) H 11/29/21 15:00 Est GFR (MDRD) Af Amer 53 mL/min (>60) L 11/29/21 15:00 Est GFR (MDRD) Non-Af 44 mL/min (>60) L 11/29/21 15:00 BUN/Creatinine Ratio 17.9 RATIO (10-20) 11/29/21 15:00 Glucose 116 mg/dL (74-106) H 11/29/21 15:00 Random Vancomycin 17.6 ug/mL (0.0-15.0) H 11/29/21 21:24 Microbiology: Microbiology 11/29/21 14:50 Nasal Secretion SARS-CoV-2 Antigen (Rapid) - Final Weight used for dosin kg Estimated Creatinine Clearance: 62.4 Goal Trough: 15-20 mcg/mL Pharmacy Plan for Drug Dosing: Pt had been on vancomycin IV therapy at home at 1250mg q12h, with the last dose given 11/28 @0900. Apparently a high trough level necessitated holding the dose since then. A random vanco level was drawn and was 17.6. Per aminoglycoside dosing calculator, a new dose of 1250mg q24h will be started 11/30/21 @0900. A trough will be drawn prior to 3rd dose. Pharmacy Service will continue to monitor and adjust dosing as required. Follow-Up Labs: Trough Vancomycin Labs to be done on [date and time ordered]: 12/01/21 @0830
[2021-11-30] VITALS (21 sets, daily range): BP systolic 99–107; BP diastolic 53–65; PULSE 55–92; RESP 18–20; TEMP 36.3–37.4; O2SAT 20–99
[2021-11-30] MEDS: Furosemide 40 MG/4 ML Vial IV (03:28)
--- NOTE | 2021-11-30 05:55 | ECHOL_ITS ---
Reason For Study: Reassess valves for endocarditis Procedure This was a limited 2D transthoracic echocardiogram. Patient had recent full echo with definity 11/10/21. Exam performed portable in patient room. Left Ventricle Normal left ventricle. The estimated ejection fraction is 55-60 %. Right Ventricle Normal right ventricle. Normal systolic function. Atria The left atrium is moderately enlarged. Normal right atrium. Mitral Valve The mitral valve is structurally normal. No prolapse or stenosis seen. Tricuspid Valve Normal tricuspid valve. Aortic Valve Normal aortic valve. Pulmonic Valve The pulmonic valve is not well visualized. Great Vessels Normal aortic root. Pericardium/Pleural No pericardial effusion. MMode/2D Measurements & Calculations LVIDd: 5.7 cm IVSd: 0.83 cm LAV(MOD-bp): 78.9 ml LVIDs: 3.4 cm LVPWd: 0.82 cm LAV(MOD-bp) Indexed: 33.7 ml/m2 FS: 41.4 % LAV(MOD-sp2): 84.9 ml LAV(MOD-sp4): 68.2 ml LA dimension(2D): 4.2 cm LA A4 area: 22.1 cm2 RA A4 area: 18.2 cm2 ECHO/Echo, Limited Study Interpretation Summary The estimated ejection fraction is 55-60 %. No significant c hanges from recent study in 10/2021 Ordering Physician: Jonnie Alejandro Referring Physician: Guilherme Rueda M.D. Performed By: Vivien Giraldo RDCS
[2021-11-30] MEDS: 0.9% Saline Lock 10 ML Syringe IV (06:00)
[2021-11-30] MEDS: Furosemide 20 MG/2 ML VIAL IV ×3 (06:07→21:41)
[2021-11-30 07:12] LABS: Absolute Lymphocyte Count 0.31 X10^3/uL (0.83-4.51); Absolute Neutrophil Count 0.2 X10^3/uL (2.0-7.7); Hematocrit 23.2 % (40-54); Hemoglobin 7.9 g/dL (13.0-16.5); Lymphocyte # 0.31 X10^3/ul (0.83-4.51); Lymphocyte % 53.4 % (19-41); Mean Corp Hgb Conc 34.1 g/dL (32-36); Mean Corpuscular Hgb 31.9 pg (27.0-32.0); Mean Corpuscular Volume 93.5 fL (80-94); Mean Platelet Vol. 12.6 fl (6.2-12.0); Monocyte# 0.03 X10^3/uL; Monocyte% 5.2 % (0-10); NRBC Flagged by Analyzer 0 % (0-5); Neutrophil # 0.24 X10^3/uL (2.7-7.7); Neutrophil % 41.4 % (47-70); POSITIVE COUNT YES; POSITIVE DIFFERENTIAL YES; POSITIVE MORPHOLOGY YES; Platelet Count 11 K/mm3 (150-450); RBC Distribution Width CV 16.5 % (11.6-14.6); RBC Distribution Width SD 54.6 fl (35.1-43.9); Red Blood Count 2.48 M/mm3 (4.6-6.2)
[2021-11-30 07:32] LABS: Differential Indicated SCAN CRITERIA MET; White Blood Count 0.6 K/mm3 (4.4-11.0)
[2021-11-30 07:34] LABS: Anisocytosis 1+; Ovalocyte RARE; Platelet Estimate MKD DEC (ADEQ)
[2021-11-30 07:43] LABS: Anion Gap 6 (5-15); BUN 35 mg/dL (7-18); Calcium,Total 7.8 mg/dL (8.5-10.1); Chloride 105 mmol/L (98-107); Creatinine, Serum 1.67 mg/dL (0.70-1.30); EST Glomerular Filtration Rate 45 mL/min (>60); Est Glom Filt Rate - Afr Amer 55 mL/min (>60); Estimated Creatinine Clearance 57.43 ml/min; Glucose 158 mg/dL (74-106); Potassium 3.1 mmol/L (3.5-5.1); Sodium Level 138 mmol/L (136-145)
[2021-11-30 07:58] LABS: International Normalized Ratio 1.4; Prothrombin Time (Protime)PT. 16.9 SECONDS (11.7-14.9)
[2021-11-30] MEDS: Pantoprazole Sodium 40 MG Tablet PO ×2 (08:06→21:41)
[2021-11-30] MEDS: traMADol 50 MG Tablet PO ×2 (08:06→17:43)
[2021-11-30] MEDS: Potassium Chloride Oral Tablet 20 MEQ PO ×2 (08:07→17:44)
[2021-11-30] MEDS: guaiFENesin 1,200 MG Tablet 1200 MG PO ×2 (08:07→21:41)
--- NOTE | 2021-11-30 10:13 | PCM.CONS.GEN ---
Assessment & Plan Assessment/Plan (1) MRSA bacteremia: PLAN: On vanc for presumed MRSA endocarditis/pneumonia/LLE infection. TTE neg during that stay, but had splinter hemorrhage and refused BRANDON. Bcx cleared 11/10/21, discharged on IV vanc with stop date 12/22/21. Presented as outpt with worsening pancytopenia, dyspnea, rigors, and thrush. Now covid neg here, on vanc/zosyn/fluc. TTE and bcx pending. Heme consulted. Will order sputum cx. Will follow, thank you, d/w primary team. (2) Pancytopenia: (3) Hairy cell leukemia: QUALIFIERS: Leukemia Active/Remission status: in remission Qualified Code(s): C91.41 - Hairy cell leukemia, in remission (4) Chronic ulcer of left lower extremity with fat layer exposed: HPI Consult Data Date of Consult: 11/30/21 HPI Narrative Reason for Consultation: suspected endocarditis HPI Narrative: TRINITY NICE, is a 56 M with h/o hairy cell leukemia, treated 2018 at [place], recent discharged 11/16/21 from here for MRSA bacteremia, pneumonia, LLE infection, and suspected endocarditis. TTE was neg, but splinter hemorrhage present and pt refused BRANDON. Bcx cleared 11/10, discharged on 6 weeks iv vanc, stop date 12/22/21. As outpt, had worsening pancytopenia, developed one week of severe throat pain, hoarseness, dyspnea, and rigors. New rashes on extremities. No sick contacts, no issues with picc. Some cough with sputum. Seen yesterday at my office, sent him to ED, found to have severe pancytopenia, admitted on vanc/zosyn/fluc. Feeling better this AM, rigors/dyspnea improved. Throat slightly better. Full ROS performed and neg except as noted above. [facility] Medical History Chronic anemia DVT (deep venous thrombosis) Hairy cell leukemia Ruptured spleen Tobacco abuse Ulcer of left lower leg Home Medications vancomycin 1.25 gram intravenous solution 1.25 g IV Q12H #76 ea 11/14/21 [Rx Last Taken 11/28/21 09:00] ferrous sulfate 325 mg (65 mg iron) tablet (FeroSul) 325 mg PO 1200,1700 30 days #60 tabs 11/15/21 [Rx Last Taken 11/29/21] guaifenesin 1,200 mg tablet, extended release 12 hr (Mucus Relief ER) 1,200 mg PO BID 14 days #28 tabs 11/15/21 [Rx Last Taken 11/29/21] pantoprazole 40 mg tablet,delayed release 40 mg PO BID 30 days #60 tabs 11/15/21 [Rx Last Taken 11/29/21] sennosides 8.6 mg-docusate sodium 50 mg tablet (Stool Softener-Stimulant Laxative) 2 tab PO BID PRN PRN Constipation 30 days #60 tabs 11/15/21 [Rx Last Taken Unknown] tramadol 50 mg tablet 50 mg PO TID PRN PRN Pain Score 6-10 3 days #9 tabs 11/16/21 [Rx Last Taken 11/29/21 07:30] acetaminophen 500 mg tablet 1,000 mg PO DAILY PRN Pain 11/29/21 [History Last Taken 11/29/21 07:30] Allergy/AdvReac Type Severity Reaction Status Date / Time adhesive tape AdvReac Rash Verified 11/29/21 14:28 Family History Father Diabetes Lung cancer Kidney disease Mother Breast cancer Asthma Anemia Grandfather Cancer Surgical History H/O lithotripsy History of arthroplasty of right knee History of splenectomy History of surgery on lower extremity Social History household members: spouse Smoking Status: Former smoker alcohol intake: current alcohol intake frequency: holidays/special occasions only substance use type: does not use what type of physical activity do you participate in: none Physical Exam Const alert, oriented x3 and no apparent distress General Appearance: cooperative HEENT normocephalic and head/scalp atraumatic HEENT Narrative: Thrush present, less inflammed Eyes PERRL and EOMs intact bilaterally Neck supple and No nodes Resp Resp Narrative: wheezing/rhonchi Cardio Rate: tachycardic Heart Sounds: murmur GI soft to palpation, non-tender and non-distended Extremity General Extremity: edema Skin Skin Narrative: L cardenas wound, scattered macules/papules Neuro CN's II-XII intact bilaterally Lab / Micro Data Attestation: I reviewed the patient's lab results. Result Diagrams: 11/30/21 06:52 11/30/21 06:52 Labs: Laboratory Results - last 24 hr 11/29/21 15:00: WBC 0.8 L*, RBC 1.66 L, Hgb 5.5 L*, Hct 16.3 L, MCV 98.2 H, MCH 33.1 H, MCHC 33.7, RDW Std Deviation 61.3 H, RDW Coeff of Patricia 17.3 H, Plt Count 17 L*, MPV 10.4, Immature Gran % (Auto) 1.300 H, Neut % (Auto) 26.7 L, Lymph % (Auto) 62.7 H, [place] % (Auto) 5.3, Eos % (Auto) 4.0, Baso % (Auto) 0.0, Absolute Neuts (auto) 0.2 L, Absolute Lymphs (auto) 0.47 L, Nucleated RBC % 0, Differential Comment , Diff Path Review August foll 11/29/21 15:00: PT 16.7 H, INR 1.4, D-Dimer Quant (PE/DVT) 3.10 H* 11/29/21 15:00: Sodium 138, Potassium 3.4 L, Chloride 107, Carbon Dioxide 22.0, Anion Gap 9, BUN 31 H, Creatinine 1.73 H, Estim Creat Clear Calc 55.43, Est GFR (MDRD) Af Amer 53 L, Est GFR (MDRD) Non-Af 44 L, BUN/Creatinine Ratio 17.9, Glucose 116 H, Calcium 7.9 L, Troponin I High Sens 242 H* 11/29/21 15:00: B-Natriuretic Peptide 176.8 H 11/29/21 16:20: Blood Type B POSITIVE, Antibody Screen NEGATIVE, Crossmatch See Detail 11/29/21 16:20: Crossmatch See Detail 11/29/21 16:38: Lactic Acid 1.7 11/29/21 17:24: Troponin I High Sens 235 H* 11/29/21 20:57: Troponin I High Sens 210 H* 11/29/21 21:24: Random Vancomycin 17.6 H 11/30/21 06:52: WBC 0.6 L*, RBC 2.48 L, Hgb 7.9 L, Hct 23.2 L, MCV 93.5, MCH 31.9, MCHC 34.1, RDW Std Deviation 54.6 H, RDW Coeff of Patricia 16.5 H, Plt Count 11 L*, MPV 12.6 H, Immature Gran % (Auto) 0.000, Neut % (Auto) 41.4 L, Lymph % (Auto) 53.4 H, [place] % (Auto) 5.2, Eos % (Auto) 0.0, Baso % (Auto) 0.0, Absolute Neuts (auto) 0.2 L, Absolute Lymphs (auto) 0.31 L, Nucleated RBC % 0, Diff Path Review August, Platelet Estimate MKD DEC, Anisocytosis 1+, Ovalocytes RARE 11/30/21 06:52: PT 16.9 H, INR 1.4 11/30/21 06:52: Sodium 138, Potassium 3.1 L, Chloride 105, Carbon Dioxide 27.0, Anion Gap 6, BUN 35 H, Creatinine 1.67 H, Estim Creat Clear Calc 57.43, Est GFR (MDRD) Af Amer 55 L, Est GFR (MDRD) Non-Af 45 L, BUN/Creatinine Ratio 21.0 H, Glucose 158 H, Calcium 7.8 L Micro: Microbiology 11/29/21 23:23 Mucosa - Nasopharyngeal Respiratory Panel (PCR) - Final 11/29/21 14:50 Nasal Secretion SARS-CoV-2 Antigen (Rapid) - Final Rhythm Strip Rhythm Strip: Sinus Tach Rate: 109 Ectopy: None Radiology Impression Chest X-Ray 11/29/21 15:07 IMPRESSION: Slightly improved aeration is seen in comparison to the prior study. Electronically Signed: Umang Lott MD at 15:29 EDT ,
--- NOTE | 2021-11-30 11:01 | WOUNDNOTE ---
wound photo: left lower leg(lateral view)
--- NOTE | 2021-11-30 11:01 | WOUNDNOTE ---
wound photo: left lower leg(anterior view)
--- NOTE | 2021-11-30 11:02 | WOUNDNOTE ---
wound photo: left lower leg(medial view)
[2021-11-30] MEDS: Acetaminophen 325 MG Tablet 650 MG PO (11:13)
[2021-11-30] MEDS: Potassium Chloride Oral Tablet 20 MEQ 40 MEQ PO (11:14)
--- NOTE | 2021-11-30 12:34 | ONC.CONSULT ---
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 Differential diagnoses include vancomycin induced agranulocytosis and, less likely d/t the abrupt decline in blood counts, a relapse in hairy cell leukemia, immune hemolysis or other primary bone marrow disease. Will obtain haptoglobin, ASHLI, LDH, folate, B12, reticulocyte count, iron indices. Recommend discontinuation of vancomycin and transfusional support to keep hemoglobin above 7 gm/dL and platelets above 10,000 in the absence of bleeding. Will continue to follow with further recommendations based on additional lab results. Case discussed with Dr. Page who was in agreement with the aforementioned plan. (2) Hairy cell leukemia: Status: Chronic Code(s): C91.40 - Hairy cell leukemia not having achieved remission Qualifiers: Leukemia Active/Remission status: in remission Qualified Code(s): C91.41 - Hairy cell leukemia, in remission HPI Consult Data Date of Service:: 11/30/21 PCP / Referring Provider: Dr. Dom Rueda DO Attending: Dr. Jonnie Alejandro DO Chief Complaint Chief Complaint: panyctopenia History of Present Illness History of Present Illness: Mr. Ganga Condon is a very pleasant 56 year old gentleman with a PMH positive for chronic ulceration of LLE, hairy cell leukemia and MRSA endocarditis (required admission 11/07/21- 11/16/21, discharged home on vancomycin) who presented to [facility] on 11/29/21 with complaints of dyspnea with prompting by his ID provider. CBC showed WBC 0.8, Hgb 5.5 and platelets 17,000. Cr 1.73 (baseline 1-1.1). He was found to have oral candidiasis causing hoarseness, pitting edema of BLE and was subsequently admitted. Supported with antimicrobials, ID consulted and has received 3 units PRBCs. Blood cultures, sputum cultures and echocardiogram are pending. Interval History Interval History: Upon entering the room, the patient is sitting upright in bed conversing quietly with his spouse, hoarse citing thrush that developed 5 days ago. In terms of his oncology history, he explains September 2017 he developed abruptly developed fatigue and was found by confused on his bathroom floor. He was brought by squad to [facility], noted to have Hgb 5.1 and ruptured spleen. He was transferred to [place] and subsequently underwent splenectomy. Per pt, pathology of splenic tissue demonstrated hairy cell leukemia. He later had a BMBX. Was treated for DVT. He and are unsure the name of the chemotherapy he received, although describe as shots every day for a week and then a Neulasta patch (suggestive possibly of cladrabine) under the care of Dr. Renetta Torres. He maintained follow up with her for approx 1 mo after completing treatment, then patient states he was told he was in remission and to return if symptoms suggested a relapse. He has not been on surveillance with a hem/onc since fall 2017. H/o tobacco use, quit. Family hx positive for mother breast cancer and maternal grandfather cancer (unsure of cancer type). 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 Advanced Directives Power of Mill Platform Supervisor: No Living Will: No [facility] Medical History (Updated 11/30/21 @ 13:50 by Saida Burks NP, BLOW DOWN OPERATOR-C) Chronic anemia DVT (deep venous thrombosis) Hairy cell leukemia Ruptured spleen Tobacco abuse Ulcer of left lower leg Home Medications vancomycin 1.25 gram intravenous solution 1.25 g IV Q12H #76 ea 11/14/21 [Rx Last Taken 11/28/21 09:00] ferrous sulfate 325 mg (65 mg iron) tablet (FeroSul) 325 mg PO 1200,1700 30 days #60 tabs 11/15/21 [Rx Last Taken 11/29/21] guaifenesin 1,200 mg tablet, extended release 12 hr (Mucus Relief ER) 1,200 mg PO BID 14 days #28 tabs 11/15/21 [Rx Last Taken 11/29/21] pantoprazole 40 mg tablet,delayed release 40 mg PO BID 30 days #60 tabs 11/15/21 [Rx Last Taken 11/29/21] sennosides 8.6 mg-docusate sodium 50 mg tablet (Stool Softener-Stimulant Laxative) 2 tab PO BID PRN PRN Constipation 30 days #60 tabs 11/15/21 [Rx Last Taken Unknown] tramadol 50 mg tablet 50 mg PO TID PRN PRN Pain Score 6-10 3 days #9 tabs 11/16/21 [Rx Last Taken 11/29/21 07:30] acetaminophen 500 mg tablet 1,000 mg PO DAILY PRN Pain 11/29/21 [History Last Taken 11/29/21 07:30] Allergy/AdvReac Type Severity Reaction Status Date / Time adhesive tape AdvReac Rash Verified 11/29/21 14:28 Family History Father Diabetes Lung cancer Kidney disease Mother Breast cancer Asthma Anemia Grandfather Cancer Surgical History (Updated 11/30/21 @ 16:[address] Christiana Page MD) H/O lithotripsy History of arthroplasty of right knee History of splenectomy History of surgery on lower extremity Status post splenectomy Social History household members: spouse Smoking Status: Former smoker alcohol intake: current alcohol intake frequency: holidays/special occasions only substance use type: does not use what type of physical activity do you participate in: none ROS Constitutional Constitutional: Denies difficulty sleeping, fever(s), frequent falls, headache(s) or weight loss Eyes Eyes: Denies change in vision Cardiovascular Cardiovascular: Reports chest pain, edema and fatigue; Denies dizziness or palpitations Respiratory/Chest Respiratory/Chest: Reports cough and dyspnea; Denies hemoptysis Gastrointestinal Gastrointestinal: Reports other Details: dysphagia d/t oral candidiasis ; Denies abdominal pain, constipation, diarrhea or early satiety Genitourinary Genitourinary: Denies burning urination, urinary frequency, urinary incontinence or urinary urgency Integumentary Integumentary: Reports rash; Denies lesions Neurologic Neurologic: Reports headache(s); Denies dizziness, focal weakness, numbness or paresthesias Psychiatric Psychiatric: Denies anxiety or depression Hematologic/Lymphatic Hematologic/Lymphatic: Reports easy bruising Physical Exam Const alert, oriented x3 and no apparent distress General Appearance: cooperative HEENT normocephalic and head/scalp atraumatic Mouth: thrush Eyes PERRL and EOMs intact bilaterally Neck supple Lymph Lymphatic: no lymphadenopathy noted Resp Effort and Inspection: able to speak in complete sentences Auscultation: wheezes expiratory wheezes and diminished lung sounds; Negative for rales or rhonchi Cardio regular rate, regular rhythm, S1 normal heart sound and S2 normal heart sound Heart Sounds: murmur GI soft to palpation, non-tender and non-distended Extremity General Extremity: edema Left Lower Extremity: lower leg other (wrapped with sophia wrap ) Skin Skin Narrative: Right lower extremity petechiae circumferential Neuro CN's II-XII intact bilaterally Vital Signs Temperature 98.2 F 11/30/21 07:56 Temperature Source Oral 11/30/21 07:56 Pulse Rate 73 11/30/21 07:56 Pulse Strength Normal (2+) 11/30/21 10:00 Respiratory Rate 20 H 11/30/21 07:56 Respiratory Effort Non-Labored 11/30/21 08:23 Respiratory Depth Normal 11/30/21 08:23 Respiratory Pattern Normal 11/30/21 08:23 Blood Pressure 103/53 L 11/30/21 07:56 Blood Pressure Mean 69 11/30/21 07:56 Blood Pressure Source Monitor 11/30/21 07:56 Blood Pressure Position Semi-Fowlers 11/30/21 07:56 Blood Pressure Location Left Arm 11/30/21 07:56 Pulse Ox 97 11/30/21 07:56 Oxygen Delivery Method Nasal Cannula 11/30/21 08:23 Oxygen Flow Rate (L/min) 1 11/30/21 08:23 Laboratory Results - last 24 hr 11/29/21 15:00: WBC 0.8 L*, RBC 1.66 L, Hgb 5.5 L*, Hct 16.3 L, MCV 98.2 H, MCH 33.1 H, MCHC 33.7, RDW Std Deviation 61.3 H, RDW Coeff of Patricia 17.3 H, Plt Count 17 L*, MPV 10.4, Immature Gran % (Auto) 1.300 H, Neut % (Auto) 26.7 L, Lymph % (Auto) 62.7 H, [place] % (Auto) 5.3, Eos % (Auto) 4.0, Baso % (Auto) 0.0, Absolute Neuts (auto) 0.2 L, Absolute Lymphs (auto) 0.47 L, Nucleated RBC % 0, Differential Comment , Diff Path Review August11/29/21 15:00: PT 16.7 H, INR 1.4, D-Dimer Quant (PE/DVT) 3.10 H* 11/29/21 15:00: Sodium 138, Potassium 3.4 L, Chloride 107, Carbon Dioxide 22.0, Anion Gap 9, BUN 31 H, Creatinine 1.73 H, Estim Creat Clear Calc 55.43, Est GFR (MDRD) Af Amer 53 L, Est GFR (MDRD) Non-Af 44 L, BUN/Creatinine Ratio 17.9, Glucose 116 H, Calcium 7.9 L, Troponin I High Sens 242 H* 11/29/21 15:00: B-Natriuretic Peptide 176.8 H 11/29/21 16:20: Blood Type B POSITIVE, Antibody Screen NEGATIVE, Crossmatch See Detail 11/29/21 16:20: Crossmatch See Detail 11/29/21 16:38: Lactic Acid 1.7 11/29/21 17:24: Troponin I High Sens 235 H* 11/29/21 20:57: Troponin I High Sens 210 H* 11/29/21 21:24: Random Vancomycin 17.6 H 11/30/21 06:52: WBC 0.6 L*, RBC 2.48 L, Hgb 7.9 L, Hct 23.2 L, MCV 93.5, MCH 31.9, MCHC 34.1, RDW Std Deviation 54.6 H, RDW Coeff of Patricia 16.5 H, Plt Count 11 L*, MPV 12.6 H, Immature Gran % (Auto) 0.000, Neut % (Auto) 41.4 L, Lymph % (Auto) 53.4 H, [place] % (Auto) 5.2, Eos % (Auto) 0.0, Baso % (Auto) 0.0, Absolute Neuts (auto) 0.2 L, Absolute Lymphs (auto) 0.31 L, Nucleated RBC % 0, Diff Path Review May foll, Platelet Estimate MKD DEC, Anisocytosis 1+, Ovalocytes RARE 11/30/21 06:52: PT 16.9 H, INR 1.4 11/30/21 06:52: Sodium 138, Potassium 3.1 L, Chloride 105, Carbon Dioxide 27.0, Anion Gap 6, BUN 35 H, Creatinine 1.67 H, Estim Creat Clear Calc 57.43, Est GFR (MDRD) Af Amer 55 L, Est GFR (MDRD) Non-Af 45 L, BUN/Creatinine Ratio 21.0 H, Glucose 158 H, Calcium 7.8 L Microbiology 11/29/21 23:23 Mucosa - Nasopharyngeal Respiratory Panel (PCR) - Final 11/29/21 14:50 Nasal Secretion SARS-CoV-2 Antigen (Rapid) - Final Diagnostic Data Chest X-Ray 11/29/21 15:07 IMPRESSION: Slightly improved aeration is seen in comparison to the prior study. Electronically Signed: Umang Lott MD at 15:29 EDT ,
[2021-11-30 12:52] LABS: Pathologist Review Reviewed
[2021-11-30 14:42] LABS: Immature Platelet Fraction 12.4 % (1.0-7.9); Platelet Count 12 K/mm3 (150-450); RET-HE 36.6 pg (30-35); Reticulocyte Count 0.71 % (0.5-1.5)
[2021-11-30 14:51] LABS: Vitamin B12 > 2000 pg/mL (211-911)
[2021-11-30 15:59] LABS: ALB/GLOB Ratio 0.2 RATIO (0.9-2.4); AST(SGOT) 16 U/L (15-37); Alanine Aminotransfer ALT/SGPT 29 U/L (16-61); Albumin, Serum 1.3 g/dL (3.2-5.0); Alkaline Phosphatase 65 U/L (45-117); Anion Gap 9 (5-15); BUN 42 mg/dL (7-18); BUN/Creat Ratio 21.9 RATIO (10-20); Calcium,Total 8.1 mg/dL (8.5-10.1); Chloride 107 mmol/L (98-107); Creatinine, Serum 1.92 mg/dL (0.70-1.30); EST Glomerular Filtration Rate 39 mL/min (>60); Est Glom Filt Rate - Afr Amer 47 mL/min (>60); Estimated Creatinine Clearance 49.95 ml/min; Ferritin 1579 ng/mL (26-388); Globulin 6.2 g/dL (2.2-4.2); Glucose 145 mg/dL (74-106); Iron 81 ug/dL (65-175); Iron Binding Capacity,Total 159 ug/dL (250-450); LDH 93 U/L (87-241); PERCENT IRON SATURATION 50.9 % (15.0-55.0); Potassium 3.6 mmol/L (3.5-5.1); Protein, Total 7.5 g/dL (6.4-8.2); Sodium Level 140 mmol/L (136-145)
--- NOTE | 2021-11-30 17:03 | PN.HOSP_ITS ---
Subjective Subjective Patient was seen and examined today, I talked at length with oncology as well as infectious diseases today, oncology feels that the patient's pancytopenia is resolved of vancomycin ministration, they recommended this antibiotic be changed, infectious diseases directed to be changed to daptomycin. I discussed this with the patient's who was in the room at the time of my examination, patient has refused programmed aerosol treatments at this time, he is not wheezing today, he has less peripheral edema. Patient's venous duplex study was negative for VTE. CBC showed an absolute white blood cell count of 200, patient's platelet count was 11,000, patient's hemoglobin today was 7.9. Patient was seen by the wound nurse today for his chronic left lower leg wound. Objective Data Objective Data Vital Signs: Vital Signs Temp Pulse Resp BP Pulse Ox O2 Del Method O2 Flow Rate 98.7 F 62 20 H 101/61 99 Nasal Cannula 2 11/30/21 14:27 11/30/21 14:27 11/30/21 14:27 11/30/21 14:27 11/30/21 14:27 11/30/21 14:30 11/30/21 14:30 Oxygen Flow Rate (L/min) 2 Oxygen Delivery Method Nasal Cannula Weight: 108 kg Body Mass Index (BMI) 30.5 Intake & Output: Intake and Output for Last 24 Hours 11/28/21 11/29/21 11/30/21 23:59 23:59 23:59 Intake Total 200 / 250 1741 / 1741 Output Total 3325 / 3325 Balance 200 / -475 -1584 / -1584 Medical Nutrition Assessment Dietitian: Malnutrition Criteria Met Start: 11/30/21 10:25 Freq: Status: Active Protocol: Document 11/30/21 10:26 LO (Rec: 11/30/21 10:26 [id number]) Nutrition Malnutrition Evidence of Malnutrition Exists Yes Malnutrition (severe): Acute Illness/Injury Evidenced By Suboptimal Energy Intake ( Severe),Weight Loss (Severe), Physical Changes (Moderate) Clinical Problem Acute Disease or Injury Related Malnutrition Etiology (severe) related to suboptimal appetite and thrush Signs/Symptoms as evidenced by 6.6% weight loss in 2 weeks, <50% PO intake of estimated energy needs for >5 days and moderate fat loss to orbital region. Status Active Problem Recommendation Dietitian Recommendations/Changes Continue Regular diet RD will order Ensure Pudding 1x daily (chocolate), Magic Cup 1x daily (orange), Renny BID Lab / Micro Data Result Diagrams: 11/30/21 06:52 11/30/21 15:09 Labs: Laboratory Results - last 24 hr 11/29/21 15:00: Diff Path Review Reviewed 11/29/21 16:20: Blood Type B POSITIVE, Antibody Screen NEGATIVE, Crossmatch See Detail 11/29/21 16:20: Crossmatch See Detail 11/29/21 16:38: Lactic Acid 1.7 11/29/21 17:24: Troponin I High Sens 235 H* 11/29/21 20:57: Troponin I High Sens 210 H* 11/29/21 21:24: Random Vancomycin 17.6 H 11/30/21 06:52: WBC 0.6 L*, RBC 2.48 L, Hgb 7.9 L, Hct 23.2 L, MCV 93.5, MCH 31.9, MCHC 34.1, RDW Std Deviation 54.6 H, RDW Coeff of Patricia 16.5 H, Plt Count 11 L*, MPV 12.6 H, Immature Gran % (Auto) 0.000, Neut % (Auto) 41.4 L, Lymph % (Auto) 53.4 H, [place] % (Auto) 5.2, Eos % (Auto) 0.0, Baso % (Auto) 0.0, Absolute Neuts (auto) 0.2 L, Absolute Lymphs (auto) 0.31 L, Nucleated RBC % 0, Diff Path Review May foll, Platelet Estimate MKD DEC, Anisocytosis 1+, Ovalocytes RARE 11/30/21 06:52: PT 16.9 H, INR 1.4 11/30/21 06:52: Sodium 138, Potassium 3.1 L, Chloride 105, Carbon Dioxide 27.0, Anion Gap 6, BUN 35 H, Creatinine 1.67 H, Estim Creat Clear Calc 57.43, Est GFR (MDRD) Af Amer 55 L, Est GFR (MDRD) Non-Af 45 L, BUN/Creatinine Ratio 21.0 H, Glucose 158 H, Calcium 7.8 L 11/30/21 06:52: Immature Plt Fraction 12.4 H, Retic Count 0.71, Immature Retic Fraction 3.20, Retic Hgb Equivalent 36.6 H 11/30/21 06:52: Vitamin B12 > 2000 H 11/30/21 15:09: Sodium 140, Potassium 3.6, Chloride 107, Carbon Dioxide 24.0, Anion Gap 9, BUN 42 H, Creatinine 1.92 H, Estim Creat Clear Calc 49.95, Est GFR (MDRD) Af Amer 47 L, Est GFR (MDRD) Non-Af 39 L, BUN/Creatinine Ratio 21.9 H, Glucose 145 H, Calcium 8.1 L, Iron 81, TIBC 159 L, Iron Saturation 50.9, Ferritin 1579 H, Total Bilirubin 0.70, AST 16, ALT 29, Alkaline Phosphatase 65, Lactate Dehydrogenase 93, Total Protein 7.5, Albumin 1.3 L, Globulin 6.2 H, Albumin/Globulin Ratio 0.2 L, Folate 8.10 11/30/21 15:09: Direct Antiglob Test NEG w/POLYSPECIFIC Micro: Microbiology 11/29/21 23:23 Mucosa - Nasopharyngeal Respiratory Panel (PCR) - Final 11/29/21 14:50 Nasal Secretion SARS-CoV-2 Antigen (Rapid) - Final Radiography Diagnostic Testing: Radiology Impression Venous Doppler Study 11/29/21 19:56 Interpretation Summary Deep veins of the bilateral lower extremity are patent and compressible segmentally. There is no evidence of bilateral lower extremity deep vein thrombosis. The bilateral great saphenous veins appear patent and compressible segmentally. . Ordering Physician: Jonnie Alejandro Referring Physician: Guilherme Rueda M.D. Performed By: Vaishali Sal RVT Echocardiogram 11/30/21 05:55 Interpretation Summary The estimated ejection fraction is 55-60 %. No significant c hanges from recent study in 10/2021 Ordering Physician: Jonnie Alejandro Referring Physician: Guilherme Rueda M.D. Performed By: Vivien Giraldo RDCS Rhythm Strip Rhythm Strip: Sinus Tach Rate: 109 Ectopy: None Physical Exam Narrative alert, oriented x3 and no apparent distress Constitutional Narrative: Patient appears older than stated age, he appears unwell General Appearance: cooperative, well kempt and well developed Orientation / Consciousness: awake, oriented to person, oriented to place and oriented to time HEENT normocephalic, head/scalp atraumatic and hearing grossly normal bilaterally Eyes PERRL, EOMs intact bilaterally and conjunctivae normal Neck supple, no JVD, thyroid normal and no carotid bruits General: trachea midline Resp normal respiratory effort Auscultation: Scattered expiratory rhonchi were noted bilaterally, no expiratory wheezes were noted Cardio regular rate, regular rhythm, S1 normal heart sound, S2 normal heart sound, no murmurs, no rub and no gallops GI normal to inspection, nondistended, normoactive bowel sounds, soft to palpation, non-tender and non-distended Neuro oriented x3, CN's II-XII intact bilaterally, moves all extremities, no focal motor deficits and no sensory deficits noted Sensorium / Orientation: awake, alert, oriented to person, oriented to place and oriented to time Speech: speech normal Psych affect normal Const alert, oriented x3 and no apparent distress Constitutional Narrative: Patient appears older than stated age, he appears unwell General Appearance: cooperative, well kempt and well developed Orientation / Consciousness: awake, oriented to person, oriented to place and oriented to time HEENT normocephalic, head/scalp atraumatic, hearing grossly normal bilaterally and moist oral mucous membranes Eyes PERRL, EOMs intact bilaterally and conjunctivae normal Neck supple, no JVD, thyroid normal and no carotid bruits General: trachea midline Resp normal respiratory effort Auscultation: wheezes expiratory wheezes and throughout; Negative for rales or rhonchi Cardio regular rate, regular rhythm, S1 normal heart sound, S2 normal heart sound, no murmurs, no rub and no gallops GI normal to inspection, nondistended, normoactive bowel sounds, soft to palpation, non-tender and non-distended Extremity Extremity Narrative: Both lower legs were wrapped with Hang wraps and surgical dressing, these were not removed for examination of the lower legs. Neuro oriented x3, CN's II-XII intact bilaterally, moves all extremities, no focal motor deficits and no sensory deficits noted Sensorium / Orientation: awake, alert, oriented to person, oriented to place and oriented to time Speech: speech normal Psych affect normal Assessment & Plan Assessment/Plan (1) Pancytopenia: PLAN: Plan 1. Pancytopenia-etiology unclear at this point, a possible working diagnosis is pancytopenia secondary to administration of vancomycin, patient was placed on daptomycin today and his vancomycin was discontinued. We are currently awaiting a bed opening at 2 tertiary hospitals to transfer the patient for further care #2 dyspnea-patient requested oxygen administration even though he did not require it per pulse ox, patient is not wheezing today, the etiology of his dyspnea is unknown. #3 MRSA endocarditis-patient is currently receiving IV daptomycin, this will be continued, infectious diseases is participating in his care, surface echocardiogram today does not show evidence of vegetations. #4 chronic left leg wound-patient is being seen by wound care, he will need follow-up with a videotape sales representative as an outpatient, I told this to the patient and the patient's today. #5 thrush-according to infectious diseases, patient has thrush, he continues on IV Diflucan #6 elevated [id number] unclear at this point, venous duplex of his legs was negative for VTE Charges/Coding Visit Charges Inpatient E&M: 48108 Subs Hosp L2
[2021-12-01 02:30] VITALS: BP 100/58; PULSE 52; RESP 18; TEMP 36.6; O2SAT 98
[2021-12-01 03:00] VITALS: PULSE 50
[2021-12-01] MEDS: traMADol 50 MG Tablet PO (04:34)
[2021-12-01] MEDS: Furosemide 20 MG/2 ML VIAL IV (05:38)
[2021-12-01 06:39] LABS: Absolute Lymphocyte Count 0.39 X10^3/uL (0.83-4.51); Absolute Neutrophil Count 0.2 X10^3/uL (2.0-7.7); Basophil# 0.01 X10^3/uL; Basophil% 1.4 % (0-1); Hematocrit 25.1 % (40-54); Hemoglobin 8.7 g/dL (13.0-16.5); Lymphocyte # 0.39 X10^3/ul (0.83-4.51); Lymphocyte % 55.7 % (19-41); Mean Corp Hgb Conc 34.7 g/dL (32-36); Mean Corpuscular Hgb 32.8 pg (27.0-32.0); Mean Corpuscular Volume 94.7 fL (80-94); Monocyte# 0.05 X10^3/uL; Monocyte% 7.1 % (0-10); NRBC Flagged by Analyzer 0 % (0-5); Neutrophil # 0.24 X10^3/uL (2.7-7.7); Neutrophil % 34.4 % (47-70); POSITIVE COUNT YES; POSITIVE DIFFERENTIAL YES; POSITIVE MORPHOLOGY YES; RBC Distribution Width CV 17.1 % (11.6-14.6); RBC Distribution Width SD 57.1 fl (35.1-43.9); Red Blood Count 2.65 M/mm3 (4.6-6.2)
[2021-12-01 06:44] LABS: Differential Indicated SCAN CRITERIA MET; Platelet Count 8 K/mm3 (150-450); White Blood Count 0.7 K/mm3 (4.4-11.0)
[2021-12-01 06:53] VITALS: BP 104/63; PULSE 54; RESP 18; TEMP 36.2; O2SAT 99
[2021-12-01 06:57] LABS: Differential Comment SCANNED; Platelet Estimate MKD DEC (ADEQ)
[2021-12-01 07:09] LABS: Anion Gap 8 (5-15); BUN 56 mg/dL (7-18); BUN/Creat Ratio 25.8 RATIO (10-20); Calcium,Total 7.4 mg/dL (8.5-10.1); Chloride 106 mmol/L (98-107); Creatinine, Serum 2.17 mg/dL (0.70-1.30); EST Glomerular Filtration Rate 34 mL/min (>60); Est Glom Filt Rate - Afr Amer 41 mL/min (>60); Estimated Creatinine Clearance 44.19 ml/min; Glucose 158 mg/dL (74-106); Potassium 3.6 mmol/L (3.5-5.1); Sodium Level 139 mmol/L (136-145)
--- NOTE | 2021-12-01 08:26 | WOUNDNOTE ---
Phys[facility]'s ambulance here to transport patient to [facility]. pt and very appreciative of care.
[2021-12-01 13:10] LABS: Pathologist Review Reviewed
[2021-12-01 13:10] LABS: Pathologist Review Reviewed
--- NOTE | 2021-12-01 15:07 | DS.PCM_ITS ---
Providers Date of Admission: 11/29/21 Date of Discharge: 12/01/21 Primary Care Physician: Dr. Dom Rueda, DO Consultations 11/29/21 19:51 Consult: Infectious Disease Routine Consulting Provider: Sukhjinder Rodriguez Reason for Consult: endocarditis EMERGENT Consult: No Notified: Yes Date Notified: 11/29/21 Time Notified: 19:17 Method of Notification: Verbal Consult: Oncology/Hematology Routine Consulting Provider: [facility]) Reason for Consult: pancytopenia EMERGENT Consult: No Notified: Yes Date Notified: 11/29/21 Time Notified: 19:17 Method of Notification: Verbal 11/29/21 21:08 Consult: Onc/Wound/mainframe analyst Routine Comment: Reason for Consult:: left leg wound Reason For Visit: PANCYTOPENIA Diagnosis Discharge Diagnosis (1) Pancytopenia: Status: Acute Code(s): D61.818 - Other pancytopenia Plan 1. Pancytopenia-etiology unclear at this point, a possible working diagnosis is pancytopenia secondary to administration of vancomycin, patient was placed on daptomycin today and his vancomycin was discontinued. We are currently awaiting a bed opening at 2 tertiary hospitals to transfer the patient for further care #2 dyspnea-patient requested oxygen administration even though he did not require it per pulse ox, patient is not wheezing today, the etiology of his dyspnea is unknown. 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 #4 chronic left leg wound-etiology unclear-patient is being seen by wound care, he will need follow-up with a non destructive testing inspector as an outpatient, I told this to the patient and the patient's today. #5 thrush-according to infectious diseases, patient has thrush, he continues on IV Diflucan #6 elevated [id number] unclear #7 acute anemia-etiology unclear-requiring blood transfusion #8 MRSA pneumonia #9 severe protein and caloric malnutrition related to suboptimal appetite and thrush as evidenced by a 6.6% weight loss in 2 weeks, less than 50% p.o. intake of estimated energy needs for greater than 5 days and moderate fat loss to orbital region, regular diet was recommended and Ensure pudding 1 time a day, Magic cup 1 time a day and Renny twice daily was ordered by dietary Congestive heart failure and COPD exacerbation was ruled out Medications at Discharge Home Medications vancomycin 1.25 gram intravenous solution 1.25 g IV Q12H #76 ea 11/14/21 ferrous sulfate 325 mg (65 mg iron) tablet (FeroSul) 325 mg PO 1200,1700 30 days #60 tabs 11/15/21 guaifenesin 1,200 mg tablet, extended release 12 hr (Mucus Relief ER) 1,200 mg PO BID 14 days #28 tabs 11/15/21 pantoprazole 40 mg tablet,delayed release 40 mg PO BID 30 days #60 tabs 11/15/21 sennosides 8.6 mg-docusate sodium 50 mg tablet (Stool Softener-Stimulant Laxative) 2 tab PO BID PRN PRN Constipation 30 days #60 tabs 11/15/21 tramadol 50 mg tablet 50 mg PO TID PRN PRN Pain Score 6-10 3 days #9 tabs 11/16/21 acetaminophen 500 mg tablet 1,000 mg PO DAILY PRN Pain 11/29/21 Hospital Course Operations None Procedures 2-D Echocardiogram and Blood transfusion Summary of Care Provided Minutes Spent on Discharge: 31 Hospital Course: This 56-year-old white male was seen in the emergency room at [facility] after being sent for evaluation by his infectious disease doctor due to complaints of shortness of breath and wheezing. Work-up in the emergency room included a chest x-ray which showed some patchy airspace opacification areas in both lung charles, patient's pulse ox on room air was above 90%, his labs were extremely abnormal showing a marked pancytopenia. The ER physician called several tertiary hospitals to have the patient transferred for further care as there was a concern that the patient had developed acute leukemia and would need a work-up for this. Unfortunately there were no hospital beds available at several of the major hospitals and the patient had to be admitted to PCU. Patient was admitted to PCU, labs were monitored and he remained pancytopenic, there was no episode of bleeding however and patient was given 3 units of packed red blood cells. Patient was seen in consultation by infectious diseases-an echocardiogram was performed due to concerns of endocarditis, there were no visible vegetations on the patient's valves. Patient was also seen by oncology who felt that the pancytopenia could have been a result of vancomycin administration which the patient had been getting for approximately 2 weeks for suspected endocarditis, vancomycin was discontinued and he was put on daptomycin. On 12/01/2021, patient was seen and examined:alert, oriented x3 and no apparent distress Constitutional Narrative: Patient appears older than stated age, he appears unwell General Appearance: cooperative, well kempt and well developed Orientation / Consciousness: awake, oriented to person, oriented to place and oriented to time HEENT normocephalic, head/scalp atraumatic and hearing grossly normal bilaterally Eyes PERRL, EOMs intact bilaterally and conjunctivae normal Neck supple, no JVD, thyroid normal and no carotid bruits General: trachea midline Resp normal respiratory effort Auscultation: Scattered expiratory rhonchi were noted bilaterally, no expiratory wheezes were noted Cardio regular rate, regular rhythm, S1 normal heart sound, S2 normal heart sound, no murmurs, no rub and no gallops GI normal to inspection, nondistended, normoactive bowel sounds, soft to palpation, non-tender and non-distended Neuro oriented x3, CN's II-XII intact bilaterally, moves all extremities, no focal motor deficits and no sensory deficits noted Sensorium / Orientation: awake, alert, oriented to person, oriented to place and oriented to time Speech: speech normal Psych affect normal Patient was excepted at [facility] on 12/01/2021, he was transported there by ambulance in stable condition at that time. Weight / BMI Weight Weight: 108 kg Body Mass Index (BMI) 30.5 ABG / Lab / Microbiology Data Result Diagrams: 12/01/21 05:20 12/01/21 05:20 Laboratory: Laboratory Results - last 24 hr 11/30/21 06:52: Diff Path Review Reviewed 11/30/21 15:09: Sodium 140, Potassium 3.6, Chloride 107, Carbon Dioxide 24.0, Anion Gap 9, BUN 42 H, Creatinine 1.92 H, Estim Creat Clear Calc 49.95, Est GFR (MDRD) Af Amer 47 L, Est GFR (MDRD) Non-Af 39 L, BUN/Creatinine Ratio 21.9 H, Glucose 145 H, Calcium 8.1 L, Iron 81, TIBC 159 L, Iron Saturation 50.9, Ferritin 1579 H, Total Bilirubin 0.70, AST 16, ALT 29, Alkaline Phosphatase 65, Lactate Dehydrogenase 93, Total Protein 7.5, Albumin 1.3 L, Globulin 6.2 H, Albumin/Globulin Ratio 0.2 L, Folate 8.10 11/30/21 15:09: Direct Antiglob Test NEG w/POLYSPECIFIC 12/01/21 05:20: WBC 0.7 L*, RBC 2.65 L, Hgb 8.7 L, Hct 25.1 L, MCV 94.7 H, MCH 32.8 H, MCHC 34.7, RDW Std Deviation 57.1 H, RDW Coeff of Patricia 17.1 H, Plt Count 8 L*, MPV TNP, Immature Gran % (Auto) 1.400 H, Neut % (Auto) 34.4 L, Lymph % (Auto) 55.7 H, [place] % (Auto) 7.1, Eos % (Auto) 0.0, Baso % (Auto) 1.4 H, Absolute Neuts (auto) 0.2 L, Absolute Lymphs (auto) 0.39 L, Nucleated RBC % 0, Differential Comment SCANNED, Diff Path Review Reviewed, Platelet Estimate MKD DEC 12/01/21 05:20: Sodium 139, Potassium 3.6, Chloride 106, Carbon Dioxide 25.0, Anion Gap 8, BUN 56 H, Creatinine 2.17 H, Estim Creat Clear Calc 44.19, Est GFR (MDRD) Af Amer 41 L, Est GFR (MDRD) Non-Af 34 L, BUN/Creatinine Ratio 25.8 H, Glucose 158 H, Calcium 7.4 L Microbiology: Microbiology 11/30/21 13:30 Sputum, Expectorated/Coughed Gram Stain - Final 11/30/21 13:30 Sputum, Expectorated/Coughed Respiratory Culture - Preliminary GNR Poss Pseudomonas sp Staphylococcus aureus 11/29/21 23:23 Mucosa - Nasopharyngeal Respiratory Panel (PCR) - Final 11/29/21 14:50 Nasal Secretion SARS-CoV-2 Antigen (Rapid) - Final Radiography Diagnostic Testing: Radiology Impression Echocardiogram 11/30/21 05:55 Interpretation Summary The estimated ejection fraction is 55-60 %. No significant c hanges from recent study in 10/2021 Ordering Physician: Jonnie Alejandro Referring Physician: Guilherme Rueda M.D. Performed By: Vivien Giraldo RDCS Meaningful Use Info Meaningful Use Diagnoses (Choose all that apply): None applicable Discharge Plan Admission Admit Date/Time: 11/29/21 19:09 Attending Provider: Jonnie Alejandro Primary Care Provider: Dom Rueda Consulting Providers: Sukhjinder Rodriguez ; Adonis Hampton ; Raul Callaway ; Christiana Page ; Sukhjinder Ward ; Reyes Wilburn ; Marco Najera ; Zacarias Grossman ; Saida Burks BIOLOGICAL AIDE Discharge Orders/Prescriptions Prescriptions: No Action vancomycin 1.25 gram recon soln 1.25 g IV Q12H Qty: 76 0RF Rx Instructions: dx: MRSA bacteremia stop date 12/22/21 weekly bmp, cbc, and vanc trough. Fax to [phone] routine picc care with heparin/saline flush per protocol sennosides-docusate sodium [Stool Softener-Stimulant Laxat] 8.6-50 mg Tablet 2 tab PO BID PRN PRN (Reason: Constipation) 30 Days Qty: 60 0RF pantoprazole 40 mg Tablet,Delayed Release (Dr/Ec) 40 mg PO BID 30 Days Qty: 60 0RF ferrous sulfate [FeroSul] 325 mg (65 mg iron) Tablet 325 mg PO 1200,1700 30 Days Qty: 60 0RF Mucus Relief ER 1,200 mg Tablet Extended Release 12hr 1,200 mg PO BID 14 Days Qty: 28 0RF tramadol 50 mg Tablet 50 mg PO TID PRN PRN (Reason: Pain Score 6-10) 3 Days Qty: 9 0RF acetaminophen 500 mg Tablet 1,000 mg PO DAILY PRN (Reason: Pain) Referrals / Follow Up: Dom Rueda, DO [Primary Care Provider] - Disposition Disposition (needs filled in before D/C Order can be placed): [facility] Charges/Coding Visit Charges Inpatient E&M: 29410 Disch Hosp
[2021-12-02 13:06] LABS: Haptoglobin 511 mg/dL (29-370)
== END 2021-12-01 08:28 | disposition short-term general hospital (02) | DRG 288 ==
LOC: ED 18:56 → PCU 19:50
PROVIDERS: Nurse Practitioner Family; Admitting Provider Internal Medicine; Emergency Provider Emergency Medicine; PCP Family Medicine; Visit Provider Internal Medicine
DX: I33.0 Acute and subacute infective endocarditis (principal); J15.212 Pneumonia due to Methicillin resistant Staphylococcus aureus; E43 Unspecified severe protein-calorie malnutrition; R78.81 Bacteremia; B37.0 Candidal stomatitis; C91.41 Hairy cell leukemia, in remission; L97.922 Non-pressure chronic ulcer of unspecified part of left lower leg with fat layer exposed; D46.9 Myelodysplastic syndrome, unspecified; S81.802A Unspecified open wound, left lower leg, initial encounter; B95.62 Methicillin resistant Staphylococcus aureus infection as the cause of diseases classified elsewhere; Z80.1 Family history of malignant neoplasm of trachea, bronchus and lung; B37.9 Candidiasis, unspecified; Z87.891 Personal history of nicotine dependence; Z80.3 Family history of malignant neoplasm of breast; Z90.81 Acquired absence of spleen; Z20.822 Contact with and (suspected) exposure to COVID-19; Z92.21 Personal history of antineoplastic chemotherapy; R06.00 Dyspnea, unspecified
CPT/HCPCS: 36415; 71045; 80048; 80053; 80202; 82607; 82728; 82746; 83010; 83540; 83550; 83605; 83615; 83880; 84484; 85025; 85045; 85379; 85610; 86850; 86880; 86900; 86901; 86920; 86922; 87040; 87070; 87077; 87186; 87205; 87633; 87811; 92610; 93005; 93308; 93970; 97802; 99284; 99406; J0878; J7050; P9016; A4216; J1940; J3490